=== PATIENT | female | born 1950 | race Caucasian/White ===

== ENCOUNTER 2017-02-06 18:28 | Emergency (ER) | payer MEDICARE, MEDICAID ==
--- NOTE | 2017-02-06 19:09 | EDM.PDOC ---
ED HPI GENERAL MEDICAL PROBLEM - General Chief Complaint: Chest Pain Stated Complaint: TROUBLE BREATHING/CHEST PAIN Time Seen by Provider: 02/06/17 19:02 Source of Information: Reports: Patient History Limitations: Reports: No limitations - History of Present Illness INITIAL COMMENTS - FREE TEXT/NARRATIVE: HISTORY AND PHYSICAL: History of present illness: Patient is a 67-year-old handicapped female that presents with her roving teller for concerns about possible bronchitis or pneumonia. For the last couple of days she has been having chest pain, a very deep, non productive cough that usually ends in "spitting up" and shortness of breath. She has history of chronic bronchitis but no other lung or breathing complications. She has duo- nebs at home and used one about 5 o'clock. Patient does not really give any history. [employer] states her mental status is at baseline. Review of systems: As per history of present illness and below otherwise all systems reviewed and negative. Past medical history: As per history of present illness and as reviewed below otherwise noncontributory. Surgical history: As per history of present illness and as reviewed below otherwise noncontributory. Social history: No reported history of drug or alcohol abuse. Family history: As per history of present illness and as reviewed below otherwise noncontributory. Physical exam: HEENT: Atraumatic, normocephalic, pupils reactive, mild conjunctival discharge. Moist mucous membranes. Normal oropharynx. Supple neck without lymphadenopathy. Lungs: Poor inspiratory and expiratory effort but lung sounds appear clear. Heart: Regular rate and rhythm. Abdomen: Soft, nondistended, no apparent tenderness. Pelvis: Stable nontender. Genitourinary: Deferred. Rectal: Deferred. Extremities: Atraumatic, no edema. Neurovascular unremarkable. Neuro: Awake, alert, no focal deficits. Baseline per caretakers. Diagnostics: cbc, cmp, chest xray Therapeutics: duoneb Impression: Bronchitis Plan: Patient's sats were 92 on room air. She was put on oxygen during the duration of her stay and had a duo neb in the beginning. X-rays were negative as well as normal blood work. She didn't seem to be working excessively hard to breathe but did have a dry cough intermittently while she was here. At her current oxygen and she stated about 91-92% but bounced up to 96% after a good cough. She was afebrile here. She has an appointment with her doctor tomorrow morning. I do not think she needs steroids or antibiotics for these symptoms and I do not think she needs to be admitted, especially because she has this appointment tomorrow. Her roving teller was comfortable with the plan but wanted us to do one more breathing treatment before she went home. Definitive disposition and diagnosis as appropriate pending reevaluation and review of above. - Related Data Allergies Allergy/AdvReac Type Severity Reaction Status Date / Time dexamethasone [From TobraDex] Allergy Rash Verified 02/06/17 18:48 Sulfa (Sulfonamide Allergy Rash Verified 02/06/17 18:48 Antibiotics) tobramycin [From TobraDex] Allergy Rash Verified 02/06/17 18:48 Home Meds: Home Meds B- Calcium 600 mg PO BID 11/01/16 [History] Calcium Carbonate/Vitamin D3 [Calcium 600 + Vit D Softgel] 1 tab PO BID [History] Levothyroxine 75 mcg PO DAILY 11/01/16 [History] Levothyroxine [Synthroid] 50 mcg PO DAILY 11/01/16 [History] Loratadine 10 mg PO DAILY 11/01/16 [History] Losartan/Hydrochlorothiazide [Losartan-HCTZ 100-25 MG] 1 tab PO DAILY 11/01/16 [ History] Montelukast [Singulair] 10 mg PO DAILY 11/01/16 [History] Multivitamin [Daily Multiple Vitamin] 1 tab PO DAILY 11/01/16 [History] Verapamil HCl [Verapamil Sr] 240 mg PO DAILY 11/01/16 [History] atorvaSTATin [Lipitor] 10 mg PO ONETIME 11/01/16 [History] levETIRAcetam [Keppra] 500 mg PO BID 11/01/16 [History] Past Medical History HEENT History: Reports: Cataract, Hard of hearing, Other (see below) 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 Cardiovascular History: Reports: Hypertension Musculoskeletal History: Reports: Other (see below) Other Musculoskeletal History: Right Tennis Elbow Endocrine/Metabolic History: Reports: Hypothyroidism - Past Surgical History HEENT Surgical History: Reports: Cataract surgery, Other (see below) Other HEENT Surgeries/Procedures: nasal septal reconstruction; eye abscess surgery GI Surgical History: Reports: Colonoscopy Dermatological Surgical History: Reports: Other (see below) Social & Family History - Family History Family Medical History: Unobtainable - Tobacco Use Smoking Status *Q: Never Smoker - Caffeine Use Caffeine Use: Reports: Tea Other Caffeine Use: not able answer - Recreational Drug Use Recreational Drug Use: No ED ROS GENERAL - Review of Systems Review Of Systems: ROS reveals no pertinent complaints other than HPI. ED EXAM, GENERAL - Physical Exam Exam: See Below (See history of present illness) Course - Vital Signs Last Recorded V/S: Last Vital Signs Temp 37.5 C 02/06/17 21:28 Pulse 90 02/06/17 21:28 Resp 19 02/06/17 21:28 BP 143/51 H 02/06/17 21:28 Pulse Ox 94 L 02/06/17 21:28 - Orders/Labs/Meds Orders: Active Orders 24 hr Category Date Time Status EKG Documentation Completion [RC] STAT Care 02/06/17 18:53 Active RT Aerosol Therapy [RC] ASDIRECTED Care 02/06/17 19:09 Ordered RT Aerosol Therapy [RC] ASDIRECTED Care 02/06/17 21:47 Ordered Chest 2V [CR] Stat Exams 02/06/17 19:09 Ordered Labs: Laboratory Tests 02/06/17 02/06/17 Range/Units 19:25 19:25 WBC 7.46 (4.0-11.0) K/uL RBC 4.30 (4.30-5.90) M/uL Hgb 13.6 (12.0-16.0) g/dL Hct 40.9 (36.0-46.0) % MCV 95.1 (80.0-98.0) fL MCH 31.6 (27.0-32.0) pg MCHC 33.3 (31.0-37.0) g/dL RDW Std Deviation 45.6 (28.0-62.0) fl RDW Coeff of Leonel 13 (11.0-15.0) % Plt Count 186 (150-400) K/uL MPV 9.70 (7.40-12.00) fL Neut % (Auto) 68.7 (48.0-80.0) % Lymph % (Auto) 20.2 (16.0-40.0) % Winn % (Auto) 10.3 (0.0-15.0) % Eos % (Auto) 0.3 (0.0-7.0) % Baso % (Auto) 0.5 (0.0-1.5) % Neut # (Auto) 5.1 (1.4-5.7) K/uL Lymph # (Auto) 1.5 (0.6-2.4) K/uL Winn # (Auto) 0.8 (0.0-0.8) K/uL Eos # (Auto) 0.0 (0.0-0.7) K/uL Baso # (Auto) 0.0 (0.0-0.1) K/uL Nucleated RBC % 0.0 /100WBC Nucleated RBCs # 0 K/uL Sodium 143 (136-146) mmol/L Potassium 4.0 (3.5-5.1) mmol/L Chloride 108 (98-110) mmol/L Carbon Dioxide 25 (21-31) mmol/L BUN 17 (6.0-23.0) mg/dL Creatinine 0.8 (0.6-1.5) mg/dL Est Cr Clr Drug Dosing 48.34 mL/min Estimated GFR (MDRD) > 60.0 ml/min Glucose 92 (60-110) mg/dL Calcium 9.6 (8.8-10.8) mg/dL Total Bilirubin 0.6 (0.1-1.5) mg/dL AST 42 H (5-40) IU/L ALT 32 (8-54) IU/L Alkaline Phosphatase 94 (40-150) Total Protein 7.7 (6.0-8.0) g/dL Albumin 4.0 (3.4-4.8) g/dL Globulin 3.7 H (2.0-3.5) g/dL Albumin/Globulin Ratio 1.1 L (1.3-2.8) Meds: Medications Discontinued Medications Generic Name Dose Route Start Last Admin Trade Name Freq PRN Reason Stop Dose Admin Albuterol/Ipratropium 3 ml 02/06/17 19:09 02/06/17 19:36 Duoneb 3.0-0.5 Mg/3 Ml NEB 02/06/17 19:10 3 ml ONETIME ONE Administration Albuterol/Ipratropium 3 ml 02/06/17 21:46 Duoneb 3.0-0.5 Mg/3 Ml NEB 02/06/17 21:47 ONETIME ONE Departure - Departure Time of Disposition: 21:54 Disposition: Home, Self-Care 01 Condition: good Clinical Impression: Bronchitis Forms: ED Department Discharge Additional Instructions: The following information is given to patients seen in the emergency department who are being discharged to home. This information is to outline your options for follow-up care. We provide all patients seen in our emergency department with a follow-up referral. The need for follow-up, as well as the timing and circumstances, are variable depending upon the specifics of your emergency department visit. If you don't have a primary care physician on staff, we will provide you with a referral. We always advise you to contact your personal physician following an emergency department visit to inform them of the circumstance of the visit and for follow-up with them and/or the need for any referrals to a consulting specialist. The emergency department will also refer you to a specialist when appropriate. This referral assures that you have the opportunity for follow-up care with a specialist. All of these measure are taken in an effort to provide you with optimal care, which includes your follow-up. Under all circumstances we always encourage you to contact your private physician who remains a resource for coordinating your care. When calling for follow-up care, please make the office aware that this follow-up is from your recent emergency room visit. If for any reason you are refused follow-up, please contact the [facility] Emergency Department at and asked to speak to the emergency department charge nurse. Followup with your primary care doctor as scheduled tomorrow. Return to the ED before that if any of your symptoms worsen significantly. - My Orders Last 24 Hours: My Active Orders 02/06/17 18:53 EKG Documentation Completion [RC] STAT 02/06/17 19:09 RT Aerosol Therapy [RC] ASDIRECTED Chest 2V [CR] Stat 02/06/17 21:47 RT Aerosol Therapy [RC] ASDIRECTED - Assessment/Plan Last 24 Hours: My Active Orders 02/06/17 18:53 EKG Documentation Completion [RC] STAT 02/06/17 19:09 RT Aerosol Therapy [RC] ASDIRECTED Chest 2V [CR] Stat 03/22/17 21:47 RT Aerosol Therapy [RC] ASDIRECTED
[2017-02-06] MEDS: Albuterol/Ipratropium 3.0-0.5 MG/3 ML Neb Soln NEB ONE ×2 (19:36→21:52)
[2017-02-06 20:03] LABS: CHLORIDE,CL 108 mmol/L (98-110); SODIUM,NA 143 mmol/L (136-146)
[2017-02-06 22:25] VITALS: BP 155/59
--- NOTE | 2017-02-07 13:38 | CR ---
EXAM DATE: 02/06/17 PATIENT'S AGE: 67 Patient: HILARIO WHITING Facility: [place], [place] Site . Site : 1950 Study: XRay Chest [id number]/22/2017 8:32:08 PM Ordering Physician: Doctor Hunter Final Report: INDICATION: COUGH, DYSPNEA TECHNIQUE: Chest 2 views COMPARISON: November 01, 2016. FINDINGS: Cardiovascular and mediastinum: Heart size and vasculature are normal in caliber and appearance. Mediastinum is within normal limits. Lungs and pleural spaces: No focal consolidation. No sign of pleural effusion. No pneumothorax. Bones and soft tissues: Degenerative changes. IMPRESSION: No acute cardiopulmonary disease. Dictated by Jeffery Wilcox MD @ 02/06/2017 9:13:36 PM Dictated by: Jeffery Wilcox MD @ 02/06/2017 21:13:40 (Electronic Signature) Report Signed by Proxy and Original Signed Document filed in the Medical Record. [facility]
== END 2017-02-06 22:15 | disposition home or self-care (01) ==
LOC: MW.ED 18:28
DX: J40 Bronchitis, not specified as acute or chronic (principal); I10 Essential (primary) hypertension; E03.9 Hypothyroidism, unspecified; Z88.1 Allergy status to other antibiotic agents; Z88.2 Allergy status to sulfonamides; Z88.8 Allergy status to other drugs, medicaments and biological substances; Z79.899 Other long term (current) drug therapy; Z98.49 Cataract extraction status, unspecified eye; Z98.890 Other specified postprocedural states
CPT/HCPCS: 36415; 71020; 71020-26; 80053; 85025; 93005; 94640; 94664; 99284; 99285-25

== ENCOUNTER 2017-11-22 11:26 | Emergency (ER) | payer MEDICARE, MEDICAID ==
--- NOTE | 2017-11-22 12:55 | CR ---
EXAMINATION: Two-view chest (PA and Lateral views). HISTORY: Cough. FINDINGS: The trachea is midline. The cardiomediastinal silhouette is within normal limits. There is likely mil d basilar atelectasis and/or infiltrate. No pleural effusion. Advanced osteophytic changes noted within the right glenohumeral joint. IMPRESSION: Mild left basilar atelectasis/infiltrate.
--- NOTE | 2017-11-22 13:05 | EDM.PDOC ---
ED HPI GENERAL MEDICAL PROBLEM - General Chief Complaint: Respiratory Problem Stated Complaint: COUTH Time Seen by Provider: 11/22/17 11:30 Source of Information: Reports: Patient History Limitations: Reports: No Limitations - History of Present Illness INITIAL COMMENTS - FREE TEXT/NARRATIVE: History of present illness: [67-year-old female brought in by care provider secondary to concerns of a worsening cough. Patient was immunized for influenza but she has been exposed to people at her work that were also immunized with influenza and tested positive. Turned that patient is in immunization failure.] Review of systems: As per history of present illness and below otherwise all systems reviewed and negative. Past medical history: As per history of present illness and as reviewed below otherwise noncontributory. Surgical history: As per history of present illness and as reviewed below otherwise noncontributory. Social history: No reported history of drug or alcohol abuse. Family history: As per history of present illness and as reviewed below otherwise noncontributory. Physical exam: HEENT: Atraumatic, normocephalic, pupils reactive, negative for conjunctival pallor or scleral icterus, mucous membranes moist, throat clear, neck supple, nontender, trachea midline. Lungs: Clear to auscultation, breath sounds equal bilaterally, chest nontender. Heart: S1S2, regular, negative for clicks, rubs, or JVD. Abdomen: Soft, nondistended, nontender. Negative for masses or hepatosplenomegaly. Negative for costovertebral tenderness. Pelvis: Stable nontender. Genitourinary: Deferred. Rectal: Deferred. Extremities: Atraumatic, negative for cords or calf pain. Neurovascular unremarkable. Neuro: Awake, alert, oriented. Cranial nerves II through XII unremarkable. Cerebellum unremarkable. Motor and sensory unremarkable throughout. Exam nonfocal. Diagnostics: [Influenza AB, chest x-ray] Therapeutics: [] Impression: [Influenza a] Plan: [Palliative care support continue with med [facility]] Definitive disposition and diagnosis as appropriate pending reevaluation and review of above. body aches Pain Score (Numeric/FACES): 4 - Related Data Allergies Allergy/AdvReac Type Severity Reaction Status Date / Time dexamethasone [From TobraDex] Allergy Rash Verified 11/22/17 11:44 Sulfa (Sulfonamide Allergy Rash Verified 11/22/17 11:44 Antibiotics) tobramycin [From TobraDex] Allergy Rash Verified 11/22/17 11:44 Home Meds: Home Meds B- Calcium 600 mg PO BID 11/01/16 [History] Calcium Carbonate/Vitamin D3 [Calcium 600 + Vit D Softgel] 1 tab PO BID [History] Levothyroxine 75 mcg PO DAILY 11/01/16 [History] Levothyroxine [Synthroid] 50 mcg PO DAILY 11/01/16 [History] Loratadine 10 mg PO DAILY 11/01/16 [History] Losartan/Hydrochlorothiazide [Losartan-HCTZ 100-25 MG] 1 tab PO DAILY 11/01/16 [ History] Montelukast [Singulair] 10 mg PO BEDTIME 11/01/16 [History] Multivitamin [Daily Multiple Vitamin] 1 tab PO DAILY 11/01/16 [History] Verapamil HCl [Verapamil Sr] 240 mg PO DAILY 11/01/16 [History] atorvaSTATin [Lipitor] 10 mg PO DAILY 11/01/16 [History] levETIRAcetam [Keppra] 500 mg PO BID 11/01/16 [History] Past Medical History HEENT History: Reports: Cataract, Hard of Hearing, Other (See Below) 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 Cardiovascular History: Reports: Hypertension Musculoskeletal History: Reports: Other (See Below) Other Musculoskeletal History: Right Tennis Elbow Endocrine/Metabolic History: Reports: Hypothyroidism - Past Surgical History HEENT Surgical History: Reports: Cataract Surgery, Other (See Below) GI Surgical History: Reports: Colonoscopy Dermatological Surgical History: Reports: Other (See Below) Social & Family History - Family History Family Medical History: Unobtainable - Tobacco Use Smoking Status *Q: Never Smoker - Caffeine Use Caffeine Use: Reports: None Other Caffeine Use: not able answer - Recreational Drug Use Recreational Drug Use: No ED ROS GENERAL - Review of Systems Review Of Systems: See Below (History of present illness) ED EXAM, GENERAL - Physical Exam Exam: See Below (See history of present illness) Course - Vital Signs Last Recorded V/S: Last Vital Signs Temp 37.7 C 11/22/17 11:46 Pulse 72 11/22/17 11:46 Resp 18 11/22/17 11:46 BP 135/37 L 11/22/17 11:46 Pulse Ox 94 L 11/22/17 11:46 Departure - Departure Time of Disposition: 13:05 Disposition: Home, Self-Care 01 Condition: Good Clinical Impression: Bronchitis, Influenza - Discharge Information Instructions: Acute Bronchitis, [id number] Referrals: PCP,None [Primary Care Provider] - Additional Instructions: The following information is given to patients seen in the emergency department who are being discharged to home. This information is to outline your options for follow-up care. We provide all patients seen in our emergency department with a follow-up referral. The need for follow-up, as well as the timing and circumstances, are variable depending upon the specifics of your emergency department visit. If you don't have a primary care physician on staff, we will provide you with a referral. We always advise you to contact your personal physician following an emergency department visit to inform them of the circumstance of the visit and for follow-up with them and/or the need for any referrals to a consulting specialist. The emergency department will also refer you to a specialist when appropriate. This referral assures that you have the opportunity for follow-up care with a specialist. All of these measure are taken in an effort to provide you with optimal care, which includes your follow-up. Under all circumstances we always encourage you to contact your private physician who remains a resource for coordinating your care. When calling for follow-up care, please make the office aware that this follow-up is from your recent emergency room visit. If for any reason you are refused follow-up, please contact the [facility] Emergency Department at and asked to speak to the emergency department charge nurse. Continue with med nebulizer as discussed Encourage deep breathing and coughing Provide hydration and palliative support and care WITH primary care in 2-3 days Return to ED as needed as discussed
[2017-11-22 13:16] VITALS: BP 127/31
== END 2017-11-22 13:13 | disposition home or self-care (01) ==
LOC: MW.ED 11:26
DX: J10.1 Influenza due to other identified influenza virus with other respiratory manifestations (principal); J40 Bronchitis, not specified as acute or chronic; I10 Essential (primary) hypertension; E03.9 Hypothyroidism, unspecified; Z79.899 Other long term (current) drug therapy; Z88.1 Allergy status to other antibiotic agents; Z88.2 Allergy status to sulfonamides; Z88.8 Allergy status to other drugs, medicaments and biological substances
CPT/HCPCS: 71046; 71046-26; 87804; 99283; 99285

== ENCOUNTER 2017-11-26 13:51 | Inpatient (IN) | payer MEDICARE, MEDICAID ==
[2017-11-26] MEDS ORDERED: Ondansetron 4 MG/2 ML SDV IVPUSH PRN (14:01)
[2017-11-26] MEDS: Oseltamivir 75 MG Cap PO SCH ×2 (14:39→21:11)
[2017-11-26] MEDS: Sodium Chloride 0.9% 1,000 ML IV SCH ×2 (14:40→20:22)
[2017-11-26] MEDS: Levofloxacin/Dextrose 5%-Water 750 MG in Premix Bag 1 BAG IV SCH (14:40)
--- NOTE | 2017-11-26 14:43 | CR ---
EXAMINATION: Portable chest radiograph. HISTORY: Hypoxia. FINDINGS: The trachea is midline. The cardiomediastinal silhouette is within normal limits. No pulmonary infilt rates, effusions or pneumothorax. Mild chronic interstitial prominence. 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 IMPRESSION: No acute cardiopulmonary process.
[2017-11-26] MEDS ORDERED: Lactated Ringers 1,000 ML IV SCH (14:45)
[2017-11-26] MEDS ORDERED: Potassium Chloride 20 MEQ Tab.ER PO ONE (15:33)
--- NOTE | 2017-11-26 15:39 | PCM.HP ---
H&P History of Present Illness - General Admit Problem/Dx: Admission Diagnosis/Problem Admission Diagnosis/Problem Pneumonia - History of Present Illness Initial Comments - Free Text/Narative: 67 yo female with pmh of hypothyroidsim, hypertension, mental retardation who is a resident at [facility]. She was seen in the ER last week for cough and generalized weakness. She was influenza A positive. She was not started on tamiflu. She did improve slightly but today became more lethargic with worsening cough. She followed up at [facility] and found to be satting mid 70s on RA and requring 4 Liters of O2 via face mask to keep sats above 90. BP was 110/20. Direct admission was arranged. CXR does not show any focal consolidation. - Related Data Allergies/Adverse Reactions: Allergies Allergy/AdvReac Type Severity Reaction Status Date / Time dexamethasone [From TobraDex] Allergy Rash Verified 11/22/17 11:44 Sulfa (Sulfonamide Allergy Rash Verified 11/22/17 11:44 Antibiotics) tobramycin [From TobraDex] Allergy Rash Verified 11/22/17 11:44 Home Medications: Home Meds B- Calcium 600 mg PO BID 11/01/16 [History] Calcium Carbonate/Vitamin D3 [Calcium 600 + Vit D Softgel] 1 tab PO BID [History] Levothyroxine 150 mcg PO ACBREAKFAST 11/01/16 [History] Loratadine 10 mg PO DAILY 11/01/16 [History] Losartan/Hydrochlorothiazide [Losartan-HCTZ 100-25 MG] 1 tab PO DAILY 11/01/16 [ History] Montelukast [Singulair] 10 mg PO BEDTIME 11/01/16 [History] Multivitamin [Daily Multiple Vitamin] 1 tab PO DAILY 11/01/16 [History] atorvaSTATin [Lipitor] 10 mg PO DAILY 11/01/16 [History] levETIRAcetam [Keppra] 500 mg PO BID 11/01/16 [History] Verapamil HCl [Verapamil ER PM] 300 mg PO BEDTIME 11/26/17 [History] Past Medical History HEENT History: Reports: Cataract, Hard of Hearing, Other (See Below) 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 Cardiovascular History: Reports: Hypertension Musculoskeletal History: Reports: Other (See Below) Other Musculoskeletal History: Right Tennis Elbow Neurological History: Reports: None Endocrine/Metabolic History: Reports: Hypothyroidism Dermatologic History: Reports: None - Past Surgical History HEENT Surgical History: Reports: Cataract Surgery, Other (See Below) GI Surgical History: Reports: Colonoscopy Neurological Surgical History: Reports: None Oncologic Surgical History: Reports: Biopsy of Breast Dermatological Surgical History: Reports: Other (See Below) Social & Family History - Family History Family Medical History: Unobtainable : Reports: None OBGYN: Reports: None - Tobacco Use Smoking Status *Q: Never Smoker Second Hand Smoke Exposure: No - Caffeine Use Caffeine Use: Reports: None Other Caffeine Use: not able answer - Recreational Drug Use Recreational Drug Use: No H&P Review of Systems - Review of Systems: Review Of Systems: Unable To Obtain Exam - Exam Exam: See Below - Vital Signs Vital Signs: Last Vital Signs Temp 36.8 C 11/26/17 14:01 Pulse 50 L 11/26/17 14:01 Resp 18 11/26/17 14:01 BP 84/37 L 11/26/17 14:01 Pulse Ox 97 11/26/17 14:01 Weight: 66 kg - Exam General: No: Mild Distress HEENT: Mucosa Moist & [place] Neck: Supple. No: JVD Lungs: Decreased Breath Sounds, Rhonchi Cardiovascular: Regular Rate, Regular Rhythm GI/Abdominal Exam: Soft, Non-Tender Extremities: No Pedal Edema Skin: Warm, Dry, Intact Neurological: No: Focal Deficit - Patient Data Lab Results Last 24 hrs: Laboratory Results - last 24 hr 11/26/17 11/26/17 11/26/17 Range/Units 14:35 14:35 14:35 WBC 7.69 (4.0-11.0) K/uL RBC 4.01 L (4.30-5.90) M/uL Hgb 12.4 (12.0-16.0) g/dL Hct 36.6 (36.0-46.0) % MCV 91.3 (80.0-98.0) fL MCH 30.9 (27.0-32.0) pg MCHC 33.9 (31.0-37.0) g/dL RDW Std Deviation 41.6 (28.0-62.0) fl RDW Coeff of Leonel 12 (11.0-15.0) % Plt Count 162 (150-400) K/uL MPV 10.80 (7.40-12.00) fL Neut % (Auto) 75.0 (48.0-80.0) % Lymph % (Auto) 12.9 L (16.0-40.0) % [place] % (Auto) 12.0 (0.0-15.0) % Eos % (Auto) 0.0 (0.0-7.0) % Baso % (Auto) 0.1 (0.0-1.5) % Neut # (Auto) 5.8 H (1.4-5.7) K/uL Lymph # (Auto) 1.0 (0.6-2.4) K/uL [place] # (Auto) 0.9 H (0.0-0.8) K/uL Eos # (Auto) 0.0 (0.0-0.7) K/uL Baso # (Auto) 0.0 (0.0-0.1) K/uL Nucleated RBC % 0.0 /100WBC Nucleated RBCs # 0 K/uL Lactate (0.20-2.00) mmol/L Sodium 139 (136-146) mmol/L Potassium 3.4 L (3.5-5.1) mmol/L Chloride 102 (98-110) mmol/L Carbon Dioxide 27 (21-31) mmol/L BUN 35 H (6.0-23.0) mg/dL Creatinine 1.2 (0.6-1.5) mg/dL Est Cr Clr Drug Dosing 32.23 mL/min Estimated GFR (MDRD) 44.7 ml/min Glucose 99 (60-110) mg/dL Calcium 9.4 (8.8-10.8) mg/dL Phosphorus 2.7 (2.4-4.7) mg/dL Magnesium 1.5 (1.5-2.3) mEq/L Total Bilirubin 0.5 (0.1-1.5) mg/dL AST 24 (5-40) IU/L ALT 18 (8-54) IU/L Alkaline Phosphatase 86 (40-150) Total Protein 6.2 (6.0-8.0) g/dL Albumin 3.2 L (3.4-4.8) g/dL Globulin 3.0 (2.0-3.5) g/dL Albumin/Globulin Ratio 1.1 L (1.3-2.8) 11/26/17 Range/Units 14:35 WBC (4.0-11.0) K/uL RBC (4.30-5.90) M/uL Hgb (12.0-16.0) g/dL Hct (36.0-46.0) % MCV (80.0-98.0) fL MCH (27.0-32.0) pg MCHC (31.0-37.0) g/dL RDW Std Deviation (28.0-62.0) fl RDW Coeff of Leonel (11.0-15.0) % Plt Count (150-400) K/uL MPV (7.40-12.00) fL Neut % (Auto) (48.0-80.0) % Lymph % (Auto) (16.0-40.0) % [place] % (Auto) (0.0-15.0) % Eos % (Auto) (0.0-7.0) % Baso % (Auto) (0.0-1.5) % Neut # (Auto) (1.4-5.7) K/uL Lymph # (Auto) (0.6-2.4) K/uL [place] # (Auto) (0.0-0.8) K/uL Eos # (Auto) (0.0-0.7) K/uL Baso # (Auto) (0.0-0.1) K/uL Nucleated RBC % /100WBC Nucleated RBCs # K/uL Lactate 1.4 (0.20-2.00) mmol/L Sodium (136-146) mmol/L Potassium (3.5-5.1) mmol/L Chloride (98-110) mmol/L Carbon Dioxide (21-31) mmol/L BUN (6.0-23.0) mg/dL Creatinine (0.6-1.5) mg/dL Est Cr Clr Drug Dosing mL/min Estimated GFR (MDRD) ml/min Glucose (60-110) mg/dL Calcium (8.8-10.8) mg/dL Phosphorus (2.4-4.7) mg/dL Magnesium (1.5-2.3) mEq/L Total Bilirubin (0.1-1.5) mg/dL AST (5-40) IU/L ALT (8-54) IU/L Alkaline Phosphatase (40-150) Total Protein (6.0-8.0) g/dL Albumin (3.4-4.8) g/dL Globulin (2.0-3.5) g/dL Albumin/Globulin Ratio (1.3-2.8) Result Diagrams: 11/26/17 14:35 11/26/17 20:15 [place] Results Last 24 hrs: Microbiology 11/26/17 14:35 Anaerobic Blood Culture - Final Blood - Venous - Lab Draw *Q Meaningful Use (ADM) - VTE *Q VTE Criteria *Q: - Stroke *Q Stroke Criteria *Q: - AMI *Q AMI Criteria *Q: Problem List Initiated/Reviewed/Updated: Yes Orders Last 24hrs: Active Orders 24 hr Category Date Time Status Patient Status [ADT] Routine ADT 11/26/17 14:01 Active Antiembolic Devices [RC] PER UNIT ROUTINE Care 11/26/17 14:03 Active Cardiac Monitoring [RC] . DIRECTED Care 11/26/17 14:05 Active VTE/DVT Education [RC] PER UNIT ROUTINE Care 11/26/17 14:01 Active Vital Signs [RC] Q4H Care 11/26/17 14:01 Active Regular Diet [DIET] Diet 11/26/17 Breakfast Active CULTURE BLOOD [BC] Stat Lab 11/26/17 14:05 Ordered CULTURE BLOOD [BC] Stat Lab 11/26/17 14:05 Ordered CULTURE SPUTUM + SMEAR [RM] Routine Lab 11/26/17 14:20 Uncollected CULTURE URINE [RM] Routine Lab 11/26/17 14:20 Uncollected UA W/MICROSCOPIC [URIN] Stat Lab 11/26/17 14:03 Uncollected Acetaminophen [Tylenol] Med 11/26/17 14:01 Active 650 mg PO Q4H PRN Albuterol/Ipratropium [DuoNeb 3.0-0.5 MG/3 ML] Med 11/26/17 14:01 Active 3 ml NEB Q4HRRT PRN Enoxaparin [Lovenox] Med 11/27/17 09:00 Active 40 mg SUBCUT DAILY Lactated Ringers [Ringers, Lactated] 1,000 ml Med 11/26/17 14:45 Active IV ASDIRECTED Levofloxacin/Dextrose 5%-Water [Levaquin in D5W 750 MG/ Med 11/26/17 15:00 Active 150 ML] 750 mg Premix Bag 1 bag IV Q24H Levothyroxine Med 11/27/17 07:30 Ordered 150 mcg PO ACBREAKFAST Montelukast [Singulair] Med 11/26/17 21:00 Ordered 10 mg PO BEDTIME Ondansetron [Zofran] Med 11/26/17 14:01 Active 4 mg IVPUSH Q4H PRN Oseltamivir [Tamiflu] Med 11/26/17 14:00 Active 75 mg PO BID Potassium Chloride [Klor-Con M20] Med 11/26/17 15:33 Once 40 meq PO ONETIME ONE Sodium Chloride 0.9% [Normal Saline] 1,000 ml Med 11/26/17 14:15 Active IV ASDIRECTED Sodium Chloride 0.9% [Normal Saline] 500 ml Med 11/26/17 15:45 Ordered IV .BOLUS atorvaSTATin [Lipitor] Med 11/27/17 09:00 Ordered 10 mg PO DAILY levETIRAcetam [Keppra] Med 11/26/17 21:00 Ordered 500 mg PO BID Blood Culture x2 Reflex Set [OM.PC] Stat Oth 11/26/17 14:01 Ordered Sequential Compression Device [OM.PC] Routine Oth 11/26/17 14:01 Ordered Resuscitation Status Routine Resus Stat 11/26/17 14:01 Ordered Medication Orders Acetaminophen (Tylenol) 650 mg PO Q4H PRN PRN Reason: Pain Albuterol/Ipratropium (Duoneb 3.0-0.5 Mg/3 Ml) 3 ml NEB Q4HRRT PRN PRN Reason: Shortness of Breath/Wheezing Atorvastatin Calcium (Lipitor) 10 mg PO DAILY [facility] Enoxaparin Sodium (Lovenox) 40 mg SUBCUT DAILY [facility] Sodium Chloride (Normal Saline) 1,000 mls @ 125 mls/hr IV ASDIRECTED [facility]IK Last Admin: 11/26/17 14:40 Dose: 125 mls/hr Levofloxacin/Dextrose 750 mg/ (Premix) 150 mls @ 100 mls/hr IV Q24H [facility] Last Admin: 11/26/17 14:40 Dose: 100 mls/hr Lactated Ringer's (Ringers, Lactated) 1,000 mls @ 999 mls/hr IV ASDIRECTED [facility] Stop: 11/26/17 15:46 Last Admin: 11/26/17 13:51 Dose: 999 mls/hr Sodium Chloride (Normal Saline) 500 mls @ 500 mls/hr IV .BOLUS MALIK Levetiracetam (Keppra) 500 mg PO BID [facility] Levothyroxine Sodium (Levothyroxine) 150 mcg PO ACBREAKFAST [facility] Montelukast Sodium (Singulair) 10 mg PO BEDTIME [facility] Ondansetron HCl (Zofran) 4 mg IVPUSH Q4H PRN PRN Reason: Nausea/Vomiting Oseltamivir Phosphate (Tamiflu) 75 mg PO BID [facility] Last Admin: 11/26/17 14:39 Dose: 75 mg Assessment/Plan Comment:: 67 yo female admitted for influenza, CXR clear but symptoms suggestive of pneumonia. Pneumonia: Will treat with levaquin, tamiflu. cultures are pending Borderline low blood pressures: lactic acid normal, continue IV fluid resuscitation and hold antihypertensive medications.
[2017-11-26] MEDS ORDERED: Sodium Chloride 0.9% 500 ML IV SCH (15:45)
[2017-11-26] MEDS: Montelukast 10 MG Tab PO SCH (20:19)
[2017-11-26] MEDS: Acetaminophen 325 MG Tab PO PRN (20:19)
[2017-11-26] MEDS: levETIRAcetam 500 MG Tab PO SCH (20:19)
[2017-11-26] MEDS ORDERED: Magnesium Sulfate/Water 2 GM in Premix Bag 1 BAG IV ONE (21:55)
[2017-11-27] MEDS: Sodium Chloride 0.9% 1,000 ML IV SCH ×2 (05:05→14:43)
[2017-11-27] MEDS: Levothyroxine 150 MCG Tab PO SCH (06:33)
[2017-11-27] MEDS: Oseltamivir 75 MG Cap PO SCH ×2 (09:22→21:21)
[2017-11-27] MEDS: Enoxaparin 40 MG/0.4 ML Syringe SUBCUT SCH (09:22)
[2017-11-27] MEDS: atorvaSTATin 10 MG Tab PO SCH (09:22)
[2017-11-27] MEDS: levETIRAcetam 500 MG Tab PO SCH ×2 (09:27→21:21)
--- NOTE | 2017-11-27 09:43 | PCM.PN ---
- General Info Date of Service: 11/27/17 Admission Dx/Problem (Free Text): Admission Diagnosis/Problem Admission Diagnosis/Problem Pneumonia Subjective Update: no overnight events Functional Status: Reports: Tolerating Diet - Review of Systems Systems Review Comment:: unable to obtain due to history of mental retardation - Patient Data Vitals - Most Recent: Last Vital Signs Temp 36.6 C 11/27/17 04:00 Pulse 55 L 11/27/17 04:00 Resp 22 H 11/27/17 04:00 BP 100/50 L 11/27/17 04:00 Pulse Ox 94 L 11/27/17 04:00 Weight - Most Recent: 66 kg I&O - Last 24 Hours: Intake & Output 11/26/17 11/27/17 11/27/17 22:59 06:59 14:59 Intake Total 1870 1450 Output Total 800 Balance 1870 650 Lab Results Last 24 Hours: Laboratory Results - last 24 hr 11/26/17 11/26/17 11/26/17 Range/Units 14:35 14:35 14:35 WBC 7.69 (4.0-11.0) K/uL RBC 4.01 L (4.30-5.90) M/uL Hgb 12.4 (12.0-16.0) g/dL Hct 36.6 (36.0-46.0) % MCV 91.3 (80.0-98.0) fL MCH 30.9 (27.0-32.0) pg MCHC 33.9 (31.0-37.0) g/dL RDW Std Deviation 41.6 (28.0-62.0) fl RDW Coeff of Leonel 12 (11.0-15.0) % Plt Count 162 (150-400) K/uL MPV 10.80 (7.40-12.00) fL Neut % (Auto) 75.0 (48.0-80.0) % Lymph % (Auto) 12.9 L (16.0-40.0) % [place] % (Auto) 12.0 (0.0-15.0) % Eos % (Auto) 0.0 (0.0-7.0) % Baso % (Auto) 0.1 (0.0-1.5) % Neut # (Auto) 5.8 H (1.4-5.7) K/uL Lymph # (Auto) 1.0 (0.6-2.4) K/uL [place] # (Auto) 0.9 H (0.0-0.8) K/uL Eos # (Auto) 0.0 (0.0-0.7) K/uL Baso # (Auto) 0.0 (0.0-0.1) K/uL Nucleated RBC % 0.0 /100WBC Nucleated RBCs # 0 K/uL Lactate (0.20-2.00) mmol/L Sodium 139 (136-146) mmol/L Potassium 3.4 L (3.5-5.1) mmol/L Chloride 102 (98-110) mmol/L Carbon Dioxide 27 (21-31) mmol/L BUN 35 H (6.0-23.0) mg/dL Creatinine 1.2 (0.6-1.5) mg/dL Est Cr Clr Drug Dosing 32.23 mL/min Estimated GFR (MDRD) 44.7 ml/min Glucose 99 (60-110) mg/dL Calcium 9.4 (8.8-10.8) mg/dL Phosphorus 2.7 (2.4-4.7) mg/dL Magnesium 1.5 (1.5-2.3) mEq/L Total Bilirubin 0.5 (0.1-1.5) mg/dL AST 24 (5-40) IU/L ALT 18 (8-54) IU/L Alkaline Phosphatase 86 (40-150) Total Protein 6.2 (6.0-8.0) g/dL Albumin 3.2 L (3.4-4.8) g/dL Globulin 3.0 (2.0-3.5) g/dL Albumin/Globulin Ratio 1.1 L (1.3-2.8) Urine Color Urine Appearance Urine pH (5.0-8.0) Ur Specific Ace (1.001-1.035) Urine Protein (NEGATIVE) mg/dL Urine Glucose (UA) (NEGATIVE) mg/dL Urine Ketones (NEGATIVE) mg/dL Urine Occult Blood (NEGATIVE) Urine Nitrite (NEGATIVE) Urine Bilirubin (NEGATIVE) Urine Urobilinogen (<2.0) EU/dL Ur Leukocyte Esterase (NEGATIVE) Urine RBC (0-2/HPF) Urine WBC (0-5/HPF) Ur Epithelial Cells (NONE-FEW) Urine Bacteria (NEGATIVE) 11/26/17 11/26/17 11/26/17 Range/Units 14:35 17:44 20:15 WBC (4.0-11.0) K/uL RBC (4.30-5.90) M/uL Hgb (12.0-16.0) g/dL Hct (36.0-46.0) % MCV (80.0-98.0) fL MCH (27.0-32.0) pg MCHC (31.0-37.0) g/dL RDW Std Deviation (28.0-62.0) fl RDW Coeff of Leonel (11.0-15.0) % Plt Count (150-400) K/uL MPV (7.40-12.00) fL Neut % (Auto) (48.0-80.0) % Lymph % (Auto) (16.0-40.0) % [place] % (Auto) (0.0-15.0) % Eos % (Auto) (0.0-7.0) % Baso % (Auto) (0.0-1.5) % Neut # (Auto) (1.4-5.7) K/uL Lymph # (Auto) (0.6-2.4) K/uL [place] # (Auto) (0.0-0.8) K/uL Eos # (Auto) (0.0-0.7) K/uL Baso # (Auto) (0.0-0.1) K/uL Nucleated RBC % /100WBC Nucleated RBCs # K/uL Lactate 1.4 (0.20-2.00) mmol/L Sodium 142 (136-146) mmol/L Potassium 3.8 (3.5-5.1) mmol/L Chloride 105 (98-110) mmol/L Carbon Dioxide 28 (21-31) mmol/L BUN 33 H (6.0-23.0) mg/dL Creatinine 1.1 (0.6-1.5) mg/dL Est Cr Clr Drug Dosing 35.16 mL/min Estimated GFR (MDRD) 49.4 ml/min Glucose 100 (60-110) mg/dL Calcium 8.6 L (8.8-10.8) mg/dL Phosphorus (2.4-4.7) mg/dL Magnesium 1.4 L (1.5-2.3) mEq/L Total Bilirubin (0.1-1.5) mg/dL AST (5-40) IU/L ALT (8-54) IU/L Alkaline Phosphatase (40-150) Total Protein (6.0-8.0) g/dL Albumin (3.4-4.8) g/dL Globulin (2.0-3.5) g/dL Albumin/Globulin Ratio (1.3-2.8) Urine Color YELLOW Urine Appearance CLEAR Urine pH 6.0 (5.0-8.0) Ur Specific [place] 1.020 (1.001-1.035) Urine Protein NEGATIVE (NEGATIVE) mg/dL Urine Glucose (UA) NEGATIVE (NEGATIVE) mg/dL Urine Ketones NEGATIVE (NEGATIVE) mg/dL Urine Occult Blood NEGATIVE (NEGATIVE) Urine Nitrite NEGATIVE (NEGATIVE) Urine Bilirubin NEGATIVE (NEGATIVE) Urine Urobilinogen 0.2 (<2.0) EU/dL Ur Leukocyte Esterase TRACE (NEGATIVE) Urine RBC 0-1 (0-2/HPF) Urine WBC 1-3 (0-5/HPF) Ur Epithelial Cells RARE (NONE-FEW) Urine Bacteria RARE (NEGATIVE) [place] Results Last 24 Hours: Microbiology 11/26/17 14:35 Anaerobic Blood Culture - Final Blood - Venous - Lab Draw Med Orders - Current: Current Medications Acetaminophen (Tylenol) 650 mg PO Q4H PRN PRN Reason: Pain Last Admin: 11/26/17 20:19 Dose: 650 mg Albuterol/Ipratropium (Duoneb 3.0-0.5 Mg/3 Ml) 3 ml NEB Q4HRRT PRN PRN Reason: Shortness of Breath/Wheezing Atorvastatin Calcium (Lipitor) 10 mg PO DAILY [facility] Last Admin: 11/27/17 09:22 Dose: 10 mg Enoxaparin Sodium (Lovenox) 40 mg SUBCUT DAILY [facility] Last Admin: 11/27/17 09:22 Dose: 40 mg Sodium Chloride (Normal Saline) 1,000 mls @ 125 mls/hr IV ASDIRECTED [facility] Last Admin: 11/27/17 05:05 Dose: 125 mls/hr Levofloxacin/Dextrose 750 mg/ (Premix) 150 mls @ 100 mls/hr IV Q24H [facility] Last Admin: 11/26/17 14:40 Dose: 100 mls/hr Sodium Chloride (Normal Saline) 500 mls @ 500 mls/hr IV .BOLUS [facility] Last Admin: 11/26/17 15:40 Dose: 500 mls/hr Levetiracetam (Keppra) 500 mg PO BID [facility] Last Admin: 11/27/17 09:27 Dose: 500 mg Levothyroxine Sodium (Levothyroxine) 150 mcg PO ACBREAKFAST [facility] Last Admin: 11/27/17 06:33 Dose: 150 mcg Montelukast Sodium (Singulair) 10 mg PO BEDTIME [facility] Last Admin: 11/26/17 20:19 Dose: 10 mg Ondansetron HCl (Zofran) 4 mg IVPUSH Q4H PRN PRN Reason: Nausea/Vomiting Oseltamivir Phosphate (Tamiflu) 75 mg PO BID [facility] Last Admin: 11/27/17 09:22 Dose: 75 mg Discontinued Medications Lactated Ringer's (Ringers, Lactated) 1,000 mls @ 999 mls/hr IV ASDIRECTED [facility] Stop: 11/26/17 15:46 Last Admin: 11/26/17 13:51 Dose: 999 mls/hr Magnesium Sulfate 2 gm/ Premix 50 mls @ 50 mls/hr IV ONETIME ONE Stop: 11/26/17 22:54 Last Admin: 11/26/17 22:35 Dose: 50 mls/hr Potassium Chloride (Klor-Con M20) 40 meq PO ONETIME ONE Stop: 11/26/17 15:34 Last Admin: 11/26/17 16:03 Dose: 40 meq - Exam Quality Assessment: Supplemental Oxygen (3L) General: No Acute Distress HEENT: Mucous Membr. Moist/[place] Lungs: Normal Respiratory Effort, Decreased Breath Sounds, Wheezing Cardiovascular: Regular Rhythm, Bradycardia GI/Abdominal Exam: Soft, Non-Tender Extremities: Normal Inspection, No Pedal Edema, Normal Capillary Refill Neurological: Other (baseline mental retardation ) - Problem List Review Problem List Initiated/Reviewed/Updated: Yes - Plan Plan:: 67 yo female admitted for influenza, CXR clear but symptoms suggestive of pneumonia. #Influenza A -positive screen on 11/22/17 -supportive therapy -DC Tamiflu due to diagnosis over 72 hours ago #Pneumonia -continue Levaquin -f/u cultures #Hypoxia, scendary to above -no home O2 prior to admission -currently on 3L #Low BP -hold home HTN medication -IVF #Hypomagnasemia -replenish IV Mg DVT: SCD, lovenox Dispo: 2-5 days
[2017-11-27] MEDS ORDERED: Magnesium Sulfate/Water 2 GM in Premix Bag 1 BAG IV ONE (10:29)
[2017-11-27] MEDS: Albuterol/Ipratropium 3.0-0.5 MG/3 ML Neb Soln NEB PRN ×2 (13:54→21:30)
[2017-11-27] MEDS: Levofloxacin/Dextrose 5%-Water 750 MG in Premix Bag 1 BAG IV SCH (15:59)
[2017-11-27] MEDS: Montelukast 10 MG Tab PO SCH (21:21)
[2017-11-28] MEDS: Sodium Chloride 0.9% 1,000 ML IV SCH ×3 (00:21→20:01)
[2017-11-28] MEDS: Levothyroxine 150 MCG Tab PO SCH (06:42)
[2017-11-28] MEDS ORDERED: Magnesium Sulfate/Water 4 GM in Premix Bag 1 BAG IV ONE (08:15)
[2017-11-28] MEDS: levETIRAcetam 500 MG Tab PO SCH ×2 (08:32→22:23)
[2017-11-28] MEDS: Oseltamivir 75 MG Cap PO SCH ×2 (08:32→22:23)
[2017-11-28] MEDS: atorvaSTATin 10 MG Tab PO SCH (08:32)
[2017-11-28] MEDS: Enoxaparin 40 MG/0.4 ML Syringe SUBCUT SCH (09:15)
[2017-11-28 09:38] LABS: CHLORIDE,CL 110 mmol/L (98-110); SODIUM,NA 144 mmol/L (136-146)
--- NOTE | 2017-11-28 11:37 | PCM.PN ---
- General Info Date of Service: 11/28/17 Admission Dx/Problem (Free Text): Admission Diagnosis/Problem Admission Diagnosis/Problem Pneumonia Subjective Update: no overnight events,. Hypoxia still present requiring 2-3L O2 - Review of Systems Systems Review Comment:: unable to obtain due to baseline mental retardation - Patient Data Vitals - Most Recent: Last Vital Signs Temp 36.8 C 11/28/17 07:46 Pulse 71 11/28/17 07:46 Resp 20 11/28/17 07:46 BP 136/48 L 11/28/17 07:46 Pulse Ox 92 L 11/28/17 07:46 Weight - Most Recent: 66 kg I&O - Last 24 Hours: Intake & Output 11/27/17 11/28/17 11/28/17 22:59 06:59 14:59 Intake Total 690 1728 100 Output Total 950 1250 Balance -260 478 100 Lab Results Last 24 Hours: Laboratory Results - last 24 hr 11/28/17 11/28/17 Range/Units 08:57 08:57 WBC 7.63 (4.0-11.0) K/uL RBC 3.81 L (4.30-5.90) M/uL Hgb 11.8 L (12.0-16.0) g/dL Hct 35.6 L (36.0-46.0) % MCV 93.4 (80.0-98.0) fL MCH 31.0 (27.0-32.0) pg MCHC 33.1 (31.0-37.0) g/dL RDW Std Deviation 42.8 (28.0-62.0) fl RDW Coeff of Leonel 13 (11.0-15.0) % Plt Count 168 (150-400) K/uL MPV 10.40 (7.40-12.00) fL Neut % (Auto) 66.1 (48.0-80.0) % Lymph % (Auto) 23.7 (16.0-40.0) % [place] % (Auto) 9.8 (0.0-15.0) % Eos % (Auto) 0.3 (0.0-7.0) % Baso % (Auto) 0.1 (0.0-1.5) % Neut # (Auto) 5.0 (1.4-5.7) K/uL Lymph # (Auto) 1.8 (0.6-2.4) K/uL [place] # (Auto) 0.8 (0.0-0.8) K/uL Eos # (Auto) 0.0 (0.0-0.7) K/uL Baso # (Auto) 0.0 (0.0-0.1) K/uL Nucleated RBC % 0.0 /100WBC Nucleated RBCs # 0 K/uL Sodium 144 (136-146) mmol/L Potassium 3.6 (3.5-5.1) mmol/L Chloride 110 (98-110) mmol/L Carbon Dioxide 27 (21-31) mmol/L BUN 10 (6.0-23.0) mg/dL Creatinine 0.7 (0.6-1.5) mg/dL Est Cr Clr Drug Dosing 55.25 mL/min Estimated GFR (MDRD) > 60.0 ml/min Glucose 96 (60-110) mg/dL Calcium 8.1 L (8.8-10.8) mg/dL [place] Results Last 24 Hours: Microbiology 11/26/17 17:44 Urine Culture - Final Urine, Voided MIXED [place] 10,000-100,000 CFU/ML 11/26/17 14:35 Aerobic Blood Culture - Preliminary Blood - Venous - Lab Draw NO GROWTH AFTER 1 DAY Anaerobic Blood Culture - Final 11/26/17 14:23 Aerobic Blood Culture - Preliminary Blood - Venous NO GROWTH AFTER 1 DAY Anaerobic Blood Culture - Preliminary NO GROWTH AFTER 1 DAY Med Orders - Current: Current Medications Acetaminophen (Tylenol) 650 mg PO Q4H PRN PRN Reason: Pain Last Admin: 11/26/17 20:19 Dose: 650 mg Albuterol/Ipratropium (Duoneb 3.0-0.5 Mg/3 Ml) 3 ml NEB Q4HRRT PRN PRN Reason: Shortness of Breath/Wheezing Last Admin: 11/27/17 21:30 Dose: 3 ml Atorvastatin Calcium (Lipitor) 10 mg PO DAILY [facility] Last Admin: 11/28/17 08:32 Dose: 10 mg Enoxaparin Sodium (Lovenox) 40 mg SUBCUT DAILY [facility] Last Admin: 11/28/17 09:15 Dose: 40 mg Sodium Chloride (Normal Saline) 1,000 mls @ 125 mls/hr IV ASDIRECTED [facility] Last Admin: 11/28/17 08:27 Dose: 125 mls/hr Levofloxacin/Dextrose 750 mg/ (Premix) 150 mls @ 100 mls/hr IV Q24H [facility] Last Admin: 11/27/17 15:59 Dose: 100 mls/hr Sodium Chloride (Normal Saline) 500 mls @ 500 mls/hr IV .BOLUS [facility] Last Admin: 11/26/17 15:40 Dose: 500 mls/hr Levetiracetam (Keppra) 500 mg PO BID [facility] Last Admin: 11/28/17 08:32 Dose: 500 mg Levothyroxine Sodium (Levothyroxine) 150 mcg PO ACBREAKFAST [facility] Last Admin: 11/28/17 06:42 Dose: 150 mcg Montelukast Sodium (Singulair) 10 mg PO BEDTIME [facility] Last Admin: 11/27/17 21:21 Dose: 10 mg Ondansetron HCl (Zofran) 4 mg IVPUSH Q4H PRN PRN Reason: Nausea/Vomiting Oseltamivir Phosphate (Tamiflu) 75 mg PO BID [facility] Last Admin: 11/28/17 08:32 Dose: 75 mg Discontinued Medications Lactated Ringer's (Ringers, Lactated) 1,000 mls @ 999 mls/hr IV ASDIRECTED [facility] Stop: 11/26/17 15:46 Last Admin: 11/26/17 13:51 Dose: 999 mls/hr Magnesium Sulfate 2 gm/ Premix 50 mls @ 50 mls/hr IV ONETIME ONE Stop: 11/26/17 22:54 Last Admin: 11/26/17 22:35 Dose: 50 mls/hr Magnesium Sulfate 2 gm/ Premix 50 mls @ 50 mls/hr IV ONETIME ONE Stop: 11/27/17 11:28 Last Admin: 11/27/17 11:07 Dose: 50 mls/hr Magnesium Sulfate 4 gm/ Premix 100 mls @ 50 mls/hr IV ONETIME ONE Stop: 11/28/17 10:14 Last Admin: 11/28/17 08:27 Dose: 50 mls/hr Potassium Chloride (Klor-Con M20) 40 meq PO ONETIME ONE Stop: 11/26/17 15:34 Last Admin: 11/26/17 16:03 Dose: 40 meq - Exam Quality Assessment: Supplemental Oxygen General: No Acute Distress Lungs: Decreased Breath Sounds, Crackles Cardiovascular: Regular Rate, Regular Rhythm Peripheral Pulses: 2+: Radial (L), Radial (R) Neurological: No New Focal Deficit - Problem List Review Problem List Initiated/Reviewed/Updated: Yes - My Orders Last 24 Hours: My Active Orders 11/27/17 11:11 Communication Order [RC] ROUTINE - Plan Plan:: 67 yo female admitted for influenza, CXR clear but symptoms suggestive of pneumonia. #Influenza A -positive screen on 11/22/17 -continue Tamiflu #Pneumonia -continue Levaquin -f/u cultures #Hypoxia, scendary to above -no home O2 prior to admission -currently on 3L #Low BP, improved -resume home HTN medication as needed #Hypomagnasemia -repeat Mg in AM DVT: SCD, lovenox Dispo: 2-3 days
[2017-11-28] MEDS: Levofloxacin/Dextrose 5%-Water 750 MG in Premix Bag 1 BAG IV SCH (14:37)
[2017-11-28] MEDS: Albuterol/Ipratropium 3.0-0.5 MG/3 ML Neb Soln NEB PRN (14:50)
[2017-11-28] MEDS: Acetaminophen 325 MG Tab PO PRN (16:15)
[2017-11-28] MEDS: Hydrochlorothiazide/Losartan 12.5-50 mg Tab PO SCH (22:23)
[2017-11-28] MEDS: Montelukast 10 MG Tab PO SCH (22:23)
[2017-11-29] MEDS: Albuterol/Ipratropium 3.0-0.5 MG/3 ML Neb Soln NEB PRN (04:06)
[2017-11-29] MEDS: Sodium Chloride 0.9% 1,000 ML IV SCH (04:08)
[2017-11-29] MEDS: Levothyroxine 150 MCG Tab PO SCH (06:32)
[2017-11-29] MEDS: Hydrochlorothiazide/Losartan 12.5-50 mg Tab PO SCH (08:13)
[2017-11-29] MEDS: Oseltamivir 75 MG Cap PO SCH (08:14)
[2017-11-29] MEDS: levETIRAcetam 500 MG Tab PO SCH (08:14)
[2017-11-29] MEDS: atorvaSTATin 10 MG Tab PO SCH (08:14)
[2017-11-29] MEDS: Enoxaparin 40 MG/0.4 ML Syringe SUBCUT SCH (08:16)
[2017-11-29 09:27] LABS: CHLORIDE,CL 105 mmol/L (98-110); SODIUM,NA 140 mmol/L (136-146)
--- NOTE | 2017-11-29 09:49 | PCM.DCSUM1 ---
<Baluch,Praveen - Last Filed: 11/29/17 11:13> Discharge Summary - Hospital Course Free Text/Narrative:: 67 yo fm admitted on 11/26/17 for hypoxia secondary to Influenza and Pneumonia. She was treated with O2, Tamiflu and Levaquin. She was discharged on 11/29/16. She was given MgSO4 4 gm IV prior to discharge. Discharge Plan: -Levaquin 750 mg PO Daily at 3 pm for 2 days -Tamilfu 75 mg po Q12 hours for 4 doses, start tonight at bedtime -resume regular diet as tolerated -f/u with PCP in 2 weeks - Discharge Data Discharge Date: 11/29/17 Discharge Disposition: Home, Self-Care 01 Condition: Good - Patient Instructions Diet: Regular Diet as Tolerated Activity: As Tolerated Notify Provider of: Fever, Increased Pain, Swelling and Redness, Drainage, Nausea and/or Vomiting - Discharge Plan Prescriptions/Med Rec: Levofloxacin 750 mg PO DAILY 2 Days #2 tablet Oseltamivir Phosphate [IJD: Tamiflu] 75 mg PO BID #4 capsule Home Medications: Home Meds B- Calcium 600 mg PO BID 11/01/16 [History] Calcium Carbonate/Vitamin D3 [Calcium 600-Vit D3 500 Softgel] 1 tab PO BID 11/01 [History] Levothyroxine 150 mcg PO ACBREAKFAST 11/01/16 [History] Loratadine 10 mg PO DAILY 11/01/16 [History] Losartan/Hydrochlorothiazide [Losartan-HCTZ 100-25 MG] 1 tab PO DAILY 11/01/16 [ History] Montelukast [Singulair] 10 mg PO BEDTIME 11/01/16 [History] Multivitamin [Daily Multiple Vitamin] 1 tab PO DAILY 11/01/16 [History] atorvaSTATin [Lipitor] 10 mg PO DAILY 11/01/16 [History] levETIRAcetam [Keppra] 500 mg PO BID 11/01/16 [History] Verapamil HCl [Verapamil ER PM] 300 mg PO BEDTIME 11/26/17 [History] Levofloxacin 750 mg PO DAILY 2 Days #2 tablet 11/29/17 [Rx] Oseltamivir Phosphate [IJD: Tamiflu] 75 mg PO BID #4 capsule 11/29/17 [Rx] Patient Handouts: Influenza, Adult, [id number], Oseltamivir capsules, Levofloxacin tablets, Community-Acquired Pneumonia, Adult, [id number] Referrals: Josefina Rosas DO [Physician] - 12/10/17 2:30 pm - Patient Data Vitals - Most Recent: Last Vital Signs Temp 37.1 C 11/29/17 08:00 Pulse 81 11/29/17 08:00 Resp 20 11/29/17 08:00 BP 130/70 11/29/17 08:00 Pulse Ox 94 L 11/29/17 08:00 Weight - Most Recent: 66 kg I&O - Last 24 hours: Intake & Output 11/28/17 11/29/17 11/29/17 22:59 06:59 14:59 Intake Total 2473 1350 Output Total 750 300 Balance 1723 1050 Lab Results - Last 24 hrs: Laboratory Results - last 24 hr 11/28/17 11/29/17 Range/Units 08:57 08:44 WBC 8.15 (4.0-11.0) K/uL RBC 3.93 L (4.30-5.90) M/uL Hgb 12.2 (12.0-16.0) g/dL Hct 36.3 (36.0-46.0) % MCV 92.4 (80.0-98.0) fL MCH 31.0 (27.0-32.0) pg MCHC 33.6 (31.0-37.0) g/dL RDW Std Deviation 42.6 (28.0-62.0) fl RDW Coeff of Leonel 13 (11.0-15.0) % Plt Count 192 (150-400) K/uL MPV 10.40 (7.40-12.00) fL Neut % (Auto) 67.4 (48.0-80.0) % Lymph % (Auto) 22.9 (16.0-40.0) % Benson % (Auto) 9.1 (0.0-15.0) % Eos % (Auto) 0.5 (0.0-7.0) % Baso % (Auto) 0.1 (0.0-1.5) % Neut # (Auto) 5.5 (1.4-5.7) K/uL Lymph # (Auto) 1.9 (0.6-2.4) K/uL Benson # (Auto) 0.7 (0.0-0.8) K/uL Eos # (Auto) 0.0 (0.0-0.7) K/uL Baso # (Auto) 0.0 (0.0-0.1) K/uL Nucleated RBC % 0.0 /100WBC Nucleated RBCs # 0 K/uL Sodium 144 (136-146) mmol/L Potassium 3.6 (3.5-5.1) mmol/L Chloride 110 (98-110) mmol/L Carbon Dioxide 27 (21-31) mmol/L BUN 10 (6.0-23.0) mg/dL Creatinine 0.7 (0.6-1.5) mg/dL Est Cr Clr Drug Dosing 55.25 mL/min Estimated GFR (MDRD) > 60.0 ml/min Glucose 96 (60-110) mg/dL Calcium 8.1 L (8.8-10.8) mg/dL [place] Results - Last 24 hrs: Microbiology 11/26/17 14:35 Aerobic Blood Culture - Preliminary Blood - Venous - Lab Draw NO GROWTH AFTER 2 DAYS Anaerobic Blood Culture - Final 11/26/17 14:23 Aerobic Blood Culture - Preliminary Blood - Venous NO GROWTH AFTER 2 DAYS Anaerobic Blood Culture - Preliminary NO GROWTH AFTER 2 DAYS 11/26/17 17:44 Urine Culture - Final Urine, Voided MIXED SOULEYMANE 10,000-100,000 CFU/ML Med Orders - Current: Current Medications Acetaminophen (Tylenol) 650 mg PO Q4H PRN PRN Reason: Pain Last Admin: 11/28/17 16:15 Dose: 650 mg Albuterol/Ipratropium (Duoneb 3.0-0.5 Mg/3 Ml) 3 ml NEB Q4HRRT PRN PRN Reason: Shortness of Breath/Wheezing Last Admin: 11/29/17 04:06 Dose: 3 ml Atorvastatin Calcium (Lipitor) 10 mg PO DAILY [facility] Last Admin: 11/29/17 08:14 Dose: 10 mg Enoxaparin Sodium (Lovenox) 40 mg SUBCUT DAILY [facility] Last Admin: 11/29/17 08:16 Dose: 40 mg HCTZ/Losartan Potassium (Hyzaar 50-12.5 Mg) 2 tab PO DAILY [facility] Last Admin: 11/29/17 08:13 Dose: 2 tab Sodium Chloride (Normal Saline) 1,000 mls @ 125 mls/hr IV ASDIRECTED [facility] Last Admin: 11/29/17 04:08 Dose: 125 mls/hr Levofloxacin/Dextrose 750 mg/ (Premix) 150 mls @ 100 mls/hr IV Q24H [facility] Last Admin: 11/28/17 14:37 Dose: 100 mls/hr Sodium Chloride (Normal Saline) 500 mls @ 500 mls/hr IV .BOLUS [facility] Last Admin: 11/26/17 15:40 Dose: 500 mls/hr Levetiracetam (Keppra) 500 mg PO BID [facility] Last Admin: 11/29/17 08:14 Dose: 500 mg Levothyroxine Sodium (Levothyroxine) 150 mcg PO ACBREAKFAST [facility] Last Admin: 11/29/17 06:32 Dose: 150 mcg Montelukast Sodium (Singulair) 10 mg PO BEDTIME [facility] Last Admin: 11/28/17 22:23 Dose: 10 mg Ondansetron HCl (Zofran) 4 mg IVPUSH Q4H PRN PRN Reason: Nausea/Vomiting Oseltamivir Phosphate (Tamiflu) 75 mg PO BID [facility] Last Admin: 11/29/17 08:14 Dose: 75 mg Discontinued Medications Lactated Ringer's (Ringers, Lactated) 1,000 mls @ 999 mls/hr IV ASDIRECTED [facility] Stop: 11/26/17 15:46 Last Admin: 11/26/17 13:51 Dose: 999 mls/hr Magnesium Sulfate 2 gm/ Premix 50 mls @ 50 mls/hr IV ONETIME ONE Stop: 11/26/17 22:54 Last Admin: 11/26/17 22:35 Dose: 50 mls/hr Magnesium Sulfate 2 gm/ Premix 50 mls @ 50 mls/hr IV ONETIME ONE Stop: 11/27/17 11:28 Last Admin: 11/27/17 11:07 Dose: 50 mls/hr Magnesium Sulfate 4 gm/ Premix 100 mls @ 50 mls/hr IV ONETIME ONE Stop: 11/28/17 10:14 Last Admin: 11/28/17 08:27 Dose: 50 mls/hr Potassium Chloride (Klor-Con M20) 40 meq PO ONETIME ONE Stop: 11/26/17 15:34 Last Admin: 11/26/17 16:03 Dose: 40 meq *Q Meaningful Use (DIS) - VTE *Q VTE Criteria *Q: - Stroke *Q Stroke Criteria *Q: - AMI *Q AMI Criteria *Q: <Ismael Berman - Last Filed: 11/29/17 18:25> - Patient Data Vitals - Most Recent: Last Vital Signs Temp 37.2 C 11/29/17 12:00 Pulse 68 11/29/17 12:00 Resp 24 H 11/29/17 12:00 BP 140/65 11/29/17 12:00 Pulse Ox 92 L 11/29/17 12:00 I&O - Last 24 hours: Intake & Output 11/29/17 11/29/17 11/29/17 06:59 14:59 22:59 Intake Total 1350 100 Output Total 300 Balance 1050 100 Lab Results - Last 24 hrs: Laboratory Results - last 24 hr 11/29/17 11/29/17 11/29/17 Range/Units 08:44 08:44 08:44 WBC 8.15 (4.0-11.0) K/uL RBC 3.93 L (4.30-5.90) M/uL Hgb 12.2 (12.0-16.0) g/dL Hct 36.3 (36.0-46.0) % MCV 92.4 (80.0-98.0) fL MCH 31.0 (27.0-32.0) pg MCHC 33.6 (31.0-37.0) g/dL RDW Std Deviation 42.6 (28.0-62.0) fl RDW Coeff of Leonel 13 (11.0-15.0) % Plt Count 192 (150-400) K/uL MPV 10.40 (7.40-12.00) fL Neut % (Auto) 67.4 (48.0-80.0) % Lymph % (Auto) 22.9 (16.0-40.0) % Benson % (Auto) 9.1 (0.0-15.0) % Eos % (Auto) 0.5 (0.0-7.0) % Baso % (Auto) 0.1 (0.0-1.5) % Neut # (Auto) 5.5 (1.4-5.7) K/uL Lymph # (Auto) 1.9 (0.6-2.4) K/uL Benson # (Auto) 0.7 (0.0-0.8) K/uL Eos # (Auto) 0.0 (0.0-0.7) K/uL Baso # (Auto) 0.0 (0.0-0.1) K/uL Nucleated RBC % 0.0 /100WBC Nucleated RBCs # 0 K/uL Sodium 140 (136-146) mmol/L Potassium 3.4 L (3.5-5.1) mmol/L Chloride 105 (98-110) mmol/L Carbon Dioxide 27 (21-31) mmol/L BUN 7 (6.0-23.0) mg/dL Creatinine 0.6 (0.6-1.5) mg/dL Est Cr Clr Drug Dosing 64.46 mL/min Estimated GFR (MDRD) > 60.0 ml/min Glucose 97 (60-110) mg/dL Calcium 8.2 L (8.8-10.8) mg/dL Magnesium 1.1 L (1.5-2.3) mEq/L 11/29/17 Range/Units 13:06 WBC (4.0-11.0) K/uL RBC (4.30-5.90) M/uL Hgb (12.0-16.0) g/dL Hct (36.0-46.0) % MCV (80.0-98.0) fL MCH (27.0-32.0) pg MCHC (31.0-37.0) g/dL RDW Std Deviation (28.0-62.0) fl RDW Coeff of Leonel (11.0-15.0) % Plt Count (150-400) K/uL MPV (7.40-12.00) fL Neut % (Auto) (48.0-80.0) % Lymph % (Auto) (16.0-40.0) % Benson % (Auto) (0.0-15.0) % Eos % (Auto) (0.0-7.0) % Baso % (Auto) (0.0-1.5) % Neut # (Auto) (1.4-5.7) K/uL Lymph # (Auto) (0.6-2.4) K/uL Benson # (Auto) (0.0-0.8) K/uL Eos # (Auto) (0.0-0.7) K/uL Baso # (Auto) (0.0-0.1) K/uL Nucleated RBC % /100WBC Nucleated RBCs # K/uL Sodium (136-146) mmol/L Potassium (3.5-5.1) mmol/L Chloride (98-110) mmol/L Carbon Dioxide (21-31) mmol/L BUN (6.0-23.0) mg/dL Creatinine (0.6-1.5) mg/dL Est Cr Clr Drug Dosing mL/min Estimated GFR (MDRD) ml/min Glucose (60-110) mg/dL Calcium (8.8-10.8) mg/dL Magnesium 2.9 H (1.5-2.3) mEq/L [place] Results - Last 24 hrs: Microbiology 11/26/17 14:35 Aerobic Blood Culture - Preliminary Blood - Venous - Lab Draw NO GROWTH AFTER 3 DAYS Anaerobic Blood Culture - Final 11/26/17 14:23 Aerobic Blood Culture - Preliminary Blood - Venous NO GROWTH AFTER 3 DAYS Anaerobic Blood Culture - Preliminary NO GROWTH AFTER 3 DAYS Med Orders - Current: Current Medications Discontinued Medications Acetaminophen (Tylenol) 650 mg PO Q4H PRN PRN Reason: Pain Last Admin: 11/28/17 16:15 Dose: 650 mg Albuterol/Ipratropium (Duoneb 3.0-0.5 Mg/3 Ml) 3 ml NEB Q4HRRT PRN PRN Reason: Shortness of Breath/Wheezing Last Admin: 11/29/17 04:06 Dose: 3 ml Atorvastatin Calcium (Lipitor) 10 mg PO DAILY [facility] Last Admin: 11/29/17 08:14 Dose: 10 mg Enoxaparin Sodium (Lovenox) 40 mg SUBCUT DAILY [facility] Last Admin: 11/29/17 08:16 Dose: 40 mg HCTZ/Losartan Potassium (Hyzaar 50-12.5 Mg) 2 tab PO DAILY [facility] Last Admin: 11/29/17 08:13 Dose: 2 tab Sodium Chloride (Normal Saline) 1,000 mls @ 125 mls/hr IV ASDIRECTED [facility] Last Admin: 11/29/17 04:08 Dose: 125 mls/hr Levofloxacin/Dextrose 750 mg/ (Premix) 150 mls @ 100 mls/hr IV Q24H [facility] Last Admin: 11/28/17 14:37 Dose: 100 mls/hr Lactated Ringer's (Ringers, Lactated) 1,000 mls @ 999 mls/hr IV ASDIRECTED [facility] Stop: 11/26/17 15:46 Last Admin: 11/26/17 13:51 Dose: 999 mls/hr Sodium Chloride (Normal Saline) 500 mls @ 500 mls/hr IV .BOLUS [facility] Last Admin: 11/26/17 15:40 Dose: 500 mls/hr Magnesium Sulfate 2 gm/ Premix 50 mls @ 50 mls/hr IV ONETIME ONE Stop: 11/26/17 22:54 Last Admin: 11/26/17 22:35 Dose: 50 mls/hr Magnesium Sulfate 2 gm/ Premix 50 mls @ 50 mls/hr IV ONETIME ONE Stop: 11/27/17 11:28 Last Admin: 11/27/17 11:07 Dose: 50 mls/hr Magnesium Sulfate 4 gm/ Premix 100 mls @ 50 mls/hr IV ONETIME ONE Stop: 11/28/17 10:14 Last Admin: 11/28/17 08:27 Dose: 50 mls/hr Magnesium Sulfate 4 gm/ Premix 100 mls @ 50 mls/hr IV ONETIME ONE Stop: 11/29/17 12:38 Last Admin: 11/29/17 10:59 Dose: 50 mls/hr Levetiracetam (Keppra) 500 mg PO BID [facility] Last Admin: 11/29/17 08:14 Dose: 500 mg Levothyroxine Sodium (Levothyroxine) 150 mcg PO ACBREAKFAST [facility] Last Admin: 11/29/17 06:32 Dose: 150 mcg Montelukast Sodium (Singulair) 10 mg PO BEDTIME [facility] Last Admin: 11/28/17 22:23 Dose: 10 mg Ondansetron HCl (Zofran) 4 mg IVPUSH Q4H PRN PRN Reason: Nausea/Vomiting Oseltamivir Phosphate (Tamiflu) 75 mg PO BID [facility] Last Admin: 11/29/17 08:14 Dose: 75 mg Potassium Chloride (Klor-Con M20) 40 meq PO ONETIME ONE Stop: 11/26/17 15:34 Last Admin: 11/26/17 16:03 Dose: 40 meq *Q Meaningful Use (DIS) - VTE *Q VTE Criteria *Q: - Stroke *Q Stroke Criteria *Q: - AMI *Q AMI Criteria *Q: - Free Text/Narrative Note: I have examined the patient. I have discussed findings and treatment plan with the resident. I agree with the assessment and plan outline in the following resident's note.
[2017-11-29] MEDS ORDERED: Magnesium Sulfate/Water 4 GM in Premix Bag 1 BAG IV ONE (10:39)
[2017-11-29 12:48] VITALS: BP 140/65
== END 2017-11-29 14:15 | disposition home or self-care (01) | DRG 195 ==
LOC: MW.MS 13:51
PROVIDERS: ADMIT Internal Medicine; ATTEND Internal Medicine
DX: J11.00 Influenza due to unidentified influenza virus with unspecified type of pneumonia (principal); R09.02 Hypoxemia; E83.42 Hypomagnesemia; I95.9 Hypotension, unspecified; E03.9 Hypothyroidism, unspecified; I10 Essential (primary) hypertension; F79 Unspecified intellectual disabilities; H91.90 Unspecified hearing loss, unspecified ear; Z88.2 Allergy status to sulfonamides; Z88.8 Allergy status to other drugs, medicaments and biological substances; Z79.899 Other long term (current) drug therapy
CPT/HCPCS: 36415; 71045; 71045-26; 80048; 80053; 81001; 83605; 83735; 84100; 85025; 87040; 87086; 93005; 94640; A9270-GY; J1650; J1956; J3475; J7040; J7120

== ENCOUNTER 2019-01-12 10:53 | Emergency (ER) | payer MEDICARE, MEDICAID ==
--- NOTE | 2019-01-12 11:19 | EDM.PDOC ---
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 There's been no shortness of breath by me diarrhea or other concerns they are unsure of her influenza immunization. Review of systems: As per history of present illness and below otherwise all systems reviewed and negative. Past medical history: As per history of present illness and as reviewed below otherwise noncontributory. Surgical history: As per history of present illness and as reviewed below otherwise noncontributory. Social history: No reported history of drug or alcohol abuse. Family history: As per history of present illness and as reviewed below otherwise noncontributory. Physical exam: HEENT: Atraumatic, normocephalic, pupils reactive, negative for conjunctival pallor or scleral icterus, mucous membranes moist, throat clear, neck supple, nontender, trachea midline. Congestion noted with scant nasal discharge Lungs: Clear to auscultation, breath sounds equal bilaterally, chest nontender. Heart: S1S2, regular, negative for clicks, rubs, or JVD. Abdomen: Soft, nondistended, nontender. Negative for masses or hepatosplenomegaly. Negative for costovertebral tenderness. Pelvis: Stable nontender. Genitourinary: Deferred. Rectal: Deferred. Extremities: Atraumatic, negative for cords or calf pain. Neurovascular unremarkable. Neuro: Awake, alert, oriented. Cranial nerves II through XII unremarkable. Cerebellum unremarkable. Motor and sensory unremarkable throughout. Exam nonfocal. Diagnostics: CBC CMP chest x-ray influenza screen Therapeutics: None Impression: #1 tracheobronchitis Definitive disposition and diagnosis as appropriate pending reevaluation and review of above. chest discomfort from coughing Pain Score (Numeric/FACES): 8 - Related Data Allergies Allergy/AdvReac Type Severity Reaction Status Date / Time dexamethasone [From TobraDex] Allergy Rash Verified 11/22/17 11:44 Sulfa (Sulfonamide Allergy Rash Verified 11/22/17 11:44 Antibiotics) tobramycin [From TobraDex] Allergy Rash Verified 11/22/17 11:44 Home Meds: Home Meds Budesonide [Pulmicort] 0.5 mg IH 01/12/19 [History] Calc/D3/Mag/Zn/Blender/Braze Applicator/Ron/[place] [Calcium 600 MG Plus Vit D] 1 tab PO DAILY [History] Hydrochlorothiazide/Losartan [Hyzaar 50-12.5 MG] 1 tab PO DAILY 01/12/19 [ History] Levothyroxine [Synthroid] 88 mcg PO DAILY 01/12/19 [History] Loratadine 10 mg PO DAILY 01/12/19 [History] Montelukast [Singulair] 10 mg PO DAILY 01/12/19 [History] Verapamil HCl [Verapamil ER PM] 300 mg PO DAILY 01/12/19 [History] atorvaSTATin [Lipitor] 10 mg PO BEDTIME 01/12/19 [History] levETIRAcetam [Keppra] 500 mg PO BID 01/12/19 [History] Past Medical History HEENT History: Reports: Cataract, Hard of Hearing, Other (See Below) 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 Cardiovascular History: Reports: Hypertension Musculoskeletal History: Reports: Other (See Below) Other Musculoskeletal History: Right Tennis Elbow Neurological History: Reports: None Endocrine/Metabolic History: Reports: Hypothyroidism Dermatologic History: Reports: None - Past Surgical History HEENT Surgical History: Reports: Cataract Surgery, Other (See Below) GI Surgical History: Reports: Colonoscopy Neurological Surgical History: Reports: None Oncologic Surgical History: Reports: Biopsy of Breast Dermatological Surgical History: Reports: Other (See Below) Social & Family History - Family History Family Medical History: Unobtainable : Reports: None OBGYN: Reports: None - Caffeine Use Caffeine Use: Reports: None Other Caffeine Use: not able answer ED ROS GENERAL - Review of Systems Review Of Systems: ROS reveals no pertinent complaints other than HPI. ED EXAM, GENERAL - Physical Exam Exam: See Below (See dictation) Course - Vital Signs Last Recorded V/S: Last Vital Signs Temp 36.1 C 01/12/19 11:14 Pulse 66 01/12/19 12:00 Resp 20 01/12/19 12:00 BP 127/33 L 01/12/19 12:00 Pulse Ox 93 L 01/12/19 12:00 - Orders/Labs/Meds Orders: Active Orders 24 hr Category Date Time Status B-TYPE NATRIURETIC PEPTIDE,BNP [CHEM] Stat Lab 01/12/19 11:27 Received COMPREHENSIVE METABOLIC PN,CMP [CHEM] Stat Lab 01/12/19 11:27 Received Labs: Laboratory Tests 01/12/19 Range/Units 11:27 WBC 6.94 (4.0-11.0) K/uL RBC 4.33 (4.30-5.90) M/uL Hgb 13.7 (12.0-16.0) g/dL Hct 40.6 (36.0-46.0) % MCV 93.8 (80.0-98.0) fL MCH 31.6 (27.0-32.0) pg MCHC 33.7 (31.0-37.0) g/dL RDW Std Deviation 42.1 (28.0-62.0) fl RDW Coeff of Leonel 12 (11.0-15.0) % Plt Count 236 (150-400) K/uL MPV 9.90 (7.40-12.00) fL Neut % (Auto) 54.5 (48.0-80.0) % Lymph % (Auto) 30.7 (16.0-40.0) % Cooper % (Auto) 11.1 (0.0-15.0) % Eos % (Auto) 3.3 (0.0-7.0) % Baso % (Auto) 0.4 (0.0-1.5) % Neut # (Auto) 3.8 (1.4-5.7) K/uL Lymph # (Auto) 2.1 (0.6-2.4) K/uL Cooper # (Auto) 0.8 (0.0-0.8) K/uL Eos # (Auto) 0.2 (0.0-0.7) K/uL Baso # (Auto) 0.0 (0.0-0.1) K/uL Nucleated RBC % 0.0 /100WBC Nucleated RBCs # 0 K/uL Departure - Departure Time of Disposition: 12:11 Disposition: Home, Self-Care 01 Condition: Good Clinical Impression: Tracheobronchitis - Discharge Information Referrals: PCP,Unknown [Primary Care Provider] - Forms: ED Department Discharge Additional Instructions: The following information is given to patients seen in the emergency department who are being discharged to home. This information is to outline your options for follow-up care. We provide all patients seen in our emergency department with a follow-up referral. The need for follow-up, as well as the timing and circumstances, are variable depending upon the specifics of your emergency department visit. If you don't have a primary care physician on staff, we will provide you with a referral. We always advise you to contact your personal physician following an emergency department visit to inform them of the circumstance of the visit and for follow-up with them and/or the need for any referrals to a consulting specialist. The emergency department will also refer you to a specialist when appropriate. This referral assures that you have the opportunity for followup care with a specialist. All of these measure are taken in an effort to provide you with optimal care, which includes your followup. Under all circumstances we always encourage you to contact your private physician who remains a resource for coordinating your care. When calling for followup care, please make the office aware that this follow-up is from your recent emergency room visit. If for any reason you are refused follow-up, please contact the [facility] emergency department at and asked to speak to the emergency department charge nurse. Augmentin as prescribed follow-up primary medical doctor as needed as discussed and return as needed as discussed - My Orders Last 24 Hours: My Active Orders 01/12/19 11:27 B-TYPE NATRIURETIC PEPTIDE,BNP [CHEM] Stat COMPREHENSIVE METABOLIC PN,CMP [CHEM] Stat - Assessment/Plan Last 24 Hours: My Active Orders 01/12/19 11:27 B-TYPE NATRIURETIC PEPTIDE,BNP [CHEM] Stat COMPREHENSIVE METABOLIC PN,CMP [CHEM] Stat
--- NOTE | 2019-01-12 11:58 | CR ---
EXAMINATION: Portable chest radiograph. HISTORY: Shortness of breath. FINDINGS: The trachea is midline. The cardiomediastinal silhouette is within normal limits. No pulmonary infiltrates, effusions or pneumothorax. Mild left basilar atelectasis. Osseous structures appear osteopenic. Advanced degenerative changes within the right shoulder. IMPRESSION: No acute cardiopulmonary process.
[2019-01-12 12:13] LABS: CHLORIDE,CL 101 mmol/L (98-107); SODIUM,NA 138 mmol/L (136-145)
[2019-01-12] MEDS ORDERED: Albuterol/Ipratropium 3.0-0.5 MG/3 ML Neb Soln NEB ONE (12:13)
[2019-01-12 13:01] VITALS: BP 149/37
== END 2019-01-12 13:00 | disposition home or self-care (01) ==
LOC: MW.ED 10:53
DX: J40 Bronchitis, not specified as acute or chronic (principal); I10 Essential (primary) hypertension; E03.9 Hypothyroidism, unspecified; Z79.899 Other long term (current) drug therapy; Z88.8 Allergy status to other drugs, medicaments and biological substances; Z88.2 Allergy status to sulfonamides
CPT/HCPCS: 36415; 71045; 71045-26; 80053; 83880; 85025; 87804; 99283; 99284-25; J7620-GY

== ENCOUNTER 2019-05-05 06:24 | Day surgery (SDC) | payer MEDICARE, MEDICAID ==
[~2019-05-05 06:24] MED LIST: Lactated Ringers 1,000 ML IV SCH; Sodium Chloride 0.9% 10 ML SDV IV PRN; Sodium Chloride 0.9% 10 ML Syringe FLUSH PRN; Sodium Chloride 0.9% 2.5 ML Syringe FLUSH PRN; ceFAZolin 2 GM in Premix Bag 1 BAG IV ONE
[2019-05-05] MEDS ORDERED: Propofol 200 MG/20 ML SDV ONE (07:06)
[2019-05-05] MEDS ORDERED: Lidocaine 2% 5 ML SDV ONE (07:06)
[2019-05-05] MEDS ORDERED: fentaNYL 250 MCG/5 ML SDV ONE (07:06)
[2019-05-05] MEDS ORDERED: Midazolam 1 MG/ML 2 ML SDV ONE (07:06)
[2019-05-05] MEDS ORDERED: ceFAZolin/Dextrose,Iso-Osmotic 2 GM/50 ML Duplex Bag IV ONE (07:09)
--- NOTE | 2019-05-05 07:21 | PCM.PREANE ---
Preanesthetic Assessment - Anesthesia/Transfusion/Family Hx Anesthesia History: Prior Anesthesia Without Reaction Family History of Anesthesia Reaction: No Transfusion History: No Prior Transfusion(s) - Review of Systems General: No Symptoms Pulmonary: No Symptoms Cardiovascular: No Symptoms Gastrointestinal: Abdominal Pain Other: Reports: None - Physical Assessment NPO Status Date: 05/04/19 O2 Sat by Pulse Oximetry: 94 Respiratory Rate: 14 Vital Signs: Last Vital Signs Temp 97.2 F 05/05/19 06:57 Pulse 74 05/05/19 06:57 Resp 14 05/05/19 06:57 BP 168/76 H 05/05/19 06:57 Pulse Ox 94 L 05/05/19 06:57 Height: 5 ft 2 in Weight: 67.132 kg ASA Class: 3 Mental Status: Alert & Oriented x3 Airway Class: Mallampati = 4 Dentition: Reports: Missing Tooth/Teeth (maxillary) ROM/Head Extension: Limited/Partial Lungs: Clear to Auscultation, Normal Respiratory Effort Cardiovascular: Regular Rate, Regular Rhythm - Allergies Allergies/Adverse Reactions: Allergies Allergy/AdvReac Type Severity Reaction Status Date / Time dexamethasone [From TobraDex] Allergy Rash Verified 04/30/19 08:34 Sulfa (Sulfonamide Allergy Rash Verified 04/30/19 08:34 Antibiotics) tobramycin [From TobraDex] Allergy Rash Verified 04/30/19 08:34 - Blood Blood Available: No - Anesthesia Plan Pre-Op Medication Ordered: None - Acknowledgements Anesthesia Type Planned: General Anesthesia Pt an Appropriate Candidate for the Planned Anesthesia: Yes Alternatives and Risks of Anesthesia Discussed w Pt/Guardian: Yes Pt/Guardian Understands and Agrees with Anesthesia Plan: Yes Additional Comments: anes prob list: htn, wheezing after URIs/asthma- no recent exac, mental retardation- lives in long term- has her own control over consents - no medical guardianship, prob difficult airway PLAN: get with videolaryngoscope PreAnesthesia Questionnaire HEENT History: Reports: Cataract, Hard of Hearing, Other (See Below) Other HEENT History: has hearing aids but does not wear them Cardiovascular History: Reports: High Cholesterol, Hypertension Respiratory History: Reports: Asthma Gastrointestinal History: Reports: GERD, Hemorrhoids Genitourinary History: Reports: None DRIVER SERVICE TECHNICIAN History: Reports: None Musculoskeletal History: Reports: None Neurological History: Reports: None Psychiatric History: Reports: Other (See Below) Other Psychiatric History: cognitive developmental delay, has traffic officer from [place], 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 Endocrine/Metabolic History: Reports: Hypothyroidism Other Endocrine/Metabolic History: hashimotos Hematologic History: Reports: None Immunologic History: Reports: None Oncologic (Cancer) History: Reports: None Dermatologic History: Reports: None - Past Surgical History Head Surgeries/Procedures: Reports: None HEENT Surgical History: Reports: Cataract Surgery, Eye Surgery, Naso-Sinus Surgery, Other (See Below) Other HEENT Surgeries/Procedures: nasal septal reconstruction; eye abscess surgery Cardiovascular Surgical History: Reports: None Respiratory Surgical History: Reports: None GI Surgical History: Reports: Colonoscopy Female Surgical History: Reports: Breast Biopsy Endocrine Surgical History: Reports: None Neurological Surgical History: Reports: None Musculoskeletal Surgical History: Reports: None Oncologic Surgical History: Reports: Biopsy of Breast Dermatological Surgical History: Reports: None - SUBSTANCE USE Smoking Status *Q: Never Smoker Recreational Drug Use History: No - HOME MEDS Home Medications: Home Meds Calc/D3/Mag/Zn/Mental Health Coordinator/Ron/Range [Calcium 600 MG Plus Vit D] 1 tab PO DAILY [History] Levothyroxine [Synthroid] 88 mcg PO DAILY 01/12/19 [History] Loratadine 10 mg PO DAILY 01/12/19 [History] Montelukast [Singulair] 10 mg PO DAILY 01/12/19 [History] Verapamil HCl [Verapamil ER PM] 300 mg PO DAILY 01/12/19 [History] atorvaSTATin [Lipitor] 10 mg PO BEDTIME 01/12/19 [History] levETIRAcetam [Keppra] 500 mg PO BID 01/12/19 [History] Albuterol Sulfate 1 unit NEB ASDIRECTED PRN 04/29/19 [History] Bisacodyl 1 supp RECTAL ASDIRECTED PRN 04/29/19 [History] Budesonide [Pulmicort] 1 inh NEB ASDIRECTED PRN 04/29/19 [History] Dextran 70/Hypromellose [Artificial Tears] 1 drop EYEBOTH ASDIRECTED PRN [History] Losartan/Hydrochlorothiazide [Losartan-HCTZ 100-25 MG] 1 tab PO DAILY 04/29/19 [ History] Mylanta Max Strength 1 dose PO ASDIRECTED PRN 04/29/19 [History] Polyethylene Glycol 3350 1 dose PO ASDIRECTED PRN 04/29/19 [History] atorvaSTATin Calcium [Atorvastatin Calcium] 10 mg PO DAILY 04/29/19 [History] [place] Nasal [place] 2 spray NASBOTH BID 04/30/19 [History] - CURRENT (IN HOUSE) MEDS Current Meds: Current Medications Lactated Ringer's (Ringers, Lactated) 1,000 mls @ 125 mls/hr IV ASDIRECTED MALIK Last Admin: 05/05/19 07:08 Dose: 125 mls/hr Sodium Chloride (Saline Flush) 10 ml FLUSH ASDIRECTED PRN PRN Reason: Keep Vein Open Sodium Chloride (Saline Flush) 2.5 ml FLUSH ASDIRECTED PRN PRN Reason: Keep Vein Open Sodium Chloride (Normal Saline) 10 ml IV ASDIRECTED PRN PRN Reason: IV Use Discontinued Medications Cefazolin Sodium/Dextrose (Ancef) Confirm Administered Dose 2 gm IV .STK-MED ONE Stop: 05/05/19 07:10 Fentanyl (Sublimaze) Confirm Administered Dose 250 mcg .ROUTE .STK-MED ONE Stop: 05/05/19 07:07 Cefazolin Sodium/Dextrose 2 gm (/ Premix) 50 mls @ 100 mls/hr IV ONETIME ONE Stop: 05/01/19 15:04 Lidocaine (Xylocaine-Mpf 2%) Confirm Administered Dose 5 ml .ROUTE .STK-MED ONE Stop: 05/05/19 07:07 Midazolam HCl (Versed 1 Mg/Ml) Confirm Administered Dose 2 mg .ROUTE .STK-MED ONE Stop: 05/05/19 07:07 Propofol (Diprivan 20 Ml) Confirm Administered Dose 200 mg .ROUTE .STK-MED ONE Stop: 05/05/19 07:07
[2019-05-05] MEDS ORDERED: Bupivacaine 0.5% 30 ML SDV ONE (07:22)
[2019-05-05] MEDS ORDERED: Rocuronium 100 MG/10 ML MDV ONE (07:31)
[2019-05-05] MEDS ORDERED: Sodium Chloride 0.9% 20 ML ONE (07:59)
[2019-05-05] MEDS ORDERED: ePHEDrine 50 MG/ML SDV ONE (07:59)
[2019-05-05] MEDS ORDERED: Phenylephrine/Normal Saline 100 MCG/ML 10 ML Syringe ONE (08:13)
[2019-05-05] MEDS ORDERED: Ondansetron 4 MG/2 ML SDV ONE (08:15)
[2019-05-05] MEDS ORDERED: Ketorolac 30 MG/ML SDV ONE (08:15)
[2019-05-05] MEDS ORDERED: Neostigmine Methylsulfate 1 MG/ML 5 ML Syringe ONE (08:15)
[2019-05-05] MEDS ORDERED: Glycopyrrolate 0.2 MG/ML SDV ONE (08:15)
[2019-05-05] MEDS ORDERED: fentaNYL 100 MCG/2 ML SDV IVPUSH PRN (08:20)
[2019-05-05] MEDS ORDERED: Octyl 2-Cyanoacrylate 1 Tube ONE (08:42)
--- NOTE | 2019-05-05 09:07 | PCM.OPNOTE ---
- General Post-Op/Procedure Note Date of Surgery/Procedure: 05/05/19 Operative Procedure(s): Umbilical hernia repair Findings: 2 x 1 cm supra-umbilical hernia containing mesentery Pre Op Diagnosis: Umbilical hernia Post-Op Diagnosis: same Anesthesia Technique: General ET Tube Primary Surgeon: Monet Dykes Fluid Replacement, Intraop: 1,000 EBL in mLs: 5 Condition: Good
[2019-05-05] MEDS ORDERED: Acetaminophen/oxyCODONE 325-5 MG Tab PO PRN (09:08)
--- NOTE | 2019-05-05 10:50 | PCM.POSTAN ---
POST ANESTHESIA ASSESSMENT - MENTAL STATUS Mental Status: Alert, Oriented - RESPIRATORY Respiratory Status: Respiratory Rate WNL, Airway Patent, O2 Saturation Stable - CARDIOVASCULAR CV Status: Pulse Rate WNL, Blood Pressure Stable - GASTROINTESTINAL GI Status: No Symptoms - POST OP HYDRATION Hydration Status: Adequate & Stable (pain free, just sleepy)
--- NOTE | 2019-05-05 11:45 | OR ---
SURGEON: MONET DYKES MD DATE OF PROCEDURE: 05/05/2019 PREOPERATIVE DIAGNOSIS: Umbilical hernia. POSTOPERATIVE DIAGNOSIS: Umbilical hernia. PROCEDURE PERFORMED: Umbilical hernia repair with mesh. PRIMARY SURGEON: Monet Dykes MD. ANESTHESIA: General endotracheal anesthesia. FLUIDS: 1000 mL of crystalloid. ESTIMATED BLOOD LOSS: 5 mL. FINDINGS: Supraumbilical hernia sac containing omentum. Hernia measured 1 x 2 cm in size. COMPLICATIONS: None. INDICATIONS: The patient is a 69-year-old female who presents with a painful supraumbilical hernia. This is reducible, but causes significant discomfort. A CT of the abdomen showed a small fat containing hernia consistent with physical exam. Decision was made to proceed to the operating room for a surgical repair. I explained the procedure, expected perioperative course, and risks including bleeding, infection, or damage to surrounding structures. The patient verbalized understanding and wishes to proceed. PROCEDURE IN DETAIL: The patient was brought into the OR and placed on the OR table in supine position. A time-out was completed verifying the patient's name, age, date of , allergies, and procedure to be performed. General endotracheal anesthesia was induced. The abdomen was prepped and draped in usual standard fashion. I anesthetized the area along the supraumbilical fold with 0.5% Marcaine plain. An incision was made using a 15-blade along the supraumbilical midline, carried down along the right edge of the supraumbilical fold. Cautery was used to then dissect down to the level of the subcutaneous fat. Using blunt dissection, I identified the hernia sac just above the umbilical stalk. This was dissected out using a Metzenbaum scissors. I entered the hernia sac and noted a small amount of omentum. This was reduced back into the abdomen. The hernia sac was then dissected free of the surrounding tissue. Once the fascia was cleared and I could clearly see the umbilical sac, it was excised using a Metzenbaum scissors. I then measured my hernia defect. It measured 2 cm and within 1 cm in length. The decision was made to proceed with a mesh repair. A Ventralex small hernia patch measuring 4.3 cm in diameter was brought into the field. This was placed as an underlay in the abdomen. It was then secured circumferentially with interrupted 0 Ethibond sutures and great care was taken to ensure that no tissue underneath the mesh was incorporated within the repair. Once I had ensured that the mesh was secured adequately, I tied these down. I then irrigated the wound. The fascia over the top of the mesh was then closed with interrupted 0 Ethibond sutures. The subcutaneous fat layer was closed in layers using interrupted 3-0 Vicryl sutures. The umbilical skin was also tacked down to the fascia using an interrupted 3-0 Vicryl. The skin was then closed with a running 4-0 Monocryl stitch. Dermabond was applied and then sterile dressings. The patient tolerated the procedure well and was taken to the PACU in stable condition. All counts were complete and correct at the end of the case. AHMET CAMARILLO /[id number]
[2019-05-05 13:23] VITALS: BP 124/64
--- NOTE | 2019-05-05 13:44 | PCM48HPAN ---
Post Anesthesia Note - EVALUATION WITHIN 48HRS OF ANESTHETIC Vital Signs in Normal Range: Yes Patient Participated in Evaluation: Yes Respiratory Function Stable: Yes Airway Patent: Yes Cardiovascular Function Stable: Yes Hydration Status Stable: Yes Pain Control Satisfactory: Yes Nausea and Vomiting Control Satisfactory: Yes Mental Status Recovered: Yes Resp Rate: 15
== END 2019-05-05 13:17 | disposition home or self-care (01) ==
LOC: MW.SDS 06:24
PROVIDERS: ATTEND Surgery
DX: K42.0 Umbilical hernia with obstruction, without gangrene (principal); J45.909 Unspecified asthma, uncomplicated; I10 Essential (primary) hypertension; E78.5 Hyperlipidemia, unspecified; E03.9 Hypothyroidism, unspecified; K21.9 Gastro-esophageal reflux disease without esophagitis; Z88.2 Allergy status to sulfonamides; Z88.8 Allergy status to other drugs, medicaments and biological substances; Z79.52 Long term (current) use of systemic steroids; Z79.899 Other long term (current) drug therapy; Z98.890 Other specified postprocedural states
CPT/HCPCS: 49587; A9270; C1781; J0690; J1885; J2001; J2250; J2370; J2405; J2704; J3010; J3490; J7120; 00750; 88302

== ENCOUNTER 2020-01-11 14:50 | Observation (INO) | payer MEDICAID, MEDICARE ==
--- NOTE | 2020-01-11 15:35 | EDM.PDOC ---
ED HPI GENERAL MEDICAL PROBLEM - General Chief Complaint: Upper Extremity Injury/Pain Stated Complaint: HURT LEFT PINKY FINGER Time Seen by Provider: 01/11/20 14:53 Source of Information: Reports: Patient, Other ([employer]enger [employer]) History Limitations: Reports: No Limitations - History of Present Illness INITIAL COMMENTS - FREE TEXT/NARRATIVE: HISTORY AND PHYSICAL: History of present illness: Patient is a 69-year-old female who presents to the ED today with her internal carver from [facility] with concern of left hand pinky finger injury. The internal carver states that patient was walking and had slightly tripped over a chair and hit her left hand into the wall. 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 Patient states her pinky is the only thing that is bothering her. Patient and internal carver deny any other symptoms or concerns. Patient/internal carver denies fever, chills, chest pain, shortness of breath, or cough. Denies headache, neck stiff ness, change in vision, syncope, or near syncope. Denies nausea, vomiting, abdominal pain, diarrhea, constipation, or dysuria. Has not noted any blood in urine or stool. Patient has been eating and drinking appropriately. Review of systems: As per history of present illness and below otherwise all systems reviewed and negative. Past medical history: As per history of present illness and as reviewed below otherwise noncontributory. Surgical history: As per history of present illness and as reviewed below otherwise noncontributory. Social history: See social history for further information Family history: As per history of present illness and as reviewed below otherwise noncontributory. Physical exam: General: Patient is alert, oriented, and in no acute distress. Patient sitting comfortably on exam table. HEENT: Atraumatic, normocephalic, pupils equal and reactive bilaterally, negative for conjunctival pallor or scleral icterus, mucous membranes moist, TMs normal bilaterally, throat clear, neck supple, nontender, trachea midline. No drooling or trismus noted. No meningeal signs. No hot potato voice noted. Lungs: Clear to auscultation, breath sounds equal bilaterally, chest nontender. Heart: S1S2, regular rate and rhythm without overt murmur Abdomen: Soft, nondistended, nontender. Negative for masses or hepatosplenomegaly. Negative for costovertebral tenderness. Pelvis: Stable nontender. Genitourinary: Deferred. Rectal: Deferred. Skin: Intact, warm, dry. No lesions or rashes noted. Extremities: Patient does have mild to moderate discomfort with palpation of the left hand fifth digit and hesitant with range of motion of this digit due to pain. Patient does have full range of motion of remainder of the left upper extremity without pain or difficulty. Otherwise, atraumatic, negative for cords or calf pain. Neurovascular unremarkable. Neuro: Awake, alert, oriented. Cranial nerves II through XII unremarkable. Cerebellum unremarkable. Motor and sensory unremarkable throughout. Exam nonfocal. Notes: Dr. Wright consulted on patient and will admit to observation with telemetry. Voices understanding and is agreeable to plan of care. Denies any further questions or concerns at this time. Diagnostics: Hand XR, EKG, CBC, CMP, Trop, CXR, Lipase Therapeutics: NS Impression: Hand injury, left Hypotension Bradycardia Plan: Admit observation to Dr. Wright on telemetry. Definitive disposition and diagnosis as appropriate pending reevaluation and review of above. Left Finger-Little Pain Score (Numeric/FACES): 8 - Related Data Allergies Allergy/AdvReac Type Severity Reaction Status Date / Time dexamethasone [From TobraDex] Allergy Rash Verified 01/11/20 15:11 Sulfa (Sulfonamide Allergy Rash Verified 01/11/20 15:11 Antibiotics) tobramycin [From TobraDex] Allergy Rash Verified 01/11/20 15:11 Home Meds: Home Meds Calc/D3/Mag/Zn/Bishop/Ron/Watrous [Calcium 600 MG Plus Vit D] 1 tab PO BID [History] Levothyroxine [Synthroid] 88 mcg PO DAILY 01/12/19 [History] Loratadine 10 mg PO DAILY 01/12/19 [History] Montelukast [Singulair] 10 mg PO DAILY 01/12/19 [History] Verapamil HCl [Verapamil ER PM] 300 mg PO DAILY 01/12/19 [History] atorvaSTATin [Lipitor] 10 mg PO BEDTIME 01/12/19 [History] levETIRAcetam [Keppra] 500 mg PO BID 01/12/19 [History] Albuterol Sulfate 1 unit INH ASDIRECTED PRN 04/29/19 [History] Bisacodyl 1 supp RECTAL ASDIRECTED PRN 04/29/19 [History] Budesonide [Pulmicort] 1 inh NEB ASDIRECTED PRN 04/29/19 [History] Dextran 70/Hypromellose [Artificial Tears] 1 drop EYEBOTH ASDIRECTED PRN [History] Losartan/Hydrochlorothiazide [Losartan-HCTZ 100-25 MG] 1 tab PO DAILY 04/29/19 [ History] Mylanta Max Strength 1 dose PO ASDIRECTED PRN 04/29/19 [History] Polyethylene Glycol 3350 1 dose PO ASDIRECTED PRN 04/29/19 [History] Saline [place] Nasal [place] 2 spray NASBOTH QID 04/30/19 [History] Budesonide/Formoterol [Symbicort 160-4.5 MCG] 2 puff INH BID 01/11/20 [History] Erythromycin Base [Erythromycin] 1 applic EYEBOTH ASDIRECTED PRN 01/11/20 [ History] Nystatin [Nystatin Crm] 1 applic TOP ASDIRECTED PRN 01/11/20 [History] Past Medical History HEENT History: Reports: Cataract, Hard of Hearing, Other (See Below) Other HEENT History: has hearing aids but does not wear them Cardiovascular History: Reports: High Cholesterol, Hypertension Respiratory History: Reports: Asthma Gastrointestinal History: Reports: GERD, Hemorrhoids Genitourinary History: Reports: None LOGISTICS COORDINATOR History: Reports: None Musculoskeletal History: Reports: None Neurological History: Reports: None Psychiatric History: Reports: Other (See Below) Other Psychiatric History: cognitive developmental delay, has reagent tender helper from [employer], 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 Endocrine/Metabolic History: Reports: Hypothyroidism Other Endocrine/Metabolic History: hashimotos Hematologic History: Reports: None Immunologic History: Reports: None Oncologic (Cancer) History: Reports: None Dermatologic History: Reports: None - Past Surgical History Head Surgeries/Procedures: Reports: None HEENT Surgical History: Reports: Cataract Surgery, Eye Surgery, Naso-Sinus Surgery, Other (See Below) Other HEENT Surgeries/Procedures: nasal septal reconstruction; eye abscess surgery Cardiovascular Surgical History: Reports: None Respiratory Surgical History: Reports: None GI Surgical History: Reports: Colonoscopy Female Surgical History: Reports: Breast Biopsy Endocrine Surgical History: Reports: None Neurological Surgical History: Reports: None Musculoskeletal Surgical History: Reports: None Oncologic Surgical History: Reports: Biopsy of Breast Dermatological Surgical History: Reports: None Social & Family History - Family History Family Medical History: Unobtainable : Reports: None OBGYN: Reports: None - Tobacco Use Smoking Status *Q: Never Smoker Second Hand Smoke Exposure: No - Caffeine Use Caffeine Use: Reports: None Other Caffeine Use: not able answer - Recreational Drug Use Recreational Drug Use: No Review of Systems - Review of Systems Review Of Systems: Comprehensive ROS is negative, except as noted in HPI. ED EXAM, GENERAL - Physical Exam Exam: See Below (see dictation) Course - Vital Signs Last Recorded V/S: Last Vital Signs Temp 97.8 F 01/11/20 15:21 Pulse 53 L 01/11/20 15:54 Resp 19 01/11/20 15:21 BP 126/41 L 01/11/20 15:54 Pulse Ox 96 01/11/20 15:21 - Orders/Labs/Meds Orders: Active Orders 24 hr Category Date Time Status Admission Status [Patient Status] [ADT] Stat ADT 01/11/20 17:46 Ordered EKG Documentation Completion [RC] STAT Care 01/11/20 15:54 Active UA RFX [place] AND CULT IF INDIC [URIN] Stat Lab 01/11/20 17:33 Received Sodium Chloride 0.9% [Normal Saline] 1,000 ml Med 01/11/20 17:46 Ordered IV STAT Medication Orders Sodium Chloride (Normal Saline) 1,000 mls @ 999 mls/hr IV STAT ONE Stop: 01/11/20 18:46 Labs: Laboratory Tests 01/11/20 01/11/20 Range/Units 16:24 16:24 WBC 8.04 (4.0-11.0) K/uL RBC 4.24 L (4.30-5.90) M/uL Hgb 13.2 (12.0-16.0) g/dL Hct 40.8 (36.0-46.0) % MCV 96.2 (80.0-98.0) fL MCH 31.1 (27.0-32.0) pg MCHC 32.4 (31.0-37.0) g/dL RDW Std Deviation 44.3 (28.0-62.0) fl RDW Coeff of Leonel 13 (11.0-15.0) % Plt Count 223 (150-400) K/uL MPV 10.00 (7.40-12.00) fL Neut % (Auto) 57.9 (48.0-80.0) % Lymph % (Auto) 29.7 (16.0-40.0) % [place]lin % (Auto) 9.7 (0.0-15.0) % Eos % (Auto) 2.6 (0.0-7.0) % Baso % (Auto) 0.1 (0.0-1.5) % Neut # (Auto) 4.7 (1.4-5.7) K/uL Lymph # (Auto) 2.4 (0.6-2.4) K/uL [place] # (Auto) 0.8 (0.0-0.8) K/uL Eos # (Auto) 0.2 (0.0-0.7) K/uL Baso # (Auto) 0.0 (0.0-0.1) K/uL Nucleated RBC % 0.0 /100WBC Nucleated RBCs # 0 K/uL Sodium 146 H (136-145) mmol/L Potassium 3.8 (3.5-5.1) mmol/L Chloride 107 (98-107) mmol/L Carbon Dioxide 30.0 (21.0-32.0) mmol/L BUN 19 H (7.0-18.0) mg/dL Creatinine 0.8 (0.6-1.0) mg/dL Est Cr Clr Drug Dosing 56.50 mL/min Estimated GFR (MDRD) > 60.0 ml/min Glucose 90 (74-106) mg/dL Calcium 9.7 (8.5-10.1) mg/dL Total Bilirubin 0.2 (0.2-1.0) mg/dL AST 21 (15-37) IU/L ALT 26 (14-63) IU/L Alkaline Phosphatase 113 (46-116) U/L Troponin I < 0.050 (0.000-0.056) ng/mL Total Protein 7.2 (6.4-8.2) g/dL Albumin 3.4 (3.4-5.0) g/dL Globulin 3.8 (2.6-4.0) g/dL Albumin/Globulin Ratio 0.9 (0.9-1.6) Lipase 383 (73-393) U/L Meds: Medications Generic Name Dose Route Start Last Admin Trade Name Freq PRN Reason Stop Dose Admin Sodium Chloride 1,000 mls @ 999 mls/hr 01/11/20 17:46 Normal Saline IV 01/11/20 18:46 STAT ONE Departure - Departure Time of Disposition: 17:48 Disposition: Refer to Observation Clinical Impression: Bradycardia Hand injury Qualifiers: Encounter type: initial encounter Laterality: left Qualified Code(s): S69.92XA - Unspecified injury of left wrist, hand and finger(s), initial encounter Hypotension Qualifiers: Hypotension type: unspecified hypotension type Qualified Code(s): I95.9 - Hypotension, unspecified - Discharge Information Referrals: Josefina Rosas DO [Primary Care Provider] - Forms: ED Department Discharge Sepsis Event Note - Evaluation Sepsis Screening Result: No Definite Risk - Focused Exam Vital Signs: Vital Signs Temp Pulse Resp BP Pulse Ox 01/11/20 15:54 53 L 126/41 L 01/11/20 15:21 97.8 F 54 L 19 82/45 L 96 Date Exam was Performed: 01/11/20 Time Exam was Performed: 17:47 - My Orders Last 24 Hours: My Active Orders 01/11/20 15:54 EKG Documentation Completion [RC] STAT 01/11/20 17:33 UA RFX [place] AND CULT IF INDIC [URIN] Stat 01/11/20 17:46 Admission Status [Patient Status] [ADT] Stat Sodium Chloride 0.9% [Normal Saline] 1,000 ml IV STAT - Assessment/Plan Last 24 Hours: My Active Orders 01/11/20 15:54 EKG Documentation Completion [RC] STAT 01/11/20 17:33 UA RFX [place] AND CULT IF INDIC [URIN] Stat 01/11/20 17:46 Admission Status [Patient Status] [ADT] Stat Sodium Chloride 0.9% [Normal Saline] 1,000 ml IV STAT
--- NOTE | 2020-01-11 16:24 | CR ---
Left hand: 3 views of the left hand were obtained. Comparison: No previous hand exam. Bony density is identified off the corner base of the 5th metacarpal compatible with old fracture. Degenerative change is noted at the CMC joint of the thumb. Osteopenia is present. No definite acute fracture or dislocation is seen. Impression: 1. Findings as noted above. 2. Nothing acute is appreciated on left hand exam. Diagnostic code #2 This report was dictated in [place] Standard Time
--- NOTE | 2020-01-11 17:02 | CR ---
Chest: Frontal view of the chest was obtained. Comparison: Prior chest x-ray of 01/12/19. Heart size is normal. Tortuous thoracic aorta is seen. Central lung markings are increased most of which appear chronic although mild asymmetric increase is suggested within the left base from prior study possibly due to focal bronchitis and atelectasis if patient has correlating symptoms. No alveolar type densities are seen. Heart size is normal. Tortuous thoracic aorta is seen. Severe degenerative change is noted within the right shoulder. Scattered degenerative change is noted within the thoracic spine. Impression: 1. Central lung markings slightly increased most of which appear chronic. Possible mild asymmetric bronchitis within the left base as well as left basilar atelectasis may be present. 2. Other findings as noted above which are chronic. Diagnostic code #3 This report was dictated in [place] Standard Time
[2020-01-11 17:11] LABS: BLOOD UREA NITROGEN,BUN 19 mg/dL (7.0-18.0); CHLORIDE,CL 107 mmol/L (98-107); GLUCOSE RANDOM 90 mg/dL (74-106); LIPASE 383 U/L (73-393); POTASSIUM,K 3.8 mmol/L (3.5-5.1); SODIUM,NA 146 mmol/L (136-145)
[2020-01-11] MEDS ORDERED: Sodium Chloride 0.9% 1,000 ML IV ONE (17:46)
[2020-01-11] MEDS ORDERED: Ondansetron 4 MG/2 ML SDV IVPUSH PRN (17:55)
[2020-01-11] MEDS ORDERED: Docusate Sodium 100 MG Cap PO PRN (17:55)
[2020-01-11] MEDS ORDERED: Ibuprofen 600 MG Tab PO PRN (17:55)
[2020-01-11] MEDS ORDERED: Acetaminophen 325 MG Tab PO PRN (17:55)
[2020-01-11] MEDS ORDERED: Polyethylene Glycol 3350 Powder 17 GM Packet PO PRN (17:55)
[2020-01-11] MEDS ORDERED: Ondansetron 4 MG Tab.DIS PO PRN (17:55)
[2020-01-11] MEDS ORDERED: Enoxaparin 40 MG/0.4 ML Syringe SUBCUT SCH (18:00)
--- NOTE | 2020-01-11 18:43 | PCM.HP.2 ---
H&P History of Present Illness - General Date of Service: 01/11/20 Admit Problem/Dx: Admission Diagnosis/Problem Admission Diagnosis/Problem Bradycardia - History of Present Illness Initial Comments - Free Text/Narative: 69 y/o female presenting from [facility] due to left hand pain. History is obtained from caregiver since patient is incomprehensible. Patient apparently hit the wall with her left fist. She has been complaining of left fist pain mostly on her left 5th digit. Xrays done in the ER showed an old fracture on 5h metacarpal. No acute fractures. She was noted to by hypotensive 80/40's which resolved on its own to 120/50's. In addition she was noted to be bradycardic in the high 40-50's. Denies any chest pain, dyspnea. No abdominal pain, dysuria, diarrhea. No recent illnesses. She was give 1 NS bolus. EKG unremarkable. Left Finger-Little Pain Score (Numeric/FACES): 8 - Related Data Allergies/Adverse Reactions: Allergies Allergy/AdvReac Type Severity Reaction Status Date / Time dexamethasone [From TobraDex] Allergy Rash Verified 01/11/20 15:11 Sulfa (Sulfonamide Allergy Rash Verified 01/11/20 15:11 Antibiotics) tobramycin [From TobraDex] Allergy Rash Verified 01/11/20 15:11 Home Medications: Home Meds Calc/D3/Mag/Zn/[place] [Calcium 600 MG Plus Vit D] 1 tab PO BID [History] Levothyroxine [Synthroid] 88 mcg PO DAILY 01/12/19 [History] Loratadine 10 mg PO DAILY 01/12/19 [History] Montelukast [Singulair] 10 mg PO DAILY 01/12/19 [History] Verapamil HCl [Verapamil ER PM] 300 mg PO DAILY 01/12/19 [History] atorvaSTATin [Lipitor] 10 mg PO BEDTIME 01/12/19 [History] levETIRAcetam [Keppra] 500 mg PO BID 01/12/19 [History] Albuterol Sulfate 1 unit INH ASDIRECTED PRN 04/29/19 [History] Bisacodyl 1 supp RECTAL ASDIRECTED PRN 04/29/19 [History] Budesonide [Pulmicort] 1 inh NEB ASDIRECTED PRN 04/29/19 [History] Dextran 70/Hypromellose [Artificial Tears] 1 drop EYEBOTH ASDIRECTED PRN [History] Losartan/Hydrochlorothiazide [Losartan-HCTZ 100-25 MG] 1 tab PO DAILY 04/29/19 [ History] Mylanta Max Strength 1 dose PO ASDIRECTED PRN 04/29/19 [History] Polyethylene Glycol 3350 1 dose PO ASDIRECTED PRN 04/29/19 [History] [place] Nasal [place] 2 spray NASBOTH QID 04/30/19 [History] Budesonide/Formoterol [Symbicort 160-4.5 MCG] 2 puff INH BID 01/11/20 [History] Erythromycin Base [Erythromycin] 1 applic EYEBOTH ASDIRECTED PRN 01/11/20 [ History] Nystatin [Nystatin Crm] 1 applic TOP ASDIRECTED PRN 01/11/20 [History] Past Medical History HEENT History: Reports: Cataract, Hard of Hearing, Other (See Below) Other HEENT History: has hearing aids but does not wear them Cardiovascular History: Reports: High Cholesterol, Hypertension Respiratory History: Reports: Asthma Gastrointestinal History: Reports: GERD, Hemorrhoids Genitourinary History: Reports: None [employer]ATE History: Reports: None Musculoskeletal History: Reports: None Neurological History: Reports: None Psychiatric History: Reports: Other (See Below) Other Psychiatric History: cognitive developmental delay, 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[employer], 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 Endocrine/Metabolic History: Reports: Hypothyroidism Other Endocrine/Metabolic History: hashimotos Hematologic History: Reports: None Immunologic History: Reports: None Oncologic (Cancer) History: Reports: None Dermatologic History: Reports: None - Past Surgical History Head Surgeries/Procedures: Reports: None HEENT Surgical History: Reports: Cataract Surgery, Eye Surgery, Naso-Sinus Surgery, Other (See Below) Other HEENT Surgeries/Procedures: nasal septal reconstruction; eye abscess surgery Cardiovascular Surgical History: Reports: None Respiratory Surgical History: Reports: None GI Surgical History: Reports: Colonoscopy Female Surgical History: Reports: Breast Biopsy Endocrine Surgical History: Reports: None Neurological Surgical History: Reports: None Musculoskeletal Surgical History: Reports: None Oncologic Surgical History: Reports: Biopsy of Breast Dermatological Surgical History: Reports: None Social & Family History - Family History Family Medical History: Unobtainable : Reports: None OBGYN: Reports: None - Tobacco Use Smoking Status *Q: Never Smoker Second Hand Smoke Exposure: No - Caffeine Use Caffeine Use: Reports: None Other Caffeine Use: not able answer - Recreational Drug Use Recreational Drug Use: No H&P Review of Systems - Review of Systems: Review Of Systems: Comprehensive ROS is negative, except as noted in HPI. Exam - Exam Exam: See Below - Vital Signs Vital Signs: Last Vital Signs Temp 36.3 C 01/11/20 18:08 Pulse 50 L 01/11/20 18:08 Resp 15 01/11/20 18:08 BP 140/40 L 01/11/20 18:08 Pulse Ox 93 L 01/11/20 18:08 Weight: 69.8 kg - Exam General: Alert, Oriented, Cooperative HEENT: Conjunctiva Clear, Mucosa Moist & [place] Lungs: Clear to Auscultation, Normal Respiratory Effort, Wheezing. No: Crackles Cardiovascular: Regular Rate, Regular Rhythm GI/Abdominal Exam: Normal Bowel Sounds, Soft, Non-Tender, No Distention Extremities: Normal Inspection, No Pedal Edema, Other (left arm has some swelling and tender at 5th MCP.) Skin: Warm, Dry - Patient Data Lab Results Last 24 hrs: Laboratory Results - last 24 hr 01/11/20 01/11/20 01/11/20 Range/Units 16:24 16:24 17:33 WBC 8.04 (4.0-11.0) K/uL RBC 4.24 L (4.30-5.90) M/uL Hgb 13.2 (12.0-16.0) g/dL Hct 40.8 (36.0-46.0) % MCV 96.2 (80.0-98.0) fL MCH 31.1 (27.0-32.0) pg MCHC 32.4 (31.0-37.0) g/dL RDW Std Deviation 44.3 (28.0-62.0) fl RDW Coeff of Leonel 13 (11.0-15.0) % Plt Count 223 (150-400) K/uL MPV 10.00 (7.40-12.00) fL Neut % (Auto) 57.9 (48.0-80.0) % Lymph % (Auto) 29.7 (16.0-40.0) % [place] % (Auto) 9.7 (0.0-15.0) % Eos % (Auto) 2.6 (0.0-7.0) % Baso % (Auto) 0.1 (0.0-1.5) % Neut # (Auto) 4.7 (1.4-5.7) K/uL Lymph # (Auto) 2.4 (0.6-2.4) K/uL [place] # (Auto) 0.8 (0.0-0.8) K/uL Eos # (Auto) 0.2 (0.0-0.7) K/uL Baso # (Auto) 0.0 (0.0-0.1) K/uL Nucleated RBC % 0.0 /100WBC Nucleated RBCs # 0 K/uL Sodium 146 H (136-145) mmol/L Potassium 3.8 (3.5-5.1) mmol/L Chloride 107 (98-107) mmol/L Carbon Dioxide 30.0 (21.0-32.0) mmol/L BUN 19 H (7.0-18.0) mg/dL Creatinine 0.8 (0.6-1.0) mg/dL Est Cr Clr Drug Dosing 56.50 mL/min Estimated GFR (MDRD) > 60.0 ml/min Glucose 90 (74-106) mg/dL Calcium 9.7 (8.5-10.1) mg/dL Total Bilirubin 0.2 (0.2-1.0) mg/dL AST 21 (15-37) IU/L ALT 26 (14-63) IU/L Alkaline Phosphatase 113 (46-116) U/L Troponin I < 0.050 (0.000-0.056) ng/mL Total Protein 7.2 (6.4-8.2) g/dL Albumin 3.4 (3.4-5.0) g/dL Globulin 3.8 (2.6-4.0) g/dL Albumin/Globulin Ratio 0.9 (0.9-1.6) Lipase 383 (73-393) U/L Urine Color YELLOW Urine Appearance CLEAR Urine pH 7.0 (5.0-8.0) Ur Specific [place] 1.025 (1.001-1.035) Urine Protein NEGATIVE (NEGATIVE) mg/dL Urine Glucose (UA) NEGATIVE (NEGATIVE) mg/dL Urine Ketones NEGATIVE (NEGATIVE) mg/dL Urine Occult Blood NEGATIVE (NEGATIVE) Urine Nitrite NEGATIVE (NEGATIVE) Urine Bilirubin NEGATIVE (NEGATIVE) Urine Urobilinogen 0.2 (<2.0) EU/dL Ur Leukocyte Esterase TRACE H (NEGATIVE) Urine RBC 0-3 (0-2/HPF) Urine WBC 0-4 (0-5/HPF) Ur Epithelial Cells RARE (NONE-FEW) Urine Bacteria RARE (NEGATIVE) Result Diagrams: 01/11/20 16:24 01/11/20 16:24 Sepsis Event Note - Evaluation Sepsis Screening Result: No Definite Risk - Focused Exam Vital Signs: Vital Signs Temp Pulse Resp BP Pulse Ox 01/11/20 18:08 36.3 C 50 L 15 140/40 L 93 L 01/11/20 15:54 53 L 126/41 L 01/11/20 15:21 36.6 C 54 L 19 82/45 L 96 Date Exam was Performed: 01/11/20 Time Exam was Performed: 20:05 Problem List Initiated/Reviewed/Updated: Yes Orders Last 24hrs: Active Orders 24 hr Category Date Time Status Admission Status [Patient Status] [ADT] Stat ADT 01/11/20 17:46 Active EKG Documentation Completion [RC] STAT Care 01/11/20 15:54 Active Intake and Output [RC] QSHIFT Care 01/11/20 17:55 Active Orthostatic Vital Signs [RC] ASDIRECTED Care 01/11/20 18:00 Active Oxygen Therapy [RC] PRN Care 01/11/20 17:55 Active Telemetry Monitoring [Cardiac Monitoring] [RC] . Care 01/11/20 17:57 Active DIRECTED Up With Assistance [RC] ASDIRECTED Care 01/11/20 17:55 Active VTE/DVT Education [RC] PER UNIT ROUTINE Care 01/11/20 17:55 Active Vital Signs [RC] Q4H Care 01/11/20 17:55 Active Regular Diet [DIET] Diet 01/11/20 Dinner Active Echo Comp wo Cont [US] Routine Exams 01/12/20 08:00 Ordered CBC WITH AUTO DIFF [HEME] AM Lab 01/12/20 05:11 Ordered COMPREHENSIVE METABOLIC PN,CMP [CHEM] AM Lab 01/12/20 05:11 Ordered CULTURE URINE [RM] Stat Lab 01/11/20 17:33 Received GLYCOSYLATED HEMOGLOBIN,HGBA1C [CHEM] AM Lab 01/12/20 05:11 Ordered LIPID PANEL [CHEM] AM Lab 01/12/20 05:11 Ordered MAGNESIUM [CHEM] Stat Lab 01/11/20 16:24 Received TROPONIN I [CHEM] Q6H Lab 01/11/20 23:00 Ordered TROPONIN I [CHEM] Q6H Lab 01/12/20 05:00 Ordered TSH [CHEM] Routine Lab 01/11/20 16:24 Received Acetaminophen [Tylenol] Med 01/11/20 17:55 Active 650 mg PO Q4H PRN Budesonide/Formoterol [Symbicort 160-4.5 MCG] Med 01/11/20 21:00 Ordered 2 puff INH BID Docusate Sodium [Colace] Med 01/11/20 17:55 Active 100 mg PO BID PRN Enoxaparin [Lovenox] Med 01/11/20 18:00 Active 40 mg SUBCUT Q24H Ibuprofen [Motrin] Med 01/11/20 17:55 Active 600 mg PO Q6H PRN Levothyroxine [Synthroid] Med 01/12/20 09:00 Ordered 88 mcg PO DAILY Loratadine [Claritin] Med 01/12/20 09:00 Ordered 10 mg PO DAILY Montelukast [Singulair] Med 01/12/20 09:00 Ordered 10 mg PO DAILY Nystatin Med 01/11/20 18:41 Ordered 1 applic TOP ASDIRECTED PRN [place] Nasal [place] Med 01/12/20 00:00 Ordered 2 spray NASBOTH QID Ondansetron [Zofran ODT] Med 01/11/20 17:55 Active 4 mg PO Q4H PRN Ondansetron [Zofran] Med 01/11/20 17:55 Active 4 mg IVPUSH Q4H PRN Sodium Chloride 0.9% [Normal Saline] 1,000 ml Med 01/11/20 17:46 Active IV STAT levETIRAcetam [Keppra] Med 01/11/20 21:00 Ordered 500 mg PO BID polyethylene glycoL 3350 [MiraLAX] Med 01/11/20 17:55 Active 17 gm PO DAILY PRN Resuscitation Status Routine Resus Stat 01/11/20 17:55 Ordered Medication Orders Acetaminophen (Tylenol) 650 mg PO Q4H PRN PRN Reason: Pain (Mild 1-3)/fever Docusate Sodium (Colace) 100 mg PO BID PRN PRN Reason: Constipation Enoxaparin Sodium (Lovenox) 40 mg SUBCUT Q24H MALIK Sodium Chloride (Normal Saline) 1,000 mls @ 999 mls/hr IV STAT ONE Stop: 01/11/20 18:46 Ibuprofen (Motrin) 600 mg PO Q6H PRN PRN Reason: Pain (mild 1-3) Ondansetron HCl (Zofran Odt) 4 mg PO Q4H PRN PRN Reason: nausea, able to take PO Ondansetron HCl (Zofran) 4 mg IVPUSH Q4H PRN PRN Reason: Nausea Polyethylene Glycol (Miralax) 17 gm PO DAILY PRN PRN Reason: Constipation Assessment/Plan Comment:: A: 1. Bradycardia 2. Hypotension 3. Left hand contusion 4. PMH Hypothyroidism, epilepsy, hypertension P: 1. Will monitor on telemetry. Serial troponins. Echo in the morning. Tylenol/ ibuprofen for left hand pain. Will resume home meds for hypothyroidism, epilepsy. Holding antihypertensives for now due to hypotensive episode and bradycardia. May need to go up on levothyroxine since TSH elevated. Will reassess tomorrow. Dispo: 1-2 days
[2020-01-11] MEDS ORDERED: Nystatin Topical Powder 15 GM Bottle TOP PRN (19:00)
[2020-01-11] MEDS ORDERED: Lactated Ringers 1,000 ML IV SCH (19:45)
[2020-01-11] MEDS ORDERED: Potassium Chloride 20 MEQ Tab.ER PO ONE (21:13)
[2020-01-11] MEDS: levETIRAcetam 500 MG Tab PO SCH (21:17)
[2020-01-11] MEDS: Sodium Chloride 0.65% Nasal Spray 45 ML Bottle NASBOTH SCH (23:28)
[2020-01-11] MEDS: Budesonide/Formoterol 160-4.5 MCG/Puff 6 GM Inhaler INH SCH (23:35)
[2020-01-12] MEDS: Sodium Chloride 0.65% Nasal Spray 45 ML Bottle NASBOTH SCH ×2 (02:00→06:50)
[2020-01-12 06:48] LABS: BLOOD UREA NITROGEN,BUN 18 mg/dL (7.0-18.0); CARBON DIOXIDE,CO2 27.6 mmol/L (21.0-32.0); CHLORIDE,CL 109 mmol/L (98-107); GLUCOSE RANDOM 81 mg/dL (74-106); POTASSIUM,K 3.6 mmol/L (3.5-5.1); SODIUM,NA 144 mmol/L (136-145)
[2020-01-12 06:58] LABS: HEMOGLOBIN A1C 5.7 % (4.5-6.2)
[2020-01-12] MEDS ORDERED: Levothyroxine 88 MCG Tab PO SCH (07:30)
[2020-01-12] MEDS ORDERED: Levothyroxine 125 MCG Tab PO SCH (07:30)
[2020-01-12] MEDS: levETIRAcetam 500 MG Tab PO SCH (08:36)
[2020-01-12] MEDS: Budesonide/Formoterol 160-4.5 MCG/Puff 6 GM Inhaler INH SCH (08:39)
[2020-01-12] MEDS ORDERED: Loratadine 10 MG Tab PO SCH (09:00)
[2020-01-12] MEDS ORDERED: Montelukast 10 MG Tab PO SCH (09:00)
--- NOTE | 2020-01-12 09:10 | PCM.DCSUM1 ---
Discharge Summary - Hospital Course Free Text/Narrative:: 69 y/o female with history of Down Syndrome, hypothyroidism who presented to the ER complaining of left hand pain. Xray of left hand showed a chronic 5th MCP fracture. Nothing acute. However, she was noted to be hypotensive SBP 80's and bradycardic 40-50's. She was admitted for hypotension, bradycardia. She was given bolus 1 L NS and maintenance fluids. EKG unremarkable except for sinus bradycardia. Echo results were pending at time of discharge. Her BP normalized SBP 150's. Her TSH was elevated at 8.0. Her levothyroxine was increased. Her home dose of Verapamil was discontinued at time of discharge. She was discharged home the following day. - Discharge Data Discharge Date: 01/12/20 Discharge Disposition: Home, Self-Care 01 Condition: Fair - Referral to Home Health Primary Care Physician: Josefina Rosas, DO - Patient Instructions Diet: Regular Diet as Tolerated, Drink 8-10+ Glasses/Day Activity: As Tolerated - Discharge Plan Prescriptions/Med Rec: Levothyroxine 125 mcg PO ACBREAKFAST 30 Days #30 tablet Home Medications: Home Meds Calc/D3/Mag/Zn/[place] [Calcium 600 MG Plus Vit D] 1 tab PO BID [History] Levothyroxine [Synthroid] 88 mcg PO DAILY 01/12/19 [History] Loratadine 10 mg PO DAILY 01/12/19 [History] Montelukast [Singulair] 10 mg PO DAILY 01/12/19 [History] atorvaSTATin [Lipitor] 10 mg PO BEDTIME 01/12/19 [History] levETIRAcetam [Keppra] 500 mg PO BID 01/12/19 [History] Albuterol Sulfate 1 unit INH ASDIRECTED PRN 04/29/19 [History] Bisacodyl 1 supp RECTAL ASDIRECTED PRN 04/29/19 [History] Budesonide [Pulmicort] 1 inh NEB ASDIRECTED PRN 04/29/19 [History] Dextran 70/Hypromellose [Artificial Tears] 1 drop EYEBOTH ASDIRECTED PRN [History] Losartan/Hydrochlorothiazide [Losartan-HCTZ 100-25 MG] 1 tab PO DAILY 04/29/19 [ History] Mylanta Max Strength 1 dose PO ASDIRECTED PRN 04/29/19 [History] Polyethylene Glycol 3350 1 dose PO ASDIRECTED PRN 04/29/19 [History] [place] Nasal [place] 2 spray NASBOTH QID 04/30/19 [History] Budesonide/Formoterol [Symbicort 160-4.5 MCG] 2 puff INH BID 01/11/20 [History] Erythromycin Base [Erythromycin] 1 applic EYEBOTH ASDIRECTED PRN 01/11/20 [ History] Nystatin [Nystatin Crm] 1 applic TOP ASDIRECTED PRN 01/11/20 [History] Levothyroxine 125 mcg PO ACBREAKFAST 30 Days #30 tablet 01/12/20 [Rx] Patient Handouts: Levothyroxine tablets, Bradycardia, Adult, Hypotension Referrals: Josefina Rosas DO [Primary Care Provider] - 02/01/20 8:00 am - Discharge Summary/Plan Comment DC Time >30 min.: No - Patient Data Vitals - Most Recent: Last Vital Signs Temp 36.8 C 01/12/20 03:35 Pulse 72 01/12/20 03:35 Resp 16 01/12/20 03:35 BP 154/67 H 01/12/20 03:35 Pulse Ox 95 01/12/20 03:35 Orthostatic Blood Pressure [ 150/66 Standing] Orthostatic Blood Pressure [ 156/70 Sitting] Orthostatic Blood Pressure [ 165/71 Supine] Weight - Most Recent: 69.4 kg I&O - Last 24 hours: Intake & Output 01/11/20 01/12/20 01/12/20 22:59 06:59 14:59 Intake Total 200 Balance 200 Lab Results - Last 24 hrs: Laboratory Results - last 24 hr 01/11/20 01/11/20 01/11/20 Range/Units 16:24 16:24 16:24 WBC 8.04 (4.0-11.0) K/uL RBC 4.24 L (4.30-5.90) M/uL Hgb 13.2 (12.0-16.0) g/dL Hct 40.8 (36.0-46.0) % MCV 96.2 (80.0-98.0) fL MCH 31.1 (27.0-32.0) pg MCHC 32.4 (31.0-37.0) g/dL RDW Std Deviation 44.3 (28.0-62.0) fl RDW Coeff of Leonel 13 (11.0-15.0) % Plt Count 223 (150-400) K/uL MPV 10.00 (7.40-12.00) fL Neut % (Auto) 57.9 (48.0-80.0) % Lymph % (Auto) 29.7 (16.0-40.0) % Louisa % (Auto) 9.7 (0.0-15.0) % Eos % (Auto) 2.6 (0.0-7.0) % Baso % (Auto) 0.1 (0.0-1.5) % Neut # (Auto) 4.7 (1.4-5.7) K/uL Lymph # (Auto) 2.4 (0.6-2.4) K/uL Louisa # (Auto) 0.8 (0.0-0.8) K/uL Eos # (Auto) 0.2 (0.0-0.7) K/uL Baso # (Auto) 0.0 (0.0-0.1) K/uL Nucleated RBC % 0.0 /100WBC Nucleated RBCs # 0 K/uL Sodium 146 H (136-145) mmol/L Potassium 3.8 (3.5-5.1) mmol/L Chloride 107 (98-107) mmol/L Carbon Dioxide 30.0 (21.0-32.0) mmol/L BUN 19 H (7.0-18.0) mg/dL Creatinine 0.8 (0.6-1.0) mg/dL Est Cr Clr Drug Dosing 56.50 mL/min Estimated GFR (MDRD) > 60.0 ml/min Glucose 90 (74-106) mg/dL Hemoglobin A1c (4.5-6.2) % Calcium 9.7 (8.5-10.1) mg/dL Magnesium 2.2 (1.8-2.4) mg/dL Total Bilirubin 0.2 (0.2-1.0) mg/dL AST 21 (15-37) IU/L ALT 26 (14-63) IU/L Alkaline Phosphatase 113 (46-116) U/L Troponin I < 0.050 (0.000-0.056) ng/mL Total Protein 7.2 (6.4-8.2) g/dL Albumin 3.4 (3.4-5.0) g/dL Globulin 3.8 (2.6-4.0) g/dL Albumin/Globulin Ratio 0.9 (0.9-1.6) Triglycerides (0-200) mg/dL Cholesterol (50-200) mg/dL LDL Cholesterol, Calc (60-180) mg/dL VLDL Cholesterol (5-55) mg/dL HDL Cholesterol (40-60) mg/dL Cholesterol/HDL Ratio (3.3-6.0) Lipase 383 (73-393) U/L Free T4 (0.76-1.46) ng/dL Free T3 (2.18-3.98) pg/mL TSH 3rd Generation 8.93 H (0.36-3.74) uIU/mL Urine Color Urine Appearance Urine pH (5.0-8.0) Ur Specific [place] (1.001-1.035) Urine Protein (NEGATIVE) mg/dL Urine Glucose (UA) (NEGATIVE) mg/dL Urine Ketones (NEGATIVE) mg/dL Urine Occult Blood (NEGATIVE) Urine Nitrite (NEGATIVE) Urine Bilirubin (NEGATIVE) Urine Urobilinogen (<2.0) EU/dL Ur Leukocyte Esterase (NEGATIVE) Urine RBC (0-2/HPF) Urine WBC (0-5/HPF) Ur Epithelial Cells (NONE-FEW) Urine Bacteria (NEGATIVE) 01/11/20 01/11/20 01/11/20 Range/Units 16:24 17:33 23:03 WBC (4.0-11.0) K/uL RBC (4.30-5.90) M/uL Hgb (12.0-16.0) g/dL Hct (36.0-46.0) % MCV (80.0-98.0) fL MCH (27.0-32.0) pg MCHC (31.0-37.0) g/dL RDW Std Deviation (28.0-62.0) fl RDW Coeff of Leonel (11.0-15.0) % Plt Count (150-400) K/uL MPV (7.40-12.00) fL Neut % (Auto) (48.0-80.0) % Lymph % (Auto) (16.0-40.0) % Louisa % (Auto) (0.0-15.0) % Eos % (Auto) (0.0-7.0) % Baso % (Auto) (0.0-1.5) % Neut # (Auto) (1.4-5.7) K/uL Lymph # (Auto) (0.6-2.4) K/uL Louisa # (Auto) (0.0-0.8) K/uL Eos # (Auto) (0.0-0.7) K/uL Baso # (Auto) (0.0-0.1) K/uL Nucleated RBC % /100WBC Nucleated RBCs # K/uL Sodium (136-145) mmol/L Potassium (3.5-5.1) mmol/L Chloride (98-107) mmol/L Carbon Dioxide (21.0-32.0) mmol/L BUN (7.0-18.0) mg/dL Creatinine (0.6-1.0) mg/dL Est Cr Clr Drug Dosing mL/min Estimated GFR (MDRD) ml/min Glucose (74-106) mg/dL Hemoglobin A1c (4.5-6.2) % Calcium (8.5-10.1) mg/dL Magnesium (1.8-2.4) mg/dL Total Bilirubin (0.2-1.0) mg/dL AST (15-37) IU/L ALT (14-63) IU/L Alkaline Phosphatase (46-116) U/L Troponin I < 0.050 (0.000-0.056) ng/mL Total Protein (6.4-8.2) g/dL Albumin (3.4-5.0) g/dL Globulin (2.6-4.0) g/dL Albumin/Globulin Ratio (0.9-1.6) Triglycerides (0-200) mg/dL Cholesterol (50-200) mg/dL LDL Cholesterol, Calc (60-180) mg/dL VLDL Cholesterol (5-55) mg/dL HDL Cholesterol (40-60) mg/dL Cholesterol/HDL Ratio (3.3-6.0) Lipase (73-393) U/L Free T4 1.21 (0.76-1.46) ng/dL Free T3 2.08 L (2.18-3.98) pg/mL TSH 3rd Generation (0.36-3.74) uIU/mL Urine Color YELLOW Urine Appearance CLEAR Urine pH 7.0 (5.0-8.0) Ur Specific [place] 1.025 (1.001-1.035) Urine Protein NEGATIVE (NEGATIVE) mg/dL Urine Glucose (UA) NEGATIVE (NEGATIVE) mg/dL Urine Ketones NEGATIVE (NEGATIVE) mg/dL Urine Occult Blood NEGATIVE (NEGATIVE) Urine Nitrite NEGATIVE (NEGATIVE) Urine Bilirubin NEGATIVE (NEGATIVE) Urine Urobilinogen 0.2 (<2.0) EU/dL Ur Leukocyte Esterase TRACE H (NEGATIVE) Urine RBC 0-3 (0-2/HPF) Urine WBC 0-4 (0-5/HPF) Ur Epithelial Cells RARE (NONE-FEW) Urine Bacteria RARE (NEGATIVE) 01/12/20 01/12/20 01/12/20 Range/Units 04:53 04:53 04:53 WBC (4.0-11.0) K/uL RBC (4.30-5.90) M/uL Hgb (12.0-16.0) g/dL Hct (36.0-46.0) % MCV (80.0-98.0) fL MCH (27.0-32.0) pg MCHC (31.0-37.0) g/dL RDW Std Deviation (28.0-62.0) fl RDW Coeff of Leonel (11.0-15.0) % Plt Count (150-400) K/uL MPV (7.40-12.00) fL Neut % (Auto) (48.0-80.0) % Lymph % (Auto) (16.0-40.0) % Louisa % (Auto) (0.0-15.0) % Eos % (Auto) (0.0-7.0) % Baso % (Auto) (0.0-1.5) % Neut # (Auto) (1.4-5.7) K/uL Lymph # (Auto) (0.6-2.4) K/uL [place] # (Auto) (0.0-0.8) K/uL Eos # (Auto) (0.0-0.7) K/uL Baso # (Auto) (0.0-0.1) K/uL Nucleated RBC % /100WBC Nucleated RBCs # K/uL Sodium 144 (136-145) mmol/L Potassium 3.6 (3.5-5.1) mmol/L Chloride 109 H (98-107) mmol/L Carbon Dioxide 27.6 (21.0-32.0) mmol/L BUN 18 (7.0-18.0) mg/dL Creatinine 0.7 (0.6-1.0) mg/dL Est Cr Clr Drug Dosing 64.58 mL/min Estimated GFR (MDRD) > 60.0 ml/min Glucose 81 (74-106) mg/dL Hemoglobin A1c 5.7 (4.5-6.2) % Calcium 8.7 (8.5-10.1) mg/dL Magnesium (1.8-2.4) mg/dL Total Bilirubin 0.4 (0.2-1.0) mg/dL AST 22 (15-37) IU/L ALT 21 (14-63) IU/L Alkaline Phosphatase 101 (46-116) U/L Troponin I < 0.050 (0.000-0.056) ng/mL Total Protein 6.2 L (6.4-8.2) g/dL Albumin 2.9 L (3.4-5.0) g/dL Globulin 3.3 (2.6-4.0) g/dL Albumin/Globulin Ratio 0.9 (0.9-1.6) Triglycerides 146 (0-200) mg/dL Cholesterol 113 (50-200) mg/dL LDL Cholesterol, Calc 52 L (60-180) mg/dL VLDL Cholesterol 29 (5-55) mg/dL HDL Cholesterol 32 L (40-60) mg/dL Cholesterol/HDL Ratio 3.5 (3.3-6.0) Lipase (73-393) U/L Free T4 (0.76-1.46) ng/dL Free T3 (2.18-3.98) pg/mL TSH 3rd Generation (0.36-3.74) uIU/mL Urine Color Urine Appearance Urine pH (5.0-8.0) Ur Specific Glenvil (1.001-1.035) Urine Protein (NEGATIVE) mg/dL Urine Glucose (UA) (NEGATIVE) mg/dL Urine Ketones (NEGATIVE) mg/dL Urine Occult Blood (NEGATIVE) Urine Nitrite (NEGATIVE) Urine Bilirubin (NEGATIVE) Urine Urobilinogen (<2.0) EU/dL Ur Leukocyte Esterase (NEGATIVE) Urine RBC (0-2/HPF) Urine WBC (0-5/HPF) Ur Epithelial Cells (NONE-FEW) Urine Bacteria (NEGATIVE) 01/12/20 Range/Units 04:53 WBC 7.12 (4.0-11.0) K/uL RBC 3.96 L (4.30-5.90) M/uL Hgb 12.3 (12.0-16.0) g/dL Hct 38.3 (36.0-46.0) % MCV 96.7 (80.0-98.0) fL MCH 31.1 (27.0-32.0) pg MCHC 32.1 (31.0-37.0) g/dL RDW Std Deviation 44.0 (28.0-62.0) fl RDW Coeff of Leonel 12 (11.0-15.0) % Plt Count 201 (150-400) K/uL MPV 10.60 (7.40-12.00) fL Neut % (Auto) 52.1 (48.0-80.0) % Lymph % (Auto) 37.5 (16.0-40.0) % Louisa % (Auto) 7.6 (0.0-15.0) % Eos % (Auto) 2.5 (0.0-7.0) % Baso % (Auto) 0.3 (0.0-1.5) % Neut # (Auto) 3.7 (1.4-5.7) K/uL Lymph # (Auto) 2.7 H (0.6-2.4) K/uL [place] # (Auto) 0.5 (0.0-0.8) K/uL Eos # (Auto) 0.2 (0.0-0.7) K/uL Baso # (Auto) 0.0 (0.0-0.1) K/uL Nucleated RBC % 0.0 /100WBC Nucleated RBCs # 0 K/uL Sodium (136-145) mmol/L Potassium (3.5-5.1) mmol/L Chloride (98-107) mmol/L Carbon Dioxide (21.0-32.0) mmol/L BUN (7.0-18.0) mg/dL Creatinine (0.6-1.0) mg/dL Est Cr Clr Drug Dosing mL/min Estimated GFR (MDRD) ml/min Glucose (74-106) mg/dL Hemoglobin A1c (4.5-6.2) % Calcium (8.5-10.1) mg/dL Magnesium (1.8-2.4) mg/dL Total Bilirubin (0.2-1.0) mg/dL AST (15-37) IU/L ALT (14-63) IU/L Alkaline Phosphatase (46-116) U/L Troponin I (0.000-0.056) ng/mL Total Protein (6.4-8.2) g/dL Albumin (3.4-5.0) g/dL Globulin (2.6-4.0) g/dL Albumin/Globulin Ratio (0.9-1.6) Triglycerides (0-200) mg/dL Cholesterol (50-200) mg/dL LDL Cholesterol, Calc (60-180) mg/dL VLDL Cholesterol (5-55) mg/dL HDL Cholesterol (40-60) mg/dL Cholesterol/HDL Ratio (3.3-6.0) Lipase (73-393) U/L Free T4 (0.76-1.46) ng/dL Free T3 (2.18-3.98) pg/mL TSH 3rd Generation (0.36-3.74) uIU/mL Urine Color Urine Appearance Urine pH (5.0-8.0) Ur Specific [place]il (1.001-1.035) Urine Protein (NEGATIVE) mg/dL Urine Glucose (UA) (NEGATIVE) mg/dL Urine Ketones (NEGATIVE) mg/dL Urine Occult Blood (NEGATIVE) Urine Nitrite (NEGATIVE) Urine Bilirubin (NEGATIVE) Urine Urobilinogen (<2.0) EU/dL Ur Leukocyte Esterase (NEGATIVE) Urine RBC (0-2/HPF) Urine WBC (0-5/HPF) Ur Epithelial Cells (NONE-FEW) Urine Bacteria (NEGATIVE) Med Orders - Current: Current Medications Acetaminophen (Tylenol) 650 mg PO Q4H PRN PRN Reason: Pain (Mild 1-3)/fever Budesonide/Formoterol Fumarate (Symbicort 160-4.5 Mcg) 0 gm INH BID MALIK Last Admin: 01/12/20 08:39 Dose: Not Given Docusate Sodium (Colace) 100 mg PO BID PRN PRN Reason: Constipation Enoxaparin Sodium (Lovenox) 40 mg SUBCUT Q24H [facility] Last Admin: 01/11/20 23:45 Dose: 40 mg Lactated Ringer's (Ringers, Lactated) 1,000 mls @ 125 mls/hr IV ASDIRECTED [facility] Last Admin: 01/11/20 21:22 Dose: 125 mls/hr Ibuprofen (Motrin) 600 mg PO Q6H PRN PRN Reason: Pain (mild 1-3) Levetiracetam (Keppra) 500 mg PO BID [facility] Last Admin: 01/12/20 08:36 Dose: 500 mg Levothyroxine Sodium (Levothyroxine) 125 mcg PO ACBREAKFAST [facility] Last Admin: 01/12/20 07:55 Dose: 125 mcg Loratadine (Claritin) 10 mg PO DAILY [facility] Last Admin: 01/12/20 08:36 Dose: 10 mg Montelukast Sodium (Singulair) 10 mg PO DAILY [facility] Last Admin: 01/12/20 08:36 Dose: 10 mg Nystatin (Nystop) 0 gm TOP ASDIRECTED PRN PRN Reason: Other Ondansetron HCl (Zofran Odt) 4 mg PO Q4H PRN PRN Reason: nausea, able to take PO Ondansetron HCl (Zofran) 4 mg IVPUSH Q4H PRN PRN Reason: Nausea Polyethylene Glycol (Miralax) 17 gm PO DAILY PRN PRN Reason: Constipation Sodium Chloride ([place] Nasal [place]) 0 ml NASBOTH QID [facility] Last Admin: 01/12/20 06:50 Dose: 2 spray Discontinued Medications Sodium Chloride (Normal Saline) 1,000 mls @ 999 mls/hr IV STAT ONE Stop: 01/11/20 18:46 Last Admin: 01/11/20 19:20 Dose: 999 mls/hr Influenza Virus Vaccine (Pharmacy To Dose - Influenza Vaccine) 1 each IM ONETIME ONE Stop: 01/11/20 20:30 Influenza Virus Vaccine (Fluzone High-Dose Syringe) 180 mcg IM .ONCE ONE Stop: 01/12/20 07:16 Levothyroxine Sodium (Synthroid) 88 mcg PO ACBREAKFAST MALIK Levothyroxine Sodium (Levothyroxine) 125 mcg PO ACBREAKFAST MALIK Levothyroxine Sodium (Levothyroxine) 125 mcg PO ACBREAKFAST MALIK Potassium Chloride (Klor-Con M20) 20 meq PO ONETIME ONE Stop: 01/11/20 21:14 Last Admin: 01/11/20 21:27 Dose: 20 meq
[2020-01-12 09:39] VITALS: BP 107/58; PULSE 61
[2020-01-13] MEDS ORDERED: Levothyroxine 125 MCG Tab PO SCH ×2 (07:30→08:00)
== END 2020-01-12 13:00 | disposition home or self-care (01) ==
LOC: MW.ED 14:50 → MW.MS 17:46
PROVIDERS: ADMIT Student in an Organized Health Care Education/Training Program; ATTEND Student in an Organized Health Care Education/Training Program
DX: I95.9 Hypotension, unspecified (principal); R00.1 Bradycardia, unspecified; S60.222A Contusion of left hand, initial encounter; I10 Essential (primary) hypertension; E78.00 Pure hypercholesterolemia, unspecified; K21.9 Gastro-esophageal reflux disease without esophagitis; E03.9 Hypothyroidism, unspecified; Q90.9 Down syndrome, unspecified; G40.909 Epilepsy, unspecified, not intractable, without status epilepticus; Z79.899 Other long term (current) drug therapy; Z88.2 Allergy status to sulfonamides; Z88.1 Allergy status to other antibiotic agents; Z88.8 Allergy status to other drugs, medicaments and biological substances; Z87.81 Personal history of (healed) traumatic fracture; W22.8XXA Striking against or struck by other objects, initial encounter
CPT/HCPCS: 36415; 71045; 73130; 80053; 80061; 81001; 83036; 83690; 83735; 84439; 84443; 84481; 84484; 85025; 87086; 93005; 96372; 99284; A9270; G0378; J1650; J7030; J7120

== ENCOUNTER 2020-08-22 09:18 | Observation (INO) | payer MEDICARE, MEDICAID, OTHER ==
[2020-08-22] MEDS ORDERED: methylPREDNISolone Sodium Succinate 125 MG/2 ML SDV IVPUSH ONE (09:49)
[2020-08-22] MEDS ORDERED: Aspirin 81 MG Tab.Chew PO ONE (09:49)
[2020-08-22] MEDS ORDERED: Sodium Chloride 0.9% 10 ML Syringe FLUSH PRN (09:49)
[2020-08-22] MEDS ORDERED: Sodium Chloride 0.9% 2.5 ML Syringe FLUSH PRN (09:49)
[2020-08-22] MEDS ORDERED: Albuterol 8 GM Inhaler INH ONE (09:52)
[2020-08-22] MEDS ORDERED: Albuterol HFA 18 Gm Inhaler INH PRN (09:57)
--- NOTE | 2020-08-22 10:09 | EDM.PDOC ---
ED HPI GENERAL MEDICAL PROBLEM - General Chief Complaint: Respiratory Problem Stated Complaint: BRONCHITIS ISSUES Time Seen by Provider: 08/22/20 09:36 - History of Present Illness INITIAL COMMENTS - FREE TEXT/NARRATIVE: History of present illness: Patient presents with continued cough and difficulty breathing. The home health aide noted her sats were 83% this morning she has had an ongoing bout of upper respiratory infections with multiple doses of antibiotics. She seems to get better after a course of antibiotics and gets worse again there is some concern that she was developing pneumonia by her primary care doctor. They deny any fever chills just some difficulty breathing and dry cough. There has been several COVID tests that have been negative. Patient is in a halfway she is retired she has a history of chronic bronchitis. Non-smoker. This morning she had some chest pain with coughing and dyspnea. Review of systems: As per history of present illness and below otherwise all systems reviewed and negative. Past medical history: As per history of present illness and as reviewed below otherwise noncontributory. Surgical history: As per history of present illness and as reviewed below otherwise no ncontributory. Social history: No reported history of drug or alcohol abuse. Family history: As per history of present illness and as reviewed below otherwise noncontributory. Physical exam: HEENT: Atraumatic, normocephalic, pupils reactive, negative for conjunctival pallor or scleral icterus, mucous membranes moist, throat clear, neck supple, nontender, trachea midline. Lungs: Clear to auscultation, breath sounds equal bilaterally, chest nontender. Heart: S1S2, regular, negative for clicks, rubs, or JVD. Abdomen: Soft, nondistended, nontender. Negative for masses or hepatosplenomegaly. Negative for costovertebral tenderness. Pelvis: Stable nontender. Genitourinary: Deferred. Rectal: Deferred. Extremities: Atraumatic, negative for cords or calf pain. Neurovascular unremarkable. Neuro: Awake, alert, oriented. Cranial nerves II through XII unremarkable. Cerebellum unremarkable. Motor and sensory unremarkable throughout. Exam nonfocal. Diagnostics: [] Therapeutics: [] Impression: [] Plan: Cardiac work-up COVID tests she will be treated with albuterol and Solu- Medrol. And reassessed [] Definitive disposition and diagnosis as appropriate pending reevaluation and review of above. - Related Data Allergies Allergy/AdvReac Type Severity Reaction Status Date / Time dexamethasone [From TobraDex] Allergy Rash Verified 08/22/20 09:31 Sulfa (Sulfonamide Allergy Rash Verified 08/22/20 09:31 Antibiotics) tobramycin [From TobraDex] Allergy Rash Verified 08/22/20 09:31 Home Meds: Home Meds Calc/D3/Mag/Zn/Bishop/Ron/[place] [Calcium 600 MG Plus Vit D] 1 tab PO BID 01/12/19 [History] Levothyroxine [Synthroid] 88 mcg PO DAILY 01/12/19 [History] Loratadine 10 mg PO DAILY 01/12/19 [History] Montelukast [Singulair] 10 mg PO DAILY 01/12/19 [History] atorvaSTATin [Lipitor] 10 mg PO BEDTIME 01/12/19 [History] levETIRAcetam [Keppra] 500 mg PO BID 01/12/19 [History] Albuterol Sulfate 1 unit INH ASDIRECTED PRN 04/29/19 [History] Bisacodyl 1 supp RECTAL ASDIRECTED PRN 04/29/19 [History] Budesonide [Pulmicort] 1 inh NEB ASDIRECTED PRN 04/29/19 [History] Dextran 70/Hypromellose [Artificial Tears] 1 drop EYEBOTH ASDIRECTED PRN 04/29/19 [History] Losartan/Hydrochlorothiazide [Losartan-HCTZ 100-25 MG] 1 tab PO DAILY 04/29/19 [History] Mylanta Max Strength 1 dose PO ASDIRECTED PRN 04/29/19 [History] polyethylene glycoL 3350 [Polyethylene Glycol 3350] 1 dose PO ASDIRECTED PRN 04/29/19 [History] Bailey Winona Nasal Winona 2 spray NASBOTH QID 04/30/19 [History] Budesonide/Formoterol [Symbicort 160-4.5 MCG] 2 puff INH BID 01/11/20 [History] Erythromycin Base [Erythromycin] 1 applic EYEBOTH ASDIRECTED PRN 01/11/20 [History] Nystatin [Nystatin Crm] 1 applic TOP ASDIRECTED PRN 01/11/20 [History] Levothyroxine 125 mcg PO ACBREAKFAST 30 Days #30 tablet 01/12/20 [Rx] Past Medical History HEENT History: Reports: Cataract, Hard of Hearing, Other (See Below) Other HEENT History: has hearing aids but does not wear them Cardiovascular History: Reports: High Cholesterol, Hypertension Respiratory History: Reports: Asthma Gastrointestinal History: Reports: GERD, Hemorrhoids Genitourinary History: Reports: None [employer]ER History: Reports: None Musculoskeletal History: Reports: None Neurological History: Reports: None Psychiatric History: Reports: Other (See Below) Other Psychiatric History: cognitive developmental delay, 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[employer], 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 Endocrine/Metabolic History: Reports: Hypothyroidism Other Endocrine/Metabolic History: hashimotos Hematologic History: Reports: None Immunologic History: Reports: None Oncologic (Cancer) History: Reports: None Dermatologic History: Reports: None - Past Surgical History Head Surgeries/Procedures: Reports: None HEENT Surgical History: Reports: Cataract Surgery, Eye Surgery, Naso-Sinus Surgery, Other (See Below) Other HEENT Surgeries/Procedures: nasal septal reconstruction; eye abscess surgery Cardiovascular Surgical History: Reports: None Respiratory Surgical History: Reports: None GI Surgical History: Reports: Colonoscopy Female Surgical History: Reports: Breast Biopsy Endocrine Surgical History: Reports: None Neurological Surgical History: Reports: None Musculoskeletal Surgical History: Reports: None Oncologic Surgical History: Reports: Biopsy of Breast Dermatological Surgical History: Reports: None Social & Family History - Family History Family Medical History: Unobtainable : Reports: None OBGYN: Reports: None - Tobacco Use Smoking Status *Q: Never Smoker - Caffeine Use Caffeine Use: Reports: Coffee, Soda Other Caffeine Use: not able answer - Recreational Drug Use Recreational Drug Use: No ED ROS GENERAL - Review of Systems Review Of Systems: See Below ED EXAM, GENERAL - Physical Exam Exam: See Below EKG INTERPRETATION EKG Interpretation Comments: EKG normal sinus rhythm rate of 62 bpm no ischemic changes read interpreted by me Course - Vital Signs Text/Narrative:: One-view portable chest read and interpreted by me no acute cardiopulmonary pathology is evident Patient was reassessed she is de-satting down to 86% on room air at this time. She will be admitted to the hospital I discussed case with Dr. Killian at 11:45 AM she will admit the patient telemetry obs Last Recorded V/S: Last Vital Signs Temp 35.8 C L 08/22/20 09:27 Pulse 64 08/22/20 11:25 Resp 20 08/22/20 11:25 BP 168/52 H 08/22/20 11:25 Pulse Ox 94 L 08/22/20 11:25 - Orders/Labs/Meds Orders: Active Orders 24 hr Category Date Time Status Patient Status [ADT] Routine ADT 08/22/20 11:43 Ordered EKG Documentation Completion [RC] STAT Care 08/22/20 09:50 Active RT Post Treatment Assessment [RC] Click to Edit Care 08/22/20 09:53 Active RT Pre-Treatment Assessment [RC] Click to Edit Care 08/22/20 09:53 Active Albuterol [Ventolin HFA] Med 08/22/20 09:57 Active 0 gm INH ONETIME PRN Sodium Chloride 0.9% [Saline Flush] Med 08/22/20 09:49 Active 10 ml FLUSH ASDIRECTED PRN Sodium Chloride 0.9% [Saline Flush] Med 08/22/20 09:49 Active 2.5 ml FLUSH ASDIRECTED PRN Saline Lock Insert [OM.PC] Stat Oth 08/22/20 09:50 Ordered Medication Orders Albuterol (Ventolin Hfa) 0 gm INH ONETIME PRN PRN Reason: Respiratory Depression Last Admin: 08/22/20 10:11 Dose: 4 puff Documented by: ANDREA Sodium Chloride (Saline Flush) 10 ml FLUSH ASDIRECTED PRN PRN Reason: Keep Vein Open Last Admin: 08/22/20 10:12 Dose: 10 ml Documented by: ANDREA Sodium Chloride (Saline Flush) 2.5 ml FLUSH ASDIRECTED PRN PRN Reason: Keep Vein Open Last Admin: 08/22/20 10:11 Dose: 2.5 ml Documented by: ANDREA Labs: Laboratory Tests 08/22/20 08/22/20 08/22/20 Range/Units 10:05 10:05 10:05 WBC 10.90 (4.0-11.0) K/uL RBC 4.71 (4.30-5.90) M/uL Hgb 14.4 (12.0-16.0) g/dL Hct 44.7 (36.0-46.0) % MCV 94.9 (80.0-98.0) fL MCH 30.6 (27.0-32.0) pg MCHC 32.2 (31.0-37.0) g/dL RDW Std Deviation 43.6 (28.0-62.0) fl RDW Coeff of Leonel 13 (11.0-15.0) % Plt Count 214 (150-400) K/uL MPV 10.10 (7.40-12.00) fL Neut % (Auto) 67.6 (48.0-80.0) % Lymph % (Auto) 22.1 (16.0-40.0) % Lake % (Auto) 8.2 (0.0-15.0) % Eos % (Auto) 2.0 (0.0-7.0) % Baso % (Auto) 0.1 (0.0-1.5) % Neut # (Auto) 7.4 H (1.4-5.7) K/uL Lymph # (Auto) 2.4 (0.6-2.4) K/uL Lake # (Auto) 0.9 H (0.0-0.8) K/uL Eos # (Auto) 0.2 (0.0-0.7) K/uL Baso # (Auto) 0.0 (0.0-0.1) K/uL Nucleated RBC % 0.0 /100WBC Nucleated RBCs # 0 K/uL Sodium 140 (136-145) mmol/L Potassium 3.6 (3.5-5.1) mmol/L Chloride 103 (98-107) mmol/L Carbon Dioxide 34.3 H (21.0-32.0) mmol/L BUN 17 (7.0-18.0) mg/dL Creatinine 0.7 (0.6-1.0) mg/dL Est Cr Clr Drug Dosing 60.98 mL/min Estimated GFR (MDRD) > 60.0 ml/min Glucose 77 (74-106) mg/dL Calcium 10.1 (8.5-10.1) mg/dL Total Bilirubin 0.5 (0.2-1.0) mg/dL AST 19 (15-37) IU/L ALT 32 (14-63) IU/L Alkaline Phosphatase 96 (46-116) U/L Troponin I < 0.050 (0.000-0.056) ng/mL B-Natriuretic Peptide 68 (<100) PG/ML Total Protein 6.9 (6.4-8.2) g/dL Albumin 3.1 L (3.4-5.0) g/dL Globulin 3.8 (2.6-4.0) g/dL Albumin/Globulin Ratio 0.8 L (0.9-1.6) SARS-CoV-2 RNA (DALE) (NEGATIVE) 08/22/20 Range/Units 10:17 WBC (4.0-11.0) K/uL RBC (4.30-5.90) M/uL Hgb (12.0-16.0) g/dL Hct (36.0-46.0) % MCV (80.0-98.0) fL MCH (27.0-32.0) pg MCHC (31.0-37.0) g/dL RDW Std Deviation (28.0-62.0) fl RDW Coeff of Leonel (11.0-15.0) % Plt Count (150-400) K/uL MPV (7.40-12.00) fL Neut % (Auto) (48.0-80.0) % Lymph % (Auto) (16.0-40.0) % Lake % (Auto) (0.0-15.0) % Eos % (Auto) (0.0-7.0) % Baso % (Auto) (0.0-1.5) % Neut # (Auto) (1.4-5.7) K/uL Lymph # (Auto) (0.6-2.4) K/uL Lake # (Auto) (0.0-0.8) K/uL Eos # (Auto) (0.0-0.7) K/uL Baso # (Auto) (0.0-0.1) K/uL Nucleated RBC % /100WBC Nucleated RBCs # K/uL Sodium (136-145) mmol/L Potassium (3.5-5.1) mmol/L Chloride (98-107) mmol/L Carbon Dioxide (21.0-32.0) mmol/L BUN (7.0-18.0) mg/dL Creatinine (0.6-1.0) mg/dL Est Cr Clr Drug Dosing mL/min Estimated GFR (MDRD) ml/min Glucose (74-106) mg/dL Calcium (8.5-10.1) mg/dL Total Bilirubin (0.2-1.0) mg/dL AST (15-37) IU/L ALT (14-63) IU/L Alkaline Phosphatase (46-116) U/L Troponin I (0.000-0.056) ng/mL B-Natriuretic Peptide (<100) PG/ML Total Protein (6.4-8.2) g/dL Albumin (3.4-5.0) g/dL Globulin (2.6-4.0) g/dL Albumin/Globulin Ratio (0.9-1.6) SARS-CoV-2 RNA (DALE) NEGATIVE (NEGATIVE) Meds: Medications Generic Name Dose Route Start Last Admin Trade Name Freq PRN Reason Stop Dose Admin Albuterol 0 gm 08/22/20 09:57 08/22/20 10:11 Ventolin Hfa INH 4 puff ONETIME PRN Administration Respiratory Depression Sodium Chloride 10 ml 08/22/20 09:49 08/22/20 10:12 Saline Flush FLUSH 10 ml ASDIRECTED PRN Administration Keep Vein Open Sodium Chloride 2.5 ml 08/22/20 09:49 08/22/20 10:11 Saline Flush FLUSH 2.5 ml ASDIRECTED PRN Administration Keep Vein Open Discontinued Medications Generic Name Dose Route Start Last Admin Trade Name Freq PRN Reason Stop Dose Admin Albuterol 1 gm 08/22/20 09:52 08/22/20 10:11 Ventolin Hfa INH 08/22/20 09:53 Not Given ONETIME ONE Aspirin 324 mg 08/22/20 09:49 08/22/20 10:08 Aspirin PO 08/22/20 09:50 324 mg ONETIME ONE Administration Methylprednisolone Sodium Succinate 125 mg 08/22/20 09:49 08/22/20 10:11 Solu-Medrol IVPUSH 08/22/20 09:50 125 mg ONETIME ONE Administration Departure - Departure Time of Disposition: 11:46 Disposition: Refer to Observation Condition: Fair Clinical Impression: Hypoxemia - Discharge Information *PRESCRIPTION DRUG MONITORING PROGRAM REVIEWED*: Not Applicable *COPY OF PRESCRIPTION DRUG MONITORING REPORT IN PATIENT ARIADNA: Not Applicable Referrals: Josefina Rosas DO [Primary Care Provider] - Forms: ED Department Discharge Sepsis Event Note (ED) - Evaluation Sepsis Screening Result: Possible Sepsis Risk - Focused Exam Vital Signs: Vital Signs Temp Pulse Resp BP Pulse Ox Pulse Ox 08/22/20 11:25 64 20 168/52 H 94 L 08/22/20 09:45 95 08/22/20 09:27 35.8 C L 71 22 H 172/53 H 90 L - My Orders Last 24 Hours: My Active Orders 08/22/20 09:49 Sodium Chloride 0.9% [Saline Flush] 10 ml FLUSH ASDIRECTED PRN Sodium Chloride 0.9% [Saline Flush] 2.5 ml FLUSH ASDIRECTED PRN 08/22/20 09:50 EKG Documentation Completion [RC] STAT Saline Lock Insert [OM.PC] Stat 08/22/20 09:53 RT Post Treatment Assessment [RC] Click to Edit RT Pre-Treatment Assessment [RC] Click to Edit 08/22/20 09:57 Albuterol [Ventolin HFA] 0 gm INH ONETIME PRN 08/22/20 11:43 Patient Status [ADT] Routine - Assessment/Plan Last 24 Hours: My Active Orders 08/22/20 09:49 Sodium Chloride 0.9% [Saline Flush] 10 ml FLUSH ASDIRECTED PRN Sodium Chloride 0.9% [Saline Flush] 2.5 ml FLUSH ASDIRECTED PRN 08/22/20 09:50 EKG Documentation Completion [RC] STAT Saline Lock Insert [OM.PC] Stat 08/22/20 09:53 RT Post Treatment Assessment [RC] Click to Edit RT Pre-Treatment Assessment [RC] Click to Edit 08/22/20 09:57 Albuterol [Ventolin HFA] 0 gm INH ONETIME PRN 08/22/20 11:43 Patient Status [ADT] Routine
--- NOTE | 2020-08-22 10:26 | CR ---
INDICATION: Shortness of breath TECHNIQUE: Chest 1 views COMPARISON: January 11, 2020 FINDINGS: Cardiovascular and mediastinum: Heart size and vasculature are normal in caliber and appearance. Lungs and pleural spaces: Lungs are clear. No sign of infiltrate or mass. No sign of pleural effusion. No pneumothorax. Bones and soft tissues: Severe right shoulder joint osteoarthritis. IMPRESSION: No acute findings and no significant changes from the prior exam. No specific finding to explain shortness of breath. Dictated by Vlad Quach MD @ Aug 22 2020 10:23AM Signed by Dr. Vlad Quach @ Aug 22 2020 10:24AM
[2020-08-22 10:42] LABS: BLOOD UREA NITROGEN,BUN 17 mg/dL (7.0-18.0); CARBON DIOXIDE,CO2 34.3 mmol/L (21.0-32.0); CHLORIDE,CL 103 mmol/L (98-107); GLUCOSE RANDOM 77 mg/dL (74-106); POTASSIUM,K 3.6 mmol/L (3.5-5.1); SODIUM,NA 140 mmol/L (136-145)
[2020-08-22] MEDS ORDERED: Azithromycin 100 MG/5 ML Susp 15 ML Bottle PO ONE (11:46)
[2020-08-22] MEDS ORDERED: Azithromycin 250 MG Tab PO ONE (12:45)
[2020-08-22] MEDS ORDERED: Acetaminophen 325 MG Tab PO PRN (12:56)
[2020-08-22] MEDS ORDERED: Ondansetron 4 MG/2 ML SDV IVPUSH PRN (12:56)
--- NOTE | 2020-08-22 13:12 | PCM.HP.2 ---
H&P History of Present Illness - General Date of Service: 08/22/20 Admit Problem/Dx: Admission Diagnosis/Problem Admission Diagnosis/Problem COPD, Moderate chronic obstructive pulmonary disease Source of Information: Patient, Old Records History Limitations: Reports: No Limitations - History of Present Illness Initial Comments - Free Text/Narative: This 70-year-old female with PMH of seizure disorder, asthma, intellectual disability, and HTN presented to the ER today with worsening shortness of breath and cough. She is presenting from the [facility] home here in [place]. The staff reports she is been intermittently worsening over the last few days with shortness of breath and cough. Denies any fevers or chills. No COVID exposure that the staff or patient are aware of. She does have a history of asthma has never had any pulmonary function tests and no history of COPD. Patient is unable to give thorough history. History was obtained from clinic records from Dr. Rosas. [facility] staff member was on the room who gave HPI. There is no history of smoking or alcohol use and no recreational drug use. In the ER lab work essentially normal, bicarb slightly elevated at 34. Chest x- ray negative for pneumonia. She was noted to be hypoxic descending to 87% on room air. She was placed on 2 L nasal cannula which improved oxygen saturations to 94%. She was given a azithromycin along with Solu-Medrol 125 mg and duo nebs. She showed mild improvement and admission for observation was recommended for acute hypoxic respiratory failure and possible COPD exacerbation. PCP, Dr. Rosas She 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 - Related Data Allergies/Adverse Reactions: Allergies Allergy/AdvReac Type Severity Reaction Status Date / Time dexamethasone [From TobraDex] Allergy Rash Verified 08/22/20 09:31 Sulfa (Sulfonamide Allergy Rash Verified 08/22/20 09:31 Antibiotics) tobramycin [From TobraDex] Allergy Rash Verified 08/22/20 09:31 Home Medications: Home Meds Calc/D3/Mag/Zn/Bishop/Ron/[place] [Calcium 600 MG Plus Vit D] 1 tab PO BID 01/12/19 [History] Loratadine 10 mg PO DAILY 01/12/19 [History] Montelukast [Singulair] 10 mg PO DAILY 01/12/19 [History] atorvaSTATin [Lipitor] 10 mg PO BEDTIME 01/12/19 [History] levETIRAcetam [Keppra] 500 mg PO BID 01/12/19 [History] Albuterol Sulfate 1 unit INH ASDIRECTED PRN 04/29/19 [History] Dextran 70/Hypromellose [Artificial Tears] 1 drop EYEBOTH ASDIRECTED PRN 04/29/19 [History] Losartan/Hydrochlorothiazide [Losartan-HCTZ 100-25 MG] 1 tab PO DAILY 04/29/19 [History] polyethylene glycoL 3350 [Polyethylene Glycol 3350] 17 gm PO DAILY PRN 04/29/19 [History] [place] Nasal [place] 2 spray NASBOTH QID 04/30/19 [History] Budesonide/Formoterol [Symbicort 160-4.5 MCG] 2 puff INH BID 01/11/20 [History] Erythromycin Base [Erythromycin] 1 applic EYEBOTH ASDIRECTED PRN 01/11/20 [History] Nystatin [Nystatin Crm] 1 applic TOP ASDIRECTED PRN 01/11/20 [History] Levothyroxine 125 mcg PO ACBREAKFAST 30 Days #30 tablet 01/12/20 [Rx] Verapamil HCl [Verelan] 180 mg PO DAILY 08/22/20 [History] Past Medical History HEENT History: Reports: Cataract, Hard of Hearing, Other (See Below) Other HEENT History: has hearing aids but does not wear them Cardiovascular History: Reports: High Cholesterol, Hypertension Respiratory History: Reports: Asthma Gastrointestinal History: Reports: GERD, Hemorrhoids Genitourinary History: Reports: None WATER ANALYST History: Reports: None Musculoskeletal History: Reports: None Neurological History: Reports: None Psychiatric History: Reports: Other (See Below) Other Psychiatric History: cognitive developmental delay, 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 [employer], 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 Endocrine/Metabolic History: Reports: Hypothyroidism Other Endocrine/Metabolic History: hashimotos Hematologic History: Reports: None Immunologic History: Reports: None Oncologic (Cancer) History: Reports: None Dermatologic History: Reports: None - Past Surgical History Head Surgeries/Procedures: Reports: None HEENT Surgical History: Reports: Cataract Surgery, Eye Surgery, Naso-Sinus Surgery, Other (See Below) Other HEENT Surgeries/Procedures: nasal septal reconstruction; eye abscess surgery Cardiovascular Surgical History: Reports: None Respiratory Surgical History: Reports: None GI Surgical History: Reports: Colonoscopy Female Surgical History: Reports: Breast Biopsy Endocrine Surgical History: Reports: None Neurological Surgical History: Reports: None Musculoskeletal Surgical History: Reports: None Oncologic Surgical History: Reports: Biopsy of Breast Dermatological Surgical History: Reports: None Social & Family History - Family History Family Medical History: Unobtainable : Reports: None OBGYN: Reports: None - Tobacco Use Smoking Status *Q: Never Smoker - Caffeine Use Caffeine Use: Reports: Coffee, Soda Other Caffeine Use: not able answer - Recreational Drug Use Recreational Drug Use: No H&P Review of Systems - Review of Systems: Review Of Systems: See Below General: Reports: Malaise, Weakness, Fatigue HEENT: Reports: Headaches, Sinus Congestion. Denies: Sore Throat Pulmonary: Reports: Shortness of Breath, Wheezing, Cough. Denies: Sputum Cardiovascular: Denies: Chest Pain, Syncope Gastrointestinal: Reports: No Symptoms. Denies: Abdominal Pain, Black Stool, Bloody Stool, Nausea, Vomiting Genitourinary: Reports: No Symptoms. Denies: Dysuria, Frequency Musculoskeletal: Reports: No Symptoms Skin: Reports: No Symptoms Psychiatric: Reports: No Symptoms Neurological: Reports: No Symptoms Hematologic/Lymphatic: Reports: No Symptoms Immunologic: Reports: No Symptoms Exam - Exam Exam: See Below - Vital Signs Vital Signs: Last Vital Signs Temp 96.4 F L 08/22/20 09:27 Pulse 64 08/22/20 11:25 Resp 20 08/22/20 11:25 BP 168/52 H 08/22/20 11:25 Pulse Ox 94 L 08/22/20 11:25 Weight: 62.596 kg - Exam Quality Assessment: Supplemental Oxygen, DVT Prophylaxis General: Alert, Oriented, Cooperative, Other (appears as though she does not feel well.) HEENT: Conjunctiva Clear, Mucosa Moist & [place], Posterior Pharynx Clear, Other ([place]) Lungs: Rhonchi, Wheezing Cardiovascular: Regular Rate, Regular Rhythm, Normal S1, Normal S2. No: Systolic Murmur Extremities: Normal Inspection, Normal Range of Motion, Non-Tender, No Pedal Edema Neuro Extensive - Mental Status: Alert, Oriented x3 Neuro Extensive - Motor, Sensory, Reflexes: CN II-XII Intact Psychiatric: Alert, Normal Affect, Normal Mood - Patient Data Lab Results Last 24 hrs: Laboratory Results - last 24 hr 08/22/20 08/22/2020 Range/Units 10:05 10:05 10:05 WBC 10.90 (4.0-11.0) K/uL RBC 4.71 (4.30-5.90) M/uL Hgb 14.4 (12.0-16.0) g/dL Hct 44.7 (36.0-46.0) % MCV 94.9 (80.0-98.0) fL MCH 30.6 (27.0-32.0) pg MCHC 32.2 (31.0-37.0) g/dL RDW Std Deviation 43.6 (28.0-62.0) fl RDW Coeff of Leonel 13 (11.0-15.0) % Plt Count 214 (150-400) K/uL MPV 10.10 (7.40-12.00) fL Neut % (Auto) 67.6 (48.0-80.0) % Lymph % (Auto) 22.1 (16.0-40.0) % [place] % (Auto) 8.2 (0.0-15.0) % Eos % (Auto) 2.0 (0.0-7.0) % Baso % (Auto) 0.1 (0.0-1.5) % Neut # (Auto) 7.4 H (1.4-5.7) K/uL Lymph # (Auto) 2.4 (0.6-2.4) K/uL [place] # (Auto) 0.9 H (0.0-0.8) K/uL Eos # (Auto) 0.2 (0.0-0.7) K/uL Baso # (Auto) 0.0 (0.0-0.1) K/uL Nucleated RBC % 0.0 /100WBC Nucleated RBCs # 0 K/uL Sodium 140 (136-145) mmol/L Potassium 3.6 (3.5-5.1) mmol/L Chloride 103 (98-107) mmol/L Carbon Dioxide 34.3 H (21.0-32.0) mmol/L BUN 17 (7.0-18.0) mg/dL Creatinine 0.7 (0.6-1.0) mg/dL Est Cr Clr Drug Dosing 60.98 mL/min Estimated GFR (MDRD) > 60.0 ml/min Glucose 77 (74-106) mg/dL Calcium 10.1 (8.5-10.1) mg/dL Total Bilirubin 0.5 (0.2-1.0) mg/dL AST 19 (15-37) IU/L ALT 32 (14-63) IU/L Alkaline Phosphatase 96 (46-116) U/L Troponin I < 0.050 (0.000-0.056) ng/mL B-Natriuretic Peptide 68 (<100) PG/ML Total Protein 6.9 (6.4-8.2) g/dL Albumin 3.1 L (3.4-5.0) g/dL Globulin 3.8 (2.6-4.0) g/dL Albumin/Globulin Ratio 0.8 L (0.9-1.6) SARS-CoV-2 RNA (DALE) (NEGATIVE) 08/22/20 Range/Units 10:17 WBC (4.0-11.0) K/uL RBC (4.30-5.90) M/uL Hgb (12.0-16.0) g/dL Hct (36.0-46.0) % MCV (80.0-98.0) fL MCH (27.0-32.0) pg MCHC (31.0-37.0) g/dL RDW Std Deviation (28.0-62.0) fl RDW Coeff of Leonel (11.0-15.0) % Plt Count (150-400) K/uL MPV (7.40-12.00) fL Neut % (Auto) (48.0-80.0) % Lymph % (Auto) (16.0-40.0) % [place] % (Auto) (0.0-15.0) % Eos % (Auto) (0.0-7.0) % Baso % (Auto) (0.0-1.5) % Neut # (Auto) (1.4-5.7) K/uL Lymph # (Auto) (0.6-2.4) K/uL [place] # (Auto) (0.0-0.8) K/uL Eos # (Auto) (0.0-0.7) K/uL Baso # (Auto) (0.0-0.1) K/uL Nucleated RBC % /100WBC Nucleated RBCs # K/uL Sodium (136-145) mmol/L Potassium (3.5-5.1) mmol/L Chloride (98-107) mmol/L Carbon Dioxide (21.0-32.0) mmol/L BUN (7.0-18.0) mg/dL Creatinine (0.6-1.0) mg/dL Est Cr Clr Drug Dosing mL/min Estimated GFR (MDRD) ml/min Glucose (74-106) mg/dL Calcium (8.5-10.1) mg/dL Total Bilirubin (0.2-1.0) mg/dL AST (15-37) IU/L ALT (14-63) IU/L Alkaline Phosphatase (46-116) U/L Troponin I (0.000-0.056) ng/mL B-Natriuretic Peptide (<100) PG/ML Total Protein (6.4-8.2) g/dL Albumin (3.4-5.0) g/dL Globulin (2.6-4.0) g/dL Albumin/Globulin Ratio (0.9-1.6) SARS-CoV-2 RNA (DALE) NEGATIVE (NEGATIVE) Result Diagrams: 08/22/20 10:05 08/22/20 10:05 Sepsis Event Note - Evaluation Sepsis Screening Result: Possible Sepsis Risk - Focused Exam Vital Signs: Vital Signs Temp Pulse Resp BP Pulse Ox Pulse Ox 08/22/20 11:25 64 20 168/52 H 94 L 08/22/20 09:45 95 08/22/20 09:27 96.4 F L 71 22 H 172/53 H 90 L - Problem List (1) Acute respiratory failure with hypoxia SNOMED Code(s): 68612290, 952179546 ICD Code: J96.01 - ACUTE RESPIRATORY FAILURE WITH HYPOXIA Status: Acute Current Visit: Yes (2) HTN (hypertension) SNOMED Code(s): 68356393 ICD Code: I10 - ESSENTIAL (PRIMARY) HYPERTENSION Status: Acute Current Visit: Yes (3) Asthma SNOMED Code(s): 444780284 ICD Code: J45.909 - UNSPECIFIED ASTHMA, UNCOMPLICATED Status: Acute Current Visit: Yes (4) Intellectual disability SNOMED Code(s): 430145082 ICD Code: F79 - UNSPECIFIED INTELLECTUAL DISABILITIES Status: Acute Current Visit: Yes (5) Seizure disorder SNOMED Code(s): 457840207 ICD Code: G40.909 - EPILEPSY, UNSP, NOT INTRACTABLE, WITHOUT STATUS EPILEPTICUS Status: Acute Current Visit: Yes (6) Hypoxemia SNOMED Code(s): 904055151 ICD Code: R09.02 - HYPOXEMIA Status: Acute Current Visit: Yes Problem List Initiated/Reviewed/Updated: Yes Orders Last 24hrs: Active Orders 24 hr Category Date Time Status Patient Status [ADT] Routine ADT 08/22/20 11:43 Active EKG Documentation Completion [RC] STAT Care 08/22/20 09:50 Active Intake and Output [RC] QSHIFT Care 08/22/20 12:56 Active Oxygen Therapy [RC] PRN Care 08/22/20 12:56 Active RT Post Treatment Assessment [RC] Click to Edit Care 08/22/20 09:53 Active RT Pre-Treatment Assessment [RC] Click to Edit Care 08/22/20 09:53 Active Up to Chair [RC] ASDIRECTED Care 08/22/20 12:56 Active VTE/DVT Education [RC] PER UNIT ROUTINE Care 08/22/20 12:56 Active Vital Signs [RC] Q4H Care 08/22/20 12:56 Active Regular Diet [DIET] Diet 08/22/20 Lunch Active BASIC METABOLIC PANEL,BMP [CHEM] AM Lab 08/23/20 05:11 Ordered CBC WITH AUTO DIFF [HEME] AM Lab 08/23/20 05:11 Ordered Acetaminophen [TylenoL] Med 08/22/20 12:56 Ordered 650 mg PO Q4H PRN Albuterol [Ventolin HFA] Med 08/22/20 09:57 Active 0 gm INH ONETIME PRN Ondansetron [Zofran] Med 08/22/20 12:56 Ordered 4 mg IVPUSH Q4H PRN Sodium Chloride 0.9% [Saline Flush] Med 08/22/20 09:49 Active 10 ml FLUSH ASDIRECTED PRN Sodium Chloride 0.9% [Saline Flush] Med 08/22/20 09:49 Active 2.5 ml FLUSH ASDIRECTED PRN Saline Lock Insert [OM.PC] Stat Oth 08/22/20 09:50 Ordered Resuscitation Status Routine Resus Stat 08/22/20 12:56 Ordered Medication Orders Acetaminophen (Tylenol) 650 mg PO Q4H PRN PRN Reason: Pain (Mild 1-3)/fever Albuterol (Ventolin Hfa) 0 gm INH ONETIME PRN PRN Reason: Respiratory Depression Last Admin: 08/22/20 10:11 Dose: 4 puff Documented by: ANDREA Ondansetron HCl (Zofran) 4 mg IVPUSH Q4H PRN PRN Reason: Nausea Sodium Chloride (Saline Flush) 10 ml FLUSH ASDIRECTED PRN PRN Reason: Keep Vein Open Last Admin: 08/22/20 10:12 Dose: 10 ml Documented by: ANDREA Sodium Chloride (Saline Flush) 2.5 ml FLUSH ASDIRECTED PRN PRN Reason: Keep Vein Open Last Admin: 08/22/20 10:11 Dose: 2.5 ml Documented by: ANDREA Assessment/Plan Comment:: This 70 year old female admitted with respiratory failure with hypoxia and possible COPD exacerbation and/or asthma 1. Acute respiratory failure with hypoxia, COPD vs asthma exacerbation - Will treat with Levaquin 750 mg IV daily - Tolerated Solumedrol well in ED, will continue low dose Solumedrol 40 mg IV Q12h and monitor - Duonebs scheduled every 4 hours - Consider CT of chest tomorrow if little improvement - recommended outpatient PFT - Continue Loratadine, Singulair and Symbicort - IS every 1 hour - Oxygen to keep sats above 90%. Wean as possible. - COVID negative in ED 2. HTN: - Elevated, will monitor today - Continue home antihypertensives Verapamil and Losartan/HCTZ 3. Seizure disorder - Continue Keppra VTE prophylaxis: SCDs Dispo: 1-2 days - Mortality Measure Prognosis:: Good
[2020-08-22] MEDS ORDERED: Polyethylene Glycol 3350 Powder 17 GM Packet PO PRN (13:14)
[2020-08-22] MEDS ORDERED: Nystatin Crm 30 GM Tube TOP PRN (13:14)
[2020-08-22] MEDS ORDERED: Erythromycin Base 0.5% Ophth Oint 1 GM Tube EYEBOTH PRN (13:14)
[2020-08-22] MEDS ORDERED: Carboxymethylcellulose Sodium 0.5% Ophth Soln 0.4 ML UD Box of 30 EYEBOTH PRN (13:14)
[2020-08-22] MEDS: Albuterol/Ipratropium 3.0-0.5 MG/3 ML Neb Soln NEB SCH ×3 (13:26→21:04)
[2020-08-22] MEDS ORDERED: Sodium Chloride 0.9% 1,000 ML IV SCH (14:30)
[2020-08-22] MEDS: Levofloxacin/Dextrose 5%-Water 750 MG in Premix Bag 1 BAG IV SCH (15:22)
[2020-08-22] MEDS: Sodium Chloride 0.65% Nasal Spray 45 ML Bottle NASBOTH SCH (17:23)
[2020-08-22] MEDS: Calcium Carbonate/Vitamin D3 1500 MG-400 Units Tab PO SCH (20:51)
[2020-08-22] MEDS: atorvaSTATin 10 MG Tab PO SCH (20:51)
[2020-08-22] MEDS ORDERED: Lactated Ringers 500 ML IV ONE (20:51)
[2020-08-22] MEDS: levETIRAcetam 500 MG Tab PO SCH (20:51)
[2020-08-22] MEDS: Budesonide/Formoterol 160-4.5 MCG/Puff 6 GM Inhaler INH SCH (20:52)
[2020-08-22] MEDS: methylPREDNISolone Sodium Succinate 40 MG/1 ML SDV IV SCH (21:34)
[2020-08-23] MEDS: Sodium Chloride 0.65% Nasal Spray 45 ML Bottle NASBOTH SCH ×4 (00:35→17:30)
[2020-08-23] MEDS: Albuterol/Ipratropium 3.0-0.5 MG/3 ML Neb Soln NEB SCH ×6 (02:44→21:36)
[2020-08-23 07:04] LABS: BLOOD UREA NITROGEN,BUN 16 mg/dL (7.0-18.0); CHLORIDE,CL 104 mmol/L (98-107); GLUCOSE RANDOM 152 mg/dL (74-106); POTASSIUM,K 3.3 mmol/L (3.5-5.1); SODIUM,NA 141 mmol/L (136-145)
[2020-08-23] MEDS: Levothyroxine 125 MCG Tab PO SCH (07:37)
[2020-08-23] MEDS ORDERED: Potassium Chloride 20 MEQ Tab.ER PO ONE (07:55)
--- NOTE | 2020-08-23 08:15 | PCM.PN ---
- General Info Date of Service: 08/23/20 Admission Dx/Problem (Free Text): Admission Diagnosis/Problem Admission Diagnosis/Problem COPD, Moderate chronic obstructive pulmonary disease Subjective Update: Doing well this morning, no complaints. Functional Status: Reports: Pain Controlled, Tolerating Diet, Ambulating, Urinating - Review of Systems General: Reports: No Symptoms. Denies: Fatigue, Malaise HEENT: Reports: No Symptoms. Denies: Headaches, Sore Throat, Visual Changes Pulmonary: Reports: Shortness of Breath, Cough Cardiovascular: Reports: No Symptoms. Denies: Chest Pain Gastrointestinal: Reports: No Symptoms. Denies: Abdominal Pain, Nausea, Vomiting Genitourinary: Reports: No Symptoms. Denies: Dysuria, Frequency Musculoskeletal: Reports: No Symptoms Skin: Reports: No Symptoms Neurological: Reports: No Symptoms Psychiatric: Reports: No Symptoms - Patient Data Vitals - Most Recent: Last Vital Signs Temp 97.0 F 08/23/20 04:30 Pulse 77 08/23/20 04:30 Resp 17 08/23/20 04:30 BP 92/56 L 08/23/20 04:30 Pulse Ox 94 L 08/23/20 04:30 Weight - Most Recent: 62.596 kg I&O - Last 24 Hours: Intake & Output 08/22/20 08/23/20 08/23/20 22:59 06:59 14:59 Intake Total 390 120 Output Total 500 Balance 390 -380 Lab Results Last 24 Hours: Laboratory Results - last 24 hr 08/22/20 08/22/20 08/22/20 Range/Units 10:05 10:05 10:05 WBC 10.90 (4.0-11.0) K/uL RBC 4.71 (4.30-5.90) M/uL Hgb 14.4 (12.0-16.0) g/dL Hct 44.7 (36.0-46.0) % MCV 94.9 (80.0-98.0) fL MCH 30.6 (27.0-32.0) pg MCHC 32.2 (31.0-37.0) g/dL RDW Std Deviation 43.6 (28.0-62.0) fl RDW Coeff of Leonel 13 (11.0-15.0) % Plt Count 214 (150-400) K/uL MPV 10.10 (7.40-12.00) fL Neut % (Auto) 67.6 (48.0-80.0) % Lymph % (Auto) 22.1 (16.0-40.0) % Pettis % (Auto) 8.2 (0.0-15.0) % Eos % (Auto) 2.0 (0.0-7.0) % Baso % (Auto) 0.1 (0.0-1.5) % Neut # (Auto) 7.4 H (1.4-5.7) K/uL Lymph # (Auto) 2.4 (0.6-2.4) K/uL Pettis # (Auto) 0.9 H (0.0-0.8) K/uL Eos # (Auto) 0.2 (0.0-0.7) K/uL Baso # (Auto) 0.0 (0.0-0.1) K/uL Nucleated RBC % 0.0 /100WBC Nucleated RBCs # 0 K/uL Sodium 140 (136-145) mmol/L Potassium 3.6 (3.5-5.1) mmol/L Chloride 103 (98-107) mmol/L Carbon Dioxide 34.3 H (21.0-32.0) mmol/L BUN 17 (7.0-18.0) mg/dL Creatinine 0.7 (0.6-1.0) mg/dL Est Cr Clr Drug Dosing 60.98 mL/min Estimated GFR (MDRD) > 60.0 ml/min Glucose 77 (74-106) mg/dL Calcium 10.1 (8.5-10.1) mg/dL Total Bilirubin 0.5 (0.2-1.0) mg/dL AST 19 (15-37) IU/L ALT 32 (14-63) IU/L Alkaline Phosphatase 96 (46-116) U/L Troponin I < 0.050 (0.000-0.056) ng/mL B-Natriuretic Peptide 68 (<100) PG/ML Total Protein 6.9 (6.4-8.2) g/dL Albumin 3.1 L (3.4-5.0) g/dL Globulin 3.8 (2.6-4.0) g/dL Albumin/Globulin Ratio 0.8 L (0.9-1.6) Urine Color Urine Appearance Urine pH (5.0-8.0) Ur Specific [place] (1.001-1.035) Urine Protein (NEGATIVE) mg/dL Urine Glucose (UA) (NEGATIVE) mg/dL Urine Ketones (NEGATIVE) mg/dL Urine Occult Blood (NEGATIVE) Urine Nitrite (NEGATIVE) Urine Bilirubin (NEGATIVE) Urine Urobilinogen (<2.0) EU/dL Ur Leukocyte Esterase (NEGATIVE) SARS-CoV-2 RNA (DALE) (NEGATIVE) 08/22/20 08/22/20 08/23/20 Range/Units 10:17 21:00 05:36 WBC 14.16 H (4.0-11.0) K/uL RBC 4.47 (4.30-5.90) M/uL Hgb 13.8 (12.0-16.0) g/dL Hct 42.0 (36.0-46.0) % MCV 94.0 (80.0-98.0) fL MCH 30.9 (27.0-32.0) pg MCHC 32.9 (31.0-37.0) g/dL RDW Std Deviation 42.3 (28.0-62.0) fl RDW Coeff of Leonel 12 (11.0-15.0) % Plt Count 201 (150-400) K/uL MPV 10.70 (7.40-12.00) fL Neut % (Auto) 93.0 H (48.0-80.0) % Lymph % (Auto) 5.5 L (16.0-40.0) % [place] % (Auto) 1.5 (0.0-15.0) % Eos % (Auto) 0.0 (0.0-7.0) % Baso % (Auto) 0.0 (0.0-1.5) % Neut # (Auto) 13.2 H (1.4-5.7) K/uL Lymph # (Auto) 0.8 (0.6-2.4) K/uL [place] # (Auto) 0.2 (0.0-0.8) K/uL Eos # (Auto) 0.0 (0.0-0.7) K/uL Baso # (Auto) 0.0 (0.0-0.1) K/uL Nucleated RBC % 0.0 /100WBC Nucleated RBCs # 0 K/uL Sodium (136-145) mmol/L Potassium (3.5-5.1) mmol/L Chloride (98-107) mmol/L Carbon Dioxide (21.0-32.0) mmol/L BUN (7.0-18.0) mg/dL Creatinine (0.6-1.0) mg/dL Est Cr Clr Drug Dosing mL/min Estimated GFR (MDRD) ml/min Glucose (74-106) mg/dL Calcium (8.5-10.1) mg/dL Total Bilirubin (0.2-1.0) mg/dL AST (15-37) IU/L ALT (14-63) IU/L Alkaline Phosphatase (46-116) U/L Troponin I (0.000-0.056) ng/mL B-Natriuretic Peptide (<100) PG/ML Total Protein (6.4-8.2) g/dL Albumin (3.4-5.0) g/dL Globulin (2.6-4.0) g/dL Albumin/Globulin Ratio (0.9-1.6) Urine Color YELLOW Urine Appearance CLEAR Urine pH 6.5 (5.0-8.0) Ur Specific [place] 1.025 (1.001-1.035) Urine Protein NEGATIVE (NEGATIVE) mg/dL Urine Glucose (UA) 500 H (NEGATIVE) mg/dL Urine Ketones NEGATIVE (NEGATIVE) mg/dL Urine Occult Blood NEGATIVE (NEGATIVE) Urine Nitrite NEGATIVE (NEGATIVE) Urine Bilirubin NEGATIVE (NEGATIVE) Urine Urobilinogen 0.2 (<2.0) EU/dL Ur Leukocyte Esterase NEGATIVE (NEGATIVE) SARS-CoV-2 RNA (DALE) NEGATIVE (NEGATIVE) 08/23/20 Range/Units 05:36 WBC (4.0-11.0) K/uL RBC (4.30-5.90) M/uL Hgb (12.0-16.0) g/dL Hct (36.0-46.0) % MCV (80.0-98.0) fL MCH (27.0-32.0) pg MCHC (31.0-37.0) g/dL RDW Std Deviation (28.0-62.0) fl RDW Coeff of Leonel (11.0-15.0) % Plt Count (150-400) K/uL MPV (7.40-12.00) fL Neut % (Auto) (48.0-80.0) % Lymph % (Auto) (16.0-40.0) % [place]ettis % (Auto) (0.0-15.0) % Eos % (Auto) (0.0-7.0) % Baso % (Auto) (0.0-1.5) % Neut # (Auto) (1.4-5.7) K/uL Lymph # (Auto) (0.6-2.4) K/uL [place] # (Auto) (0.0-0.8) K/uL Eos # (Auto) (0.0-0.7) K/uL Baso # (Auto) (0.0-0.1) K/uL Nucleated RBC % /100WBC Nucleated RBCs # K/uL Sodium 141 (136-145) mmol/L Potassium 3.3 L (3.5-5.1) mmol/L Chloride 104 (98-107) mmol/L Carbon Dioxide 26.0 (21.0-32.0) mmol/L BUN 16 (7.0-18.0) mg/dL Creatinine 0.9 (0.6-1.0) mg/dL Est Cr Clr Drug Dosing 47.43 mL/min Estimated GFR (MDRD) > 60.0 ml/min Glucose 152 H (74-106) mg/dL Calcium 9.1 (8.5-10.1) mg/dL Total Bilirubin (0.2-1.0) mg/dL AST (15-37) IU/L ALT (14-63) IU/L Alkaline Phosphatase (46-116) U/L Troponin I (0.000-0.056) ng/mL B-Natriuretic Peptide (<100) PG/ML Total Protein (6.4-8.2) g/dL Albumin (3.4-5.0) g/dL Globulin (2.6-4.0) g/dL Albumin/Globulin Ratio (0.9-1.6) Urine Color Urine Appearance Urine pH (5.0-8.0) Ur Specific [place] (1.001-1.035) Urine Protein (NEGATIVE) mg/dL Urine Glucose (UA) (NEGATIVE) mg/dL Urine Ketones (NEGATIVE) mg/dL Urine Occult Blood (NEGATIVE) Urine Nitrite (NEGATIVE) Urine Bilirubin (NEGATIVE) Urine Urobilinogen (<2.0) EU/dL Ur Leukocyte Esterase (NEGATIVE) SARS-CoV-2 RNA (DALE) (NEGATIVE) Med Orders - Current: Current Medications Acetaminophen (Tylenol) 650 mg PO Q4H PRN PRN Reason: Pain (Mild 1-3)/fever Albuterol/Ipratropium (Duoneb 3.0-0.5 Mg/3 Ml) 3 ml NEB Q4HRRT [facility] Last Admin: 08/23/20 06:02 Dose: 3 ml Documented by: Artificial Tears (Refresh Plus 0.5%) 0 each EYEBOTH ASDIRECTED PRN PRN Reason: Dry Eyes Atorvastatin Calcium (Lipitor) 10 mg PO BEDTIME [facility] Last Admin: 08/22/20 20:51 Dose: 10 mg Documented by: Calcium Carbonate (Caltrate 600+D 1500 Mg-400 Units) 1 tab PO BID [facility] Last Admin: 08/22/20 20:51 Dose: 1 tab Documented by: Erythromycin (Erythromycin 0.5% Ophth Oint) 0 gm EYEBOTH ASDIRECTED PRN PRN Reason: Dry Eyes Levofloxacin/Dextrose 750 mg/ (Premix) 150 mls @ 100 mls/hr IV Q24H [facility] Last Admin: 08/22/20 15:22 Dose: 100 mls/hr Documented by: Influenza Virus Vaccine (Fluzone High-Dose Quad ) 240 mcg IM .ONCE ONE Stop: 08/27/20 14:01 Levetiracetam (Keppra) 500 mg PO BID [facility] Last Admin: 08/22/20 20:51 Dose: 500 mg Documented by: Levothyroxine Sodium (Levothyroxine) 125 mcg PO ACBREAKFAST [facility] Last Admin: 08/23/20 07:37 Dose: 125 mcg Documented by: Loratadine (Claritin) 10 mg PO DAILY [facility] Methylprednisolone Sodium Succinate (Solu-Medrol) 40 mg IV Q12H [facility] Last Admin: 08/22/20 21:34 Dose: 40 mg Documented by: Montelukast Sodium (Singulair) 10 mg PO DAILY [facility] Nystatin (Nystatin Crm) 0 gm TOP ASDIRECTED PRN PRN Reason: Rash Ondansetron HCl (Zofran) 4 mg IVPUSH Q4H PRN PRN Reason: Nausea Budesonide/Formoterol 160-4.5 Mcg/Puff 6 Gm Inhaler 0 each INH BID [facility] Last Admin: 08/22/20 20:52 Dose: Not Given Documented by: Polyethylene Glycol (Miralax) 17 gm PO DAILY PRN PRN Reason: Constipation Sodium Chloride ([place]) 0 ml NASBOTH QID [facility] Last Admin: 08/23/20 05:59 Dose: 2 spray Documented by: Discontinued Medications Albuterol (Ventolin Hfa) 1 gm INH ONETIME ONE Stop: 08/22/20 09:53 Last Admin: 08/22/20 10:11 Dose: Not Given Documented by: Albuterol (Ventolin Hfa) 0 gm INH ONETIME PRN PRN Reason: Respiratory Depression Last Admin: 08/22/20 10:11 Dose: 4 puff Documented by: Aspirin (Aspirin) 324 mg PO ONETIME ONE Stop: 08/22/20 09:50 Last Admin: 08/22/20 10:08 Dose: 324 mg Documented by: Azithromycin (Zithromax 100 Mg/5 Ml Susp) 500 mg PO ONETIME ONE Stop: 08/22/20 11:47 Last Admin: 08/22/20 13:25 Dose: Not Given Documented by: Azithromycin (Zithromax) 500 mg PO ONETIME ONE Stop: 08/22/20 12:46 Last Admin: 08/22/20 12:53 Dose: 500 mg Documented by: HCTZ/Losartan Potassium (Hyzaar 50-12.5 Mg) 2 tab PO DAILY [facility] Sodium Chloride (Normal Saline) 1,000 mls @ 125 mls/hr IV Q8H [facility] Stop: 08/22/20 22:29 Last Admin: 08/22/20 15:17 Dose: 125 mls/hr Documented by: Lactated Ringer's (Ringers, Lactated) 500 mls @ 999 mls/hr IV .BOLUS ONE Stop: 08/22/20 21:21 Last Admin: 08/22/20 21:33 Dose: 999 mls/hr Documented by: Influenza Virus Vaccine (Pharmacy To Dose - Influenza Vaccine) 1 each IM ONETIME ONE Stop: 08/22/20 13:54 Last Admin: 08/22/20 17:10 Dose: Not Given Documented by: Methylprednisolone Sodium Succinate (Solu-Medrol) 125 mg IVPUSH ONETIME ONE Stop: 08/22/20 09:50 Last Admin: 08/22/20 10:11 Dose: 125 mg Documented by: Potassium Chloride (Klor-Con M20) 40 meq PO ONETIME ONE Stop: 08/23/20 07:56 Sodium Chloride (Saline Flush) 10 ml FLUSH ASDIRECTED PRN PRN Reason: Keep Vein Open Last Admin: 08/22/20 10:12 Dose: 10 ml Documented by: Sodium Chloride (Saline Flush) 2.5 ml FLUSH ASDIRECTED PRN PRN Reason: Keep Vein Open Last Admin: 08/22/20 10:11 Dose: 2.5 ml Documented by: Verapamil HCl (Calan Sr) 180 mg PO DAILY [facility] - Exam General: Alert, Oriented, Cooperative, No Acute Distress Lungs: Rhonchi, Wheezing. No: Normal Respiratory Effort (dyspnea) Cardiovascular: Regular Rate, Regular Rhythm GI/Abdominal Exam: Normal Bowel Sounds, Soft, Non-Tender Extremities: Normal Inspection, Normal Range of Motion, Non-Tender, No Pedal Edema Neurological: No New Focal Deficit Psy/Mental Status: Alert, Normal Affect, Normal Mood Sepsis Event Note - Evaluation Sepsis Screening Result: No Definite Risk - Focused Exam Vital Signs: Vital Signs Temp Pulse Resp BP Pulse Ox 08/23/20 04:30 97.0 F 77 17 92/56 L 94 L 08/23/20 00:46 97.7 F 77 18 104/57 L 93 L 08/22/20 20:38 97.7 F 75 20 87/50 L 95 - Problem List & Annotations (1) Acute respiratory failure with hypoxia SNOMED Code(s): 07515800, 793058524 Code(s): J96.01 - ACUTE RESPIRATORY FAILURE WITH HYPOXIA Status: Acute Current Visit: Yes (2) HTN (hypertension) SNOMED Code(s): 46514349 Code(s): I10 - ESSENTIAL (PRIMARY) HYPERTENSION Status: Acute Current Visit: Yes Qualifiers: Hypertension type: essential hypertension Qualified Code(s): I10 - Essential (primary) hypertension (3) Asthma SNOMED Code(s): 910325561 Code(s): J45.909 - UNSPECIFIED ASTHMA, UNCOMPLICATED Status: Acute Current Visit: Yes (4) Intellectual disability SNOMED Code(s): 598137053 Code(s): F79 - UNSPECIFIED INTELLECTUAL DISABILITIES Status: Acute Current Visit: Yes (5) Seizure disorder SNOMED Code(s): 128929872 Code(s): G40.909 - EPILEPSY, UNSP, NOT INTRACTABLE, WITHOUT STATUS EPILEPTICUS Status: Acute Current Visit: Yes (6) Hypoxemia SNOMED Code(s): 527723785 Code(s): R09.02 - HYPOXEMIA Status: Acute Current Visit: Yes - Problem List Review Problem List Initiated/Reviewed/Updated: Yes - My Orders Last 24 Hours: My Active Orders 08/22/20 Lunch Regular Diet [DIET] 08/22/20 12:56 Intake and Output [RC] Q12H Oxygen Therapy [RC] PRN Up to Chair [RC] ASDIRECTED VTE/DVT Education [RC] PER UNIT ROUTINE Vital Signs [RC] Q4H Acetaminophen [TylenoL] 650 mg PO Q4H PRN Ondansetron [Zofran] 4 mg IVPUSH Q4H PRN Resuscitation Status Routine 08/22/20 13:13 RT Aerosol Therapy [RC] ASDIRECTED 08/22/20 13:14 Carboxymethylcellulose Sodium [Refresh Plus 0.5%] 0 each EYEBOTH ASDIRECTED PRN Erythromycin Base [Erythromycin 0.5% Ophth Oint] 0 gm EYEBOTH ASDIRECTED PRN Nystatin [Nystatin Crm] 0 gm TOP ASDIRECTED PRN polyethylene glycoL 3350 [MiraLAX] 17 gm PO DAILY PRN 08/22/20 13:21 RT Post Treatment Assessment [RC] Click to Edit RT Pre-Treatment Assessment [RC] Click to Edit 08/22/20 14:00 Albuterol/Ipratropium [DuoNeb 3.0-0.5 MG/3 ML] 3 ml NEB Q4HRRT 08/22/20 14:30 Levofloxacin/Dextrose 5%-Water [Levaquin in D5W 750 MG/150 ML] 750 mg Premix Bag 1 bag IV Q24H 08/22/20 18:00 Sodium Chloride 0.65% [[place]] 0 ml NASBOTH QID 08/22/20 21:00 Calcium Carbonate/Vitamin D3 [Caltrate 600+D 1500 MG-400 Units] 1 tab PO BID Patient's Own Medication [Ptom] 0 each INH BID atorvaSTATin [Lipitor] 10 mg PO BEDTIME levETIRAcetam [Keppra] 500 mg PO BID 08/22/20 22:00 methylPREDNISolone Sod Succ [Solu-MEDROL] 40 mg IV Q12H 08/23/20 07:30 Levothyroxine 125 mcg PO ACBREAKFAST 08/23/20 09:00 Loratadine [Claritin] 10 mg PO DAILY Montelukast [Singulair] 10 mg PO DAILY 08/27/20 14:00 FLU Vacc [id number](65YR UP)/PF [Fluzone High-Dose Quad ] 240 mcg IM .ONCE ONE - Plan Plan:: This 70 year old female admitted with respiratory failure with hypoxia and pos sible COPD exacerbation and/or asthma 1. Acute respiratory failure with hypoxia, COPD vs asthma exacerbation - Good improvement today. - Continue Levaquin 750 mg IV daily - Continue low dose Solumedrol 40 mg IV Q12h and monitor - Duonebs scheduled every 4 hours - recommended outpatient PFT - Continue Loratadine, Singulair and Symbicort - IS every 1 hour - Oxygen to keep sats above 90%. Wean as possible. - COVID negative in ED 2. HTN: - Continue home antihypertensives Verapamil and Losartan/HCTZ - Significant difference in blood pressures from R to L arm. 3. Seizure disorder - Continue Keppra VTE prophylaxis: SCDs Dispo: 1-2 days
[2020-08-23] MEDS: Montelukast 10 MG Tab PO SCH (08:55)
[2020-08-23] MEDS: Calcium Carbonate/Vitamin D3 1500 MG-400 Units Tab PO SCH ×2 (08:55→21:40)
[2020-08-23] MEDS: Loratadine 10 MG Tab PO SCH (08:55)
[2020-08-23] MEDS: levETIRAcetam 500 MG Tab PO SCH ×2 (08:57→21:40)
[2020-08-23] MEDS ORDERED: Hydrochlorothiazide/Losartan 12.5-50 mg Tab PO SCH (09:00)
[2020-08-23] MEDS ORDERED: Verapamil 180 MG Tab.ER PO SCH (09:00)
[2020-08-23] MEDS: Budesonide/Formoterol 160-4.5 MCG/Puff 6 GM Inhaler INH SCH ×2 (09:03→21:40)
[2020-08-23] MEDS: methylPREDNISolone Sodium Succinate 40 MG/1 ML SDV IV SCH ×2 (09:19→21:39)
[2020-08-23] MEDS: Verapamil 180 MG Tab.ER PO SCH (12:04)
[2020-08-23] MEDS: Hydrochlorothiazide/Losartan 12.5-50 mg Tab PO SCH (12:04)
[2020-08-23] MEDS: Levofloxacin/Dextrose 5%-Water 750 MG in Premix Bag 1 BAG IV SCH (14:42)
[2020-08-23] MEDS: atorvaSTATin 10 MG Tab PO SCH (21:39)
[2020-08-24] MEDS: Sodium Chloride 0.65% Nasal Spray 45 ML Bottle NASBOTH SCH ×2 (02:35→07:50)
[2020-08-24] MEDS: Albuterol/Ipratropium 3.0-0.5 MG/3 ML Neb Soln NEB SCH ×3 (02:35→09:42)
[2020-08-24 06:17] LABS: BLOOD UREA NITROGEN,BUN 23 mg/dL (7.0-18.0); CARBON DIOXIDE,CO2 26.9 mmol/L (21.0-32.0); CHLORIDE,CL 107 mmol/L (98-107); GLUCOSE RANDOM 140 mg/dL (74-106); POTASSIUM,K 3.5 mmol/L (3.5-5.1); SODIUM,NA 142 mmol/L (136-145)
[2020-08-24] MEDS: Loratadine 10 MG Tab PO SCH (09:25)
[2020-08-24] MEDS: Montelukast 10 MG Tab PO SCH (09:25)
[2020-08-24] MEDS: Verapamil 180 MG Tab.ER PO SCH (09:25)
[2020-08-24] MEDS: Calcium Carbonate/Vitamin D3 1500 MG-400 Units Tab PO SCH (09:25)
[2020-08-24] MEDS: levETIRAcetam 500 MG Tab PO SCH (09:26)
[2020-08-24] MEDS: Hydrochlorothiazide/Losartan 12.5-50 mg Tab PO SCH (09:26)
[2020-08-24] MEDS: Levothyroxine 125 MCG Tab PO SCH (09:26)
[2020-08-24] MEDS: Budesonide/Formoterol 160-4.5 MCG/Puff 6 GM Inhaler INH SCH (09:37)
[2020-08-24] MEDS: methylPREDNISolone Sodium Succinate 40 MG/1 ML SDV IV SCH (10:09)
--- NOTE | 2020-08-24 11:05 | PCM.DCSUM1 ---
Discharge Summary - Hospital Course Brief History: This 70-year-old female with PMH of seizure disorder, asthma, intellectual disability, and HTN presented to the ER today with worsening shortness of breath and cough. She is presenting from the [facility] home here in [place]. The staff reports she is been intermittently worsening over the last few days with shortness of breath and cough. Denies any fevers or chills. No COVID exposure that the staff or patient are aware of. She does have a history of asthma has never had any pulmonary function tests and no history of COPD. Patient is unable to give thorough history. History was obtained from clinic records from Dr. Rosas. [facility] staff member was on the room who gave HPI. There is no history of smoking or alcohol use and no recreational drug use. In the ER lab work essentially normal, bicarb slightly elevated at 34. Chest x-ray negative for pneumonia. She was noted to be hypoxic descending to 87% on room air. She was placed on 2 L nasal cannula which improved oxygen saturations to 94%. She was given a azithromycin along with Solu-Medrol 125 mg and duo nebs. She showed mild improvement and admission for observation was recommended for acute hypoxic respiratory failure and possible COPD exacerbation. Diagnosis: Stroke: No - Discharge Data Discharge Date: 08/24/20 Discharge Disposition: Home, Self-Care 01 Condition: Good - Referral to Home Health Primary Care Physician: Josefina Rosas, DO - Discharge Diagnosis/Problem(s) (1) Acute respiratory failure with hypoxia SNOMED Code(s): 82545433, 582819885 ICD Code: J96.01 - ACUTE RESPIRATORY FAILURE WITH HYPOXIA Status: Acute (2) HTN (hypertension) SNOMED Code(s): 43157078 ICD Code: I10 - ESSENTIAL (PRIMARY) HYPERTENSION Status: Acute Qualifiers: Hypertension type: essential hypertension Qualified Code(s): I10 - Essential (primary) hypertension (3) Asthma SNOMED Code(s): 846719251 ICD Code: J45.909 - UNSPECIFIED ASTHMA, UNCOMPLICATED Status: Acute (4) Intellectual disability SNOMED Code(s): 736708064 ICD Code: F79 - UNSPECIFIED INTELLECTUAL DISABILITIES Status: Acute (5) Seizure disorder SNOMED Code(s): 481530413 ICD Code: G40.909 - EPILEPSY, UNSP, NOT INTRACTABLE, WITHOUT STATUS EPILEPTICUS Status: Acute (6) Hypoxemia SNOMED Code(s): 780923968 ICD Code: R09.02 - HYPOXEMIA Status: Acute - Patient Summary/Data Hospital Course: Admitting Diagnoses: Suspected COPD exacerbation Asthma exacerbation CAP Discharge Diagnoses: Suspected COPD exacerbation Asthma exacerbation CAP other pmh: Seizure disorder TRAV Buckley was admitted and treated with Solumedrol, Duonebs and Levaquin for suspected CAP as well as possible COPD. She is on current treatment for COPD, but has never had PFT to confirm this. She steadily improved during her stay and was weaned off oxygen. Today she is very alert and eager to go home. Labwork remains stable. She will be discharged home on Levaquin 750 mg po daily as wel as Prednisone 40 mg x 4 days. She is to continue Symbicort and rescue inhaler. She is to return the ED or clinic if concerns should arise. - Patient Instructions Diet: Regular Diet as Tolerated Activity: As Tolerated, No Strenuous Activities Driving: Do Not Drive Showering/Bathing: May Shower Notify Provider of: Fever, Increased Pain, Swelling and Redness, Drainage, Nausea and/or Vomiting - Discharge Plan *PRESCRIPTION DRUG MONITORING PROGRAM REVIEWED*: Not Applicable *COPY OF PRESCRIPTION DRUG MONITORING REPORT IN PATIENT ARIADNA: Not Applicable Prescriptions/Med Rec: levoFLOXacin [Levaquin] 750 mg PO DAILY #4 tab predniSONE [Prednisone] 40 mg PO DAILY #8 tablet Home Medications: Home Meds Calc/D3/Mag/Zn/[place] [Calcium 600 MG Plus Vit D] 1 tab PO BID 01/12/19 [History] Loratadine 10 mg PO DAILY 01/12/19 [History] Montelukast [Singulair] 10 mg PO DAILY 01/12/19 [History] atorvaSTATin [Lipitor] 10 mg PO BEDTIME 01/12/19 [History] levETIRAcetam [Keppra] 500 mg PO BID 01/12/19 [History] Albuterol Sulfate 1 unit INH ASDIRECTED PRN 04/29/19 [History] Dextran 70/Hypromellose [Artificial Tears] 1 drop EYEBOTH ASDIRECTED PRN 04/29/19 [History] Losartan/Hydrochlorothiazide [Losartan-HCTZ 100-25 MG] 1 tab PO DAILY 04/29/19 [History] polyethylene glycoL 3350 [Polyethylene Glycol 3350] 17 gm PO DAILY PRN 04/29/19 [History] [place] Nasal [place] 2 spray NASBOTH QID 04/30/19 [History] Budesonide/Formoterol [Symbicort 160-4.5 MCG] 2 puff INH BID 01/11/20 [History] Erythromycin Base [Erythromycin] 1 applic EYEBOTH ASDIRECTED PRN 01/11/20 [History] Nystatin [Nystatin Crm] 1 applic TOP ASDIRECTED PRN 01/11/20 [History] Levothyroxine 125 mcg PO ACBREAKFAST 30 Days #30 tablet 01/12/20 [Rx] Verapamil HCl [Verelan] 180 mg PO DAILY 08/22/20 [History] levoFLOXacin [Levaquin] 750 mg PO DAILY #4 tab 08/24/20 [Rx] predniSONE [Prednisone] 40 mg PO DAILY #8 tablet 08/24/20 [Rx] Oxygen Therapy Mode: Room Air Patient Handouts: Chronic Obstructive Pulmonary Disease, Levofloxacin tablets, Prednisone tablets, Acute Bronchitis, Adult Referrals: Josefina Rosas DO [Primary Care Provider] - 09/08/20 10:00 am - Discharge Summary/Plan Comment DC Time >30 min.: No - Patient Data Vitals - Most Recent: Last Vital Signs Temp 99.4 F 08/24/20 08:00 Pulse 79 08/24/20 08:00 Resp 20 08/24/20 08:00 BP 156/49 H 08/24/20 08:00 Pulse Ox 91 L 08/24/20 08:00 Weight - Most Recent: 62.596 kg I&O - Last 24 hours: Intake & Output 08/23/20 08/24/20 08/24/20 22:59 06:59 14:59 Intake Total 400 120 Output Total 600 600 Balance -200 -480 Lab Results - Last 24 hrs: Laboratory Results - last 24 hr 08/24/20 08/24/20 Range/Units 04:53 04:53 WBC 17.90 H (4.0-11.0) K/uL RBC 4.30 (4.30-5.90) M/uL Hgb 12.9 (12.0-16.0) g/dL Hct 40.7 (36.0-46.0) % MCV 94.7 (80.0-98.0) fL MCH 30.0 (27.0-32.0) pg MCHC 31.7 (31.0-37.0) g/dL RDW Std Deviation 43.3 (28.0-62.0) fl RDW Coeff of Leonel 13 (11.0-15.0) % Plt Count 203 (150-400) K/uL MPV 10.50 (7.40-12.00) fL Neut % (Auto) 93.4 H (48.0-80.0) % Lymph % (Auto) 4.5 L (16.0-40.0) % [place] % (Auto) 2.0 (0.0-15.0) % Eos % (Auto) 0.0 (0.0-7.0) % Baso % (Auto) 0.1 (0.0-1.5) % Neut # (Auto) 16.7 H (1.4-5.7) K/uL Lymph # (Auto) 0.8 (0.6-2.4) K/uL [place] # (Auto) 0.4 (0.0-0.8) K/uL Eos # (Auto) 0.0 (0.0-0.7) K/uL Baso # (Auto) 0.0 (0.0-0.1) K/uL Nucleated RBC % 0.0 /100WBC Nucleated RBCs # 0 K/uL Sodium 142 (136-145) mmol/L Potassium 3.5 (3.5-5.1) mmol/L Chloride 107 (98-107) mmol/L Carbon Dioxide 26.9 (21.0-32.0) mmol/L BUN 23 H (7.0-18.0) mg/dL Creatinine 0.8 (0.6-1.0) mg/dL Est Cr Clr Drug Dosing 53.35 mL/min Estimated GFR (MDRD) > 60.0 ml/min Glucose 140 H (74-106) mg/dL Calcium 9.0 (8.5-10.1) mg/dL Med Orders - Current: Current Medications Acetaminophen (Tylenol) 650 mg PO Q4H PRN PRN Reason: Pain (Mild 1-3)/fever Albuterol/Ipratropium (Duoneb 3.0-0.5 Mg/3 Ml) 3 ml NEB Q4HRRT [facility] Last Admin: 08/24/20 09:42 Dose: 3 ml Documented by: Artificial Tears (Refresh Plus 0.5%) 0 each EYEBOTH ASDIRECTED PRN PRN Reason: Dry Eyes Atorvastatin Calcium (Lipitor) 10 mg PO BEDTIME [facility] Last Admin: 08/23/20 21:39 Dose: 10 mg Documented by: Calcium Carbonate (Caltrate 600+D 1500 Mg-400 Units) 1 tab PO BID [facility] Last Admin: 08/24/20 09:25 Dose: 1 tab Documented by: Erythromycin (Erythromycin 0.5% Ophth Oint) 0 gm EYEBOTH ASDIRECTED PRN PRN Reason: Dry Eyes HCTZ/Losartan Potassium (Hyzaar 50-12.5 Mg) 2 tab PO DAILY [facility] Last Admin: 08/24/20 09:26 Dose: 2 tab Documented by: Levofloxacin/Dextrose 750 mg/ (Premix) 150 mls @ 100 mls/hr IV Q24H [facility] Last Admin: 08/23/20 14:42 Dose: 100 mls/hr Documented by: Influenza Virus Vaccine (Fluzone High-Dose Quad ) 240 mcg IM .ONCE ONE Stop: 08/27/20 14:01 Levetiracetam (Keppra) 500 mg PO BID [facility] Last Admin: 08/24/20 09:26 Dose: 500 mg Documented by: Levothyroxine Sodium (Levothyroxine) 125 mcg PO ACBREAKFAST [facility] Last Admin: 08/24/20 09:26 Dose: 125 mcg Documented by: Loratadine (Claritin) 10 mg PO DAILY [facility] Last Admin: 08/24/20 09:25 Dose: 10 mg Documented by: Methylprednisolone Sodium Succinate (Solu-Medrol) 40 mg IV Q12H [facility] Last Admin: 08/24/20 10:09 Dose: 40 mg Documented by: Montelukast Sodium (Singulair) 10 mg PO DAILY [facility] Last Admin: 08/24/20 09:25 Dose: 10 mg Documented by: Nystatin (Nystatin Crm) 0 gm TOP ASDIRECTED PRN PRN Reason: Rash Ondansetron HCl (Zofran) 4 mg IVPUSH Q4H PRN PRN Reason: Nausea Budesonide/Formoterol 160-4.5 Mcg/Puff 6 Gm Inhaler 0 each INH BID [facility] Last Admin: 08/24/20 09:37 Dose: Not Given Documented by: Polyethylene Glycol (Miralax) 17 gm PO DAILY PRN PRN Reason: Constipation Sodium Chloride ([place] Nasal [place]) 0 ml NASBOTH QID [facility] Last Admin: 08/24/20 07:50 Dose: Not Given Documented by: Verapamil HCl (Cal[place] Sr) 180 mg PO DAILY [facility] Last Admin: 08/24/20 09:25 Dose: 180 mg Documented by: Discontinued Medications Albuterol (Ventolin Hfa) 1 gm INH ONETIME ONE Stop: 08/22/20 09:53 Last Admin: 08/22/20 10:11 Dose: Not Given Documented by: Albuterol (Ventolin Hfa) 0 gm INH ONETIME PRN PRN Reason: Respiratory Depression Last Admin: 08/22/20 10:11 Dose: 4 puff Documented by: Aspirin (Aspirin) 324 mg PO ONETIME ONE Stop: 08/22/20 09:50 Last Admin: 08/22/20 10:08 Dose: 324 mg Documented by: Azithromycin (Zithromax 100 Mg/5 Ml Susp) 500 mg PO ONETIME ONE Stop: 08/22/20 11:47 Last Admin: 08/22/20 13:25 Dose: Not Given Documented by: Azithromycin (Zithromax) 500 mg PO ONETIME ONE Stop: 08/22/20 12:46 Last Admin: 08/22/20 12:53 Dose: 500 mg Documented by: HCTZ/Losartan Potassium (Hyzaar 50-12.5 Mg) 2 tab PO DAILY [facility] Sodium Chloride (Normal Saline) 1,000 mls @ 125 mls/hr IV Q8H [facility] Stop: 08/22/20 22:29 Last Admin: 08/22/20 15:17 Dose: 125 mls/hr Documented by: Lactated Ringer's (Ringers, Lactated) 500 mls @ 999 mls/hr IV .BOLUS ONE Stop: 08/22/20 21:21 Last Admin: 08/22/20 21:33 Dose: 999 mls/hr Documented by: Influenza Virus Vaccine (Pharmacy To Dose - Influenza Vaccine) 1 each IM ONETIME ONE Stop: 08/22/20 13:54 Last Admin: 08/22/20 17:10 Dose: Not Given Documented by: Methylprednisolone Sodium Succinate (Solu-Medrol) 125 mg IVPUSH ONETIME ONE Stop: 08/22/20 09:50 Last Admin: 08/22/20 10:11 Dose: 125 mg Documented by: Potassium Chloride (Klor-Con M20) 40 meq PO ONETIME ONE Stop: 08/23/20 07:56 Last Admin: 08/23/20 08:56 Dose: 40 meq Documented by: Sodium Chloride (Saline Flush) 10 ml FLUSH ASDIRECTED PRN PRN Reason: Keep Vein Open Last Admin: 08/22/20 10:12 Dose: 10 ml Documented by: Sodium Chloride (Saline Flush) 2.5 ml FLUSH ASDIRECTED PRN PRN Reason: Keep Vein Open Last Admin: 08/22/20 10:11 Dose: 2.5 ml Documented by: Verapamil HCl (Calan Sr) 180 mg PO DAILY [facility]
[2020-08-24 11:15] VITALS: BP 171/72; PULSE 82
[2020-08-27] MEDS ORDERED: FLU Vacc QV2020-21(65YR UP)/PF 240 MCG/0.7 ML Syringe IM ONE (14:00)
== END 2020-08-24 12:27 | disposition home or self-care (01) ==
LOC: MW.ED 09:18 → MW.MS 11:43
PROVIDERS: ADMIT Student in an Organized Health Care Education/Training Program; ATTEND Student in an Organized Health Care Education/Training Program
DX: J96.01 Acute respiratory failure with hypoxia (principal); I10 Essential (primary) hypertension; J45.901 Unspecified asthma with (acute) exacerbation; F79 Unspecified intellectual disabilities; G40.909 Epilepsy, unspecified, not intractable, without status epilepticus; Z20.828 Contact with and (suspected) exposure to other viral communicable diseases; E78.00 Pure hypercholesterolemia, unspecified; Z79.899 Other long term (current) drug therapy; Z88.2 Allergy status to sulfonamides; Z88.8 Allergy status to other drugs, medicaments and biological substances
CPT/HCPCS: 36415; 71045; 80048; 80053; 81003; 83880; 84484; 85025; 93005; 94640; 96365; 96366; 96375; 96376; 99285; A9270; G0378; J1956; J2920; J2930; J7030; J7120; U0002; 93010; 96374; 99217; 99218; 99224; J3535-GY; J7620-GY

== ENCOUNTER 2021-04-04 16:14 | Observation (INO) | payer MEDICARE, MEDICAID ==
[2021-04-04] MEDS ORDERED: Lactated Ringers 1,000 ML IV ONE (16:31)
--- NOTE | 2021-04-04 17:28 | CR ---
INDICATION: Shortness of breath TECHNIQUE: Chest 1 views COMPARISON: 08/22/2020 FINDINGS: Cardiovascular and mediastinum: Heart size and vasculature are normal in caliber and appearance. Lungs and pleural spaces: Lungs are clear. No sign of infiltrate or mass. No sign of pleural effusion. No pneumothorax. Bones and soft tissues: No significant findings. IMPRESSION: No acute findings and no significant changes from the prior exam. Dictated by Vlad Quach MD @ 04/04/2021 5:26:[address] Vlad Quach @ Apr 04 2021 5:26PM
[2021-04-04 18:19] LABS: BLOOD UREA NITROGEN,BUN 17 mg/dL (7.0-18.0); CARBON DIOXIDE,CO2 29.3 mmol/L (21.0-32.0); CHLORIDE,CL 105 mmol/L (98-107); GLUCOSE RANDOM 95 mg/dL (74-106); POTASSIUM,K 3.8 mmol/L (3.5-5.1); SODIUM,NA 142 mmol/L (136-145)
--- NOTE | 2021-04-04 19:50 | PCM.EKG ---
#1 Interpretation EKG Date: 04/04/21 Time: 16:35 Rhythm: NSR Rate (Beats/Min): 56 [place]: Normal P-Wave: Present QRS: Normal ST-T: Normal QT: Normal Comparison: No Change (08/22/20) EKG Interpretation Comments: Sinus Rhythm with U waves
--- NOTE | 2021-04-04 19:58 | EDM.PDOC ---
<Leighton Gonzalez - Last Filed: 04/04/21 19:58> ED HPI GENERAL MEDICAL PROBLEM - General Chief Complaint: Respiratory Problem Stated Complaint: PNUEMONIA Time Seen by Provider: 04/04/21 16:21 - History of Present Illness INITIAL COMMENTS - FREE TEXT/NARRATIVE: CHIEF COMPLAINT(S): Hypoxia HISTORY OF PRESENT ILLNESS: This is a 71-year-old woman who is a patient of [facility] with a past medical history of recent diagnosis of bronchitis on doxycycline, hypertension, possible asthma, seizure disorder and intellectual disability who comes to the emergency department with a chief complaint of hypoxia. The patient has been experiencing cough and shortness of breath and they went to the patient's clinic. At the clinic they noted that the patient was hypoxic on room air is in the 80s so they sent her to the emergency department. They provided the patient with 2 DuoNeb treatments prior to arrival. The patient is intellectually disabled therefore history is limited however caregiver stated that she has been experiencing cough and shortness of breath and was diagnosed with bronchitis on antibiotics. She states that she does not appear to look well. She states that other than the cough and shortness of breath there were no other symptoms. She states that the patient has had 2 Covid shots. No recent travel, recent surgery, prior history of DVT or PE. REVIEW OF SYSTEMS: Constitutional: Denies fever, chills. Eyes: Denies eye pain Ears, Nose, Mouth, & Throat: Denies earache Cardiovascular: Denies chest pain Respiratory: Positive for shortness of breath and cough gastrointestinal: Denies Nausea, vomiting, diarrhea, hematochezia. Genitourinary: Denies hematuria Skin:Denies a rash MSK: Denies joint pain Neurological: Denies blurred vision Psychiatric: Denies depression PAST MEDICAL HISTORY: As per history of present illness and as reviewed below otherwise noncontributory. SURGICAL HISTORY: As per history of present illness and as reviewed below otherwise noncontributory. SOCIAL HISTORY: As per history of present illness and as reviewed below otherwise noncontributory. FAMILY HISTORY: As per history of present illness and as reviewed below otherwise noncontributory. EXAMINATION OF ORGAN SYSTEMS/BODY AREAS: Constitutional: Blood pressure is 119/68, heart rate 66, respiratory rate 18 with an oxygen saturation of 99% on 4 L nasal cannula. Temperature 35.9 temporally. General: Elderly woman who does not appear to be in any acute distress with intermittent dry cough., Hard of hearing Psychiatric: Appropriate mood and affect. Eyes: No scleral icterus or conjunctival erythema mild clear drainage from the eye with some irritation around the eyelids. ENMT: Moist mucous membranes. No pharyngeal erythema Cardiovascular: Regular, rate, and rhythm. No gallops, murmurs, or rubs. Bilateral upper extremity pulses symmetric and intact. No peripheral edema. No JVD. Respiratory: Lungs clear to auscultation bilaterally. No wheezes, rales, or rhonchi. Gastrointestinal: Soft, non-tender, non-distended. Normoactive bowel sounds Genitourinary: No suprapubic tenderness Musculoskeletal: Normal range of motion. Skin: No lesions or abrasions. Neurological: Alert, GCS 15 MEDICAL DECISION MAKING AND COURSE IN THE ED WITH INTERPRETATION/REVIEW OF DIAGNOSTIC STUDIES: This is a 71-year-old woman who presents to the emergency department with hypoxia after being treated for bronchitis with doxycycline and albuterol from clinic who is saturating appropriately with no abnormalities on examination with clear lung sounds bilaterally. We did obtain an EKG which did not reveal any acute signs of ischemia. Given the cough and shortness of breath we will obtain a chest Jl to evaluate for pneumonia. We will send off of a Covid swab to evaluate for Covid pneumonia. Will obtain a troponin given atypical presentation of ACS. Will obtain screening labs to look for electrolyte abnormalities or leukocytosis. Laboratory: CBC is unremarkable. CMP reveals hypocalcemia at 8.3 with hypoalbuminemia at 3.1. Troponin is negative. Covid is negative. The radiological images were viewed by myself along with reading the report from the radiologist. Chest x-ray does not reveal any acute cardiopulmonary process. On reevaluation the patient continued to have clear lung sounds. We did trial the patient on room air and she was saturating 91 to 92% on room air. The patient blood pressure did get mildly soft. At this time it is uncertain as to what is causing the patient's hypoxia given that there is no wheezing on examination the patient is afebrile and there is no evidence of pneumonia. At this time I am concerned about the possibility of acute pulmonary embolism therefore will obtain an angiogram of the chest to evaluate for pulmonary embolism. The caregiver was at bedside and the patient and caregiver were amenable to this plan. [facility] pending angiogram of the chest and final disposition. DISPOSITION: Patient was signed out to oncoming night team physician pending angiogram of the chest and final disposition CONDITION: Fair PROCEDURES: None FINAL IMPRESSION(S)/DIAGNOSES: 1. Acute hypoxic respiratory distress secondary to unknown cause Leighton Gonzalez M.D. Treatments ENERGY PROFESSIONAL: Reports: IV/IO - Related Data Allergies Allergy/AdvReac Type Severity Reaction Status Date / Time dexamethasone [From TobraDex] Allergy Rash Verified 04/04/21 16:28 Sulfa (Sulfonamide Allergy Rash Verified 04/04/21 16:28 Antibiotics) tobramycin [From TobraDex] Allergy Rash Verified 04/04/21 16:28 Home Meds: Home Meds Calc/D3/Mag/Zn/Bishop/Ron/[place] [Calcium 600 MG Plus Vit D] 1 tab PO BID 01/12/19 [History] Loratadine 10 mg PO DAILY 01/12/19 [History] Montelukast [Singulair] 10 mg PO DAILY 01/12/19 [History] atorvaSTATin [Lipitor] 10 mg PO BEDTIME 01/12/19 [History] levETIRAcetam [Keppra] 500 mg PO BID 01/12/19 [History] Albuterol Sulfate 1 unit INH ASDIRECTED PRN 04/29/19 [History] Losartan/Hydrochlorothiazide [Losartan-HCTZ 100-25 MG] 1 tab PO DAILY 04/29/19 [ History] polyethylene glycoL 3350 [Polyethylene Glycol 3350] 17 gm PO DAILY PRN 04/29/19 [History] [place] Nasal [place] 2 spray NASBOTH QID 04/30/19 [History] Erythromycin Base [Erythromycin] 1 applic EYEBOTH ASDIRECTED PRN 01/11/20 [History] Nystatin [Nystatin Crm] 1 applic TOP DAILY PRN 01/11/20 [History] Verapamil HCl [Verelan] 180 mg PO DAILY 08/22/20 [History] Budesonide [Pulmicort] 0.5 mg IH QID PRN 04/04/21 [History] Carboxymethylcellulose Sodium [Refresh Tears] 1 drop EYEBOTH ASDIRECTED PRN 04/04/21 [History] Levothyroxine 125 mcg PO ASDIRECTED 04/04/21 [History] Sennosides [Vegetable Laxative] 8.6 mg PO DAILY 04/04/21 [History] Past Medical History HEENT History: Reports: Cataract, Hard of Hearing, Other (See Below) Other HEENT History: has hearing aids but does not wear them Cardiovascular History: Reports: High Cholesterol, Hypertension Respiratory History: Reports: Asthma Gastrointestinal History: Reports: GERD, Hemorrhoids Genitourinary History: Reports: None AUTOMOTIVE SERVICE ADVISOR History: Reports: None Musculoskeletal History: Reports: None Neurological History: Reports: None Psychiatric History: Reports: Other (See Below) Other Psychiatric History: cognitive developmental delay, 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[employer], 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 Endocrine/Metabolic History: Reports: Hypothyroidism Other Endocrine/Metabolic History: hashimotos Hematologic History: Reports: None Immunologic History: Reports: None Oncologic (Cancer) History: Reports: None Dermatologic History: Reports: None - Past Surgical History Head Surgeries/Procedures: Reports: None HEENT Surgical History: Reports: Cataract Surgery, Eye Surgery, Naso-Sinus Surgery, Other (See Below) Other HEENT Surgeries/Procedures: nasal septal reconstruction; eye abscess surgery Cardiovascular Surgical History: Reports: None Respiratory Surgical History: Reports: None GI Surgical History: Reports: Colonoscopy Female Surgical History: Reports: Breast Biopsy Endocrine Surgical History: Reports: None Neurological Surgical History: Reports: None Musculoskeletal Surgical History: Reports: None Oncologic Surgical History: Reports: Biopsy of Breast Dermatological Surgical History: Reports: None Social & Family History - Family History Family Medical History: Unobtainable : Reports: None OBGYN: Reports: None - Caffeine Use Caffeine Use: Reports: Coffee, Soda Other Caffeine Use: not able answer ED ROS GENERAL - Review of Systems Review Of Systems: See Below ED EXAM, GENERAL - Physical Exam Exam: See Below Departure - Departure Disposition: Refer to Observation Clinical Impression: Hypoxia, Wheezing - Discharge Information Referrals: Josefina Rosas DO [Primary Care Provider] - Forms: ED Department Discharge Sepsis Event Note (ED) - Evaluation Sepsis Screening Result: No Definite Risk <Fabian Linton - Last Filed: 04/04/21 22:12> ED HPI GENERAL MEDICAL PROBLEM - History of Present Illness INITIAL COMMENTS - FREE TEXT/NARRATIVE: This is a 71-year-old female with no history significant for COPD who presents ER today from her primary care clinic secondary to hypoxia and shortness of breath. Patient has recently been treated with doxycycline for a diagnosis of bronchitis. Patient was feeling more short of breath and appeared more short of breath today so she was taking 2 their clinic. At the clinic she was noted to have diffuse inspiratory and expiratory wheezing with a pulse ox of 83% on room air. Patient was given 2 duo nebs and the clinic and transferred here for further evaluation. Upon arrival to the ED patient's pulse ox was 88 to 90% on room air. Patient's labs are all within normal limits. Patient's lung exam at this time is clear with no audible wheezing. Patient has been clinically stable here in the ED and her pulse ox has been approximately 90% on room air. On 2 L of nasal cannula her pulse ox is 94%. Patient's ER work-up including CBC, CMP, BNP, Covid, chest x-ray, EKG, troponin, CTA of her thorax, are all normal. It is unclear what her baseline pulse oximeter is however it would not be surprising that her baseline is approximately 90 to 92% it is unclear why she had dropped to 83% although my suspicion is she has a degree of a reactive airway process that resolved after the duo nebs that were given to her in the clinic. At this time, I feel patient will likely need to be admitted for observation secondary to her episode of hypoxia with respiratory failure at the clinic to assure stability. Case was discussed with Dr. Berman who is agreed to assist with observation level of care with the patient. Course - Vital Signs Last Recorded V/S: Last Vital Signs Temp 96.7 F L 04/04/21 16:19 Pulse 58 L 04/04/21 18:26 Resp 17 04/04/21 18:26 BP 90/55 L 04/04/21 18:26 Pulse Ox 92 L 04/04/21 18:49 - Orders/Labs/Meds Orders: Active Orders 24 hr Category Date Time Status EKG Documentation Completion [RC] STAT Care 04/04/21 16:32 Active Labs: Laboratory Tests 04/04/21 04/04/21 04/04/21 Range/Units 17:22 17:22 17:43 WBC 8.64 (4.0-11.0) K/uL RBC 4.36 (4.30-5.90) M/uL Hgb 13.4 (12.0-16.0) g/dL Hct 41.2 (36.0-46.0) % MCV 94.5 (80.0-98.0) fL MCH 30.7 (27.0-32.0) pg MCHC 32.5 (31.0-37.0) g/dL RDW Std Deviation 45.0 (28.0-62.0) fl RDW Coeff of Leonel 13 (11.0-15.0) % Plt Count 202 (150-400) K/uL MPV 10.20 (7.40-12.00) fL Neut % (Auto) 59.8 (48.0-80.0) % Lymph % (Auto) 28.7 (16.0-40.0) % [place] % (Auto) 9.3 (0.0-15.0) % Eos % (Auto) 2.0 (0.0-7.0) % Baso % (Auto) 0.2 (0.0-1.5) % Neut # (Auto) 5.2 (1.4-5.7) K/uL Lymph # (Auto) 2.5 H (0.6-2.4) K/uL [place] # (Auto) 0.8 (0.0-0.8) K/uL Eos # (Auto) 0.2 (0.0-0.7) K/uL Baso # (Auto) 0.0 (0.0-0.1) K/uL Nucleated RBC % 0.0 /100WBC Nucleated RBCs # 0 K/uL Sodium 142 (136-145) mmol/L Potassium 3.8 (3.5-5.1) mmol/L Chloride 105 (98-107) mmol/L Carbon Dioxide 29.3 (21.0-32.0) mmol/L BUN 17 (7.0-18.0) mg/dL Creatinine 0.8 (0.6-1.0) mg/dL Est Cr Clr Drug Dosing 45.66 mL/min Estimated GFR (MDRD) > 60.0 ml/min Glucose 95 (74-106) mg/dL Lactic Acid 1.5 (0.4-2.0) mmol/L Calcium 8.3 L (8.5-10.1) mg/dL Magnesium 2.2 (1.8-2.4) mg/dL Total Bilirubin 0.3 (0.2-1.0) mg/dL AST 20 (15-37) IU/L ALT 27 (14-63) IU/L Alkaline Phosphatase 89 (46-116) U/L Troponin I < 0.050 (0.000-0.056) ng/mL Total Protein 6.5 (6.4-8.2) g/dL Albumin 3.1 L (3.4-5.0) g/dL Globulin 3.4 (2.6-4.0) g/dL Albumin/Globulin Ratio 0.9 (0.9-1.6) SARS-CoV-2 RNA (DALE) NEGATIVE (NEGATIVE) Meds: Medications Discontinued Medications Generic Name Dose Route Start Last Admin Trade Name Freq PRN Reason Stop Dose Admin Lactated Ringer's 1,000 mls @ 999 mls/hr 04/04/21 16:31 04/04/21 16:47 Ringers, Lactated IV 04/04/21 17:31 999 mls/hr .BOLUS ONE Administration Iopamidol 100 ml 04/04/21 20:16 04/04/21 20:43 Iopamidol 755 Mg/Ml 500 Ml Multipack Bottle IVPUSH 04/04/21 20:17 100 ml ONETIME STA Administration Departure - Departure Time of Disposition: 22:12 Sepsis Event Note (ED) - Focused Exam Vital Signs: Vital Signs Temp Pulse Resp BP Pulse Ox 04/04/21 18:49 92 L 04/04/21 18:26 58 L 17 90/55 L 98 04/04/21 17:24 59 L 95/55 L 98 04/04/21 16:19 96.7 F L 66 18 119/68 99
[2021-04-04] MEDS ORDERED: Iopamidol 755 MG/ML 500 ML Multipack Bottle IVPUSH STA (20:16)
--- NOTE | 2021-04-04 21:01 | CT ---
INDICATION: Shortness of breath. Hypoxemia. COMPARISON: None available TECHNIQUE: CT examination of the chest was performed with the uneventful intravenous administration of 75 cc of Isovue 370 while 1 and 1.5 mm thick axial sections were obtained through the pulmonary arteries. Please note that all CT scans at this facility use dose modulation, iterative reconstruction, and/or weight-based dosing when appropriate to reduce radiation dose to as low as reasonably achievable. FINDINGS: : There is no sign of pulmonary embolism, with normal enhancement and branching of the pulmonary arteries. There is mild linear atelectasis in the posterior lung base associated with mild eventration of the left hemidiaphragm. The lungs are otherwise clear, with no sign of any additional infiltrate or effusion. There is no sign of mediastinal or hilar mass or adenopathy. There is mild calcification of the mitral valve annulus. The heart is otherwise normal in appearance for the patient`s age, as are the aorta and other ascending great vessels. There is no sign of supraclavicular or axillary mass or adenopathy. The visualized superior liver, spleen, pancreas, kidneys, and adrenals are normal in appearance. There is a severe L1 compression fracture of indeterminate age. There is no sign of any paraspinous soft tissue swelling to suggest that this is an acute fracture. There is moderate pressure in of the right superior T11 vertebral body and mild depression of the left superior T12 vertebral body, with mild sclerosis around the depressions, consistent with old endplate fractures. There is mild scoliosis of the thoracic spine convex towards the left. IMPRESSION: No sign of pulmonary embolism. Mild linear atelectasis in the left lung base related to mild eventration of the left hemidiaphragm. Severe L1 compression fracture of indeterminate age. Moderate superior T11 and T12 endplate fractures which appear to be old. Please note that all CT scans at this facility use dose modulation, iterative reconstruction, and/or weight-based dosing when appropriate to reduce radiation dose to as low as reasonably achievable. Dictated by Allan Miguel MD @ 04/04/2021 9:00:[address] Allan Miguel @ Apr 04 2021 9:00PM
[2021-04-04] MEDS ORDERED: methylPREDNISolone Sodium Succinate 40 MG/1 ML SDV IVPUSH ONE (23:35)
[2021-04-04] MEDS ORDERED: Levofloxacin 500 MG Tab PO ONE (23:35)
[2021-04-04] MEDS ORDERED: Budesonide 0.5 MG/2 ML Neb Susp INH PRN (23:36)
[2021-04-04] MEDS ORDERED: Albuterol/Ipratropium 3.0-0.5 MG/3 ML Neb Soln NEB PRN (23:39)
--- NOTE | 2021-04-04 23:42 | PCM.HP.2 ---
H&P History of Present Illness - General Date of Service: 04/04/21 Admit Problem/Dx: Admission Diagnosis/Problem Admission Diagnosis/Problem Hypoxia - History of Present Illness Initial Comments - Free Text/Narative: 71 yo resident of [facility] with PMH of seizure disorder, asthma, intellectual disability, and HTN presented to the ER with complaint of shortness of breath, cough and wheezing. PAtient has recently been treated with doxycycline for bronchitis and was seen in clinic and noted to be sating 80% on RA and was then transferred to the ER. - Related Data Allergies/Adverse Reactions: Allergies Allergy/AdvReac Type Severity Reaction Status Date / Time dexamethasone [From TobraDex] Allergy Rash Verified 04/05/21 00:09 Sulfa (Sulfonamide Allergy Rash Verified 04/05/21 00:09 Antibiotics) tobramycin [From TobraDex] Allergy Rash Verified 04/05/21 00:09 Home Medications: Home Meds Calc/D3/Mag/Zn/Bishop/Ron/Taft [Calcium 600 MG Plus Vit D] 1 tab PO BID 01/12/19 [History] Loratadine 10 mg PO DAILY 01/12/19 [History] Montelukast [Singulair] 10 mg PO DAILY 01/12/19 [History] atorvaSTATin [Lipitor] 10 mg PO BEDTIME 01/12/19 [History] levETIRAcetam [Keppra] 500 mg PO BID 01/12/19 [History] Albuterol Sulfate 1 unit INH ASDIRECTED PRN 04/29/19 [History] polyethylene glycoL 3350 [Polyethylene Glycol 3350] 17 gm PO DAILY PRN 04/29/19 [History] [place] Nasal [place] 2 spray NASBOTH QID 04/30/19 [History] Erythromycin Base [Erythromycin] 1 applic EYEBOTH ASDIRECTED PRN 01/11/20 [History] Nystatin [Nystatin Crm] 1 applic TOP DAILY PRN 01/11/20 [History] Verapamil HCl [Verelan] 180 mg PO DAILY 08/22/20 [History] Budesonide [Pulmicort] 0.5 mg IH QID PRN 04/04/21 [History] Carboxymethylcellulose Sodium [Refresh Tears] 1 drop EYEBOTH ASDIRECTED PRN 04/04/21 [History] Levothyroxine 125 mcg PO ASDIRECTED 04/04/21 [History] Sennosides [Vegetable Laxative] 8.6 mg PO DAILY 04/04/21 [History] hydroCHLOROthiazide [Hydrochlorothiazide] 25 mg PO DAILY 04/05/21 [History] levoFLOXacin [Levaquin] 750 mg PO Q48H #2 tablet 04/06/21 [Rx] predniSONE 40 mg PO WITHBREAKFAST #6 tablet 04/06/21 [Rx] Past Medical History HEENT History: Reports: Cataract, Hard of Hearing, Other (See Below) Other HEENT History: has hearing aids but does not wear them Cardiovascular History: Reports: High Cholesterol, Hypertension Respiratory History: Reports: Asthma Gastrointestinal History: Reports: GERD, Hemorrhoids Genitourinary History: Reports: None HEAD BONE GRINDER History: Reports: None Musculoskeletal History: Reports: None Neurological History: Reports: None Psychiatric History: Reports: Other (See Below) Other Psychiatric History: cognitive developmental delay, 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[employer], 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 Endocrine/Metabolic History: Reports: Hypothyroidism Other Endocrine/Metabolic History: hashimotos Hematologic History: Reports: None Immunologic History: Reports: None Oncologic (Cancer) History: Reports: None Dermatologic History: Reports: None - Past Surgical History Head Surgeries/Procedures: Reports: None HEENT Surgical History: Reports: Cataract Surgery, Eye Surgery, Naso-Sinus Surgery, Other (See Below) Other HEENT Surgeries/Procedures: nasal septal reconstruction; eye abscess surgery Cardiovascular Surgical History: Reports: None Respiratory Surgical History: Reports: None GI Surgical History: Reports: Colonoscopy Female Surgical History: Reports: Breast Biopsy Endocrine Surgical History: Reports: None Neurological Surgical History: Reports: None Musculoskeletal Surgical History: Reports: None Oncologic Surgical History: Reports: Biopsy of Breast Dermatological Surgical History: Reports: None Social & Family History - Family History Family Medical History: Unobtainable : Reports: None OBGYN: Reports: None - Caffeine Use Caffeine Use: Reports: Coffee, Soda Other Caffeine Use: not able answer H&P Review of Systems - Review of Systems: Review Of Systems: Comprehensive ROS is negative, except as noted in HPI. Exam - Exam Exam: See Below - Vital Signs Vital Signs: Last Vital Signs Temp 35.9 C L 04/04/21 16:19 Pulse 58 L 04/04/21 18:26 Resp 17 04/04/21 18:26 BP 90/55 L 04/04/21 18:26 Pulse Ox 92 L 04/04/21 18:49 Weight: 72.575 kg - Exam General: Cooperative HEENT: Mucosa Moist & [place] Neck: Supple Lungs: Clear to Auscultation, Normal Respiratory Effort Cardiovascular: Regular Rate, Regular Rhythm GI/Abdominal Exam: Normal Bowel Sounds, Soft, Non-Tender Extremities: Non-Tender, No Pedal Edema Skin: Warm, Dry, Intact Neurological: Cranial Nerves Intact. No: Focal Deficit - Patient Data Lab Results Last 24 hrs: Laboratory Results - last 24 hr 04/04/21 04/04/21 04/04/21 Range/Units 17:22 17:22 17:43 WBC 8.64 (4.0-11.0) K/uL RBC 4.36 (4.30-5.90) M/uL Hgb 13.4 (12.0-16.0) g/dL Hct 41.2 (36.0-46.0) % MCV 94.5 (80.0-98.0) fL MCH 30.7 (27.0-32.0) pg MCHC 32.5 (31.0-37.0) g/dL RDW Std Deviation 45.0 (28.0-62.0) fl RDW Coeff of Leonel 13 (11.0-15.0) % Plt Count 202 (150-400) K/uL MPV 10.20 (7.40-12.00) fL Neut % (Auto) 59.8 (48.0-80.0) % Lymph % (Auto) 28.7 (16.0-40.0) % [place] % (Auto) 9.3 (0.0-15.0) % Eos % (Auto) 2.0 (0.0-7.0) % Baso % (Auto) 0.2 (0.0-1.5) % Neut # (Auto) 5.2 (1.4-5.7) K/uL Lymph # (Auto) 2.5 H (0.6-2.4) K/uL [place] # (Auto) 0.8 (0.0-0.8) K/uL Eos # (Auto) 0.2 (0.0-0.7) K/uL Baso # (Auto) 0.0 (0.0-0.1) K/uL Nucleated RBC % 0.0 /100WBC Nucleated RBCs # 0 K/uL Sodium 142 (136-145) mmol/L Potassium 3.8 (3.5-5.1) mmol/L Chloride 105 (98-107) mmol/L Carbon Dioxide 29.3 (21.0-32.0) mmol/L BUN 17 (7.0-18.0) mg/dL Creatinine 0.8 (0.6-1.0) mg/dL Est Cr Clr Drug Dosing 45.66 mL/min Estimated GFR (MDRD) > 60.0 ml/min Glucose 95 (74-106) mg/dL Lactic Acid 1.5 (0.4-2.0) mmol/L Calcium 8.3 L (8.5-10.1) mg/dL Magnesium 2.2 (1.8-2.4) mg/dL Total Bilirubin 0.3 (0.2-1.0) mg/dL AST 20 (15-37) IU/L ALT 27 (14-63) IU/L Alkaline Phosphatase 89 (46-116) U/L Troponin I < 0.050 (0.000-0.056) ng/mL Total Protein 6.5 (6.4-8.2) g/dL Albumin 3.1 L (3.4-5.0) g/dL Globulin 3.4 (2.6-4.0) g/dL Albumin/Globulin Ratio 0.9 (0.9-1.6) SARS-CoV-2 RNA (DALE) NEGATIVE (NEGATIVE) Result Diagrams: 04/06/21 04:55 04/06/21 04:55 Sepsis Event Note - Evaluation Sepsis Screening Result: No Definite Risk - Focused Exam Vital Signs: Vital Signs Temp Pulse Resp BP Pulse Ox 04/04/21 18:49 92 L 04/04/21 18:26 58 L 17 90/55 L 98 04/04/21 17:24 59 L 95/55 L 98 04/04/21 16:19 35.9 C L 66 18 119/68 99 Problem List Initiated/Reviewed/Updated: Yes Orders Last 24hrs: Active Orders 24 hr Category Date Time Status Patient Status [ADT] Routine ADT 04/04/21 22:12 Active Antiembolic Devices [RC] PER UNIT ROUTINE Care 04/04/21 23:38 Ordered EKG Documentation Completion [RC] STAT Care 04/04/21 16:32 Active Oxygen Therapy [RC] PRN Care 04/04/21 23:38 Ordered RT Aerosol Therapy [RC] ASDIRECTED Care 04/04/21 23:37 Active RT Aerosol Therapy [RC] ASDIRECTED Care 04/04/21 23:39 Ordered VTE/DVT Education [RC] PER UNIT ROUTINE Care 04/04/21 23:38 Ordered Vital Signs [RC] Q4H Care 04/04/21 23:38 Ordered Regular Diet [DIET] Diet 04/04/21 Breakfast Ordered BASIC METABOLIC PANEL,BMP [CHEM] AM Lab 04/05/21 05:11 Ordered CBC WITH AUTO DIFF [HEME] AM Lab 04/05/21 05:11 Ordered Albuterol/Ipratropium [DuoNeb 3.0-0.5 MG/3 ML] Med 04/04/21 23:39 Ordered 3 ml NEB Q4HRRT PRN Albuterol/Ipratropium [DuoNeb 3.0-0.5 MG/3 ML] Med 04/05/21 06:00 Ordered 3 ml NEB Q8HRRT Budesonide [Pulmicort] Med 04/04/21 23:36 Ordered 0.5 mg INH QID PRN Levothyroxine Med 04/04/21 23:45 Ordered 125 mcg PO ASDIRECTED Loratadine [Claritin] Med 04/05/21 09:00 Ordered 10 mg PO DAILY Losartan/Hydrochlorothiazide [Losartan-HCTZ 100-25 MG] Med 04/05/21 09:00 Ordered 1 tab PO DAILY Montelukast [Singulair] Med 04/05/21 09:00 Ordered 10 mg PO DAILY Verapamil HCl [Verelan] Med 04/05/21 09:00 Ordered 180 mg PO DAILY atorvaSTATin [Lipitor] Med 04/05/21 21:00 Ordered 10 mg PO BEDTIME levETIRAcetam [Keppra] Med 04/05/21 09:00 Ordered 500 mg PO BID levoFLOXacin [Levaquin] Med 04/04/21 23:35 Once 500 mg PO ONETIME ONE methylPREDNISolone Sod Succ [Solu-MEDROL] Med 04/04/21 23:35 Once 60 mg IVPUSH ONETIME ONE Sequential Compression Device [OM.PC] Per Unit Routine Oth 04/04/21 23:38 Ordered Medication Orders Albuterol/Ipratropium (Albuterol/Ipratropium 3.0-0.5 Mg/3 Ml Neb Soln) 3 ml NEB Q8HRRT MALIK Albuterol/Ipratropium (Albuterol/Ipratropium 3.0-0.5 Mg/3 Ml Neb Soln) 3 ml NEB Q4HRRT PRN PRN Reason: Wheezing Atorvastatin Calcium (Atorvastatin 10 Mg Tab) 10 mg PO BEDTIME MALIK Budesonide (Budesonide 0.5 Mg/2 Ml Neb Susp) 0.5 mg INH QID PRN PRN Reason: Wheezing Levetiracetam (Levetiracetam 500 Mg Tab) 500 mg PO BID MALIK Levofloxacin (Levofloxacin 500 Mg Tab) 500 mg PO ONETIME ONE Stop: 04/04/21 23:36 Levothyroxine Sodium (Levothyroxine 125 Mcg Tab) 125 mcg PO ASDIRECTED MALIK Loratadine (Loratadine 10 Mg Tab) 10 mg PO DAILY MALIK Methylprednisolone Sodium Succinate (Methylprednisolone Sodium Succinate 40 Mg/1 Ml Sdv) 60 mg IVPUSH ONETIME ONE Stop: 04/04/21 23:36 Montelukast Sodium (Montelukast 10 Mg Tab) 10 mg PO DAILY [facility] Non-Formulary Medication (Losartan/Hydrochlorothiazide [Losartan-Hctz 100-25 Mg]) 1 tab PO DAILY [facility] Non-Formulary Medication (Verapamil Hcl [Verelan]) 180 mg PO DAILY [facility] Assessment/Plan Comment:: 71 yo female admitted for asthma exacerbation. We will treat with solumedrol, duonebs and Levaquin.
[2021-04-04] MEDS ORDERED: Levothyroxine 125 MCG Tab PO SCH (23:45)
[2021-04-05 05:44] LABS: BLOOD UREA NITROGEN,BUN 14 mg/dL (7.0-18.0); CARBON DIOXIDE,CO2 29.3 mmol/L (21.0-32.0); CHLORIDE,CL 105 mmol/L (98-107); GLUCOSE RANDOM 111 mg/dL (74-106); POTASSIUM,K 3.8 mmol/L (3.5-5.1); SODIUM,NA 141 mmol/L (136-145)
[2021-04-05] MEDS: Albuterol/Ipratropium 3.0-0.5 MG/3 ML Neb Soln NEB SCH ×4 (06:41→22:18)
[2021-04-05] MEDS ORDERED: Levothyroxine 125 MCG Tab PO SCH (07:00)
[2021-04-05] MEDS: Loratadine 10 MG Tab PO SCH (08:44)
[2021-04-05] MEDS: levETIRAcetam 500 MG Tab PO SCH ×2 (08:45→20:27)
[2021-04-05] MEDS: Montelukast 10 MG Tab PO SCH (08:45)
[2021-04-05] MEDS: Verapamil 180 MG Tab.ER PO SCH (08:58)
[2021-04-05] MEDS ORDERED: Hydrochlorothiazide/Losartan 12.5-50 mg Tab PO SCH (09:00)
[2021-04-05] MEDS: predniSONE 20 MG Tab PO SCH (10:25)
[2021-04-05] MEDS ORDERED: Erythromycin Base 0.5% Ophth Oint 1 GM Tube EYEBOTH PRN (10:30)
[2021-04-05] MEDS ORDERED: Carboxymethylcellulose Sodium 0.5% Ophth Soln 0.4 ML UD Box of 30 EYEBOTH PRN (10:33)
[2021-04-05] MEDS ORDERED: Hydrochlorothiazide 25 MG Tab PO SCH (10:45)
--- NOTE | 2021-04-05 10:48 | PCM.PN ---
- General Info Date of Service: 04/05/21 Admission Dx/Problem (Free Text): Admission Diagnosis/Problem Admission Diagnosis/Problem Hypoxia Subjective Update: Feeling better today. Denies any pain reports her breathing is better. On second rounds [facility] staff is in the room reporting that she looks definitely better than yesterday. No other concerns Functional Status: Reports: Pain Controlled, Tolerating Diet, Ambulating, Urinating - Review of Systems General: Reports: No Symptoms. Denies: Weakness, Fatigue, Malaise Pulmonary: Reports: No Symptoms. Denies: Shortness of Breath Cardiovascular: Reports: No Symptoms. Denies: Chest Pain, Dyspnea on Exertion Gastrointestinal: Reports: No Symptoms. Denies: Abdominal Pain, Nausea, Vomiting Genitourinary: Reports: No Symptoms Musculoskeletal: Reports: No Symptoms Skin: Reports: No Symptoms Neurological: Reports: No Symptoms Psychiatric: Reports: No Symptoms - Patient Data Vitals - Most Recent: Last Vital Signs Temp 97.2 F 04/05/21 08:00 Pulse 78 04/05/21 08:00 Resp 20 04/05/21 08:00 BP 159/54 H 04/05/21 08:00 Pulse Ox 90 L 04/05/21 08:00 Weight - Most Recent: 65.771 kg I&O - Last 24 Hours: Intake & Output 04/04/21 04/05/21 04/05/21 22:59 06:59 14:59 Intake Total 100 Output Total 450 Balance -350 Lab Results Last 24 Hours: Laboratory Results - last 24 hr 04/04/21 04/04/21 04/04/21 Range/Units 17:22 17:22 17:43 WBC 8.64 (4.0-11.0) K/uL RBC 4.36 (4.30-5.90) M/uL Hgb 13.4 (12.0-16.0) g/dL Hct 41.2 (36.0-46.0) % MCV 94.5 (80.0-98.0) fL MCH 30.7 (27.0-32.0) pg MCHC 32.5 (31.0-37.0) g/dL RDW Std Deviation 45.0 (28.0-62.0) fl RDW Coeff of Leonel 13 (11.0-15.0) % Plt Count 202 (150-400) K/uL MPV 10.20 (7.40-12.00) fL Neut % (Auto) 59.8 (48.0-80.0) % Lymph % (Auto) 28.7 (16.0-40.0) % [place] % (Auto) 9.3 (0.0-15.0) % Eos % (Auto) 2.0 (0.0-7.0) % Baso % (Auto) 0.2 (0.0-1.5) % Neut # (Auto) 5.2 (1.4-5.7) K/uL Lymph # (Auto) 2.5 H (0.6-2.4) K/uL [place] # (Auto) 0.8 (0.0-0.8) K/uL Eos # (Auto) 0.2 (0.0-0.7) K/uL Baso # (Auto) 0.0 (0.0-0.1) K/uL Nucleated RBC % 0.0 /100WBC Nucleated RBCs # 0 K/uL Sodium 142 (136-145) mmol/L Potassium 3.8 (3.5-5.1) mmol/L Chloride 105 (98-107) mmol/L Carbon Dioxide 29.3 (21.0-32.0) mmol/L BUN 17 (7.0-18.0) mg/dL Creatinine 0.8 (0.6-1.0) mg/dL Est Cr Clr Drug Dosing 45.66 mL/min Estimated GFR (MDRD) > 60.0 ml/min Glucose 95 (74-106) mg/dL Lactic Acid 1.5 (0.4-2.0) mmol/L Calcium 8.3 L (8.5-10.1) mg/dL Magnesium 2.2 (1.8-2.4) mg/dL Total Bilirubin 0.3 (0.2-1.0) mg/dL AST 20 (15-37) IU/L ALT 27 (14-63) IU/L Alkaline Phosphatase 89 (46-116) U/L Troponin I < 0.050 (0.000-0.056) ng/mL Total Protein 6.5 (6.4-8.2) g/dL Albumin 3.1 L (3.4-5.0) g/dL Globulin 3.4 (2.6-4.0) g/dL Albumin/Globulin Ratio 0.9 (0.9-1.6) SARS-CoV-2 RNA ([place]) NEGATIVE (NEGATIVE) 04/05/21 04/05/21 Range/Units 04:49 04:49 WBC 9.62 (4.0-11.0) K/uL RBC 4.60 (4.30-5.90) M/uL Hgb 14.2 (12.0-16.0) g/dL Hct 43.4 (36.0-46.0) % MCV 94.3 (80.0-98.0) fL MCH 30.9 (27.0-32.0) pg MCHC 32.7 (31.0-37.0) g/dL RDW Std Deviation 44.5 (28.0-62.0) fl RDW Coeff of Leonel 13 (11.0-15.0) % Plt Count 187 (150-400) K/uL MPV 10.80 (7.40-12.00) fL Neut % (Auto) 87.5 H (48.0-80.0) % Lymph % (Auto) 10.4 L (16.0-40.0) % [place] % (Auto) 1.6 (0.0-15.0) % Eos % (Auto) 0.3 (0.0-7.0) % Baso % (Auto) 0.2 (0.0-1.5) % Neut # (Auto) 8.4 H (1.4-5.7) K/uL Lymph # (Auto) 1.0 (0.6-2.4) K/uL [place] # (Auto) 0.2 (0.0-0.8) K/uL Eos # (Auto) 0.0 (0.0-0.7) K/uL Baso # (Auto) 0.0 (0.0-0.1) K/uL Nucleated RBC % 0.0 /100WBC Nucleated RBCs # 0 K/uL Sodium 141 (136-145) mmol/L Potassium 3.8 (3.5-5.1) mmol/L Chloride 105 (98-107) mmol/L Carbon Dioxide 29.3 (21.0-32.0) mmol/L BUN 14 (7.0-18.0) mg/dL Creatinine 0.8 (0.6-1.0) mg/dL Est Cr Clr Drug Dosing 45.66 mL/min Estimated GFR (MDRD) > 60.0 ml/min Glucose 111 H (74-106) mg/dL Lactic Acid (0.4-2.0) mmol/L Calcium 8.5 (8.5-10.1) mg/dL Magnesium (1.8-2.4) mg/dL Total Bilirubin (0.2-1.0) mg/dL AST (15-37) IU/L ALT (14-63) IU/L Alkaline Phosphatase (46-116) U/L Troponin I (0.000-0.056) ng/mL Total Protein (6.4-8.2) g/dL Albumin (3.4-5.0) g/dL Globulin (2.6-4.0) g/dL Albumin/Globulin Ratio (0.9-1.6) SARS-CoV-2 RNA ([facility]) (NEGATIVE) Med Orders - Current: Current Medications Albuterol/Ipratropium (Albuterol/Ipratropium 3.0-0.5 Mg/3 Ml Neb Soln) 3 ml NEB Q8HRRT [facility] Last Admin: 04/05/21 06:41 Dose: 3 ml Documented by: Albuterol/Ipratropium (Albuterol/Ipratropium 3.0-0.5 Mg/3 Ml Neb Soln) 3 ml NEB Q4HRRT PRN PRN Reason: Wheezing Artificial Tears (Carboxymethylcellulose Sodium 0.5% Ophth Soln 0.4 Ml Ud Box Of 30) 1 each EYEBOTH ASDIRECTED PRN PRN Reason: Dry Eyes Atorvastatin Calcium (Atorvastatin 10 Mg Tab) 10 mg PO BEDTIME [facility] Budesonide (Budesonide 0.5 Mg/2 Ml Neb Susp) 0.5 mg INH QID PRN PRN Reason: Wheezing Erythromycin (Erythromycin Base 0.5% Ophth Oint 1 Gm Tube) 0 gm EYEBOTH ASDIR ECTED PRN PRN Reason: Dry Eyes HCTZ/Losartan Potassium (Hydrochlorothiazide/Losartan 12.5-50 Mg Tab) 2 tab PO DAILY [facility] Last Admin: 04/05/21 08:58 Dose: 2 tab Documented by: Hydrochlorothiazide (Hydrochlorothiazide 25 Mg Tab) 25 mg PO DAILY [facility] Levetiracetam (Levetiracetam 500 Mg Tab) 500 mg PO BID [facility] Last Admin: 04/05/21 08:45 Dose: 500 mg Documented by: Levothyroxine Sodium (Levothyroxine 125 Mcg Tab) 125 mcg PO SuMoTuThFrSa [facility] Last Admin: 04/05/21 00:21 Dose: Not Given Documented by: Levothyroxine Sodium (Levothyroxine 125 Mcg Tab) 62.5 mcg PO We [facility] Last Admin: 04/05/21 06:23 Dose: 62.5 mcg Documented by: Loratadine (Loratadine 10 Mg Tab) 10 mg PO DAILY [facility] Last Admin: 04/05/21 08:44 Dose: 10 mg Documented by: Montelukast Sodium (Montelukast 10 Mg Tab) 10 mg PO DAILY [facility] Last Admin: 04/05/21 08:45 Dose: 10 mg Documented by: Prednisone (Prednisone 20 Mg Tab) 40 mg PO WITHBREAKFAST [facility] Last Admin: 04/05/21 10:25 Dose: 40 mg Documented by: Sodium Chloride (Sodium Chloride 0.65% Nasal [place] 45 Ml Bottle) 2 ml NASBOTH QID [facility] Verapamil HCl (Verapamil 180 Mg Tab.Er) 180 mg PO DAILY [facility] Last Admin: 04/05/21 08:58 Dose: 180 mg Documented by: Discontinued Medications Lactated Ringer's (Ringers, Lactated) 1,000 mls @ 999 mls/hr IV .BOLUS ONE Stop: 04/04/21 17:31 Last Admin: 04/04/21 16:47 Dose: 999 mls/hr Documented by: Iopamidol (Iopamidol 755 Mg/Ml 500 Ml Multipack Bottle) 100 ml IVPUSH ONETIME STA Stop: 04/04/21 20:17 Last Admin: 04/04/21 20:43 Dose: 100 ml Documented by: Levofloxacin (Levofloxacin 500 Mg Tab) 500 mg PO ONETIME ONE Stop: 04/04/21 23:36 Last Admin: 04/05/21 00:39 Dose: 500 mg Documented by: Methylprednisolone Sodium Succinate (Methylprednisolone Sodium Succinate 40 Mg/1 Ml Sdv) 60 mg IVPUSH ONETIME ONE Stop: 04/04/21 23:36 Last Admin: 04/05/21 00:38 Dose: 60 mg Documented by: - Exam General: Alert, Oriented, Cooperative, No Acute Distress Lungs: Normal Respiratory Effort, Wheezing Cardiovascular: Regular Rate, Regular Rhythm GI/Abdominal Exam: Normal Bowel Sounds, Soft, Non-Tender Extremities: Normal Inspection, Normal Range of Motion, Non-Tender, No Pedal Edema Neurological: No New Focal Deficit Psy/Mental Status: Alert, Normal Affect, Normal Mood - Patient Data Lab Results Last 24 hrs: Laboratory Results - last 24 hr 04/04/21 04/04/21 04/04/21 Range/Units 17:22 17:22 17:43 WBC 8.64 (4.0-11.0) K/uL RBC 4.36 (4.30-5.90) M/uL Hgb 13.4 (12.0-16.0) g/dL Hct 41.2 (36.0-46.0) % MCV 94.5 (80.0-98.0) fL MCH 30.7 (27.0-32.0) pg MCHC 32.5 (31.0-37.0) g/dL RDW Std Deviation 45.0 (28.0-62.0) fl RDW Coeff of Leonel 13 (11.0-15.0) % Plt Count 202 (150-400) K/uL MPV 10.20 (7.40-12.00) fL Neut % (Auto) 59.8 (48.0-80.0) % Lymph % (Auto) 28.7 (16.0-40.0) % [place] % (Auto) 9.3 (0.0-15.0) % Eos % (Auto) 2.0 (0.0-7.0) % Baso % (Auto) 0.2 (0.0-1.5) % Neut # (Auto) 5.2 (1.4-5.7) K/uL Lymph # (Auto) 2.5 H (0.6-2.4) K/uL [place] # (Auto) 0.8 (0.0-0.8) K/uL Eos # (Auto) 0.2 (0.0-0.7) K/uL Baso # (Auto) 0.0 (0.0-0.1) K/uL Nucleated RBC % 0.0 /100WBC Nucleated RBCs # 0 K/uL Sodium 142 (136-145) mmol/L Potassium 3.8 (3.5-5.1) mmol/L Chloride 105 (98-107) mmol/L Carbon Dioxide 29.3 (21.0-32.0) mmol/L BUN 17 (7.0-18.0) mg/dL Creatinine 0.8 (0.6-1.0) mg/dL Est Cr Clr Drug Dosing 45.66 mL/min Estimated GFR (MDRD) > 60.0 ml/min Glucose 95 (74-106) mg/dL Lactic Acid 1.5 (0.4-2.0) mmol/L Calcium 8.3 L (8.5-10.1) mg/dL Magnesium 2.2 (1.8-2.4) mg/dL Total Bilirubin 0.3 (0.2-1.0) mg/dL AST 20 (15-37) IU/L ALT 27 (14-63) IU/L Alkaline Phosphatase 89 (46-116) U/L Troponin I < 0.050 (0.000-0.056) ng/mL Total Protein 6.5 (6.4-8.2) g/dL Albumin 3.1 L (3.4-5.0) g/dL Globulin 3.4 (2.6-4.0) g/dL Albumin/Globulin Ratio 0.9 (0.9-1.6) SARS-CoV-2 RNA ([facility]) NEGATIVE (NEGATIVE) 04/05/21 04/05/21 Range/Units 04:49 04:49 WBC 9.62 (4.0-11.0) K/uL RBC 4.60 (4.30-5.90) M/uL Hgb 14.2 (12.0-16.0) g/dL Hct 43.4 (36.0-46.0) % MCV 94.3 (80.0-98.0) fL MCH 30.9 (27.0-32.0) pg MCHC 32.7 (31.0-37.0) g/dL RDW Std Deviation 44.5 (28.0-62.0) fl RDW Coeff of Leonel 13 (11.0-15.0) % Plt Count 187 (150-400) K/uL MPV 10.80 (7.40-12.00) fL Neut % (Auto) 87.5 H (48.0-80.0) % Lymph % (Auto) 10.4 L (16.0-40.0) % [place] % (Auto) 1.6 (0.0-15.0) % Eos % (Auto) 0.3 (0.0-7.0) % Baso % (Auto) 0.2 (0.0-1.5) % Neut # (Auto) 8.4 H (1.4-5.7) K/uL Lymph # (Auto) 1.0 (0.6-2.4) K/uL [place] # (Auto) 0.2 (0.0-0.8) K/uL Eos # (Auto) 0.0 (0.0-0.7) K/uL Baso # (Auto) 0.0 (0.0-0.1) K/uL Nucleated RBC % 0.0 /100WBC Nucleated RBCs # 0 K/uL Sodium 141 (136-145) mmol/L Potassium 3.8 (3.5-5.1) mmol/L Chloride 105 (98-107) mmol/L Carbon Dioxide 29.3 (21.0-32.0) mmol/L BUN 14 (7.0-18.0) mg/dL Creatinine 0.8 (0.6-1.0) mg/dL Est Cr Clr Drug Dosing 45.66 mL/min Estimated GFR (MDRD) > 60.0 ml/min Glucose 111 H (74-106) mg/dL Lactic Acid (0.4-2.0) mmol/L Calcium 8.5 (8.5-10.1) mg/dL Magnesium (1.8-2.4) mg/dL Total Bilirubin (0.2-1.0) mg/dL AST (15-37) IU/L ALT (14-63) IU/L Alkaline Phosphatase (46-116) U/L Troponin I (0.000-0.056) ng/mL Total Protein (6.4-8.2) g/dL Albumin (3.4-5.0) g/dL Globulin (2.6-4.0) g/dL Albumin/Globulin Ratio (0.9-1.6) SARS-CoV-2 RNA ([facility]) (NEGATIVE) Result Diagrams: 04/05/21 04:49 04/05/21 04:49 Sepsis Event Note - Evaluation Sepsis Screening Result: No Definite Risk - Focused Exam Vital Signs: Vital Signs Temp Pulse Resp BP Pulse Ox 04/05/21 08:00 97.2 F 78 20 159/54 H 90 L 04/05/21 03:39 97.3 F 68 16 114/55 L 94 L 04/05/21 00:38 63 20 94 L 04/04/21 23:40 97.2 F 66 22 H 120/60 95 - Problem List & Annotations (1) Acute respiratory failure with hypoxia SNOMED Code(s): 89441538, 472897534 Code(s): J96.01 - ACUTE RESPIRATORY FAILURE WITH HYPOXIA Status: Acute Current Visit: No (2) Asthma SNOMED Code(s): 054436490 Code(s): J45.909 - UNSPECIFIED ASTHMA, UNCOMPLICATED Status: Acute Current Visit: No (3) HTN (hypertension) SNOMED Code(s): 88021599 Code(s): I10 - ESSENTIAL (PRIMARY) HYPERTENSION Status: Acute Current Visit: No Qualifiers: Hypertension type: essential hypertension Qualified Code(s): I10 - Essential (primary) hypertension (4) Intellectual disability SNOMED Code(s): 648286899 Code(s): F79 - UNSPECIFIED INTELLECTUAL DISABILITIES Status: Acute Current Visit: No (5) Seizure disorder SNOMED Code(s): 614296930 Code(s): G40.909 - EPILEPSY, UNSP, NOT INTRACTABLE, WITHOUT STATUS EPILEPTICUS Status: Acute Current Visit: No - Problem List Review Problem List Initiated/Reviewed/Updated: Yes - My Orders Last 24 Hours: My Active Orders 04/05/21 08:48 Up With Assistance [RC] ASDIRECTED 04/05/21 08:49 Intake and Output [RC] QSHIFT VTE/DVT Education [RC] PER UNIT ROUTINE 04/05/21 10:05 predniSONE 40 mg PO WITHBREAKFAST 04/05/21 10:30 Erythromycin Base [Erythromycin 0.5% Ophth Oint] 0 gm EYEBOTH ASDIRECTED PRN 04/05/21 10:32 Resuscitation Status Routine 04/05/21 10:33 Carboxymethylcellulose Sodium [Refresh Plus 0.5%] 1 each EYEBOTH ASDIRECTED PRN 04/05/21 10:45 hydroCHLOROthiazide 25 mg PO DAILY 04/05/21 12:00 Sodium Chloride 0.65% [Meagher Nasal Limon] 2 ml NASBOTH QID - Plan Plan:: 71 yo female admitted for asthma exacerbation acute hypoxic respiratory failure 1. Acute hypoxic respiratory failure, asthma exacerbation -Feeling improved today less wheezing [facility] staff reports she looks significantly improved. -Has been deaf oxygen, 93% on room air we will continue to monitor -Continue oxygen as needed to keep sats greater than 90%. -Prednisone 40 mg today -Continue Levaquin 250 daily renally dosed for asthma/COPD exacerbation -Staff from [facility] reports she is attempted to get PFTs but patient is unable to perform them. -Continue DuoNebs 2. Hypertension: -Med rec adjusted continue hydrochlorothiazide and verapamil 3. Seizure disorder: -Continue Keppra VTE prophylaxis: SCDs CODE STATUS: Full code Dispo: Likely in a.m.
[2021-04-05] MEDS: Sodium Chloride 0.65% Nasal Spray 45 ML Bottle NASBOTH SCH ×2 (12:35→18:05)
[2021-04-05] MEDS ORDERED: Levofloxacin 250 MG Tab PO SCH (21:00)
[2021-04-05] MEDS ORDERED: atorvaSTATin 10 MG Tab PO SCH (21:00)
[2021-04-05] MEDS ORDERED: Acetaminophen 325 MG Tab PO PRN (21:50)
[2021-04-06] MEDS: Sodium Chloride 0.65% Nasal Spray 45 ML Bottle NASBOTH SCH ×2 (02:47→06:47)
[2021-04-06 06:01] LABS: POTASSIUM,K 3.1 mmol/L (3.5-5.1)
[2021-04-06] MEDS: Albuterol/Ipratropium 3.0-0.5 MG/3 ML Neb Soln NEB SCH (06:07)
[2021-04-06] MEDS ORDERED: Potassium Chloride 20 MEQ Tab.ER PO ONE (08:02)
[2021-04-06 08:22] VITALS: BP 104/52; PULSE 71
[2021-04-06] MEDS: predniSONE 20 MG Tab PO SCH (08:29)
[2021-04-06] MEDS: Montelukast 10 MG Tab PO SCH (08:30)
[2021-04-06] MEDS: levETIRAcetam 500 MG Tab PO SCH (08:30)
[2021-04-06] MEDS: Loratadine 10 MG Tab PO SCH (08:30)
[2021-04-06] MEDS: Verapamil 180 MG Tab.ER PO SCH (08:38)
[2021-04-06] MEDS ORDERED: Hydrochlorothiazide 25 MG Tab PO SCH (09:00)
--- NOTE | 2021-04-06 10:41 | PCM.DCSUM1 ---
Discharge Summary - Hospital Course Brief History: 71 yo resident of [facility] with PMH of seizure disorder, asthma, intellectual disability, and HTN presented to the ER with complaint of shortness of breath, cough and wheezing. PAtient has recently been treated with doxycycline for bronchitis and was seen in clinic and noted to be sating 80% on RA and was then transferred to the ER. - Discharge Data Discharge Date: 04/06/21 Discharge Disposition: Home, Self-Care 01 Condition: Good - Referral to Home Health Primary Care Physician: Josefina Rosas, DO - Discharge Diagnosis/Problem(s) (1) Acute respiratory failure with hypoxia SNOMED Code(s): 23554179, 355128826 ICD Code: J96.01 - ACUTE RESPIRATORY FAILURE WITH HYPOXIA Status: Acute (2) Asthma SNOMED Code(s): 038414140 ICD Code: J45.909 - UNSPECIFIED ASTHMA, UNCOMPLICATED Status: Acute (3) HTN (hypertension) SNOMED Code(s): 84456142 ICD Code: I10 - ESSENTIAL (PRIMARY) HYPERTENSION Status: Acute Qualifiers: Hypertension type: essential hypertension Qualified Code(s): I10 - Essential (primary) hypertension (4) Intellectual disability SNOMED Code(s): 239014494 ICD Code: F79 - UNSPECIFIED INTELLECTUAL DISABILITIES Status: Acute (5) Seizure disorder SNOMED Code(s): 680266515 ICD Code: G40.909 - EPILEPSY, UNSP, NOT INTRACTABLE, WITHOUT STATUS EPILEPTICUS Status: Acute - Patient Summary/Data Hospital Course: Admission diagnoses Acute hypoxic respiratory failure Asthma exacerbation Discharge diagnoses Acute hypoxic respiratory failure resolved asthma exacerbation Improving Other PMH Hypertension Seizure disorder Intellectual disability Alma Delia was admitted secondary to acute hypoxic respiratory failure noted to be satting mid 80s on room air on arrival to the ER. Patient was started on Solu- Medrol duo nebs and Levaquin for possible asthma exacerbation. Patient has had some reactive airway issues over the past few years. Patient has been unable to perform PFT to get a better idea of what exactly is going on. Patient uses Pulmicort nebulizers at home and otherwise does well. Today she is feeling much better. She has been off oxygen for 24 hours. She has been treated with prednisone 40 mg daily and Levaquin 750 mg every 48 hours. She will be discharged home today to continue prednisone taper over the next 3 days 40 mg daily. She will continue Levaquin 750 mg 2 more doses. She will continue Pulmicort nebulizers at home. She is to follow-up with PCP in 1 to 2 weeks or sooner if concerns should arise. - Patient Instructions Diet: Regular Diet as Tolerated Activity: As Tolerated Showering/Bathing: May Shower Notify Provider of: Fever, Increased Pain, Swelling and Redness, Drainage, Nausea and/or Vomiting - Discharge Plan *PRESCRIPTION DRUG MONITORING PROGRAM REVIEWED*: Not Applicable *COPY OF PRESCRIPTION DRUG MONITORING REPORT IN PATIENT ARIADNA: Not Applicable Prescriptions/Med Rec: levoFLOXacin [Levaquin] 750 mg PO Q48H #2 tablet predniSONE 40 mg PO WITHBREAKFAST #6 tablet Home Medications: Home Meds Calc/D3/Mag/Zn/Bishop/Ron/Cantril [Calcium 600 MG Plus Vit D] 1 tab PO BID 01/12/19 [History] Loratadine 10 mg PO DAILY 01/12/19 [History] Montelukast [Singulair] 10 mg PO DAILY 01/12/19 [History] atorvaSTATin [Lipitor] 10 mg PO BEDTIME 01/12/19 [History] levETIRAcetam [Keppra] 500 mg PO BID 01/12/19 [History] Albuterol Sulfate 1 unit INH ASDIRECTED PRN 04/29/19 [History] polyethylene glycoL 3350 [Polyethylene Glycol 3350] 17 gm PO DAILY PRN 04/29/19 [History] [place] Nasal [place] 2 spray NASBOTH QID 04/30/19 [History] Erythromycin Base [Erythromycin] 1 applic EYEBOTH ASDIRECTED PRN 01/11/20 [History] Nystatin [Nystatin Crm] 1 applic TOP DAILY PRN 01/11/20 [History] Verapamil HCl [Verelan] 180 mg PO DAILY 08/22/20 [History] Budesonide [Pulmicort] 0.5 mg IH QID PRN 04/04/21 [History] Carboxymethylcellulose Sodium [Refresh Tears] 1 drop EYEBOTH ASDIRECTED PRN 04/04/21 [History] Levothyroxine 125 mcg PO ASDIRECTED 04/04/21 [History] Sennosides [Vegetable Laxative] 8.6 mg PO DAILY 04/04/21 [History] hydroCHLOROthiazide [Hydrochlorothiazide] 25 mg PO DAILY 04/05/21 [History] levoFLOXacin [Levaquin] 750 mg PO Q48H #2 tablet 04/06/21 [Rx] predniSONE 40 mg PO WITHBREAKFAST #6 tablet 04/06/21 [Rx] Oxygen Therapy Mode: Room Air Patient Handouts: Hypoxia, Levofloxacin tablets, Prednisone tablets Referrals: Josefina Rosas DO [Primary Care Provider] - 04/14/21 9:45 am (Please arrive 15mins early and bring ID, insurance info and own mask.) - Discharge Summary/Plan Comment DC Time >30 min.: No - Patient Data Vitals - Most Recent: Last Vital Signs Temp 98.0 F 04/06/21 08:21 Pulse 71 04/06/21 08:21 Resp 16 04/06/21 08:21 BP 104/52 L 04/06/21 08:21 Pulse Ox 91 L 04/06/21 08:21 Weight - Most Recent: 65.771 kg I&O - Last 24 hours: Intake & Output 04/05/21 04/06/21 04/06/21 22:59 06:59 14:59 Intake Total 840 680 Output Total 650 550 Balance 190 130 Lab Results - Last 24 hrs: Laboratory Results - last 24 hr 04/06/21 04/06/21 Range/Units 04:55 04:55 WBC 14.42 H (4.0-11.0) K/uL RBC 4.40 (4.30-5.90) M/uL Hgb 13.5 (12.0-16.0) g/dL Hct 41.0 (36.0-46.0) % MCV 93.2 (80.0-98.0) fL MCH 30.7 (27.0-32.0) pg MCHC 32.9 (31.0-37.0) g/dL RDW Std Deviation 43.9 (28.0-62.0) fl RDW Coeff of Leonel 13 (11.0-15.0) % Plt Count 213 (150-400) K/uL MPV 10.60 (7.40-12.00) fL Neut % (Auto) 81.1 H (48.0-80.0) % Lymph % (Auto) 9.0 L (16.0-40.0) % [place] % (Auto) 9.8 (0.0-15.0) % Eos % (Auto) 0.0 (0.0-7.0) % Baso % (Auto) 0.1 (0.0-1.5) % Neut # (Auto) 11.7 H (1.4-5.7) K/uL Lymph # (Auto) 1.3 (0.6-2.4) K/uL [place] # (Auto) 1.4 H (0.0-0.8) K/uL Eos # (Auto) 0.0 (0.0-0.7) K/uL Baso # (Auto) 0.0 (0.0-0.1) K/uL Nucleated RBC % 0.0 /100WBC Nucleated RBCs # 0 K/uL Sodium 140 (136-145) mmol/L Potassium 3.1 L (3.5-5.1) mmol/L Chloride 105 (98-107) mmol/L Carbon Dioxide 28.0 (21.0-32.0) mmol/L BUN 20 H (7.0-18.0) mg/dL Creatinine 1.1 H (0.6-1.0) mg/dL Est Cr Clr Drug Dosing 33.21 mL/min Estimated GFR (MDRD) 48.8 ml/min Glucose 97 (74-106) mg/dL Calcium 8.4 L (8.5-10.1) mg/dL Med Orders - Current: Current Medications Acetaminophen (Acetaminophen 325 Mg Tab) 650 mg PO Q6H PRN PRN Reason: Pain (moderate 4-6) Last Admin: 04/05/21 22:08 Dose: 650 mg Documented by: Albuterol/Ipratropium (Albuterol/Ipratropium 3.0-0.5 Mg/3 Ml Neb Soln) 3 ml NEB Q8HRRT MALIK Last Admin: 04/06/21 06:07 Dose: 3 ml Documented by: Albuterol/Ipratropium (Albuterol/Ipratropium 3.0-0.5 Mg/3 Ml Neb Soln) 3 ml NEB Q4HRRT PRN PRN Reason: Wheezing Artificial Tears (Carboxymethylcellulose Sodium 0.5% Ophth Soln 0.4 Ml Ud Box Of 30) 1 each EYEBOTH ASDIRECTED PRN PRN Reason: Dry Eyes Atorvastatin Calcium (Atorvastatin 10 Mg Tab) 10 mg PO BEDTIME [facility] Last Admin: 04/05/21 20:27 Dose: 10 mg Documented by: Budesonide (Budesonide 0.5 Mg/2 Ml Neb Susp) 0.5 mg INH QID PRN PRN Reason: Wheezing Erythromycin (Erythromycin Base 0.5% Ophth Oint 1 Gm Tube) 0 gm EYEBOTH ASDIRECTED PRN PRN Reason: Dry Eyes Hydrochlorothiazide (Hydrochlorothiazide 25 Mg Tab) 25 mg PO DAILY [facility] Last Admin: 04/06/21 08:30 Dose: 25 mg Documented by: Levetiracetam (Levetiracetam 500 Mg Tab) 500 mg PO BID [facility] Last Admin: 04/06/21 08:30 Dose: 500 mg Documented by: Levofloxacin (Levofloxacin 250 Mg Tab) 750 mg PO Q48H [facility] Last Admin: 04/05/21 20:27 Dose: 750 mg Documented by: Levothyroxine Sodium (Levothyroxine 125 Mcg Tab) 125 mcg PO SuMoTuThFrSa [facility] Last Admin: 04/05/21 00:21 Dose: Not Given Documented by: Levothyroxine Sodium (Levothyroxine 125 Mcg Tab) 62.5 mcg PO We [facility] Last Admin: 04/05/21 06:23 Dose: 62.5 mcg Documented by: Loratadine (Loratadine 10 Mg Tab) 10 mg PO DAILY [facility] Last Admin: 04/06/21 08:30 Dose: 10 mg Documented by: Montelukast Sodium (Montelukast 10 Mg Tab) 10 mg PO DAILY [facility] Last Admin: 04/06/21 08:30 Dose: 10 mg Documented by: Prednisone (Prednisone 20 Mg Tab) 40 mg PO WITHBREAKFAST [facility] Last Admin: 04/06/21 08:29 Dose: 40 mg Documented by: Sodium Chloride (Sodium Chloride 0.65% Nasal [place] 45 Ml Bottle) 2 ml NASBOTH QID [facility] Last Admin: 04/06/21 06:47 Dose: 1 spray Documented by: Verapamil HCl (Verapamil 180 Mg Tab.Er) 180 mg PO DAILY [facility] Last Admin: 04/06/21 08:38 Dose: 180 mg Documented by: Discontinued Medications HCTZ/Losartan Potassium (Hydrochlorothiazide/Losartan 12.5-50 Mg Tab) 2 tab PO DAILY [facility] Last Admin: 04/05/21 08:58 Dose: 2 tab Documented by: Hydrochlorothiazide (Hydrochlorothiazide 25 Mg Tab) 25 mg PO DAILY [facility] Last Admin: 04/05/21 10:59 Dose: Not Given Documented by: Lactated Ringer's (Ringers, Lactated) 1,000 mls @ 999 mls/hr IV .BOLUS ONE Stop: 04/04/21 17:31 Last Admin: 04/04/21 16:47 Dose: 999 mls/hr Documented by: Iopamidol (Iopamidol 755 Mg/Ml 500 Ml Multipack Bottle) 100 ml IVPUSH ONETIME STA Stop: 04/04/21 20:17 Last Admin: 04/04/21 20:43 Dose: 100 ml Documented by: Levofloxacin (Levofloxacin 500 Mg Tab) 500 mg PO ONETIME ONE Stop: 04/04/21 23:36 Last Admin: 04/05/21 00:39 Dose: 500 mg Documented by: Methylprednisolone Sodium Succinate (Methylprednisolone Sodium Succinate 40 Mg/1 Ml Sdv) 60 mg IVPUSH ONETIME ONE Stop: 04/04/21 23:36 Last Admin: 04/05/21 00:38 Dose: 60 mg Documented by: Potassium Chloride (Potassium Chloride 20 Meq Tab.Er) 40 meq PO ONETIME ONE Stop: 04/06/21 08:03 Last Admin: 04/06/21 08:29 Dose: 40 meq Documented by:
== END 2021-04-06 11:40 | disposition home or self-care (01) ==
LOC: MW.ED 16:14 → MW.MS 22:12
PROVIDERS: ADMIT Internal Medicine; ATTEND Internal Medicine
DX: J96.01 Acute respiratory failure with hypoxia (principal); J45.901 Unspecified asthma with (acute) exacerbation; I10 Essential (primary) hypertension; F79 Unspecified intellectual disabilities; E78.00 Pure hypercholesterolemia, unspecified; G40.909 Epilepsy, unspecified, not intractable, without status epilepticus; E03.9 Hypothyroidism, unspecified; Z88.2 Allergy status to sulfonamides; Z88.8 Allergy status to other drugs, medicaments and biological substances; Z79.899 Other long term (current) drug therapy; Z79.890 Hormone replacement therapy; Z98.890 Other specified postprocedural states; Z20.822 Contact with and (suspected) exposure to COVID-19
CPT/HCPCS: 36415; 71045; 71275; 80048; 80053; 83605; 83735; 84484; 85025; 93005; 94640; 99285; A9270; J2920; J7120; Q9967; U0002; 93010; 96374; 99284; G0378; J7620-GY

== ENCOUNTER 2021-04-23 12:23 | Emergency (ER) | payer MEDICARE, MEDICAID ==
--- NOTE | 2021-04-23 13:07 | EDM.PDOC ---
ED HPI GENERAL MEDICAL PROBLEM - General Chief Complaint: General Stated Complaint: EMS Time Seen by Provider: 04/23/21 12:34 - History of Present Illness INITIAL COMMENTS - FREE TEXT/NARRATIVE: HISTORY AND PHYSICAL: History of present illness: This is a 71-year-old female who currently resides at a nursing facility who was brought to the environmental services tech secondary to choking episode while she was eating her food too fast. Patient's caregiver at bedside reports that patient has a tendency to eat too fast and has choked in the past. At this time, the caregiver reports that she is breathing at a normal respiratory rate and effort and does not appear to be in any distress. Caregiver has no other concerns at this time reports that she currently is back to her baseline. Review of systems: As per history of present illness and below otherwise all systems reviewed and negative. Past medical history: As per history of present illness and as reviewed below otherwise noncontributory. Surgical history: As per history of present illness and as reviewed below otherwise noncontributory. Social history: No reported history of drug abuse. Family history: As per history of present illness and as reviewed below otherwise no ncontributory. Physical exam: This patient was seen and evaluated during the 2019 SARS-CoV-2 novel coronavirus pandemic period. Community viral transmission is ongoing at time of this encounter and the emergency department is operating under pandemic response procedures. Constitutional: Patient is oriented to person, place, and time. Appears well- developed and well-nourished. No distress. HEENT: Moist mucous membranes Head: Normocephalic and atraumatic Eyes: Right eye exhibits no discharge. Left eye exhibits no discharge. No scleral icterus Neck: Normal range of motion. No tracheal deviation present. Cardiovascular: Normal rate and regular rhythm. Pulmonary: Effort normal, no respiratory distress. Abdominal: No distention Musculoskeletal: Normal range of motion Neurologic: Alert and oriented to person, place and time. Skin: [place], warm and dry. Psychiatric: Normal mood and affect. Behavior is normal. Judgment and thought content normal. Nursing note and vital signs have been reviewed Diagnostics: Chest Xray: Normal cardiac silhouette No infiltrates or effusions identified. No PTX No evidence of acute bony fracture. As interpreted by ER MD: [employer]: [] Assessment and plan: 71-year-old who presents ER today for evaluation of a self-limited choking episode from eating food too fast. X-ray is obtained which reveals no abnormalities. Patient be discharged home with continuing her current plan of care. Definitive disposition and diagnosis as appropriate pending reevaluation and review of above. Throat Pain Score (Numeric/FACES): 2 - Related Data Allergies Allergy/AdvReac Type Severity Reaction Status Date / Time dexamethasone [From TobraDex] Allergy Rash Verified 04/23/21 12:43 Sulfa (Sulfonamide Allergy Rash Verified 04/23/21 12:43 Antibiotics) tobramycin [From TobraDex] Allergy Rash Verified 04/23/21 12:43 Home Meds: Home Meds Calc/D3/Mag/Zn/Bishop/Ron/[place] [Calcium 600 MG Plus Vit D] 1 tab PO BID 01/12/19 [History] Loratadine 10 mg PO DAILY 01/12/19 [History] Montelukast [Singulair] 10 mg PO DAILY 01/12/19 [History] atorvaSTATin [Lipitor] 10 mg PO BEDTIME 01/12/19 [History] levETIRAcetam [Keppra] 500 mg PO BID 01/12/19 [History] Albuterol Sulfate 1 unit INH ASDIRECTED PRN 04/29/19 [History] [place] Nasal [place] 2 spray NASBOTH QID 04/30/19 [History] Erythromycin Base [Erythromycin] 1 applic EYEBOTH ASDIRECTED PRN 01/11/20 [History] Nystatin [Nystatin Crm] 1 applic TOP DAILY PRN 01/11/20 [History] Verapamil HCl [Verelan] 180 mg PO DAILY 08/22/20 [History] Budesonide [Pulmicort] 0.5 mg IH QID PRN 04/04/21 [History] Levothyroxine 125 mcg PO ASDIRECTED 04/04/21 [History] Sennosides [Vegetable Laxative] 8.6 mg PO DAILY 04/04/21 [History] hydroCHLOROthiazide [Hydrochlorothiazide] 25 mg PO DAILY 04/05/21 [History] Past Medical History HEENT History: Reports: Cataract, Hard of Hearing, Other (See Below) Other HEENT History: has hearing aids but does not wear them Cardiovascular History: Reports: High Cholesterol, Hypertension Respiratory History: Reports: Asthma Gastrointestinal History: Reports: GERD, Hemorrhoids Genitourinary History: Reports: None DATA SME History: Reports: None Musculoskeletal History: Reports: None Neurological History: Reports: None Psychiatric History: Reports: Other (See Below) Other Psychiatric History: cognitive developmental delay, has junction maker from [employer], 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 Endocrine/Metabolic History: Reports: Hypothyroidism Other Endocrine/Metabolic History: hashimotos Hematologic History: Reports: None Immunologic History: Reports: None Oncologic (Cancer) History: Reports: None Dermatologic History: Reports: None - Infectious Disease History Infectious Disease History: Reports: None - Past Surgical History Head Surgeries/Procedures: Reports: None HEENT Surgical History: Reports: Cataract Surgery, Eye Surgery, Naso-Sinus Surgery, Other (See Below) Other HEENT Surgeries/Procedures: nasal septal reconstruction; eye abscess surgery Cardiovascular Surgical History: Reports: None Respiratory Surgical History: Reports: None GI Surgical History: Reports: Colonoscopy Female Surgical History: Reports: Breast Biopsy Endocrine Surgical History: Reports: None Neurological Surgical History: Reports: None Musculoskeletal Surgical History: Reports: None Oncologic Surgical History: Reports: Biopsy of Breast Dermatological Surgical History: Reports: None Social & Family History - Family History Family Medical History: Unobtainable : Reports: None OBGYN: Reports: None - Tobacco Use Tobacco Use Status *Q: Never Tobacco User - Caffeine Use Caffeine Use: Reports: Coffee, Soda Other Caffeine Use: not able answer - Recreational Drug Use Recreational Drug Use: No ED ROS GENERAL - Review of Systems Review Of Systems: See Below ED EXAM, GENERAL - Physical Exam Exam: See Below Course - Vital Signs Last Recorded V/S: Last Vital Signs Temp 97.4 F 04/23/21 12:35 Pulse 78 04/23/21 12:35 Resp 16 04/23/21 12:35 BP 160/50 H 04/23/21 12:35 Pulse Ox 89 L 04/23/21 12:35 - Orders/Labs/Meds Orders: Active Orders 24 hr Category Date Time Status Chest 1V Frontal [CR] Stat Exams 04/23/21 12:37 Ordered Departure - Departure Time of Disposition: 13:06 Disposition: Home, Self-Care 01 Condition: Good Clinical Impression: Choking due to food (regurgitated) - Discharge Information Instructions: Choking, Adult Additional Instructions: Your seen and evaluated in the ER today secondary to a self-limited episode of choking on food. Please make sure that you chew your food and appropriate length of time. Please provide a soft diet for the patient. Please resume her current plan of care. Please have her return to the ER if she develops any new or concerning symptoms including shortness of breath. The following information is given to patients seen in the emergency department who are being discharged to home. This information is to outline your options for follow-up care. We provide all patients seen in our emergency department with a follow-up referral. The need for follow-up, as well as the timing and circumstances, are variable depending upon the specifics of your emergency department visit. If you don't have a primary care physician on staff, we will provide you with a referral. We always advise you to contact your personal physician following an emergency department visit to inform them of the circumstance of the visit and for follow-up with them and/or the need for any referrals to a consulting specialist. The emergency department will also refer you to a specialist when appropriate. This referral assures that you have the opportunity for follow-up care with a specialist. All of these measure are taken in an effort to provide you with optimal care, which includes your follow-up. Under all circumstances we always encourage you to contact your private physician who remains a resource for coordinating your care. When calling for follow-up care, please make the office aware that this follow-up is from your recent emergency room visit. If for any reason you are refused follow-up, please contact the [facility] Emergency Department at and asked to speak to the emergency department charge nurse. [facility] [address] [place] [id number] [facility] [address] [place] [id number] Sepsis Event Note (ED) - Evaluation Sepsis Screening Result: No Definite Risk - Focused Exam Vital Signs: Vital Signs Temp Pulse Resp BP Pulse Ox 04/23/21 12:35 97.4 F 78 16 160/50 H 89 L - My Orders Last 24 Hours: My Active Orders 04/23/21 12:37 Chest 1V Frontal [CR] Stat - Assessment/Plan Last 24 Hours: My Active Orders 04/23/21 12:37 Chest 1V Frontal [CR] Stat
[2021-04-23 13:20] VITALS: BP 162/50; PULSE 68
--- NOTE | 2021-04-23 13:36 | CR ---
For Patients: As a result of the Century Cures Act, medical imaging exams and procedure reports are released immediately into your electronic medical record. You may view this report before your referring provider. If you have questions, please contact your health care provider. Indication: Coughing after eating Technique: Chest 1 view Comparison: April 04, 2021 Findings/Impression: Cardiovascular and mediastinum: Heart size and vasculature are normal in caliber and appearance. Mediastinum is within normal limits. Lungs and pleural space: No definite focal infiltrate. Mild bibasilar atelectasis. No sign of pleural effusion. No pneumothorax. Bones and soft tissues: Severe degenerative changes in the right glenohumeral joint. Dictated by Ruth Ann Lewis MD @ 04/23/2021 1:35:[address] Ruth Ann Lewis @ Apr 23 2021 1:35PM
== END 2021-04-23 13:20 | disposition home or self-care (01) ==
LOC: MW.ED 12:23
DX: T17.228A Food in pharynx causing other injury, initial encounter (principal); E78.00 Pure hypercholesterolemia, unspecified; I10 Essential (primary) hypertension; E03.9 Hypothyroidism, unspecified; Z79.899 Other long term (current) drug therapy; Z88.8 Allergy status to other drugs, medicaments and biological substances; Z88.2 Allergy status to sulfonamides; Z88.1 Allergy status to other antibiotic agents
CPT/HCPCS: 71045; 71045-26; 99283; 99283-25

== ENCOUNTER 2021-09-09 13:02 | Inpatient (IN) | payer MEDICARE, MEDICAID ==
[2021-09-09] MEDS ORDERED: Sodium Chloride 0.9% 10 ML Syringe FLUSH PRN (13:13)
[2021-09-09] MEDS ORDERED: Sodium Chloride 0.9% 2.5 ML Syringe FLUSH PRN (13:13)
--- NOTE | 2021-09-09 13:17 | EDM.PDOC ---
<Felipe Holt - Last Filed: 09/09/21 15:39> ED HPI GENERAL MEDICAL PROBLEM - General Stated Complaint: BP LOW, DEHYDRATION Time Seen by Provider: 09/09/21 13:12 - Related Data Allergies Allergy/AdvReac Type Severity Reaction Status Date / Time dexamethasone [From TobraDex] Allergy Rash Verified 09/09/21 23:03 Sulfa (Sulfonamide Allergy Rash Verified 09/09/21 23:03 Antibiotics) tobramycin [From TobraDex] Allergy Rash Verified 09/09/21 23:03 Home Meds: Home Meds Calc/D3/Mag/Zn/Bishop/Ron/[place] [Calcium 600 MG Plus Vit D] 1 tab PO BID 01/12/19 [History] Loratadine 10 mg PO DAILY 01/12/19 [History] Montelukast [Singulair] 10 mg PO DAILY 01/12/19 [History] atorvaSTATin [Lipitor] 10 mg PO BEDTIME 01/12/19 [History] levETIRAcetam [Keppra] 500 mg PO BID 01/12/19 [History] Albuterol Sulfate 1 unit INH ASDIRECTED PRN 04/29/19 [History] [place] Nasal [place] 2 spray NASBOTH QID 04/30/19 [History] Erythromycin Base [Erythromycin] 1 applic EYEBOTH ASDIRECTED PRN 01/11/20 [History] Nystatin [Nystatin Crm] 1 applic TOP DAILY PRN 01/11/20 [History] Verapamil HCl [Verelan] 180 mg PO DAILY 08/22/20 [History] Levothyroxine 125 mcg PO SUMOTUTHFRSA@0730 04/04/21 [History] Sennosides [Vegetable Laxative] 8.6 mg PO DAILY 04/04/21 [History] hydroCHLOROthiazide [Hydrochlorothiazide] 25 mg PO DAILY 04/05/21 [History] Levothyroxine 62.5 mcg PO WE@0730 09/10/21 [History] polyethylene glycoL 3350 [MiraLAX] 17 gm PO DAILY 09/10/21 [History] levoFLOXacin [Levaquin] 750 mg PO DAILY #5 tab 09/11/21 [Rx] #1 Interpretation EKG Interpretation Comments: EKG sinus rhythm heart rate 60 OR 190 QT duration [address] [place] [address] and T some wandering baseline but no clear-cut elevation or inversion. Compared to April 04, 2021 there is no change impression prolonged QT interval otherwise no acute abnormality in no acute injury Departure - Departure Disposition: Admitted As Inpatient 65 Clinical Impression: Elevated d-dimer, Decreased oral intake, Tachypnea, not elsewhere classified Hypotension Qualifiers: Hypotension type: unspecified hypotension type Qualified Code(s): I95.9 - Hypotension, unspecified - Discharge Information <Lesley Carbajal - Last Filed: 09/17/21 18:43> ED HPI GENERAL MEDICAL PROBLEM - General Source of Information: Reports: Family (Caregiver) History Limitations: Reports: No Limitations - History of Present Illness INITIAL COMMENTS - FREE TEXT/NARRATIVE: HISTORY AND PHYSICAL: History of present illness: The patient is a 71-year-old female with a history of hypertension, asthma, intellectual disability, and seizure disorder who presents to the emergency room for complaints of decreased appetite, increased fatigue, general malaise that started this morning. Initially the caregiver had thought the patient had some left-sided facial droop but upon presentation to the emergency room there is no such facial droop. The patient was diagnosed Covid positive on 08/31/2021. The patient received monoclonal antibodies on 09/01/2021. The caregiver states patient had started to feel better after about 48 hours after the monoclonal antibodies. She just noticed today that the patient just would not eat and is not sleeping due to this chronic cough. The caregiver states that the patient has no diarrhea no constipation and seems to be urinating adequately. The patient has not had a fever. Caregiver states the patient not appeared to be short of breath. Review of systems: As per history of present illness and below otherwise all systems reviewed and negative. Past medical history: As per history of present illness and as reviewed below otherwise noncontributory. Surgical history: As per history of present illness and as reviewed below otherwise noncontributory. Social history: See social history for further information Family history: As per history of present illness and as reviewed below otherwise noncontributory. Physical exam: General: Well developed and well nourished. Alert and knows self patient is only able to answer questions with. Nontoxic in appearance and in no acute distress. Vital signs are stable and have been reviewed by me. Nursing notes were reviewed. HEENT: Atraumatic, normocephalic, pupils equal and reactive bilaterally, ne gative for conjunctival pallor or scleral icterus, mucous membranes moist, TMs normal bilaterally, throat clear, neck supple, nontender, trachea midline. No drooling or trismus noted. No meningeal signs. No hot potato voice noted. Lungs: Clear to auscultation bilaterally. No wheezes, rales, or rhonchi. Chest nontender. Normal work of breathing, no accessory muscles used. Heart: S1S2, regular rate and rhythm without overt murmur, gallops, or rubs. No JVD. No peripheral edema Abdomen: Soft, nondistended, nontender. Normoactive bowel sounds. Negative for masses or costovertebral tenderness. Skin: Intact, warm, dry. No lesions or rashes noted. Hematologic: No petechiae or purpra. Mucosa appropriate color and normal nail bed color and refill. Extremities: Atraumatic, moves all extremities per self without difficulty or deficits, negative for cords or calf pain. Neurovascular unremarkable. Neuro: Awake, alert, oriented. Cranial nerves II through XII unremarkable. Cerebellum unremarkable. Motor and sensory unremarkable throughout. Exam nonfocal. Psychiatric: Mood and affect are appropriate. Yes no or 1 word answers. This is normal for the patient. Notes: *This patient was seen and evaluated during the 2019 SARS-CoV-2 novel coronavirus pandemic period. Community viral transmission is ongoing at time of this encounter and the emergency department is operating under pandemic respo nse procedures. Upon presentation to the emergency room there was question on whether the patient was having a stroke as a caregiver had originally stated to EMS that the patient was having difficulty eating. EMS assessed the patient and felt like the patient was of normal status for patient but the patient's blood pressure was hypotensive with a systolic blood pressure in the 80s. Upon presentation the patient's NIH stroke scale was 0. This is not a stroke. Due to the patient's mental disability communication is limited but normal for her. The patient is medicated per her normal self. She is able to laugh and joke. The patient was diagnosed with Covid on 08/31/2021 and had a monoclonal antibodies 09/01/2021. She had been doing excellent up until this morning when she just did not want to eat or drink. The caregiver states that she has not been sleeping well due to her chronic cough. We will do a septic work-up on the patient due to her age and COVID-19 status. CMPThe patient CBC is unremarkable, INR is within normal limits. The patient's CMP is significant for a hypokalemia of 3.4. The patient's urine is negative. IMPRESSION: Negative, allowing for low lung volumes. The patient is refusing to eat and cannot communicate I will order an/pelvis CT. I did not order this earlier as the CT was temporarily down. The caregiver is agreeable with this plan. Abdomen/pelvis CT IMPRESSION: 1. Bowel unremarkable except for 2 x 1.5 x 1.5 cm cystic structure in the region of the cecal tip with absence of appendix. Question history of appendectomy and development of mucocele at the appendiceal stump. 2. Small amount of free fluid adjacent liver and in the pelvis. 3. Stable ovarian cysts bilaterally. 4. Heavily calcified atherosclerotic plaque in the aorta with marked stenosis demonstrated superiorly. I was just informed by the nursing staff that when they stood the patient at the bedside she became very short of breath. I will obtain a D-dimer. Patient's D-dimer is elevated at 0.74. As we obtained an abdominal/pelvis CT with contrast we will need to wait 24 hours to obtain a pulmonary embolus chest CT. I have informed the patient and the patient's primary caregiver who states that they would like some preventative measure. Dr. Holt consulted on case. We will give Lovenox 60 mg subcu. the patient was guaiac negative. The patient's blood pressure is 107/68, heart rate 68. Patient's respiration rate is 20 and SPO2 is 96% on room air. The patient is lying without distress in her ED cot. They both are agreeable with this plan. I spoke with Dr. Berman, hospitalist, who accepts the admission. The patient is agreeable with this plan. Diagnostics:CMP, CBC, blood cultures x2, lactic acid, troponin, urinalysis, CXR Therapeutics: IV fluids Lovenox 60 mg subcu, Impression: COVID-19, hypotension, no oral intake, elevated D-dimer, tachypneic with standing. Definitive disposition and diagnosis as appropriate pending reevaluation and review of above. 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 [employer], 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 Endocrine/Metabolic History: Reports: Hypothyroidism Other Endocrine/Metabolic History: hashimotos Hematologic History: Reports: None Immunologic History: Reports: None Oncologic (Cancer) History: Reports: None Dermatologic History: Reports: None - Infectious Disease History Infectious Disease History: Reports: None - Past Surgical History Head Surgeries/Procedures: Reports: None HEENT Surgical History: Reports: Cataract Surgery, Eye Surgery, Naso-Sinus Surgery, Other (See Below) Other HEENT Surgeries/Procedures: nasal septal reconstruction; eye abscess surgery Cardiovascular Surgical History: Reports: None Respiratory Surgical History: Reports: None GI Surgical History: Reports: Colonoscopy Female Surgical History: Reports: Breast Biopsy Endocrine Surgical History: Reports: None Neurological Surgical History: Reports: None Musculoskeletal Surgical History: Reports: None Oncologic Surgical History: Reports: Biopsy of Breast Dermatological Surgical History: Reports: None Social & Family History - Family History Family Medical History: Unobtainable : Reports: None OBGYN: Reports: None - Caffeine Use Caffeine Use: Reports: Coffee, Soda Other Caffeine Use: not able answer ED ROS GENERAL - Review of Systems Review Of Systems: Comprehensive ROS is negative, except as noted in HPI. ED EXAM, GENERAL - Physical Exam Exam: See Below Course - Vital Signs Last Recorded V/S: Last Vital Signs Temp 97.9 F 09/11/21 11:46 Pulse 57 L 09/11/21 11:46 Resp 20 09/11/21 11:46 BP 96/50 L 09/11/21 11:46 Pulse Ox 92 L 09/11/21 11:46 - Orders/Labs/Meds Labs: Laboratory Tests 09/09/21 09/09/21 09/09/21 Range/Units 13:20 13:20 13:20 WBC 7.89 (4.0-11.0) K/uL RBC 4.33 (4.30-5.90) M/uL Hgb 13.2 (12.0-16.0) g/dL Hct 40.3 (36.0-46.0) % MCV 93.1 (80.0-98.0) fL MCH 30.5 (27.0-32.0) pg MCHC 32.8 (31.0-37.0) g/dL RDW Std Deviation 43.9 (28.0-62.0) fl RDW Coeff of Leonel 13 (11.0-15.0) % Plt Count 228 (150-400) K/uL MPV 9.90 (7.40-12.00) fL Neut % (Auto) 62.4 (48.0-80.0) % Lymph % (Auto) 25.2 (16.0-40.0) % [place] % (Auto) 9.9 (0.0-15.0) % Eos % (Auto) 2.4 (0.0-7.0) % Baso % (Auto) 0.1 (0.0-1.5) % Neut # (Auto) 4.9 (1.4-5.7) K/uL Lymph # (Auto) 2.0 (0.6-2.4) K/uL [place] # (Auto) 0.8 (0.0-0.8) K/uL Eos # (Auto) 0.2 (0.0-0.7) K/uL Baso # (Auto) 0.0 (0.0-0.1) K/uL Nucleated RBC % 0.0 /100WBC Nucleated RBCs # 0 K/uL INR 1.06 D-Dimer, Quantitative (0.0-0.50) mg/L FEU Sodium 144 (136-145) mmol/L Potassium 3.4 L (3.5-5.1) mmol/L Chloride 105 (98-107) mmol/L Carbon Dioxide 28.6 (21.0-32.0) mmol/L BUN 13 (7.0-18.0) mg/dL Creatinine 0.7 (0.6-1.0) mg/dL Est Cr Clr Drug Dosing 54.82 mL/min Estimated GFR (MDRD) > 60.0 ml/min Glucose 118 H (74-106) mg/dL Lactic Acid (0.4-2.0) mmol/L Calcium 8.6 (8.5-10.1) mg/dL Total Bilirubin 0.2 (0.2-1.0) mg/dL AST 22 (15-37) IU/L ALT 28 (14-63) IU/L Alkaline Phosphatase 100 (46-116) U/L Troponin I < 0.050 (0.000-0.056) ng/mL B-Natriuretic Peptide (<100) PG/ML Total Protein 6.5 (6.4-8.2) g/dL Albumin 2.8 L (3.4-5.0) g/dL Globulin 3.7 (2.6-4.0) g/dL Albumin/Globulin Ratio 0.8 L (0.9-1.6) Urine Color Urine Appearance Urine pH (5.0-8.0) Ur Specific [place] [address] (1.001-1.035) Urine Protein (NEGATIVE) mg/dL Urine Glucose (UA) (NEGATIVE) mg/dL Urine Ketones (NEGATIVE) mg/dL Urine Occult Blood (NEGATIVE) Urine Nitrite (NEGATIVE) Urine Bilirubin (NEGATIVE) Urine Urobilinogen (<2.0) EU/dL Ur Leukocyte Esterase (NEGATIVE) Urine RBC (0-2/HPF) Urine WBC (0-5/HPF) Ur Epithelial Cells (NONE-FEW) Urine Bacteria (NEGATIVE) 09/09/21 09/09/21 09/09/21 Range/Units 13:20 13:20 13:25 WBC (4.0-11.0) K/uL RBC (4.30-5.90) M/uL Hgb (12.0-16.0) g/dL Hct (36.0-46.0) % MCV (80.0-98.0) fL MCH (27.0-32.0) pg MCHC (31.0-37.0) g/dL RDW Std Deviation (28.0-62.0) fl RDW Coeff of Leonel (11.0-15.0) % Plt Count (150-400) K/uL MPV (7.40-12.00) fL Neut % (Auto) (48.0-80.0) % Lymph % (Auto) (16.0-40.0) % [place] % (Auto) (0.0-15.0) % Eos % (Auto) (0.0-7.0) % Baso % (Auto) (0.0-1.5) % Neut # (Auto) (1.4-5.7) K/uL Lymph # (Auto) (0.6-2.4) K/uL [place] # (Auto) (0.0-0.8) K/uL Eos # (Auto) (0.0-0.7) K/uL Baso # (Auto) (0.0-0.1) K/uL Nucleated RBC % /100WBC Nucleated RBCs # K/uL INR D-Dimer, Quantitative 0.74 H (0.0-0.50) mg/L FEU Sodium (136-145) mmol/L Potassium (3.5-5.1) mmol/L Chloride (98-107) mmol/L Carbon Dioxide (21.0-32.0) mmol/L BUN (7.0-18.0) mg/dL Creatinine (0.6-1.0) mg/dL Est Cr Clr Drug Dosing mL/min Estimated GFR (MDRD) ml/min Glucose (74-106) mg/dL Lactic Acid 1.6 (0.4-2.0) mmol/L Calcium (8.5-10.1) mg/dL Total Bilirubin (0.2-1.0) mg/dL AST (15-37) IU/L ALT (14-63) IU/L Alkaline Phosphatase (46-116) U/L Troponin I (0.000-0.056) ng/mL B-Natriuretic Peptide 153 H (<100) PG/ML Total Protein (6.4-8.2) g/dL Albumin (3.4-5.0) g/dL Globulin (2.6-4.0) g/dL Albumin/Globulin Ratio (0.9-1.6) Urine Color Urine Appearance Urine pH (5.0-8.0) Ur Specific [place] [address] (1.001-1.035) Urine Protein (NEGATIVE) mg/dL Urine Glucose (UA) (NEGATIVE) mg/dL Urine Ketones (NEGATIVE) mg/dL Urine Occult Blood (NEGATIVE) Urine Nitrite (NEGATIVE) Urine Bilirubin (NEGATIVE) Urine Urobilinogen (<2.0) EU/dL Ur Leukocyte Esterase (NEGATIVE) Urine RBC (0-2/HPF) Urine WBC (0-5/HPF) Ur Epithelial Cells (NONE-FEW) Urine Bacteria (NEGATIVE) 10/23/21 Range/Units 13:59 WBC (4.0-11.0) K/uL RBC (4.30-5.90) M/uL Hgb (12.0-16.0) g/dL Hct (36.0-46.0) % MCV (80.0-98.0) fL MCH (27.0-32.0) pg MCHC (31.0-37.0) g/dL RDW Std Deviation (28.0-62.0) fl RDW Coeff of Leonel (11.0-15.0) % Plt Count (150-400) K/uL MPV (7.40-12.00) fL Neut % (Auto) (48.0-80.0) % Lymph % (Auto) (16.0-40.0) % [place] % (Auto) (0.0-15.0) % Eos % (Auto) (0.0-7.0) % Baso % (Auto) (0.0-1.5) % Neut # (Auto) (1.4-5.7) K/uL Lymph # (Auto) (0.6-2.4) K/uL [place] # (Auto) (0.0-0.8) K/uL Eos # (Auto) (0.0-0.7) K/uL Baso # (Auto) (0.0-0.1) K/uL Nucleated RBC % /100WBC Nucleated RBCs # K/uL INR D-Dimer, Quantitative (0.0-0.50) mg/L FEU Sodium (136-145) mmol/L Potassium (3.5-5.1) mmol/L Chloride (98-107) mmol/L Carbon Dioxide (21.0-32.0) mmol/L BUN (7.0-18.0) mg/dL Creatinine (0.6-1.0) mg/dL Est Cr Clr Drug Dosing mL/min Estimated GFR (MDRD) ml/min Glucose (74-106) mg/dL Lactic Acid (0.4-2.0) mmol/L Calcium (8.5-10.1) mg/dL Total Bilirubin (0.2-1.0) mg/dL AST (15-37) IU/L ALT (14-63) IU/L Alkaline Phosphatase (46-116) U/L Troponin I (0.000-0.056) ng/mL B-Natriuretic Peptide (<100) PG/ML Total Protein (6.4-8.2) g/dL Albumin (3.4-5.0) g/dL Globulin (2.6-4.0) g/dL Albumin/Globulin Ratio (0.9-1.6) Urine Color YELLOW Urine Appearance CLEAR Urine pH 7.0 (5.0-8.0) Ur Specific [address] 1.020 (1.001-1.035) Urine Protein NEGATIVE (NEGATIVE) mg/dL Urine Glucose (UA) NEGATIVE (NEGATIVE) mg/dL Urine Ketones NEGATIVE (NEGATIVE) mg/dL Urine Occult Blood NEGATIVE (NEGATIVE) Urine Nitrite NEGATIVE (NEGATIVE) Urine Bilirubin NEGATIVE (NEGATIVE) Urine Urobilinogen 0.2 (<2.0) EU/dL Ur Leukocyte Esterase NEGATIVE (NEGATIVE) Urine RBC 0-1 (0-2/HPF) Urine WBC 0-2 (0-5/HPF) Ur Epithelial Cells RARE (NONE-FEW) Urine Bacteria NOT SEEN (NEGATIVE) Meds: Medications Discontinued Medications Generic Name Dose Route Start Last Admin Trade Name Freq PRN Reason Stop Dose Admin Albuterol 2.5 mg 09/09/21 22:10 09/11/21 08:44 Albuterol 0.083% 2.5 Mg/3 Ml Neb Soln INH 2.5 mg Q6HRRT PRN Administration Wheezing Atorvastatin Calcium 10 mg 09/10/21 21:00 09/10/21 20:01 Atorvastatin 10 Mg Tab PO 10 mg BEDTIME MALIK Administration Budesonide 0.5 mg 09/09/21 22:10 Budesonide 0.5 Mg/2 Ml Neb Susp INH QID PRN Wheezing Enoxaparin Sodium 60 mg 09/09/21 19:00 09/09/21 19:18 Enoxaparin 60 Mg/0.6 Ml Syringe SUBCUT 09/09/21 19:01 60 mg ONETIME ONE Administration Enoxaparin Sodium 60 mg 09/10/21 07:00 09/11/21 06:07 Enoxaparin 60 Mg/0.6 Ml Syringe SUBCUT 60 mg Q12H MALIK Administration Sodium Chloride 500 mls @ 500 mls/hr 09/09/21 13:30 09/09/21 13:29 Normal Saline IV 500 mls/hr .BOLUS MALIK Administration Sodium Chloride 500 mls @ 500 mls/hr 09/09/21 14:30 09/09/21 14:19 Normal Saline IV 500 mls/hr .BOLUS MALIK Administration Sodium Chloride 1,000 mls @ 125 mls/hr 09/09/21 19:15 09/09/21 21:04 Normal Saline IV 125 mls/hr ASDIRECTED MALIK Administration Levofloxacin/Dextrose 750 mg/ 150 mls @ 100 mls/hr 09/10/21 16:00 09/10/21 16:33 Premix IV 100 mls/hr Q24H MALIK Administration Iopamidol 100 ml 09/09/21 18:13 09/09/21 18:14 Iopamidol 755 Mg/Ml 500 Ml Multipack Bottle IVPUSH 09/09/21 18:14 100 ml ONETIME ONE Administration Iopamidol 100 ml 09/10/21 12:58 09/10/21 12:59 Iopamidol 755 Mg/Ml 500 Ml Multipack Bottle IVPUSH 09/10/21 12:59 100 ml ONETIME ONE Administration Levetiracetam 500 mg 09/10/21 09:00 09/11/21 08:18 Levetiracetam 500 Mg Tab PO 500 mg BID MALIK Administration Levothyroxine Sodium 125 mcg 09/10/21 07:00 09/10/21 06:43 Levothyroxine 125 Mcg Tab PO 125 mcg DAILY@0700 MALIK Administration Levothyroxine Sodium 125 mcg 09/11/21 07:30 09/11/21 06:30 Levothyroxine 125 Mcg Tab PO 125 mcg SuMoTuThFrSa@0730 MALIK Administration Levothyroxine Sodium 62.5 mcg 09/13/21 07:30 Levothyroxine 125 Mcg Tab PO We@0730 MALIK Montelukast Sodium 10 mg 09/10/21 09:00 09/11/21 08:18 Montelukast 10 Mg Tab PO 10 mg DAILY MALIK Administration Nystatin 0 gm 09/10/21 14:37 09/11/21 08:45 Nystatin Topical Powder 15 Gm Bottle TOP 1 applic Q6H PRN Administration Rash Ondansetron HCl 4 mg 09/09/21 22:13 Ondansetron 4 Mg/2 Ml Sdv IVPUSH Q4H PRN Nausea Sodium Chloride 10 ml 09/09/21 13:13 09/09/21 13:29 Sodium Chloride 0.9% 10 Ml Syringe FLUSH 10 ml ASDIRECTED PRN Administration Keep Vein Open Sodium Chloride 2.5 ml 09/09/21 13:13 09/09/21 13:29 Sodium Chloride 0.9% 2.5 Ml Syringe FLUSH 2.5 ml ASDIRECTED PRN Administration Keep Vein Open Verapamil HCl 180 mg 09/10/21 09:00 09/11/21 08:18 Verapamil 180 Mg Tab.Er PO 180 mg DAILY MALIK Administration Departure - Departure Time of Disposition: 19:05 Condition: Fair - Discharge Information *PRESCRIPTION DRUG MONITORING PROGRAM REVIEWED*: Not Applicable *COPY OF PRESCRIPTION DRUG MONITORING REPORT IN PATIENT ARIADNA: Not Applicable
[2021-09-09] MEDS ORDERED: Sodium Chloride 0.9% 500 ML IV SCH ×2 (13:30→14:30)
[2021-09-09 14:01] LABS: BLOOD UREA NITROGEN,BUN 13 mg/dL (7.0-18.0); CARBON DIOXIDE,CO2 28.6 mmol/L (21.0-32.0); CHLORIDE,CL 105 mmol/L (98-107); GLUCOSE RANDOM 118 mg/dL (74-106); POTASSIUM,K 3.4 mmol/L (3.5-5.1); SODIUM,NA 144 mmol/L (136-145)
--- NOTE | 2021-09-09 14:16 | CR ---
INDICATION: Cough. TECHNIQUE: Single portable AP image. COMPARISON: 04/23/2021. FINDINGS: Lungs low in volume, clear. No pleural effusion. Heart, mediastinum and pulmonary vessels within normal limits, allowing for the shallow inspiration. No significant osseous abnormality. IMPRESSION: Negative, allowing for low lung volumes. Dictated by Bright Jackson MD @ 09/09/2021 2:15:33 PM (Electronically Signed)
--- NOTE | 2021-09-09 17:41 | CT ---
INDICATION: Decreased appetite. Possible pain. TECHNIQUE: Volumetric helical scanning of the abdomen and pelvis was performed with 100 cc of Isovue 370 contrast material IV. Coronal and sagittal reconstructions were obtained. COMPARISON: Abdomen/pelvis CT of 04/07/2019. FINDINGS: There is no evidence of bowel obstruction or inflammation. An appendix is not identified with certainty. On images 89-96 of series 2, a roughly 2 x 1.5 x 1.5 cm cystic structure is demonstrated in the region of the cecal tip and raises question of a mucocele, perhaps of the appendiceal stump. This was not evident on the previous examination. A small amount of free fluid is noted in the pelvis and adjacent to the liver. The liver, bile ducts, spleen, adrenal glands, kidneys and pancreas are unremarkable. No lymphadenopathy is demonstrated. Ovarian cysts are again demonstrated bilaterally and are unchanged. The uterus is negative. Heavily calcified atherosclerotic plaques are demonstrated in the abdominal aorta and on image 44 of series 2, there appears to be marked aortic stenosis superiorly. This appears increased from the previous exam. The lung bases are essentially clear, and heart size is normal. Calcified coronary arterial plaque is demonstrated. IMPRESSION: 1. Bowel unremarkable except for 2 x 1.5 x 1.5 cm cystic structure in the region of the cecal tip with absence of appendix. Question history of appendectomy and development of mucocele at the appendiceal stump. 2. Small amount of free fluid adjacent liver and in the pelvis. 3. Stable ovarian cysts bilaterally. 4. Heavily calcified atherosclerotic plaque in the aorta with marked stenosis demonstrated superiorly. Please note that all CT scans at this facility use dose modulation, iterative reconstruction, and/or weight-based dosing when appropriate to reduce radiation dose to as low as reasonably achievable. Dictated by Bright Jackson MD @ 09/09/2021 5:41:08 PM (Electronically Signed)
[2021-09-09] MEDS ORDERED: Iopamidol 755 MG/ML 500 ML Multipack Bottle IVPUSH ONE (18:13)
[2021-09-09] MEDS ORDERED: Enoxaparin 60 MG/0.6 ML Syringe SUBCUT ONE (19:00)
[2021-09-09] MEDS ORDERED: Sodium Chloride 0.9% 1,000 ML IV SCH (19:15)
[2021-09-09] MEDS ORDERED: Budesonide 0.5 MG/2 ML Neb Susp INH PRN (22:10)
[2021-09-09] MEDS ORDERED: Ondansetron 4 MG/2 ML SDV IVPUSH PRN (22:13)
--- NOTE | 2021-09-09 22:16 | PCM.HP.2 ---
H&P History of Present Illness - General Date of Service: 09/09/21 Admit Problem/Dx: Admission Diagnosis/Problem Admission Diagnosis/Problem Hypotension - History of Present Illness Initial Comments - Free Text/Narative: 71 yo female resident of [facility] with PMH of seizure disorder, asthma, intellectual disability, and HTN who presents to the ED with complains of lethargy and shortness of breath. Patient was diagnosed with COVID in 09/01/21 and received monoclonal antibioties on 09/02/21. Her symptoms have improved in the days following the infusion but today she has not eating or drank much. In the ED CXR and CT abdomen was unremarkable except for cystic structure on cecum. Lab work was unremarkable except for slightly elevated d- dimer. PAtient is not hypoxic. She did receive full dose lovenox by ED provider. - Related Data Allergies/Adverse Reactions: Allergies Allergy/AdvReac Type Severity Reaction Status Date / Time dexamethasone [From TobraDex] Allergy Rash Verified 09/09/21 13:22 Sulfa (Sulfonamide Allergy Rash Verified 09/09/21 13:22 Antibiotics) tobramycin [From TobraDex] Allergy Rash Verified 09/09/21 13:22 Home Medications: Home Meds RX: Calc/D3/Mag/Zn/Bishop/Ron/[place] [Calcium 600 MG Plus Vit D] 1 tab PO BID 01/12/19 [History] RX: Loratadine 10 mg PO DAILY 01/12/19 [History] RX: Montelukast [Singulair] 10 mg PO DAILY 01/12/19 [History] RX: atorvaSTATin [Lipitor] 10 mg PO BEDTIME 01/12/19 [History] RX: levETIRAcetam [Keppra] 500 mg PO BID 01/12/19 [History] RX: Albuterol Sulfate 1 unit INH ASDIRECTED PRN 04/29/19 [History] [place] Nasal [place] 2 spray NASBOTH QID 04/30/19 [History] RX: Erythromycin Base [Erythromycin] 1 applic EYEBOTH ASDIRECTED PRN 01/11/20 [ History] RX: Nystatin [Nystatin Crm] 1 applic TOP DAILY PRN 01/11/20 [History] RX: Verapamil HCl [Verelan] 180 mg PO DAILY 08/22/20 [History] RX: Budesonide [Pulmicort] 0.5 mg IH QID PRN 04/04/21 [History] RX: Levothyroxine 125 mcg PO ASDIRECTED 04/04/21 [History] RX: Sennosides [Vegetable Laxative] 8.6 mg PO DAILY 04/04/21 [History] RX: hydroCHLOROthiazide [Hydrochlorothiazide] 25 mg PO DAILY 04/05/21 [History] Past Medical History HEENT History: Reports: Cataract, Hard of Hearing, Other (See Below) Other HEENT History: has hearing aids but does not wear them Cardiovascular History: Reports: High Cholesterol, Hypertension Respiratory History: Reports: Asthma Gastrointestinal History: Reports: GERD, Hemorrhoids Genitourinary History: Reports: None BODY SANDER History: Reports: None Musculoskeletal History: Reports: None Neurological History: Reports: None Psychiatric History: Reports: Other (See Below) Other Psychiatric History: cognitive developmental delay, 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[employer], 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 Endocrine/Metabolic History: Reports: Hypothyroidism Other Endocrine/Metabolic History: hashimotos Hematologic History: Reports: None Immunologic History: Reports: None Oncologic (Cancer) History: Reports: None Dermatologic History: Reports: None - Infectious Disease History Infectious Disease History: Reports: None - Past Surgical History Head Surgeries/Procedures: Reports: None HEENT Surgical History: Reports: Cataract Surgery, Eye Surgery, Naso-Sinus Surgery, Other (See Below) Other HEENT Surgeries/Procedures: nasal septal reconstruction; eye abscess surgery Cardiovascular Surgical History: Reports: None Respiratory Surgical History: Reports: None GI Surgical History: Reports: Colonoscopy Female Surgical History: Reports: Breast Biopsy Endocrine Surgical History: Reports: None Neurological Surgical History: Reports: None Musculoskeletal Surgical History: Reports: None Oncologic Surgical History: Reports: Biopsy of Breast Dermatological Surgical History: Reports: None Social & Family History - Family History Family Medical History: Unobtainable : Reports: None OBGYN: Reports: None - Tobacco Use Tobacco Use Status *Q: Never Tobacco User - Caffeine Use Caffeine Use: Reports: None Other Caffeine Use: not able answer - Recreational Drug Use Recreational Drug Use: No H&P Review of Systems - Review of Systems: Review Of Systems: Unable To Obtain Reason Not Obtained: mental delay Exam - Exam Exam: See Below - Vital Signs Vital Signs: Last Vital Signs Temp 36.6 C 09/09/21 13:23 Pulse 64 09/09/21 21:05 Resp 24 H 10/23/21 21:05 BP 113/63 09/09/21 21:05 Pulse Ox 92 L 09/09/21 21:05 Weight: 64.864 kg - Exam General: Alert, Oriented HEENT: Mucosa Moist & [place] Neck: Supple Lungs: Clear to Auscultation, Normal Respiratory Effort Cardiovascular: Regular Rate, Regular Rhythm GI/Abdominal Exam: Soft, Non-Tender, No Distention Extremities: Non-Tender, No Pedal Edema Skin: Warm, Dry, Intact Neurological: Cranial Nerves Intact. No: Focal Deficit - Patient Data Lab Results Last 24 hrs: Laboratory Results - last 24 hr 09/09/21 09/09/21 09/09/21 Range/Units 13:20 13:20 13:20 WBC 7.89 (4.0-11.0) K/uL RBC 4.33 (4.30-5.90) M/uL Hgb 13.2 (12.0-16.0) g/dL Hct 40.3 (36.0-46.0) % MCV 93.1 (80.0-98.0) fL MCH 30.5 (27.0-32.0) pg MCHC 32.8 (31.0-37.0) g/dL RDW Std Deviation 43.9 (28.0-62.0) fl RDW Coeff of Leonel 13 (11.0-15.0) % Plt Count 228 (150-400) K/uL MPV 9.90 (7.40-12.00) fL Neut % (Auto) 62.4 (48.0-80.0) % Lymph % (Auto) 25.2 (16.0-40.0) % [place] % (Auto) 9.9 (0.0-15.0) % Eos % (Auto) 2.4 (0.0-7.0) % Baso % (Auto) 0.1 (0.0-1.5) % Neut # (Auto) 4.9 (1.4-5.7) K/uL Lymph # (Auto) 2.0 (0.6-2.4) K/uL [place] # (Auto) 0.8 (0.0-0.8) K/uL Eos # (Auto) 0.2 (0.0-0.7) K/uL Baso # (Auto) 0.0 (0.0-0.1) K/uL Nucleated RBC % 0.0 /100WBC Nucleated RBCs # 0 K/uL INR 1.06 D-Dimer, Quantitative (0.0-0.50) mg/L FEU Sodium 144 (136-145) mmol/L Potassium 3.4 L (3.5-5.1) mmol/L Chloride 105 (98-107) mmol/L Carbon Dioxide 28.6 (21.0-32.0) mmol/L BUN 13 (7.0-18.0) mg/dL Creatinine 0.7 (0.6-1.0) mg/dL Est Cr Clr Drug Dosing 54.82 mL/min Estimated GFR (MDRD) > 60.0 ml/min Glucose 118 H (74-106) mg/dL Lactic Acid (0.4-2.0) mmol/L Calcium 8.6 (8.5-10.1) mg/dL Total Bilirubin 0.2 (0.2-1.0) mg/dL AST 22 (15-37) IU/L ALT 28 (14-63) IU/L Alkaline Phosphatase 100 (46-116) U/L Troponin I < 0.050 (0.000-0.056) ng/mL B-Natriuretic Peptide (<100) PG/ML Total Protein 6.5 (6.4-8.2) g/dL Albumin 2.8 L (3.4-5.0) g/dL Globulin 3.7 (2.6-4.0) g/dL Albumin/Globulin Ratio 0.8 L (0.9-1.6) Urine Color Urine Appearance Urine pH (5.0-8.0) Ur Specific Junior (1.001-1.035) Urine Protein (NEGATIVE) mg/dL Urine Glucose (UA) (NEGATIVE) mg/dL Urine Ketones (NEGATIVE) mg/dL Urine Occult Blood (NEGATIVE) Urine Nitrite (NEGATIVE) Urine Bilirubin (NEGATIVE) Urine Urobilinogen (<2.0) EU/dL Ur Leukocyte Esterase (NEGATIVE) Urine RBC (0-2/HPF) Urine WBC (0-5/HPF) Ur Epithelial Cells (NONE-FEW) Urine Bacteria (NEGATIVE) 09/09/21 09/09/21 09/09/21 Range/Units 13:20 13:20 13:25 WBC (4.0-11.0) K/uL RBC (4.30-5.90) M/uL Hgb (12.0-16.0) g/dL Hct (36.0-46.0) % MCV (80.0-98.0) fL MCH (27.0-32.0) pg MCHC (31.0-37.0) g/dL RDW Std Deviation (28.0-62.0) fl RDW Coeff of Leonel (11.0-15.0) % Plt Count (150-400) K/uL MPV (7.40-12.00) fL Neut % (Auto) (48.0-80.0) % Lymph % (Auto) (16.0-40.0) % [place] % (Auto) (0.0-15.0) % Eos % (Auto) (0.0-7.0) % Baso % (Auto) (0.0-1.5) % Neut # (Auto) (1.4-5.7) K/uL Lymph # (Auto) (0.6-2.4) K/uL [place] # (Auto) (0.0-0.8) K/uL Eos # (Auto) (0.0-0.7) K/uL Baso # (Auto) (0.0-0.1) K/uL Nucleated RBC % /100WBC Nucleated RBCs # K/uL INR D-Dimer, Quantitative 0.74 H (0.0-0.50) mg/L FEU Sodium (136-145) mmol/L Potassium (3.5-5.1) mmol/L Chloride (98-107) mmol/L Carbon Dioxide (21.0-32.0) mmol/L BUN (7.0-18.0) mg/dL Creatinine (0.6-1.0) mg/dL Est Cr Clr Drug Dosing mL/min Estimated GFR (MDRD) ml/min Glucose (74-106) mg/dL Lactic Acid 1.6 (0.4-2.0) mmol/L Calcium (8.5-10.1) mg/dL Total Bilirubin (0.2-1.0) mg/dL AST (15-37) IU/L ALT (14-63) IU/L Alkaline Phosphatase (46-116) U/L Troponin I (0.000-0.056) ng/mL B-Natriuretic Peptide 153 H (<100) PG/ML Total Protein (6.4-8.2) g/dL Albumin (3.4-5.0) g/dL Globulin (2.6-4.0) g/dL Albumin/Globulin Ratio (0.9-1.6) Urine Color Urine Appearance Urine pH (5.0-8.0) Ur Specific Junior (1.001-1.035) Urine Protein (NEGATIVE) mg/dL Urine Glucose (UA) (NEGATIVE) mg/dL Urine Ketones (NEGATIVE) mg/dL Urine Occult Blood (NEGATIVE) Urine Nitrite (NEGATIVE) Urine Bilirubin (NEGATIVE) Urine Urobilinogen (<2.0) EU/dL Ur Leukocyte Esterase (NEGATIVE) Urine RBC (0-2/HPF) Urine WBC (0-5/HPF) Ur Epithelial Cells (NONE-FEW) Urine Bacteria (NEGATIVE) 09/09/21 Range/Units 13:59 WBC (4.0-11.0) K/uL RBC (4.30-5.90) M/uL Hgb (12.0-16.0) g/dL Hct (36.0-46.0) % MCV (80.0-98.0) fL MCH (27.0-32.0) pg MCHC (31.0-37.0) g/dL RDW Std Deviation (28.0-62.0) fl RDW Coeff of Leonel (11.0-15.0) % Plt Count (150-400) K/uL MPV (7.40-12.00) fL Neut % (Auto) (48.0-80.0) % Lymph % (Auto) (16.0-40.0) % [place] % (Auto) (0.0-15.0) % Eos % (Auto) (0.0-7.0) % Baso % (Auto) (0.0-1.5) % Neut # (Auto) (1.4-5.7) K/uL Lymph # (Auto) (0.6-2.4) K/uL [place] # (Auto) (0.0-0.8) K/uL Eos # (Auto) (0.0-0.7) K/uL Baso # (Auto) (0.0-0.1) K/uL Nucleated RBC % /100WBC Nucleated RBCs # K/uL INR D-Dimer, Quantitative (0.0-0.50) mg/L FEU Sodium (136-145) mmol/L Potassium (3.5-5.1) mmol/L Chloride (98-107) mmol/L Carbon Dioxide (21.0-32.0) mmol/L BUN (7.0-18.0) mg/dL Creatinine (0.6-1.0) mg/dL Est Cr Clr Drug Dosing mL/min Estimated GFR (MDRD) ml/min Glucose (74-106) mg/dL Lactic Acid (0.4-2.0) mmol/L Calcium (8.5-10.1) mg/dL Total Bilirubin (0.2-1.0) mg/dL AST (15-37) IU/L ALT (14-63) IU/L Alkaline Phosphatase (46-116) U/L Troponin I (0.000-0.056) ng/mL B-Natriuretic Peptide (<100) PG/ML Total Protein (6.4-8.2) g/dL Albumin (3.4-5.0) g/dL Globulin (2.6-4.0) g/dL Albumin/Globulin Ratio (0.9-1.6) Urine Color YELLOW Urine Appearance CLEAR Urine pH 7.0 (5.0-8.0) Ur Specific Junior 1.020 (1.001-1.035) Urine Protein NEGATIVE (NEGATIVE) mg/dL Urine Glucose (UA) NEGATIVE (NEGATIVE) mg/dL Urine Ketones NEGATIVE (NEGATIVE) mg/dL Urine Occult Blood NEGATIVE (NEGATIVE) Urine Nitrite NEGATIVE (NEGATIVE) Urine Bilirubin NEGATIVE (NEGATIVE) Urine Urobilinogen 0.2 (<2.0) EU/dL Ur Leukocyte Esterase NEGATIVE (NEGATIVE) Urine RBC 0-1 (0-2/HPF) Urine WBC 0-2 (0-5/HPF) Ur Epithelial Cells RARE (NONE-FEW) Urine Bacteria NOT SEEN (NEGATIVE) Result Diagrams: 09/09/21 13:20 09/09/21 13:20 Sepsis Event Note - Focused Exam Vital Signs: Vital Signs Temp Pulse Resp BP Pulse Ox 09/09/21 21:05 64 24 H 113/63 92 L 09/09/21 19:50 62 18 120/69 93 L 09/09/21 18:10 60 20 122/68 93 L 09/09/21 15:27 59 L 24 H 109/61 93 L 09/09/21 14:20 64 17 113/59 L 93 L 09/09/21 13:47 58 L 20 91/49 L 93 L 09/09/21 13:23 36.6 C 62 18 87/45 L 94 L - Problem List (1) Decreased oral intake SNOMED Code(s): 967446849 ICD Code: R63.8 - OTHER SYMPTOMS AND SIGNS CONCERNING FOOD AND FLUID INTAKE Status: Acute Current Visit: Yes (2) Tachypnea, not elsewhere classified SNOMED Code(s): 031042137 ICD Code: R06.82 - TACHYPNEA, NOT ELSEWHERE CLASSIFIED Status: Acute Current Visit: Yes Problem List Initiated/Reviewed/Updated: Yes Orders Last 24hrs: Active Orders 24 hr Category Date Time Status Admission Status [Patient Status] [ADT] Stat ADT 09/09/21 19:00 Active Antiembolic Devices [RC] PER UNIT ROUTINE Care 09/09/21 22:14 Ordered Oxygen Therapy [RC] PRN Care 09/09/21 22:13 Ordered RT Aerosol Therapy [RC] ASDIRECTED Care 09/09/21 22:11 Ordered Up ad Desire [RC] ASDIRECTED Care 09/09/21 22:13 Ordered VTE/DVT Education [RC] PER UNIT ROUTINE Care 09/09/21 22:13 Ordered Vital Signs [RC] Q4H Care 09/09/21 22:13 Ordered Regular Diet [DIET] Diet 09/09/21 Breakfast Ordered BASIC METABOLIC PANEL,BMP [CHEM] AM Lab 09/10/21 05:11 Ordered BASIC METABOLIC PANEL,BMP [CHEM] AM Lab 09/11/21 05:11 Ordered CBC WITH AUTO DIFF [HEME] AM Lab 09/10/21 05:11 Ordered CBC WITH AUTO DIFF [HEME] AM Lab 09/11/21 05:11 Ordered CULTURE BLOOD [BC] Stat Lab 09/09/21 13:20 Received CULTURE BLOOD [BC] Stat Lab 09/09/21 13:35 Received Albuterol [Proventil Neb Soln] Med 09/09/21 22:10 Ordered 1 unit INH Q6HRRT PRN Budesonide [Pulmicort] Med 09/09/21 22:10 Ordered 0.5 mg INH QID PRN Levothyroxine Med 09/09/21 22:15 Ordered 125 mcg PO ASDIRECTED Montelukast [Singulair] Med 09/10/21 09:00 Ordered 10 mg PO DAILY Ondansetron [Zofran] Med 09/09/21 22:13 Ordered 4 mg IVPUSH Q4H PRN Sodium Chloride 0.9% [Normal Saline] 500 ml Med 09/09/21 13:30 Active IV .BOLUS Sodium Chloride 0.9% [Normal Saline] 500 ml Med 09/09/21 14:30 Active IV .BOLUS Sodium Chloride 0.9% [Saline Flush] Med 09/09/21 13:13 Active 10 ml FLUSH ASDIRECTED PRN Sodium Chloride 0.9% [Saline Flush] Med 09/09/21 13:13 Active 2.5 ml FLUSH ASDIRECTED PRN Verapamil HCl [Verelan] Med 09/10/21 09:00 Ordered 180 mg PO DAILY atorvaSTATin [Lipitor] Med 09/10/21 21:00 Ordered 10 mg PO BEDTIME levETIRAcetam [Keppra] Med 09/10/21 09:00 Ordered 500 mg PO BID Blood Culture x2 Reflex Set [OM.PC] Stat Ot 09/09/21 13:13 Ordered Saline Lock Insert [OM.PC] Stat Oth 09/09/21 13:13 Ordered Sequential Compression Device [OM.PC] Per Unit Routine Ot 09/09/21 22:13 Ordered Severe Sepsis Onset Time [OM.PC] Stat Ot 09/09/21 13:13 Ordered Medication Orders Albuterol (Albuterol 0.083% 2.5 Mg/3 Ml Neb Soln) mg INH Q6HRRT PRN PRN Reason: Wheezing Atorvastatin Calcium (Atorvastatin 10 Mg Tab) 10 mg PO BEDTIME MALIK Budesonide (Budesonide 0.5 Mg/2 Ml Neb Susp) 0.5 mg INH QID PRN PRN Reason: Wheezing Sodium Chloride (Normal Saline) 500 mls @ 500 mls/hr IV .BOLUS MALIK Last Admin: 09/09/21 13:29 Dose: 500 mls/hr Documented by: CUYOCHR Sodium Chloride (Normal Saline) 500 mls @ 500 mls/hr IV .BOLUS MALIK Last Admin: 09/09/21 14:19 Dose: 500 mls/hr Documented by: TONIO Levetiracetam (Levetiracetam 500 Mg Tab) 500 mg PO BID MALIK Levothyroxine Sodium (Levothyroxine 125 Mcg Tab) 125 mcg PO ASDIRECTED MALIK Montelukast Sodium (Montelukast 10 Mg Tab) 10 mg PO DAILY MALIK Non-Formulary Medication (Verapamil Hcl [Verelan]) 180 mg PO DAILY MALIK Ondansetron HCl (Ondansetron 4 Mg/2 Ml Sdv) 4 mg IVPUSH Q4H PRN PRN Reason: Nausea Sodium Chloride (Sodium Chloride 0.9% 10 Ml Syringe) 10 ml FLUSH ASDIRECTED PRN PRN Reason: Keep Vein Open Last Admin: 09/09/21 13:29 Dose: 10 ml Documented by: GOYO Sodium Chloride (Sodium Chloride 0.9% 2.5 Ml Syringe) 2.5 ml FLUSH ASDIRECTED PRN PRN Reason: Keep Vein Open Last Admin: 09/09/21 13:29 Dose: 2.5 ml Documented by: GOYO Assessment/Plan Comment:: 71 yo female admitted for shortness of breath and lethargy. ER provider referred for admission to rule out PE. Radiology department wants to wait [address] PE scan due to contrast received in abdominal CT. We will continue to monitor. I suspect symptoms are due to COVID infection, Patient currently is not hypoxic.
[2021-09-10] MEDS: Enoxaparin 60 MG/0.6 ML Syringe SUBCUT SCH ×2 (06:38→18:01)
[2021-09-10] MEDS ORDERED: Levothyroxine 125 MCG Tab PO SCH (07:00)
[2021-09-10 07:15] LABS: BLOOD UREA NITROGEN,BUN 8 mg/dL (7.0-18.0); CARBON DIOXIDE,CO2 28.9 mmol/L (21.0-32.0); CHLORIDE,CL 107 mmol/L (98-107); GLUCOSE RANDOM 92 mg/dL (74-106); POTASSIUM,K 3.7 mmol/L (3.5-5.1); SODIUM,NA 141 mmol/L (136-145)
--- NOTE | 2021-09-10 08:45 | PCM.PN ---
- General Info Date of Service: 09/10/21 - Review of Systems Systems Review Comment:: patient is more alert today - Patient Data Vitals - Most Recent: Last Vital Signs Temp 36.2 C 09/10/21 04:32 Pulse 69 09/10/21 04:32 Resp 20 09/10/21 04:32 BP 112/57 L 09/10/21 04:32 Pulse Ox 92 L 09/10/21 04:32 Weight - Most Recent: 67.676 kg I&O - Last 24 Hours: Intake & Output 09/09/21 09/10/21 09/10/21 22:59 06:59 14:59 Intake Total 1200 Output Total 0 Balance 1200 Lab Results Last 24 Hours: Laboratory Results - last 24 hr 09/09/21 09/09/21 09/09/21 Range/Units 13:20 13:20 13:20 WBC 7.89 (4.0-11.0) K/uL RBC 4.33 (4.30-5.90) M/uL Hgb 13.2 (12.0-16.0) g/dL Hct 40.3 (36.0-46.0) % MCV 93.1 (80.0-98.0) fL MCH 30.5 (27.0-32.0) pg MCHC 32.8 (31.0-37.0) g/dL RDW Std Deviation 43.9 (28.0-62.0) fl RDW Coeff of Leonel 13 (11.0-15.0) % Plt Count 228 (150-400) K/uL MPV 9.90 (7.40-12.00) fL Neut % (Auto) 62.4 (48.0-80.0) % Lymph % (Auto) 25.2 (16.0-40.0) % [place] % (Auto) 9.9 (0.0-15.0) % Eos % (Auto) 2.4 (0.0-7.0) % Baso % (Auto) 0.1 (0.0-1.5) % Neut # (Auto) 4.9 (1.4-5.7) K/uL Lymph # (Auto) 2.0 (0.6-2.4) K/uL [place]win # (Auto) 0.8 (0.0-0.8) K/uL Eos # (Auto) 0.2 (0.0-0.7) K/uL Baso # (Auto) 0.0 (0.0-0.1) K/uL Nucleated RBC % 0.0 /100WBC Nucleated RBCs # 0 K/uL INR 1.06 D-Dimer, Quantitative (0.0-0.50) mg/L FEU Sodium 144 (136-145) mmol/L Potassium 3.4 L (3.5-5.1) mmol/L Chloride 105 (98-107) mmol/L Carbon Dioxide 28.6 (21.0-32.0) mmol/L BUN 13 (7.0-18.0) mg/dL Creatinine 0.7 (0.6-1.0) mg/dL Est Cr Clr Drug Dosing 54.82 mL/min Estimated GFR (MDRD) > 60.0 ml/min Glucose 118 H (74-106) mg/dL Lactic Acid (0.4-2.0) mmol/L Calcium 8.6 (8.5-10.1) mg/dL Total Bilirubin 0.2 (0.2-1.0) mg/dL AST 22 (15-37) IU/L ALT 28 (14-63) IU/L Alkaline Phosphatase 100 (46-116) U/L Troponin I < 0.050 (0.000-0.056) ng/mL B-Natriuretic Peptide (<100) PG/ML Total Protein 6.5 (6.4-8.2) g/dL Albumin 2.8 L (3.4-5.0) g/dL Globulin 3.7 (2.6-4.0) g/dL Albumin/Globulin Ratio 0.8 L (0.9-1.6) Urine Color Urine Appearance Urine pH (5.0-8.0) Ur Specific [place] (1.001-1.035) Urine Protein (NEGATIVE) mg/dL Urine Glucose (UA) (NEGATIVE) mg/dL Urine Ketones (NEGATIVE) mg/dL Urine Occult Blood (NEGATIVE) Urine Nitrite (NEGATIVE) Urine Bilirubin (NEGATIVE) Urine Urobilinogen (<2.0) EU/dL Ur Leukocyte Esterase (NEGATIVE) Urine RBC (0-2/HPF) Urine WBC (0-5/HPF) Ur Epithelial Cells (NONE-FEW) Urine Bacteria (NEGATIVE) 09/09/21 09/09/21 09/09/21 Range/Units 13:20 13:20 13:25 WBC (4.0-11.0) K/uL RBC (4.30-5.90) M/uL Hgb (12.0-16.0) g/dL Hct (36.0-46.0) % MCV (80.0-98.0) fL MCH (27.0-32.0) pg MCHC (31.0-37.0) g/dL RDW Std Deviation (28.0-62.0) fl RDW Coeff of Leonel (11.0-15.0) % Plt Count (150-400) K/uL MPV (7.40-12.00) fL Neut % (Auto) (48.0-80.0) % Lymph % (Auto) (16.0-40.0) % Irwin % (Auto) (0.0-15.0) % Eos % (Auto) (0.0-7.0) % Baso % (Auto) (0.0-1.5) % Neut # (Auto) (1.4-5.7) K/uL Lymph # (Auto) (0.6-2.4) K/uL [place]win # (Auto) (0.0-0.8) K/uL Eos # (Auto) (0.0-0.7) K/uL Baso # (Auto) (0.0-0.1) K/uL Nucleated RBC % /100WBC Nucleated RBCs # K/uL INR D-Dimer, Quantitative 0.74 H (0.0-0.50) mg/L FEU Sodium (136-145) mmol/L Potassium (3.5-5.1) mmol/L Chloride (98-107) mmol/L Carbon Dioxide (21.0-32.0) mmol/L BUN (7.0-18.0) mg/dL Creatinine (0.6-1.0) mg/dL Est Cr Clr Drug Dosing mL/min Estimated GFR (MDRD) ml/min Glucose (74-106) mg/dL Lactic Acid 1.6 (0.4-2.0) mmol/L Calcium (8.5-10.1) mg/dL Total Bilirubin (0.2-1.0) mg/dL AST (15-37) IU/L ALT (14-63) IU/L Alkaline Phosphatase (46-116) U/L Troponin I (0.000-0.056) ng/mL B-Natriuretic Peptide 153 H (<100) PG/ML Total Protein (6.4-8.2) g/dL Albumin (3.4-5.0) g/dL Globulin (2.6-4.0) g/dL Albumin/Globulin Ratio (0.9-1.6) Urine Color Urine Appearance Urine pH (5.0-8.0) Ur Specific [place] (1.001-1.035) Urine Protein (NEGATIVE) mg/dL Urine Glucose (UA) (NEGATIVE) mg/dL Urine Ketones (NEGATIVE) mg/dL Urine Occult Blood (NEGATIVE) Urine Nitrite (NEGATIVE) Urine Bilirubin (NEGATIVE) Urine Urobilinogen (<2.0) EU/dL Ur Leukocyte Esterase (NEGATIVE) Urine RBC (0-2/HPF) Urine WBC (0-5/HPF) Ur Epithelial Cells (NONE-FEW) Urine Bacteria (NEGATIVE) 09/09/21 09/10/21 09/10/21 Range/Units 13:59 06:25 06:25 WBC 8.24 (4.0-11.0) K/uL RBC 4.31 (4.30-5.90) M/uL Hgb 13.2 (12.0-16.0) g/dL Hct 39.9 (36.0-46.0) % MCV 92.6 (80.0-98.0) fL MCH 30.6 (27.0-32.0) pg MCHC 33.1 (31.0-37.0) g/dL RDW Std Deviation 43.1 (28.0-62.0) fl RDW Coeff of Leonel 13 (11.0-15.0) % Plt Count 208 (150-400) K/uL MPV 9.80 (7.40-12.00) fL Neut % (Auto) 63.4 (48.0-80.0) % Lymph % (Auto) 25.5 (16.0-40.0) % [place]win % (Auto) 7.6 (0.0-15.0) % Eos % (Auto) 3.4 (0.0-7.0) % Baso % (Auto) 0.1 (0.0-1.5) % Neut # (Auto) 5.2 (1.4-5.7) K/uL Lymph # (Auto) 2.1 (0.6-2.4) K/uL [place] # (Auto) 0.6 (0.0-0.8) K/uL Eos # (Auto) 0.3 (0.0-0.7) K/uL Baso # (Auto) 0.0 (0.0-0.1) K/uL Nucleated RBC % 0.0 /100WBC Nucleated RBCs # 0 K/uL INR D-Dimer, Quantitative (0.0-0.50) mg/L FEU Sodium 141 (136-145) mmol/L Potassium 3.7 (3.5-5.1) mmol/L Chloride 107 (98-107) mmol/L Carbon Dioxide 28.9 (21.0-32.0) mmol/L BUN 8 (7.0-18.0) mg/dL Creatinine 0.6 (0.6-1.0) mg/dL Est Cr Clr Drug Dosing 63.95 mL/min Estimated GFR (MDRD) > 60.0 ml/min Glucose 92 (74-106) mg/dL Lactic Acid (0.4-2.0) mmol/L Calcium 8.2 L (8.5-10.1) mg/dL Total Bilirubin (0.2-1.0) mg/dL AST (15-37) IU/L ALT (14-63) IU/L Alkaline Phosphatase (46-116) U/L Troponin I (0.000-0.056) ng/mL B-Natriuretic Peptide (<100) PG/ML Total Protein (6.4-8.2) g/dL Albumin (3.4-5.0) g/dL Globulin (2.6-4.0) g/dL Albumin/Globulin Ratio (0.9-1.6) Urine Color YELLOW Urine Appearance CLEAR Urine pH 7.0 (5.0-8.0) Ur Specific [place] 1.020 (1.001-1.035) Urine Protein NEGATIVE (NEGATIVE) mg/dL Urine Glucose (UA) NEGATIVE (NEGATIVE) mg/dL Urine Ketones NEGATIVE (NEGATIVE) mg/dL Urine Occult Blood NEGATIVE (NEGATIVE) Urine Nitrite NEGATIVE (NEGATIVE) Urine Bilirubin NEGATIVE (NEGATIVE) Urine Urobilinogen 0.2 (<2.0) EU/dL Ur Leukocyte Esterase NEGATIVE (NEGATIVE) Urine RBC 0-1 (0-2/HPF) Urine WBC 0-2 (0-5/HPF) Ur Epithelial Cells RARE (NONE-FEW) Urine Bacteria NOT SEEN (NEGATIVE) Med Orders - Current: Current Medications Albuterol (Albuterol 0.083% 2.5 Mg/3 Ml Neb Soln) 2.5 mg INH Q6HRRT PRN PRN Reason: Wheezing Atorvastatin Calcium (Atorvastatin 10 Mg Tab) 10 mg PO BEDTIME MALIK Budesonide (Budesonide 0.5 Mg/2 Ml Neb Susp) 0.5 mg INH QID PRN PRN Reason: Wheezing Enoxaparin Sodium (Enoxaparin 60 Mg/0.6 Ml Syringe) 60 mg SUBCUT Q12H [facility] Last Admin: 09/10/21 06:38 Dose: 60 mg Documented by: Sodium Chloride (Normal Saline) 500 mls @ 500 mls/hr IV .BOLUS [facility] Last Admin: 09/09/21 13:29 Dose: 500 mls/hr Documented by: Sodium Chloride (Normal Saline) 500 mls @ 500 mls/hr IV .BOLUS [facility] Last Admin: 09/09/21 14:19 Dose: 500 mls/hr Documented by: Levetiracetam (Levetiracetam 500 Mg Tab) 500 mg PO BID MALIK Levothyroxine Sodium (Levothyroxine 125 Mcg Tab) 125 mcg PO DAILY@0700 [facility] Last Admin: 09/10/21 06:43 Dose: 125 mcg Documented by: Montelukast Sodium (Montelukast 10 Mg Tab) 10 mg PO DAILY [facility] Ondansetron HCl (Ondansetron 4 Mg/2 Ml Sdv) 4 mg IVPUSH Q4H PRN PRN Reason: Nausea Sodium Chloride (Sodium Chloride 0.9% 10 Ml Syringe) 10 ml FLUSH ASDIRECTED PRN PRN Reason: Keep Vein Open Last Admin: 09/09/21 13:29 Dose: 10 ml Documented by: Sodium Chloride (Sodium Chloride 0.9% 2.5 Ml Syringe) 2.5 ml FLUSH ASDIRECTED PRN PRN Reason: Keep Vein Open Last Admin: 09/09/21 13:29 Dose: 2.5 ml Documented by: Verapamil HCl (Verapamil 180 Mg Tab.Er) 180 mg PO DAILY MALIK Discontinued Medications Enoxaparin Sodium (Enoxaparin 60 Mg/0.6 Ml Syringe) 60 mg SUBCUT ONETIME ONE Stop: 09/09/21 19:01 Last Admin: 09/09/21 19:18 Dose: 60 mg Documented by: Sodium Chloride (Normal Saline) 1,000 mls @ 125 mls/hr IV ASDIRECTED MALIK Last Admin: 09/09/21 21:04 Dose: 125 mls/hr Documented by: Iopamidol (Iopamidol 755 Mg/Ml 500 Ml Multipack Bottle) 100 ml IVPUSH ONETIME ONE Stop: 09/09/21 18:14 Last Admin: 09/09/21 18:14 Dose: 100 ml Documented by: - Exam General: Alert, Cooperative Lungs: Clear to Auscultation, Normal Respiratory Effort Cardiovascular: Regular Rate, Regular Rhythm GI/Abdominal Exam: Soft, Non-Tender, No Distention Extremities: Non-Tender, No Pedal Edema Skin: Warm, Dry, Intact Neurological: No New Focal Deficit - Patient Data Lab Results Last 24 hrs: Laboratory Results - last 24 hr 09/09/21 09/09/21 09/09/21 Range/Units 13:20 13:20 13:20 WBC 7.89 (4.0-11.0) K/uL RBC 4.33 (4.30-5.90) M/uL Hgb 13.2 (12.0-16.0) g/dL Hct 40.3 (36.0-46.0) % MCV 93.1 (80.0-98.0) fL MCH 30.5 (27.0-32.0) pg MCHC 32.8 (31.0-37.0) g/dL RDW Std Deviation 43.9 (28.0-62.0) fl RDW Coeff of Leonel 13 (11.0-15.0) % Plt Count 228 (150-400) K/uL MPV 9.90 (7.40-12.00) fL Neut % (Auto) 62.4 (48.0-80.0) % Lymph % (Auto) 25.2 (16.0-40.0) % [place] % (Auto) 9.9 (0.0-15.0) % Eos % (Auto) 2.4 (0.0-7.0) % Baso % (Auto) 0.1 (0.0-1.5) % Neut # (Auto) 4.9 (1.4-5.7) K/uL Lymph # (Auto) 2.0 (0.6-2.4) K/uL [place]win # (Auto) 0.8 (0.0-0.8) K/uL Eos # (Auto) 0.2 (0.0-0.7) K/uL Baso # (Auto) 0.0 (0.0-0.1) K/uL Nucleated RBC % 0.0 /100WBC Nucleated RBCs # 0 K/uL INR 1.06 D-Dimer, Quantitative (0.0-0.50) mg/L FEU Sodium 144 (136-145) mmol/L Potassium 3.4 L (3.5-5.1) mmol/L Chloride 105 (98-107) mmol/L Carbon Dioxide 28.6 (21.0-32.0) mmol/L BUN 13 (7.0-18.0) mg/dL Creatinine 0.7 (0.6-1.0) mg/dL Est Cr Clr Drug Dosing 54.82 mL/min Estimated GFR (MDRD) > 60.0 ml/min Glucose 118 H (74-106) mg/dL Lactic Acid (0.4-2.0) mmol/L Calcium 8.6 (8.5-10.1) mg/dL Total Bilirubin 0.2 (0.2-1.0) mg/dL AST 22 (15-37) IU/L ALT 28 (14-63) IU/L Alkaline Phosphatase 100 (46-116) U/L Troponin I < 0.050 (0.000-0.056) ng/mL B-Natriuretic Peptide (<100) PG/ML Total Protein 6.5 (6.4-8.2) g/dL Albumin 2.8 L (3.4-5.0) g/dL Globulin 3.7 (2.6-4.0) g/dL Albumin/Globulin Ratio 0.8 L (0.9-1.6) Urine Color Urine Appearance Urine pH (5.0-8.0) Ur Specific [place] (1.001-1.035) Urine Protein (NEGATIVE) mg/dL Urine Glucose (UA) (NEGATIVE) mg/dL Urine Ketones (NEGATIVE) mg/dL Urine Occult Blood (NEGATIVE) Urine Nitrite (NEGATIVE) Urine Bilirubin (NEGATIVE) Urine Urobilinogen (<2.0) EU/dL Ur Leukocyte Esterase (NEGATIVE) Urine RBC (0-2/HPF) Urine WBC (0-5/HPF) Ur Epithelial Cells (NONE-FEW) Urine Bacteria (NEGATIVE) 09/09/21 09/09/21 09/09/21 Range/Units 13:20 13:20 13:25 WBC (4.0-11.0) K/uL RBC (4.30-5.90) M/uL Hgb (12.0-16.0) g/dL Hct (36.0-46.0) % MCV (80.0-98.0) fL MCH (27.0-32.0) pg MCHC (31.0-37.0) g/dL RDW Std Deviation (28.0-62.0) fl RDW Coeff of Leonel (11.0-15.0) % Plt Count (150-400) K/uL MPV (7.40-12.00) fL Neut % (Auto) (48.0-80.0) % Lymph % (Auto) (16.0-40.0) % [place] % (Auto) (0.0-15.0) % Eos % (Auto) (0.0-7.0) % Baso % (Auto) (0.0-1.5) % Neut # (Auto) (1.4-5.7) K/uL Lymph # (Auto) (0.6-2.4) K/uL [place] # (Auto) (0.0-0.8) K/uL Eos # (Auto) (0.0-0.7) K/uL Baso # (Auto) (0.0-0.1) K/uL Nucleated RBC % /100WBC Nucleated RBCs # K/uL INR D-Dimer, Quantitative 0.74 H (0.0-0.50) mg/L FEU Sodium (136-145) mmol/L Potassium (3.5-5.1) mmol/L Chloride (98-107) mmol/L Carbon Dioxide (21.0-32.0) mmol/L BUN (7.0-18.0) mg/dL Creatinine (0.6-1.0) mg/dL Est Cr Clr Drug Dosing mL/min Estimated GFR (MDRD) ml/min Glucose (74-106) mg/dL Lactic Acid 1.6 (0.4-2.0) mmol/L Calcium (8.5-10.1) mg/dL Total Bilirubin (0.2-1.0) mg/dL AST (15-37) IU/L ALT (14-63) IU/L Alkaline Phosphatase (46-116) U/L Troponin I (0.000-0.056) ng/mL B-Natriuretic Peptide 153 H (<100) PG/ML Total Protein (6.4-8.2) g/dL Albumin (3.4-5.0) g/dL Globulin (2.6-4.0) g/dL Albumin/Globulin Ratio (0.9-1.6) Urine Color Urine Appearance Urine pH (5.0-8.0) Ur Specific [place] (1.001-1.035) Urine Protein (NEGATIVE) mg/dL Urine Glucose (UA) (NEGATIVE) mg/dL Urine Ketones (NEGATIVE) mg/dL Urine Occult Blood (NEGATIVE) Urine Nitrite (NEGATIVE) Urine Bilirubin (NEGATIVE) Urine Urobilinogen (<2.0) EU/dL Ur Leukocyte Esterase (NEGATIVE) Urine RBC (0-2/HPF) Urine WBC (0-5/HPF) Ur Epithelial Cells (NONE-FEW) Urine Bacteria (NEGATIVE) 09/09/21 09/10/21 09/10/21 Range/Units 13:59 06:25 06:25 WBC 8.24 (4.0-11.0) K/uL RBC 4.31 (4.30-5.90) M/uL Hgb 13.2 (12.0-16.0) g/dL Hct 39.9 (36.0-46.0) % MCV 92.6 (80.0-98.0) fL MCH 30.6 (27.0-32.0) pg MCHC 33.1 (31.0-37.0) g/dL RDW Std Deviation 43.1 (28.0-62.0) fl RDW Coeff of Leonel 13 (11.0-15.0) % Plt Count 208 (150-400) K/uL MPV 9.80 (7.40-12.00) fL Neut % (Auto) 63.4 (48.0-80.0) % Lymph % (Auto) 25.5 (16.0-40.0) % [place] % (Auto) 7.6 (0.0-15.0) % Eos % (Auto) 3.4 (0.0-7.0) % Baso % (Auto) 0.1 (0.0-1.5) % Neut # (Auto) 5.2 (1.4-5.7) K/uL Lymph # (Auto) 2.1 (0.6-2.4) K/uL [place] # (Auto) 0.6 (0.0-0.8) K/uL Eos # (Auto) 0.3 (0.0-0.7) K/uL Baso # (Auto) 0.0 (0.0-0.1) K/uL Nucleated RBC % 0.0 /100WBC Nucleated RBCs # 0 K/uL INR D-Dimer, Quantitative (0.0-0.50) mg/L FEU Sodium 141 (136-145) mmol/L Potassium 3.7 (3.5-5.1) mmol/L Chloride 107 (98-107) mmol/L Carbon Dioxide 28.9 (21.0-32.0) mmol/L BUN 8 (7.0-18.0) mg/dL Creatinine 0.6 (0.6-1.0) mg/dL Est Cr Clr Drug Dosing 63.95 mL/min Estimated GFR (MDRD) > 60.0 ml/min Glucose 92 (74-106) mg/dL Lactic Acid (0.4-2.0) mmol/L Calcium 8.2 L (8.5-10.1) mg/dL Total Bilirubin (0.2-1.0) mg/dL AST (15-37) IU/L ALT (14-63) IU/L Alkaline Phosphatase (46-116) U/L Troponin I (0.000-0.056) ng/mL B-Natriuretic Peptide (<100) PG/ML Total Protein (6.4-8.2) g/dL Albumin (3.4-5.0) g/dL Globulin (2.6-4.0) g/dL Albumin/Globulin Ratio (0.9-1.6) Urine Color YELLOW Urine Appearance CLEAR Urine pH 7.0 (5.0-8.0) Ur Specific [place] 1.020 (1.001-1.035) Urine Protein NEGATIVE (NEGATIVE) mg/dL Urine Glucose (UA) NEGATIVE (NEGATIVE) mg/dL Urine Ketones NEGATIVE (NEGATIVE) mg/dL Urine Occult Blood NEGATIVE (NEGATIVE) Urine Nitrite NEGATIVE (NEGATIVE) Urine Bilirubin NEGATIVE (NEGATIVE) Urine Urobilinogen 0.2 (<2.0) EU/dL Ur Leukocyte Esterase NEGATIVE (NEGATIVE) Urine RBC 0-1 (0-2/HPF) Urine WBC 0-2 (0-5/HPF) Ur Epithelial Cells RARE (NONE-FEW) Urine Bacteria NOT SEEN (NEGATIVE) Result Diagrams: 09/10/21 06:25 09/10/21 06:25 Sepsis Event Note - Evaluation Sepsis Screening Result: No Definite Risk - Focused Exam Vital Signs: Vital Signs Temp Pulse Resp BP Pulse Ox Pulse Ox 09/10/21 04:32 36.2 C 69 20 112/57 L 92 L 09/09/21 23:40 36.1 C 64 22 H 118/60 93 L 09/09/21 22:13 94 L 09/09/21 21:45 36.9 C 70 24 H 116/53 L 94 L 09/09/21 21:05 64 24 H 113/63 92 L - Problem List & Annotations (1) Decreased oral intake SNOMED Code(s): 138803885 Code(s): R63.8 - OTHER SYMPTOMS AND SIGNS CONCERNING FOOD AND FLUID INTAKE Status: Acute Current Visit: Yes (2) Tachypnea, not elsewhere classified SNOMED Code(s): 773505278 Code(s): R06.82 - TACHYPNEA, NOT ELSEWHERE CLASSIFIED Status: Acute Current Visit: Yes - Problem List Review Problem List Initiated/Reviewed/Updated: Yes - My Orders Last 24 Hours: My Active Orders 09/09/21 21:19 Telemetry Monitoring [Cardiac Monitoring] [RC] Q8H 09/09/21 22:10 Albuterol [Proventil Neb Soln] 2.5 mg INH Q6HRRT PRN Budesonide [Pulmicort] 0.5 mg INH QID PRN 09/09/21 22:11 RT Aerosol Therapy [RC] ASDIRECTED 09/09/21 22:13 Oxygen Therapy [RC] PRN Up ad Desire [RC] ASDIRECTED VTE/DVT Education [RC] PER UNIT ROUTINE Vital Signs [RC] Q4H Ondansetron [Zofran] 4 mg IVPUSH Q4H PRN Sequential Compression Device [OM.PC] Per Unit Routine 09/09/21 22:14 Antiembolic Devices [RC] PER UNIT ROUTINE 09/09/21 22:25 PT Evaluation and Treatment [CONS] Routine 09/10/21 07:00 Enoxaparin [Lovenox] 60 mg SUBCUT Q12H Levothyroxine 125 mcg PO DAILY@0700 09/10/21 09:00 Montelukast [Singulair] 10 mg PO DAILY Verapamil [Calan SR] 180 mg PO DAILY levETIRAcetam [Keppra] 500 mg PO BID 09/10/21 15:00 PE Chest [Ang Chest] [CT] Routine 09/10/21 21:00 atorvaSTATin [Lipitor] 10 mg PO BEDTIME 09/11/21 05:11 BASIC METABOLIC PANEL,BMP [CHEM] AM CBC WITH AUTO DIFF [HEME] AM - Plan Plan:: 71 yo female admitted for shortness of breath and lethargy. ER provider referred for admission to rule out PE. Radiology department wants to wait [address] PE scan due to contrast received in abdominal CT. Patient is on full dose lovenox. CT PE scheduled for 1500. COVID: symptoms of lethargy and shortness of breath improving
[2021-09-10] MEDS: Verapamil 180 MG Tab.ER PO SCH (08:56)
[2021-09-10] MEDS: Montelukast 10 MG Tab PO SCH (08:56)
[2021-09-10] MEDS: levETIRAcetam 500 MG Tab PO SCH ×2 (08:56→20:01)
[2021-09-10] MEDS ORDERED: Iopamidol 755 MG/ML 500 ML Multipack Bottle IVPUSH ONE (12:58)
[2021-09-10] MEDS: Albuterol 0.083% 2.5 MG/3 ML Neb Soln INH PRN ×2 (13:17→19:43)
--- NOTE | 2021-09-10 13:30 | CT ---
Indication: Evaluate for dissection PE Technique: Contrast enhanced CT chest 100 mL Isovue 370 Comparison: CT chest 04/04/2021 Findings: Normal caliber thoracic aorta. No aneurysm or dissection. Significant motion and respiratory motion artifact limits this evaluation of distal pulmonary emboli there is no proximal or central pulmonary emboli seen. Heart size is normal. No pericardial effusion. There is mild patchy ground-glass opacities. Left basilar consolidation and atelectasis. Small perihepatic ascites slight heterogeneous enhancement to the liver. Stones and/or sludge in the gallbladder. Severe compression fracture of L1 again seen. Impression: 1. Severe motion and respiratory motion artifact limits evaluation. No central or proximal pulmonary emboli seen. No dissection seen. Bilateral mild patchy ground-glass opacities could be infectious or inflammatory to include atypical infections. Left basilar consolidation/atelectasis. Please note that all CT scans at this facility use dose modulation, iterative reconstruction, and/or weight-based dosing when appropriate to reduce radiation dose to as low as reasonably achievable. Dictated by Mona Bey MD @ 09/10/2021 1:28:27 PM (Electronically Signed)
[2021-09-10] MEDS ORDERED: Levofloxacin/Dextrose 5%-Water 750 MG in Premix Bag 1 BAG IV SCH (16:00)
[2021-09-10] MEDS: Nystatin Topical Powder 15 GM Bottle TOP PRN ×2 (18:06→22:24)
[2021-09-10] MEDS ORDERED: atorvaSTATin 10 MG Tab PO SCH (21:00)
[2021-09-11] MEDS: Enoxaparin 60 MG/0.6 ML Syringe SUBCUT SCH (06:07)
[2021-09-11 06:45] LABS: BLOOD UREA NITROGEN,BUN 9 mg/dL (7.0-18.0); CARBON DIOXIDE,CO2 30.6 mmol/L (21.0-32.0); CHLORIDE,CL 107 mmol/L (98-107); GLUCOSE RANDOM 95 mg/dL (74-106); SODIUM,NA 143 mmol/L (136-145)
[2021-09-11] MEDS ORDERED: Levothyroxine 125 MCG Tab PO SCH (07:30)
[2021-09-11] MEDS: Verapamil 180 MG Tab.ER PO SCH (08:18)
[2021-09-11] MEDS: Montelukast 10 MG Tab PO SCH (08:18)
[2021-09-11] MEDS: levETIRAcetam 500 MG Tab PO SCH (08:18)
[2021-09-11] MEDS: Albuterol 0.083% 2.5 MG/3 ML Neb Soln INH PRN (08:44)
[2021-09-11] MEDS: Nystatin Topical Powder 15 GM Bottle TOP PRN (08:45)
--- NOTE | 2021-09-11 11:39 | PCM.DCSUM1 ---
Discharge Summary - Hospital Course Diagnosis: Stroke: No - Discharge Data Discharge Date: 09/11/21 Discharge Disposition: Home, Self-Care 01 Condition: Good - Referral to Home Health Primary Care Physician: Josefina Rosas DO - Patient Summary/Data Consults: Consultations 09/09/21 22:25 PT Evaluation and Treatment [CONS] Routine - Discharge Plan *PRESCRIPTION DRUG MONITORING PROGRAM REVIEWED*: Not Applicable *COPY OF PRESCRIPTION DRUG MONITORING REPORT IN PATIENT ARIADNA: Not Applicable Prescriptions/Med Rec: levoFLOXacin [Levaquin] 750 mg PO DAILY #5 tab Home Medications: Home Meds Calc/D3/Mag/Zn/Bishop/Ron/[place] [Calcium 600 MG Plus Vit D] 1 tab PO BID 01/12/19 [History] Loratadine 10 mg PO DAILY 01/12/19 [History] Montelukast [Singulair] 10 mg PO DAILY 01/12/19 [History] atorvaSTATin [Lipitor] 10 mg PO BEDTIME 01/12/19 [History] levETIRAcetam [Keppra] 500 mg PO BID 01/12/19 [History] Albuterol Sulfate 1 unit INH ASDIRECTED PRN 04/29/19 [History] [place] Dresser Nasal Dresser 2 spray NASBOTH QID 04/30/19 [History] Erythromycin Base [Erythromycin] 1 applic EYEBOTH ASDIRECTED PRN 01/11/20 [History] Nystatin [Nystatin Crm] 1 applic TOP DAILY PRN 01/11/20 [History] Verapamil HCl [Verelan] 180 mg PO DAILY 08/22/20 [History] Levothyroxine 125 mcg PO SUMOTUTHFRSA@0730 04/04/21 [History] Sennosides [Vegetable Laxative] 8.6 mg PO DAILY 04/04/21 [History] hydroCHLOROthiazide [Hydrochlorothiazide] 25 mg PO DAILY 04/05/21 [History] Levothyroxine 62.5 mcg PO WE@0730 09/10/21 [History] polyethylene glycoL 3350 [MiraLAX] 17 gm PO DAILY 09/10/21 [History] levoFLOXacin [Levaquin] 750 mg PO DAILY #5 tab 09/11/21 [Rx] Patient Handouts: COVID-19, Hypotension, [id number], What You Should Know About COVID-19 to Protect Yourself and Others - CDC, 10 Things You Can Do to Manage Your COVID-19 Symptoms at Home - CDC (06/02/2021), Infection Prevention in the Home, COVID-19: Quarantine vs. Isolation - [facility] [place] (11/03/2020) Referrals: Josefina Rosas DO [Primary Care Provider] - 09/25/21 10:45 am - Patient Data Vitals - Most Recent: Last Vital Signs Temp 36.3 C 09/11/21 08:00 Pulse 70 09/11/21 08:00 Resp 22 H 09/11/21 08:00 BP 143/63 H 09/11/21 08:00 Pulse Ox 96 09/11/21 08:00 Weight - Most Recent: 67.676 kg I&O - Last 24 hours: Intake & Output 09/10/21 09/11/21 09/11/21 22:59 06:59 14:59 Intake Total 400 497 Output Total 0 Balance 400 497 Lab Results - Last 24 hrs: Laboratory Results - last 24 hr 09/11/21 09/11/21 Range/Units 05:50 05:50 WBC 7.03 (4.0-11.0) K/uL RBC 4.37 (4.30-5.90) M/uL Hgb 13.4 (12.0-16.0) g/dL Hct 40.1 (36.0-46.0) % MCV 91.8 (80.0-98.0) fL MCH 30.7 (27.0-32.0) pg MCHC 33.4 (31.0-37.0) g/dL RDW Std Deviation 43.0 (28.0-62.0) fl RDW Coeff of Leonel 13 (11.0-15.0) % Plt Count 204 (150-400) K/uL MPV 9.80 (7.40-12.00) fL Neut % (Auto) 62.8 (48.0-80.0) % Lymph % (Auto) 22.0 (16.0-40.0) % [place] % (Auto) 12.8 (0.0-15.0) % Eos % (Auto) 2.3 (0.0-7.0) % Baso % (Auto) 0.1 (0.0-1.5) % Neut # (Auto) 4.4 (1.4-5.7) K/uL Lymph # (Auto) 1.6 (0.6-2.4) K/uL [place] # (Auto) 0.9 H (0.0-0.8) K/uL Eos # (Auto) 0.2 (0.0-0.7) K/uL Baso # (Auto) 0.0 (0.0-0.1) K/uL Nucleated RBC % 0.0 /100WBC Nucleated RBCs # 0 K/uL Sodium 143 (136-145) mmol/L Potassium 4.0 (3.5-5.1) mmol/L Chloride 107 (98-107) mmol/L Carbon Dioxide 30.6 (21.0-32.0) mmol/L BUN 9 (7.0-18.0) mg/dL Creatinine 0.7 (0.6-1.0) mg/dL Est Cr Clr Drug Dosing 54.82 mL/min Estimated GFR (MDRD) > 60.0 ml/min Glucose 95 (74-106) mg/dL Calcium 8.5 (8.5-10.1) mg/dL [place] Results - Last 24 hrs: Microbiology 09/09/21 13:35 Aerobic Blood Culture - Preliminary Blood - Venous - Lab Draw NO GROWTH AFTER 1 DAY Anaerobic Blood Culture - Preliminary NO GROWTH AFTER 1 DAY 09/09/21 13:20 Aerobic Blood Culture - Preliminary Blood - Venous NO GROWTH AFTER 1 DAY Anaerobic Blood Culture - Preliminary NO GROWTH AFTER 1 DAY Med Orders - Current: Current Medications Albuterol (Albuterol 0.083% 2.5 Mg/3 Ml Neb Soln) 2.5 mg INH Q6HRRT PRN PRN Reason: Wheezing Last Admin: 09/11/21 08:44 Dose: 2.5 mg Documented by: Atorvastatin Calcium (Atorvastatin 10 Mg Tab) 10 mg PO BEDTIME MALIK Last Admin: 09/10/21 20:01 Dose: 10 mg Documented by: Budesonide (Budesonide 0.5 Mg/2 Ml Neb Susp) 0.5 mg INH QID PRN PRN Reason: Wheezing Enoxaparin Sodium (Enoxaparin 60 Mg/0.6 Ml Syringe) 60 mg SUBCUT Q12H MALIK Last Admin: 09/11/21 06:07 Dose: 60 mg Documented by: Sodium Chloride (Normal Saline) 500 mls @ 500 mls/hr IV .BOLUS [facility] Last Admin: 09/09/21 13:29 Dose: 500 mls/hr Documented by: Sodium Chloride (Normal Saline) 500 mls @ 500 mls/hr IV .BOLUS [facility] Last Admin: 09/09/21 14:19 Dose: 500 mls/hr Documented by: Levofloxacin/Dextrose 750 mg/ (Premix) 150 mls @ 100 mls/hr IV Q24H [facility] Last Admin: 09/10/21 16:33 Dose: 100 mls/hr Documented by: Levetiracetam (Levetiracetam 500 Mg Tab) 500 mg PO BID [facility] Last Admin: 09/11/21 08:18 Dose: 500 mg Documented by: Levothyroxine Sodium (Levothyroxine 125 Mcg Tab) 125 mcg PO SuMoTuThFrSa@0730 [facility] Last Admin: 09/11/21 06:30 Dose: 125 mcg Documented by: Levothyroxine Sodium (Levothyroxine 125 Mcg Tab) 62.5 mcg PO We@0730 [facility] Montelukast Sodium (Montelukast 10 Mg Tab) 10 mg PO DAILY [facility] Last Admin: 09/11/21 08:18 Dose: 10 mg Documented by: Nystatin (Nystatin Topical Powder 15 Gm Bottle) 0 gm TOP Q6H PRN PRN Reason: Rash Last Admin: 09/11/21 08:45 Dose: 1 applic Documented by: Ondansetron HCl (Ondansetron 4 Mg/2 Ml Sdv) 4 mg IVPUSH Q4H PRN PRN Reason: Nausea Sodium Chloride (Sodium Chloride 0.9% 10 Ml Syringe) 10 ml FLUSH ASDIRECTED PRN PRN Reason: Keep Vein Open Last Admin: 09/09/21 13:29 Dose: 10 ml Documented by: Sodium Chloride (Sodium Chloride 0.9% 2.5 Ml Syringe) 2.5 ml FLUSH ASDIRECTED PRN PRN Reason: Keep Vein Open Last Admin: 09/09/21 13:29 Dose: 2.5 ml Documented by: Verapamil HCl (Verapamil 180 Mg Tab.Er) 180 mg PO DAILY [facility] Last Admin: 09/11/21 08:18 Dose: 180 mg Documented by: Discontinued Medications Enoxaparin Sodium (Enoxaparin 60 Mg/0.6 Ml Syringe) 60 mg SUBCUT ONETIME ONE Stop: 09/09/21 19:01 Last Admin: 09/09/21 19:18 Dose: 60 mg Documented by: Sodium Chloride (Normal Saline) 1,000 mls @ 125 mls/hr IV ASDIRECTED [facility] Last Admin: 09/09/21 21:04 Dose: 125 mls/hr Documented by: Iopamidol (Iopamidol 755 Mg/Ml 500 Ml Multipack Bottle) 100 ml IVPUSH ONETIME ONE Stop: 09/09/21 18:14 Last Admin: 09/09/21 18:14 Dose: 100 ml Documented by: Iopamidol (Iopamidol 755 Mg/Ml 500 Ml Multipack Bottle) 100 ml IVPUSH ONETIME ONE Stop: 09/10/21 12:59 Last Admin: 09/10/21 12:59 Dose: 100 ml Documented by: Levothyroxine Sodium (Levothyroxine 125 Mcg Tab) 125 mcg PO DAILY@0700 [facility] Last Admin: 09/10/21 06:43 Dose: 125 mcg Documented by:
[2021-09-11 11:47] VITALS: PULSE 57
[2021-09-11 11:49] VITALS: BP 157/67
[2021-09-13] MEDS ORDERED: Levothyroxine 125 MCG Tab PO SCH (07:30)
== END 2021-09-11 13:08 | disposition home or self-care (01) | DRG 179 ==
LOC: MW.ED 13:02 → MW.MS 19:00
PROVIDERS: ADMIT Internal Medicine; ATTEND Internal Medicine
DX: U07.1 COVID-19 (principal); G40.909 Epilepsy, unspecified, not intractable, without status epilepticus; R06.82 Tachypnea, not elsewhere classified; R63.8 Other symptoms and signs concerning food and fluid intake; I10 Essential (primary) hypertension; I95.9 Hypotension, unspecified; E87.6 Hypokalemia; J45.909 Unspecified asthma, uncomplicated; K21.9 Gastro-esophageal reflux disease without esophagitis; E78.00 Pure hypercholesterolemia, unspecified; E03.9 Hypothyroidism, unspecified; H91.93 Unspecified hearing loss, bilateral; F79 Unspecified intellectual disabilities; R79.1 Abnormal coagulation profile; Z88.2 Allergy status to sulfonamides; Z88.1 Allergy status to other antibiotic agents; Z79.890 Hormone replacement therapy; Z79.51 Long term (current) use of inhaled steroids; Z79.899 Other long term (current) drug therapy
CPT/HCPCS: 36415; 71045; 74177; 80053; 81001; 83605; 83880; 84484; 85025; 85379; 85610; 87040 ×2; 93005; J7040 ×2; Q9967; 71275; 71275-26; 80048; 97161-GP; 99285-25; A9270-GY; J1650; J1956; J7030

== ENCOUNTER 2021-12-06 20:09 | Inpatient (IN) | payer MEDICARE, MEDICAID ==
[2021-12-06] MEDS ORDERED: Albuterol/Ipratropium 3.0-0.5 MG/3 ML Neb Soln NEB ONE (20:40)
[2021-12-06] MEDS ORDERED: Lactated Ringers 1,000 ML IV ONE (20:40)
[2021-12-06] MEDS ORDERED: methylPREDNISolone Sodium Succinate 125 MG/2 ML SDV IVPUSH ONE (20:40)
[2021-12-06 21:37] LABS: CORONAVIRUS COVID-19 NAA NEGATIVE (NEGATIVE); INFLUENZA A NAA NEGATIVE (NEGATIVE); INFLUENZA B NAA NEGATIVE (NEGATIVE); RESPIRATORY SYNCYTIAL VIR NAA NEGATIVE (NEGATIVE)
[2021-12-06] MEDS ORDERED: Cefepime 2 GM in Premix Bag 1 BAG IV ONE (22:06)
[2021-12-06 22:24] LABS: BLOOD UREA NITROGEN,BUN 19 mg/dL (7.0-18.0); CARBON DIOXIDE,CO2 32.3 mmol/L (21.0-32.0); CHLORIDE,CL 106 mmol/L (98-107); GLUCOSE RANDOM 127 mg/dL (74-106); POTASSIUM,K 3.9 mmol/L (3.5-5.1); SODIUM,NA 145 mmol/L (136-145)
[2021-12-07] MEDS ORDERED: Enoxaparin 40 MG/0.4 ML Syringe SUBCUT SCH (02:15)
[2021-12-07] MEDS ORDERED: Azithromycin 500 MG Vial IV SCH (02:15)
[2021-12-07] MEDS: Azithromycin 500 MG in Sodium Chloride 0.9% 250 ML IV SCH (02:57)
[2021-12-07] MEDS: Levothyroxine 125 MCG Tab PO SCH (06:45)
[2021-12-07 08:13] LABS: BLOOD UREA NITROGEN,BUN 14 mg/dL (7.0-18.0); CARBON DIOXIDE,CO2 28.3 mmol/L (21.0-32.0); CHLORIDE,CL 107 mmol/L (98-107); GLUCOSE RANDOM 157 mg/dL (74-106); POTASSIUM,K 4.2 mmol/L (3.5-5.1); SODIUM,NA 142 mmol/L (136-145)
[2021-12-07] MEDS: levETIRAcetam 500 MG Tab PO SCH ×2 (09:33→21:44)
[2021-12-07] MEDS: risperiDONE 0.25 MG Tab PO SCH ×2 (09:33→21:44)
[2021-12-07] MEDS: Citalopram 20 MG Tab PO SCH (09:33)
[2021-12-07] MEDS: Budesonide 0.5 MG/2 ML Neb Susp INH SCH (09:56)
[2021-12-07] MEDS: Cefepime 2 GM in Premix Bag 1 BAG IV SCH ×2 (10:44→21:45)
[2021-12-07] MEDS: Albuterol 0.083% 2.5 MG/3 ML Neb Soln INH PRN ×2 (13:09→19:22)
[2021-12-07] MEDS: Montelukast 10 MG Tab PO SCH (21:44)
[2021-12-07] MEDS: atorvaSTATin 10 MG Tab PO SCH (21:45)
[2021-12-08] MEDS: Albuterol 0.083% 2.5 MG/3 ML Neb Soln INH PRN ×2 (00:56→08:58)
[2021-12-08] MEDS: Azithromycin 500 MG in Sodium Chloride 0.9% 250 ML IV SCH (02:49)
[2021-12-08] MEDS: Levothyroxine 125 MCG Tab PO SCH (06:40)
[2021-12-08] MEDS: Enoxaparin 40 MG/0.4 ML Syringe SUBCUT SCH (06:40)
[2021-12-08 07:38] LABS: BLOOD UREA NITROGEN,BUN 17 mg/dL (7.0-18.0); CARBON DIOXIDE,CO2 28.7 mmol/L (21.0-32.0); CHLORIDE,CL 109 mmol/L (98-107); GLUCOSE RANDOM 101 mg/dL (74-106); POTASSIUM,K 3.6 mmol/L (3.5-5.1); SODIUM,NA 147 mmol/L (136-145)
[2021-12-08] MEDS: Budesonide 0.5 MG/2 ML Neb Susp INH SCH (08:58)
[2021-12-08] MEDS: risperiDONE 0.25 MG Tab PO SCH ×2 (09:16→21:16)
[2021-12-08] MEDS: levETIRAcetam 500 MG Tab PO SCH ×2 (09:16→21:17)
[2021-12-08] MEDS: Citalopram 20 MG Tab PO SCH (09:17)
[2021-12-08] MEDS ORDERED: methylPREDNISolone Sodium Succinate 40 MG/1 ML SDV IVPUSH SCH (09:30)
[2021-12-08] MEDS: Albuterol/Ipratropium 3.0-0.5 MG/3 ML Neb Soln NEB SCH ×4 (13:30→21:16)
[2021-12-08] MEDS: methylPREDNISolone Sodium Succinate 40 MG/1 ML SDV IVPUSH SCH ×2 (15:06→21:16)
[2021-12-08] MEDS: Cefepime 2 GM in Premix Bag 1 BAG IV SCH (15:06)
[2021-12-08] MEDS: atorvaSTATin 10 MG Tab PO SCH (21:16)
[2021-12-08] MEDS: Montelukast 10 MG Tab PO SCH (21:16)
[2021-12-09] MEDS: Cefepime 2 GM in Premix Bag 1 BAG IV SCH ×3 (01:31→13:45)
[2021-12-09] MEDS: Albuterol/Ipratropium 3.0-0.5 MG/3 ML Neb Soln NEB SCH ×6 (02:54→21:45)
[2021-12-09] MEDS: Azithromycin 500 MG in Sodium Chloride 0.9% 250 ML IV SCH (02:54)
[2021-12-09] MEDS: Enoxaparin 40 MG/0.4 ML Syringe SUBCUT SCH (06:29)
[2021-12-09] MEDS: methylPREDNISolone Sodium Succinate 40 MG/1 ML SDV IVPUSH SCH ×3 (06:30→21:45)
[2021-12-09] MEDS: Levothyroxine 125 MCG Tab PO SCH (06:31)
[2021-12-09 07:53] LABS: BLOOD UREA NITROGEN,BUN 17 mg/dL (7.0-18.0); CARBON DIOXIDE,CO2 28.5 mmol/L (21.0-32.0); CHLORIDE,CL 109 mmol/L (98-107); GLUCOSE RANDOM 129 mg/dL (74-106); POTASSIUM,K 4.3 mmol/L (3.5-5.1); SODIUM,NA 145 mmol/L (136-145)
[2021-12-09] MEDS: Budesonide 0.5 MG/2 ML Neb Susp INH SCH (09:34)
[2021-12-09] MEDS: levETIRAcetam 500 MG Tab PO SCH ×2 (09:34→21:45)
[2021-12-09] MEDS: risperiDONE 0.25 MG Tab PO SCH ×2 (09:34→21:45)
[2021-12-09] MEDS: Citalopram 20 MG Tab PO SCH (09:34)
[2021-12-09] MEDS: Nystatin Topical Powder 15 GM Bottle TOP SCH ×2 (09:45→21:46)
[2021-12-09] MEDS: atorvaSTATin 10 MG Tab PO SCH (21:45)
[2021-12-09] MEDS: Montelukast 10 MG Tab PO SCH (21:45)
[2021-12-10] MEDS: Albuterol/Ipratropium 3.0-0.5 MG/3 ML Neb Soln NEB SCH ×6 (01:55→21:29)
[2021-12-10] MEDS: Cefepime 2 GM in Premix Bag 1 BAG IV SCH ×2 (01:55→13:13)
[2021-12-10] MEDS: Azithromycin 500 MG in Sodium Chloride 0.9% 250 ML IV SCH (03:19)
[2021-12-10] MEDS: methylPREDNISolone Sodium Succinate 40 MG/1 ML SDV IVPUSH SCH (06:25)
[2021-12-10] MEDS: Enoxaparin 40 MG/0.4 ML Syringe SUBCUT SCH (06:25)
[2021-12-10] MEDS: Levothyroxine 125 MCG Tab PO SCH (06:29)
[2021-12-10 08:02] LABS: BLOOD UREA NITROGEN,BUN 22 mg/dL (7.0-18.0); CARBON DIOXIDE,CO2 28.3 mmol/L (21.0-32.0); CHLORIDE,CL 108 mmol/L (98-107); GLUCOSE RANDOM 79 mg/dL (74-106); POTASSIUM,K 3.9 mmol/L (3.5-5.1); SODIUM,NA 145 mmol/L (136-145)
[2021-12-10] MEDS: risperiDONE 0.25 MG Tab PO SCH ×2 (08:47→21:30)
[2021-12-10] MEDS: levETIRAcetam 500 MG Tab PO SCH ×2 (08:47→21:29)
[2021-12-10] MEDS: Nystatin Topical Powder 15 GM Bottle TOP SCH ×2 (08:47→21:30)
[2021-12-10] MEDS: Citalopram 20 MG Tab PO SCH (08:47)
[2021-12-10] MEDS: Budesonide 0.5 MG/2 ML Neb Susp INH SCH (09:45)
[2021-12-10] MEDS: atorvaSTATin 10 MG Tab PO SCH (21:29)
[2021-12-10] MEDS: Montelukast 10 MG Tab PO SCH (21:29)
[2021-12-11] MEDS: Cefepime 2 GM in Premix Bag 1 BAG IV SCH ×2 (03:22→14:29)
[2021-12-11] MEDS: Albuterol/Ipratropium 3.0-0.5 MG/3 ML Neb Soln NEB SCH ×4 (03:22→15:27)
[2021-12-11] MEDS: Azithromycin 500 MG in Sodium Chloride 0.9% 250 ML IV SCH (04:35)
[2021-12-11] MEDS: Enoxaparin 40 MG/0.4 ML Syringe SUBCUT SCH (06:27)
[2021-12-11] MEDS: Levothyroxine 125 MCG Tab PO SCH (06:29)
[2021-12-11] MEDS: levETIRAcetam 500 MG Tab PO SCH (09:00)
[2021-12-11] MEDS ORDERED: methylPREDNISolone Sodium Succinate 40 MG/1 ML SDV IVPUSH SCH (09:00)
[2021-12-11] MEDS: risperiDONE 0.25 MG Tab PO SCH (09:20)
[2021-12-11] MEDS: Citalopram 20 MG Tab PO SCH (09:20)
[2021-12-11] MEDS: Budesonide 0.5 MG/2 ML Neb Susp INH SCH (09:26)
[2021-12-11 12:11] VITALS: BP 130/77; PULSE 76
[2021-12-11] MEDS: Nystatin Topical Powder 15 GM Bottle TOP SCH (15:26)
[2021-12-13] MEDS ORDERED: Levothyroxine 125 MCG Tab PO SCH (07:30)
== END 2021-12-11 15:15 | DRG 177 ==
LOC: MW.ED 20:09 → MW.MS 23:06
PROVIDERS: ADMIT Internal Medicine; ATTEND Internal Medicine
DX: J69.0 Pneumonitis due to inhalation of food and vomit (principal); Y95 Nosocomial condition; J96.01 Acute respiratory failure with hypoxia; J18.9 Pneumonia, unspecified organism; H91.93 Unspecified hearing loss, bilateral; G40.909 Epilepsy, unspecified, not intractable, without status epilepticus; I10 Essential (primary) hypertension; J45.909 Unspecified asthma, uncomplicated; F79 Unspecified intellectual disabilities; H91.90 Unspecified hearing loss, unspecified ear; E78.00 Pure hypercholesterolemia, unspecified; Z20.822 Contact with and (suspected) exposure to COVID-19; K21.9 Gastro-esophageal reflux disease without esophagitis; E03.9 Hypothyroidism, unspecified; I45.81 Long QT syndrome; Z79.51 Long term (current) use of inhaled steroids; Z88.2 Allergy status to sulfonamides; Z88.1 Allergy status to other antibiotic agents; Z88.8 Allergy status to other drugs, medicaments and biological substances; Z79.890 Hormone replacement therapy; Z79.899 Other long term (current) drug therapy; Z98.49 Cataract extraction status, unspecified eye
CPT/HCPCS: 0241U; 36415; 71045; 80048; 80053; 81001; 82550; 83605; 83735; 83880; 84145; 84484; 85025; 92610; 93005; 94640; 96365; 96375; 99285; A9270-GY; J0456; J0692; J1650; J2920; J2930; J7050; J7120; J7620-GY

== ENCOUNTER 2022-01-06 13:55 | Emergency (ER) | payer MEDICARE, MEDICAID ==
[2022-01-06] MEDS ORDERED: Cephalexin 250 MG/5 ML Susp 100 ML Bottle PO ONE (14:27)
[2022-01-06 15:05] LABS: BLOOD UREA NITROGEN,BUN 19 mg/dL (7.0-18.0); CARBON DIOXIDE,CO2 29.7 mmol/L (21.0-32.0); CHLORIDE,CL 103 mmol/L (98-107); GLUCOSE RANDOM 93 mg/dL (74-106); POTASSIUM,K 3.6 mmol/L (3.5-5.1); SODIUM,NA 140 mmol/L (136-145)
[2022-01-06 15:34] VITALS: BP 163/46; PULSE 61
== END 2022-01-06 15:37 | disposition home or self-care (01) ==
LOC: MW.ED 13:55
DX: L03.115 Cellulitis of right lower limb (principal); E78.00 Pure hypercholesterolemia, unspecified; I10 Essential (primary) hypertension; J44.9 Chronic obstructive pulmonary disease, unspecified; K21.9 Gastro-esophageal reflux disease without esophagitis; Z88.2 Allergy status to sulfonamides; Z88.1 Allergy status to other antibiotic agents; Z88.8 Allergy status to other drugs, medicaments and biological substances; Z79.899 Other long term (current) drug therapy
CPT/HCPCS: 36415; 80048; 85025; 99283

== ENCOUNTER 2022-06-28 18:08 | Emergency (ER) | payer MEDICARE, MEDICAID ==
[2022-06-28] MEDS ORDERED: Magnesium Sulfate/Water 2 GM in Premix Bag 1 BAG IV ONE (18:43)
[2022-06-28] MEDS ORDERED: Albuterol/Ipratropium 3.0-0.5 MG/3 ML Neb Soln NEB ONE (18:47)
[2022-06-28 19:41] LABS: CARBON DIOXIDE,CO2 32.3 mmol/L (21.0-32.0); POTASSIUM,K 4.2 mmol/L (3.5-5.1)
[2022-06-28 19:52] LABS: CORONAVIRUS COVID-19 NAA NEGATIVE (NEGATIVE); INFLUENZA A NAA NEGATIVE (NEGATIVE); INFLUENZA B NAA NEGATIVE (NEGATIVE)
[2022-06-28] MEDS ORDERED: Sodium Chloride 0.9% 1,000 ML IV ONE (22:03)
[2022-06-29 00:17] VITALS: PULSE 62
[2022-06-29 00:22] VITALS: BP 99/49
== END 2022-06-29 00:30 | disposition home or self-care (01) ==
LOC: MW.ED 18:08
DX: I45.81 Long QT syndrome (principal); R00.1 Bradycardia, unspecified; J44.9 Chronic obstructive pulmonary disease, unspecified; I10 Essential (primary) hypertension; Z88.8 Allergy status to other drugs, medicaments and biological substances; Z88.2 Allergy status to sulfonamides; Z88.1 Allergy status to other antibiotic agents; Z79.899 Other long term (current) drug therapy; Z20.822 Contact with and (suspected) exposure to COVID-19
CPT/HCPCS: 0240U; 36415; 71045; 80053; 81003; 83735; 84484; 85025; 93005; 96361; 96374; 99285; J3475; J7030; 93010; J7620-GY

== ENCOUNTER 2024-07-13 17:34 | Emergency (ER) | payer MEDICARE, MEDICAID ==
[2024-07-13 19:07] VITALS: BP 139/47; PULSE 72
== END 2024-07-13 19:03 | disposition other institution (70) ==
LOC: MW.ED 17:34
DX: R09.89 Other specified symptoms and signs involving the circulatory and respiratory systems (principal); I10 Essential (primary) hypertension; E78.00 Pure hypercholesterolemia, unspecified; J44.9 Chronic obstructive pulmonary disease, unspecified; E03.9 Hypothyroidism, unspecified; Z88.1 Allergy status to other antibiotic agents; Z88.2 Allergy status to sulfonamides; Z88.8 Allergy status to other drugs, medicaments and biological substances; Z79.899 Other long term (current) drug therapy; Z75.8 Other problems related to medical facilities and other health care
CPT/HCPCS: 71046; 71046-26; 99284; 99285

== ENCOUNTER 2024-08-07 07:49 | Emergency (ER) | payer MEDICARE, MEDICAID ==
[2024-08-07] MEDS ORDERED: Sodium Chloride 0.9% 10 ML Syringe FLUSH PRN (07:53)
[2024-08-07] MEDS ORDERED: Sodium Chloride 0.9% 2.5 ML Syringe FLUSH PRN (07:53)
[2024-08-07 08:00] LABS: BASOPHILS ABSOLUTE AUTO 0.04 K/uL (0.00-0.20); BASOPHILS PERCENT AUTO 0.5 % (0.0-1.0); EOSINOPHILS ABSOLUTE AUTO 0.23 K/uL (0.00-0.45); EOSINOPHILS PERCENT AUTO 2.9 % (0.0-6.0); HEMATOCRIT 40.9 % (37.0-47.0); HEMOGLOBIN 13.5 g/dL (12.0-16.0); IMMATURE GRAN ABSOLUTE AUTO 0.01 K/uL (0.00-0.05); IMMATURE GRAN PERCENT AUTO 0.1 % (0.0-0.4); LYMPHOCYTES ABSOLUTE AUTO 1.72 K/uL (1.00-4.80); MEAN CORPUSCULAR VOLUME 90.9 fL (83.0-99.0); MONOCYTES ABSOLUTE AUTO 0.41 K/uL (0.00-0.80); MONOCYTES PERCENT AUTO 5.2 % (0.0-8.0); NEUTROPHILS PERCENT AUTO 69.3 % (41.0-71.0); PLATELET COUNT,PLT 229 K/uL (150-400); WHITE BLOOD CELL COUNT,WBC 7.81 K/uL (3.9-11.3)
[2024-08-07] MEDS: Sodium Chloride 0.9% 500 ML IV SCH (08:00)
[2024-08-07 08:29] LABS: A/G RATIO 0.9 (0.9-1.6); ALBUMIN 3.4 g/dL (3.4-5.0); BILIRUBIN TOTAL 0.3 mg/dL (0.2-1.0); CALCIUM 9.9 mg/dL (8.5-10.1); CARBON DIOXIDE,CO2 32.8 mmol/L (21.0-32.0); EST CRCL DRUG DOSING (CG) 36.68 mL/min; POTASSIUM,K 3.7 mmol/L (3.5-5.1); PROTEIN TOTAL,TP 7.4 g/dL (6.4-8.2)
[2024-08-07 08:30] LABS: APPEARANCE,URINE SLT CLOUDY; BILIRUBIN,URINE NEGATIVE (NEGATIVE); GLUCOSE,URINE NEGATIVE (NEGATIVE); KETONES,URINE TRACE mg/dL (NEGATIVE); LEUKOCYTE ESTERASE,URINE TRACE (NEGATIVE); NITRITE,URINE NEGATIVE (NEGATIVE); OCCULT BLOOD,URINE TRACE-INTACT (NEGATIVE); PROTEIN,URINE TRACE mg/dL (NEGATIVE); UROBILINOGEN,URINE 0.2 EU/dL (<2.0)
[2024-08-07 08:35] LABS: COLOR,URINE DARK YELLOW
[2024-08-07 08:39] LABS: BACTERIA,URINE FEW (NEGATIVE); EPITHELIAL CELLS,URINE FEW (NONE-FEW); RBC,URINE 0-1 (0-2/HPF)
[2024-08-07] MEDS: cefTRIAXone 1 GM in Sodium Chloride 0.9% 50 ML IV ONE (09:00)
[2024-08-07 10:25] VITALS: BP 88/48; PULSE 80
[2024-08-09 10:06] LABS: KEPPRA 23 ug/mL (10-40)
== END 2024-08-07 10:25 | disposition home or self-care (01) ==
LOC: MW.ED 07:49
DX: G40.909 Epilepsy, unspecified, not intractable, without status epilepticus (principal); N39.0 Urinary tract infection, site not specified; I10 Essential (primary) hypertension; E78.00 Pure hypercholesterolemia, unspecified; J44.9 Chronic obstructive pulmonary disease, unspecified; E03.9 Hypothyroidism, unspecified; Z79.899 Other long term (current) drug therapy; Z79.890 Hormone replacement therapy; Z88.2 Allergy status to sulfonamides; Z88.1 Allergy status to other antibiotic agents; Z88.8 Allergy status to other drugs, medicaments and biological substances
CPT/HCPCS: 36415; 80053; 80177; 81001; 82550; 82947; 83690; 83735; 85025; 87086; 93005; 96361; 96365; 96375; 99284; J0696; J1953; J3490; J7040; J7060; 93010; 99283

== ENCOUNTER 2024-09-06 12:09 | Inpatient (IN) | payer MEDICARE, MEDICAID ==
[2024-09-06] MEDS ORDERED: Sodium Chloride 0.9% 2.5 ML Syringe FLUSH PRN (12:10)
[2024-09-06 12:23] LABS: BASOPHILS ABSOLUTE AUTO 0.03 K/uL (0.00-0.20); BASOPHILS PERCENT AUTO 0.5 % (0.0-1.0); EOSINOPHILS ABSOLUTE AUTO 0.13 K/uL (0.00-0.45); EOSINOPHILS PERCENT AUTO 2.1 % (0.0-6.0); HEMATOCRIT 38.7 % (37.0-47.0); HEMOGLOBIN 12.7 g/dL (12.0-16.0); IMMATURE GRAN ABSOLUTE AUTO 0.01 K/uL (0.00-0.05); IMMATURE GRAN PERCENT AUTO 0.2 % (0.0-0.4); LYMPHOCYTES ABSOLUTE AUTO 1.48 K/uL (1.00-4.80); LYMPHOCYTES PERCENT AUTO 23.6 % (24.0-44.0); MEAN CORPUSCULAR HEMOGLOBIN 29.7 pg (28.0-32.0); MEAN CORPUSCULAR HGB CONC 32.8 g/dL (32.0-36.0); MEAN CORPUSCULAR VOLUME 90.4 fL (83.0-99.0); MEAN PLATELET VOLUME 10.2 fL (9.4-12.3); MONOCYTES ABSOLUTE AUTO 0.54 K/uL (0.00-0.80); MONOCYTES PERCENT AUTO 8.6 % (0.0-8.0); NEUTROPHILS ABSOLUTE AUTO 4.07 K/uL (1.80-7.70); PLATELET COUNT,PLT 230 K/uL (150-400); RED BLOOD CELL COUNT 4.28 M/uL (4.10-5.30); WHITE BLOOD CELL COUNT,WBC 6.26 K/uL (3.9-11.3)
[2024-09-06 12:28] LABS: INR 1.12 (0.86-1.11)
[2024-09-06 12:38] LABS: A/G RATIO 0.8 (0.9-1.6); ALANINE AMINOTRANSFERASE,ALT 14 IU/L (14-63); ALBUMIN 3.2 g/dL (3.4-5.0); ALKALINE PHOSPHATASE 114 U/L (46-116); ASPARTATE AMNIOTRANSFERASE,AST 20 IU/L (15-37); BILIRUBIN TOTAL 0.3 mg/dL (0.2-1.0); BLOOD UREA NITROGEN,BUN 21 mg/dL (7.0-18.0); CALCIUM 9.8 mg/dL (8.5-10.1); CARBON DIOXIDE,CO2 33.1 mmol/L (21.0-32.0); CHLORIDE,CL 103 mmol/L (98-107); ESTIMATED GFR 59 mL/min (>60); ETHANOL BLOOD MEDICAL <3 mg/dL; GLUCOSE RANDOM 81 mg/dL (74-106); POTASSIUM,K 3.3 mmol/L (3.5-5.1); PROTEIN TOTAL,TP 7.3 g/dL (6.4-8.2); SODIUM,NA 143 mmol/L (136-145)
[2024-09-06] MEDS: Iopamidol 755 MG/ML 500 ML Multipack Bottle IVPUSH STA (12:39)
[2024-09-06] MEDS ORDERED: Sodium Chloride 0.9% 500 ML IV SCH (12:45)
[2024-09-06] MEDS: Sodium Chloride 0.9% 10 ML Syringe FLUSH PRN (12:46)
[2024-09-06] MEDS: Sodium Chloride 0.9% 1,000 ML IV ONE (12:49)
[2024-09-06] MEDS: Sodium Chloride 0.9% 500 ML IV SCH ×2 (13:50→15:40)
[2024-09-06] MEDS: Piperacillin/Tazobactam 3.375 GM in Sodium Chloride 0.9% 100 ML IV ONE (13:50)
[2024-09-06 14:13] LABS: LACTIC ACID 2.1 mmol/L (0.4-2.0)
[2024-09-06 15:18] LABS: CORONAVIRUS COVID-19 NAA NEGATIVE (NEGATIVE); INFLUENZA A NAA NEGATIVE (NEGATIVE); INFLUENZA B NAA NEGATIVE (NEGATIVE); RESPIRATORY SYNCYTIAL VIR NAA NEGATIVE (NEGATIVE)
[2024-09-06] MEDS ORDERED: Acetaminophen 325 MG Tab PO PRN (19:27)
[2024-09-06] MEDS ORDERED: Ondansetron 4 MG Tab.DIS PO PRN (19:27)
[2024-09-06] MEDS: NS with KCl 40mEq 1,000 ML IV SCH (19:44)
[2024-09-06] MEDS ORDERED: Polyethylene Glycol 3350 Powder 17 GM Packet PO PRN (20:35)
[2024-09-06] MEDS ORDERED: Albuterol/Ipratropium 3.0-0.5 MG/3 ML Neb Soln INH PRN (20:35)
[2024-09-06] MEDS ORDERED: Ketotifen 0.025% Ophth Soln 5 ML Bottle EYEBOTH PRN (20:55)
[2024-09-06] MEDS: Montelukast 10 MG Tab PO SCH (21:32)
[2024-09-06] MEDS: Erythromycin Base 0.5% Ophth Oint 1 GM Tube EYEBOTH SCH (21:32)
[2024-09-06] MEDS: atorvaSTATin 10 MG Tab PO SCH (21:32)
[2024-09-06] MEDS: levETIRAcetam Soln 500 MG/5 ML Cup PO SCH (23:05)
[2024-09-07 00:35] LABS: APPEARANCE,URINE CLEAR; BILIRUBIN,URINE NEGATIVE (NEGATIVE); COLOR,URINE YELLOW; GLUCOSE,URINE NEGATIVE (NEGATIVE); KETONES,URINE NEGATIVE (NEGATIVE); LEUKOCYTE ESTERASE,URINE NEGATIVE (NEGATIVE); NITRITE,URINE POSITIVE (NEGATIVE); OCCULT BLOOD,URINE NEGATIVE (NEGATIVE); PROTEIN,URINE NEGATIVE (NEGATIVE); UROBILINOGEN,URINE 0.2 EU/dL (<2.0)
[2024-09-07 00:47] LABS: AMPHETAMINES SCREEN, URINE NEGATIVE (CUTOFF=500); BARBITURATE SCREEN,URINE NEGATIVE (CUTOFF=200); BENZODIAZEPINES SCREEN,URINE NEGATIVE (CUTOFF=150); BUPRENORPHINE SCREEN,URINE NEGATIVE (CUTOFF=10); EPITHELIAL CELLS,URINE NOT SEEN (NONE-FEW); METHADONE SCREEN, URINE NEGATIVE (CUTOFF=200); METHAMPHETAMINES SCREEN, URINE NEGATIVE (CUTOFF=500); OXYCODONE SCREEN,URINE NEGATIVE (CUT0FF=100); PCP SCREEN,URINE NEGATIVE (CUTOFF=25); RBC,URINE NONE SEEN (0-2/HPF); THC SCREEN,URINE 20 NG/ML NEGATIVE (CUTOFF=50); WBC,URINE NONE SEEN (0-5/HPF)
[2024-09-07 00:48] LABS: BACTERIA,URINE NOT SEEN (NEGATIVE)
[2024-09-07] MEDS: cefTRIAXone 1 GM in Sodium Chloride 0.9% 50 ML IV SCH (01:55)
[2024-09-07] MEDS: Azithromycin 500 MG in Sodium Chloride 0.9% 250 ML IV SCH (03:50)
[2024-09-07 06:36] LABS: BASOPHILS ABSOLUTE AUTO 0.04 K/uL (0.00-0.20); BASOPHILS PERCENT AUTO 0.6 % (0.0-1.0); EOSINOPHILS ABSOLUTE AUTO 0.17 K/uL (0.00-0.45); EOSINOPHILS PERCENT AUTO 2.4 % (0.0-6.0); HEMATOCRIT 34.1 % (37.0-47.0); HEMOGLOBIN 11.1 g/dL (12.0-16.0); IMMATURE GRAN ABSOLUTE AUTO 0.02 K/uL (0.00-0.05); IMMATURE GRAN PERCENT AUTO 0.3 % (0.0-0.4); LYMPHOCYTES ABSOLUTE AUTO 1.27 K/uL (1.00-4.80); LYMPHOCYTES PERCENT AUTO 18.2 % (24.0-44.0); MEAN CORPUSCULAR HEMOGLOBIN 29.6 pg (28.0-32.0); MEAN CORPUSCULAR HGB CONC 32.6 g/dL (32.0-36.0); MEAN CORPUSCULAR VOLUME 90.9 fL (83.0-99.0); MEAN PLATELET VOLUME 10.7 fL (9.4-12.3); MONOCYTES ABSOLUTE AUTO 0.51 K/uL (0.00-0.80); MONOCYTES PERCENT AUTO 7.3 % (0.0-8.0); NEUTROPHILS ABSOLUTE AUTO 4.96 K/uL (1.80-7.70); NEUTROPHILS PERCENT AUTO 71.2 % (41.0-71.0); PLATELET COUNT,PLT 211 K/uL (150-400); RED BLOOD CELL COUNT 3.75 M/uL (4.10-5.30); WHITE BLOOD CELL COUNT,WBC 6.97 K/uL (3.9-11.3)
[2024-09-07] MEDS: Levothyroxine 100 MCG Tab PO SCH (06:38)
[2024-09-07 07:09] LABS: A/G RATIO 0.8 (0.9-1.6); ALBUMIN 2.6 g/dL (3.4-5.0); BILIRUBIN TOTAL 0.2 mg/dL (0.2-1.0); CALCIUM 8.7 mg/dL (8.5-10.1); CARBON DIOXIDE,CO2 24.1 mmol/L (21.0-32.0); CREATININE 0.8 mg/dL (0.6-1.0); EST CRCL DRUG DOSING (CG) 48.06 mL/min; MAGNESIUM 1.8 mg/dL (1.8-2.4); PHOSPHORUS 2.5 mg/dL (2.6-4.7)
[2024-09-07] MEDS: Citalopram 20 MG Tab PO SCH (08:49)
[2024-09-07] MEDS: Calcium Carbonate 500 MG Tablet PO SCH (08:49)
[2024-09-07] MEDS ORDERED: Sodium Chloride 0.9% 10 ML Syringe FLUSH PRN (09:54)
[2024-09-07] MEDS ORDERED: Sodium Chloride 0.9% 2.5 ML Syringe FLUSH PRN (09:54)
[2024-09-07] MEDS: LORazepam 2 MG/ML SDV IVPUSH ONE (16:06)
[2024-09-07] MEDS: Gadobenate Dimeglumine 529 MG/ML 20 ML SDV IVPUSH ONE (16:48)
[2024-09-07] MEDS: Heparin Sodium 5,000 Units/ML Vial SUBCUT SCH (17:12)
[2024-09-08 06:16] LABS: BASOPHILS ABSOLUTE AUTO 0.04 K/uL (0.00-0.20); BASOPHILS PERCENT AUTO 0.6 % (0.0-1.0); EOSINOPHILS ABSOLUTE AUTO 0.21 K/uL (0.00-0.45); EOSINOPHILS PERCENT AUTO 3.2 % (0.0-6.0); HEMATOCRIT 34.6 % (37.0-47.0); HEMOGLOBIN 11.5 g/dL (12.0-16.0); IMMATURE GRAN ABSOLUTE AUTO 0.01 K/uL (0.00-0.05); IMMATURE GRAN PERCENT AUTO 0.2 % (0.0-0.4); LYMPHOCYTES ABSOLUTE AUTO 1.49 K/uL (1.00-4.80); LYMPHOCYTES PERCENT AUTO 22.4 % (24.0-44.0); MEAN CORPUSCULAR HEMOGLOBIN 30.1 pg (28.0-32.0); MEAN CORPUSCULAR HGB CONC 33.2 g/dL (32.0-36.0); MEAN CORPUSCULAR VOLUME 90.6 fL (83.0-99.0); MEAN PLATELET VOLUME 10.4 fL (9.4-12.3); MONOCYTES ABSOLUTE AUTO 0.61 K/uL (0.00-0.80); MONOCYTES PERCENT AUTO 9.2 % (0.0-8.0); NEUTROPHILS ABSOLUTE AUTO 4.29 K/uL (1.80-7.70); NEUTROPHILS PERCENT AUTO 64.4 % (41.0-71.0); PLATELET COUNT,PLT 203 K/uL (150-400); RED BLOOD CELL COUNT 3.82 M/uL (4.10-5.30); WHITE BLOOD CELL COUNT,WBC 6.65 K/uL (3.9-11.3)
[2024-09-08 06:57] LABS: CALCIUM 8.7 mg/dL (8.5-10.1); CARBON DIOXIDE,CO2 25.3 mmol/L (21.0-32.0); CREATININE 0.7 mg/dL (0.6-1.0); EST CRCL DRUG DOSING (CG) 54.92 mL/min; MAGNESIUM 1.9 mg/dL (1.8-2.4); POTASSIUM,K 3.5 mmol/L (3.5-5.1)
[2024-09-09] MEDS: Heparin Sodium 5,000 Units/ML Vial SUBCUT SCH (02:08)
[2024-09-09] MEDS: Hydrochlorothiazide 12.5 MG Cap PO SCH (04:49)
[2024-09-09 05:29] LABS: BASOPHILS ABSOLUTE AUTO 0.04 K/uL (0.00-0.20); BASOPHILS PERCENT AUTO 0.5 % (0.0-1.0); EOSINOPHILS ABSOLUTE AUTO 0.11 K/uL (0.00-0.45); EOSINOPHILS PERCENT AUTO 1.3 % (0.0-6.0); HEMATOCRIT 34.5 % (37.0-47.0); HEMOGLOBIN 11.5 g/dL (12.0-16.0); IMMATURE GRAN ABSOLUTE AUTO 0.02 K/uL (0.00-0.05); IMMATURE GRAN PERCENT AUTO 0.2 % (0.0-0.4); LYMPHOCYTES ABSOLUTE AUTO 1.65 K/uL (1.00-4.80); LYMPHOCYTES PERCENT AUTO 19.2 % (24.0-44.0); MEAN CORPUSCULAR HEMOGLOBIN 29.4 pg (28.0-32.0); MEAN CORPUSCULAR HGB CONC 33.3 g/dL (32.0-36.0); MEAN CORPUSCULAR VOLUME 88.2 fL (83.0-99.0); MEAN PLATELET VOLUME 10.1 fL (9.4-12.3); MONOCYTES ABSOLUTE AUTO 0.71 K/uL (0.00-0.80); MONOCYTES PERCENT AUTO 8.2 % (0.0-8.0); NEUTROPHILS ABSOLUTE AUTO 6.08 K/uL (1.80-7.70); NEUTROPHILS PERCENT AUTO 70.6 % (41.0-71.0); PLATELET COUNT,PLT 209 K/uL (150-400); RED BLOOD CELL COUNT 3.91 M/uL (4.10-5.30); WHITE BLOOD CELL COUNT,WBC 8.61 K/uL (3.9-11.3)
[2024-09-09 06:05] LABS: CALCIUM 8.9 mg/dL (8.5-10.1); CARBON DIOXIDE,CO2 24.6 mmol/L (21.0-32.0); CREATININE 0.7 mg/dL (0.6-1.0); EST CRCL DRUG DOSING (CG) 54.92 mL/min; MAGNESIUM 1.9 mg/dL (1.8-2.4); POTASSIUM,K 3.5 mmol/L (3.5-5.1)
[2024-09-09] MEDS: levETIRAcetam 500 MG Tab PO SCH (09:58)
[2024-09-10] MEDS: Lisinopril 5 MG Tab PO ONE (00:07)
[2024-09-10 05:36] LABS: BASOPHILS ABSOLUTE AUTO 0.03 K/uL (0.00-0.20); BASOPHILS PERCENT AUTO 0.4 % (0.0-1.0); EOSINOPHILS ABSOLUTE AUTO 0.13 K/uL (0.00-0.45); EOSINOPHILS PERCENT AUTO 1.9 % (0.0-6.0); HEMATOCRIT 37.5 % (37.0-47.0); HEMOGLOBIN 12.2 g/dL (12.0-16.0); IMMATURE GRAN ABSOLUTE AUTO 0.01 K/uL (0.00-0.05); IMMATURE GRAN PERCENT AUTO 0.1 % (0.0-0.4); LYMPHOCYTES ABSOLUTE AUTO 1.63 K/uL (1.00-4.80); LYMPHOCYTES PERCENT AUTO 23.2 % (24.0-44.0); MEAN CORPUSCULAR HGB CONC 32.5 g/dL (32.0-36.0); MEAN CORPUSCULAR VOLUME 89.1 fL (83.0-99.0); MEAN PLATELET VOLUME 10.3 fL (9.4-12.3); MONOCYTES ABSOLUTE AUTO 0.65 K/uL (0.00-0.80); MONOCYTES PERCENT AUTO 9.3 % (0.0-8.0); NEUTROPHILS ABSOLUTE AUTO 4.57 K/uL (1.80-7.70); NEUTROPHILS PERCENT AUTO 65.1 % (41.0-71.0); PLATELET COUNT,PLT 219 K/uL (150-400); RED BLOOD CELL COUNT 4.21 M/uL (4.10-5.30); WHITE BLOOD CELL COUNT,WBC 7.02 K/uL (3.9-11.3)
[2024-09-10 05:56] LABS: CALCIUM 9.2 mg/dL (8.5-10.1); CARBON DIOXIDE,CO2 28.6 mmol/L (21.0-32.0); CREATININE 0.7 mg/dL (0.6-1.0); EST CRCL DRUG DOSING (CG) 54.92 mL/min; POTASSIUM,K 3.4 mmol/L (3.5-5.1)
[2024-09-10 11:04] VITALS: BP 152/67; PULSE 73
== END 2024-09-10 10:45 | DRG 100 ==
LOC: MW.ED 12:09 → MW.MS 17:01 → OBSVTOIN 09-07 09:58
PROVIDERS: ADMIT Internal Medicine; ATTEND Internal Medicine
DX: R56.9 Unspecified convulsions (principal); J18.9 Pneumonia, unspecified organism; J69.0 Pneumonitis due to inhalation of food and vomit; Z66 Do not resuscitate; I77.1 Stricture of artery; F79 Unspecified intellectual disabilities; E03.9 Hypothyroidism, unspecified; K21.9 Gastro-esophageal reflux disease without esophagitis; Z79.2 Long term (current) use of antibiotics; E78.00 Pure hypercholesterolemia, unspecified; I10 Essential (primary) hypertension; J44.9 Chronic obstructive pulmonary disease, unspecified; E87.6 Hypokalemia; H91.90 Unspecified hearing loss, unspecified ear; I95.9 Hypotension, unspecified; Z88.2 Allergy status to sulfonamides; Z88.1 Allergy status to other antibiotic agents; Z98.49 Cataract extraction status, unspecified eye; Z88.8 Allergy status to other drugs, medicaments and biological substances; Z79.899 Other long term (current) drug therapy; Z79.890 Hormone replacement therapy; Z98.890 Other specified postprocedural states
CPT/HCPCS: 0241U; 36415; 70450; 70496; 70498; 70553; 71045; 74176; 80048; 80053; 80305; 80307; 81001; 82947; 83605; 83735; 84100; 84484; 85025; 85610; 87040; 87086; 92610; 93005; 94667; 94668; 96361; 96365; 96367; 99285; 93010; 96366; 99223; 99232; 99238; A9270-GY; A9577; G0378; J0456; J0696; J1644; J1953; J2060; J2543; J3480; J3490; J7030; J7040; J7050; J7060; Q9967

== ENCOUNTER 2024-10-22 09:55 | Emergency (ER) | payer MEDICARE, MEDICAID ==
[2024-10-22] MEDS ORDERED: Sodium Chloride 0.9% 10 ML Syringe FLUSH PRN (10:03)
[2024-10-22] MEDS ORDERED: Sodium Chloride 0.9% 2.5 ML Syringe FLUSH PRN (10:03)
[2024-10-22] MEDS: Ondansetron 4 MG/2 ML SDV IVPUSH ONE (10:43)
[2024-10-22] MEDS: Ketorolac 30 MG/ML SDV IVPUSH ONE (10:43)
[2024-10-22] MEDS: Lactated Ringers 1,000 ML IV ONE (10:44)
[2024-10-22 11:01] LABS: BASOPHILS ABSOLUTE AUTO 0.03 K/uL (0.00-0.20); BASOPHILS PERCENT AUTO 0.3 % (0.0-1.0); EOSINOPHILS ABSOLUTE AUTO 0.04 K/uL (0.00-0.45); EOSINOPHILS PERCENT AUTO 0.4 % (0.0-6.0); HEMATOCRIT 19.9 % (37.0-47.0); HEMOGLOBIN 6.3 g/dL (12.0-16.0); IMMATURE GRAN ABSOLUTE AUTO 0.03 K/uL (0.00-0.05); IMMATURE GRAN PERCENT AUTO 0.3 % (0.0-0.4); LYMPHOCYTES ABSOLUTE AUTO 1.73 K/uL (1.00-4.80); LYMPHOCYTES PERCENT AUTO 18.8 % (24.0-44.0); MEAN CORPUSCULAR HEMOGLOBIN 28.9 pg (28.0-32.0); MEAN CORPUSCULAR HGB CONC 31.7 g/dL (32.0-36.0); MEAN CORPUSCULAR VOLUME 91.3 fL (83.0-99.0); MEAN PLATELET VOLUME 9.6 fL (9.4-12.3); MONOCYTES ABSOLUTE AUTO 0.64 K/uL (0.00-0.80); MONOCYTES PERCENT AUTO 6.9 % (0.0-8.0); NEUTROPHILS ABSOLUTE AUTO 6.75 K/uL (1.80-7.70); NEUTROPHILS PERCENT AUTO 73.3 % (41.0-71.0); PLATELET COUNT,PLT 306 K/uL (150-400); RED BLOOD CELL COUNT 2.18 M/uL (4.10-5.30); WHITE BLOOD CELL COUNT,WBC 9.22 K/uL (3.9-11.3)
[2024-10-22] MEDS: Pantoprazole 80 MG in Sodium Chloride 0.9% 10 ML IVPUSH ONE (11:22)
[2024-10-22 11:28] LABS: A/G RATIO 0.7 (0.9-1.6); ALANINE AMINOTRANSFERASE,ALT 13 IU/L (14-63); ALBUMIN 2.5 g/dL (3.4-5.0); ALKALINE PHOSPHATASE 83 U/L (46-116); ASPARTATE AMNIOTRANSFERASE,AST 17 IU/L (15-37); BILIRUBIN TOTAL 0.3 mg/dL (0.2-1.0); BLOOD UREA NITROGEN,BUN 30 mg/dL (7.0-18.0); CALCIUM 9.5 mg/dL (8.5-10.1); CARBON DIOXIDE,CO2 30.4 mmol/L (21.0-32.0); CHLORIDE,CL 104 mmol/L (98-107); CREATININE 0.8 mg/dL (0.6-1.0); GLUCOSE RANDOM 99 mg/dL (74-106); LIPASE 99 U/L (16-77); POTASSIUM,K 4.3 mmol/L (3.5-5.1); PROTEIN TOTAL,TP 6.2 g/dL (6.4-8.2); SODIUM,NA 138 mmol/L (136-145)
[2024-10-22 11:31] LABS: ESTIMATED GFR 77 mL/min (>60)
[2024-10-22 11:32] LABS: LACTIC ACID 1.2 mmol/L (0.4-2.0)
[2024-10-22] MEDS: Iopamidol 755 MG/ML 500 ML Multipack Bottle IVPUSH STA (12:25)
[2024-10-22 12:37] LABS: INR 1.14 (0.86-1.11)
[2024-10-22] MEDS: Octreotide 500 MCG in Sodium Chloride 0.9% 250 ML IV SCH (12:51)
[2024-10-22 14:01] VITALS: BP 124/35; PULSE 69
== END 2024-10-22 14:51 ==
LOC: MW.ED 09:55
DX: K92.1 Melena (principal); I10 Essential (primary) hypertension; J44.89 Other specified chronic obstructive pulmonary disease; E78.00 Pure hypercholesterolemia, unspecified; E03.9 Hypothyroidism, unspecified; Z88.2 Allergy status to sulfonamides; Z88.8 Allergy status to other drugs, medicaments and biological substances; Z79.890 Hormone replacement therapy; Z79.899 Other long term (current) drug therapy
CPT/HCPCS: 36415; 36430; 71045; 74174; 80053; 83605; 83690; 85025; 85610; 86850; 86900; 86901; 86920; 87040; 96361; 96365; 96375; 99285; J1885; J2354; J2405; J2470; J3490; J7050; J7120; P9016; Q9967; 99283

== ENCOUNTER 2025-02-07 13:40 | Inpatient (IN) | payer MEDICARE, MEDICAID ==
[2025-02-07 14:21] LABS: BASOPHILS ABSOLUTE AUTO 0.02 K/uL (0.00-0.20); BASOPHILS PERCENT AUTO 0.2 % (0.0-1.0); EOSINOPHILS ABSOLUTE AUTO 0.13 K/uL (0.00-0.45); EOSINOPHILS PERCENT AUTO 1.6 % (0.0-6.0); HEMOGLOBIN 11.3 g/dL (12.0-16.0); IMMATURE GRAN ABSOLUTE AUTO 0.03 K/uL (0.00-0.05); IMMATURE GRAN PERCENT AUTO 0.4 % (0.0-0.4); LYMPHOCYTES ABSOLUTE AUTO 1.58 K/uL (1.00-4.80); LYMPHOCYTES PERCENT AUTO 19.7 % (24.0-44.0); MEAN CORPUSCULAR HEMOGLOBIN 30.3 pg (28.0-32.0); MEAN CORPUSCULAR HGB CONC 33.2 g/dL (32.0-36.0); MEAN CORPUSCULAR VOLUME 91.2 fL (83.0-99.0); MONOCYTES PERCENT AUTO 11.2 % (0.0-8.0); NEUTROPHILS ABSOLUTE AUTO 5.36 K/uL (1.80-7.70); NEUTROPHILS PERCENT AUTO 66.9 % (41.0-71.0); PLATELET COUNT,PLT 223 K/uL (150-400); RED BLOOD CELL COUNT 3.73 M/uL (4.10-5.30); WHITE BLOOD CELL COUNT,WBC 8.02 K/uL (3.9-11.3)
[2025-02-07 14:34] LABS: INR 1.1 (0.86-1.11)
[2025-02-07 14:43] LABS: A/G RATIO 0.9 (0.9-1.6); ALANINE AMINOTRANSFERASE,ALT 18 IU/L (14-63); ALBUMIN 3.2 g/dL (3.4-5.0); ALKALINE PHOSPHATASE 118 U/L (46-116); ASPARTATE AMNIOTRANSFERASE,AST 10 IU/L (15-37); BILIRUBIN TOTAL 0.4 mg/dL (0.2-1.0); BLOOD UREA NITROGEN,BUN 21 mg/dL (7.0-18.0); CALCIUM 9.1 mg/dL (8.5-10.1); CARBON DIOXIDE,CO2 31.4 mmol/L (21.0-32.0); CHLORIDE,CL 101 mmol/L (98-107); CREATININE 0.8 mg/dL (0.6-1.0); GLUCOSE RANDOM 94 mg/dL (74-106); LIPASE 67 U/L (16-77); POTASSIUM,K 3.6 mmol/L (3.5-5.1); PROTEIN TOTAL,TP 6.9 g/dL (6.4-8.2); SODIUM,NA 140 mmol/L (136-145)
[2025-02-07 14:44] LABS: ESTIMATED GFR 76 mL/min (>60)
[2025-02-07] MEDS: Iopamidol 755 MG/ML 500 ML Multipack Bottle IVPUSH STA (17:19)
[2025-02-07] MEDS: Sodium Chloride 0.9% 1,000 ML IV STA (20:03)
[2025-02-07] MEDS: Ciprofloxacin in D5W 400 MG in Premix Bag 1 BAG IV STA (20:04)
[2025-02-07] MEDS: metroNIDAZOLE/Normal Saline 500 MG in Premix Bag 1 BAG IV STA (21:28)
[2025-02-07] MEDS: metroNIDAZOLE/Normal Saline 100 ML ONE (21:29)
[2025-02-08] MEDS: Sodium Chloride 0.9% 1,000 ML IV SCH (00:28)
[2025-02-08 05:55] LABS: BASOPHILS ABSOLUTE AUTO 0.03 K/uL (0.00-0.20); BASOPHILS PERCENT AUTO 0.5 % (0.0-1.0); EOSINOPHILS ABSOLUTE AUTO 0.14 K/uL (0.00-0.45); EOSINOPHILS PERCENT AUTO 2.2 % (0.0-6.0); HEMATOCRIT 28.9 % (37.0-47.0); HEMOGLOBIN 9.7 g/dL (12.0-16.0); IMMATURE GRAN ABSOLUTE AUTO 0.01 K/uL (0.00-0.05); IMMATURE GRAN PERCENT AUTO 0.2 % (0.0-0.4); LYMPHOCYTES ABSOLUTE AUTO 1.64 K/uL (1.00-4.80); LYMPHOCYTES PERCENT AUTO 25.8 % (24.0-44.0); MEAN CORPUSCULAR HEMOGLOBIN 30.5 pg (28.0-32.0); MEAN CORPUSCULAR HGB CONC 33.6 g/dL (32.0-36.0); MEAN CORPUSCULAR VOLUME 90.9 fL (83.0-99.0); MEAN PLATELET VOLUME 10.5 fL (9.4-12.3); MONOCYTES ABSOLUTE AUTO 0.66 K/uL (0.00-0.80); MONOCYTES PERCENT AUTO 10.4 % (0.0-8.0); NEUTROPHILS ABSOLUTE AUTO 3.87 K/uL (1.80-7.70); NEUTROPHILS PERCENT AUTO 60.9 % (41.0-71.0); PLATELET COUNT,PLT 191 K/uL (150-400); RED BLOOD CELL COUNT 3.18 M/uL (4.10-5.30); WHITE BLOOD CELL COUNT,WBC 6.35 K/uL (3.9-11.3)
[2025-02-08] MEDS: metroNIDAZOLE/Normal Saline 500 MG in Premix Bag 1 BAG IV SCH ×2 (06:22→06:43)
[2025-02-08 06:28] LABS: BLOOD UREA NITROGEN,BUN 13 mg/dL (7.0-18.0); CALCIUM 8.6 mg/dL (8.5-10.1); CARBON DIOXIDE,CO2 27.3 mmol/L (21.0-32.0); CHLORIDE,CL 106 mmol/L (98-107); CREATININE 0.6 mg/dL (0.6-1.0); GLUCOSE RANDOM 90 mg/dL (74-106); POTASSIUM,K 3.4 mmol/L (3.5-5.1); SODIUM,NA 140 mmol/L (136-145)
[2025-02-08 06:37] LABS: ESTIMATED GFR 93 mL/min (>60)
[2025-02-08] MEDS: Ciprofloxacin in D5W 400 MG in Premix Bag 1 BAG IV SCH (08:33)
[2025-02-08] MEDS: Potassium Chloride 20 MEQ Tab.ER PO ONE (12:42)
[2025-02-08] MEDS: Pantoprazole 40 MG Tab.CR PO SCH (17:29)
[2025-02-08] MEDS ORDERED: Polyethylene Glycol 3350 Powder 17 GM Packet PO PRN (19:39)
[2025-02-08] MEDS ORDERED: Loratadine 10 MG Tab PO PRN (19:39)
[2025-02-08] MEDS: Montelukast 10 MG Tab PO SCH (21:13)
[2025-02-08] MEDS: atorvaSTATin 10 MG Tab PO SCH (21:13)
[2025-02-08] MEDS: Hydrochlorothiazide 12.5 MG Cap PO SCH (21:14)
[2025-02-08] MEDS: levETIRAcetam 500 MG Tab PO SCH (21:14)
[2025-02-08] MEDS: Erythromycin Base 0.5% Ophth Oint 1 GM Tube EYEBOTH SCH (22:02)
[2025-02-09 05:53] LABS: BASOPHILS ABSOLUTE AUTO 0.02 K/uL (0.00-0.20); BASOPHILS PERCENT AUTO 0.3 % (0.0-1.0); EOSINOPHILS PERCENT AUTO 3.2 % (0.0-6.0); HEMATOCRIT 27.7 % (37.0-47.0); HEMOGLOBIN 9.2 g/dL (12.0-16.0); IMMATURE GRAN ABSOLUTE AUTO 0.01 K/uL (0.00-0.05); IMMATURE GRAN PERCENT AUTO 0.2 % (0.0-0.4); LYMPHOCYTES ABSOLUTE AUTO 1.63 K/uL (1.00-4.80); LYMPHOCYTES PERCENT AUTO 25.9 % (24.0-44.0); MEAN CORPUSCULAR HEMOGLOBIN 30.5 pg (28.0-32.0); MEAN CORPUSCULAR HGB CONC 33.2 g/dL (32.0-36.0); MEAN CORPUSCULAR VOLUME 91.7 fL (83.0-99.0); MEAN PLATELET VOLUME 10.1 fL (9.4-12.3); MONOCYTES ABSOLUTE AUTO 0.56 K/uL (0.00-0.80); MONOCYTES PERCENT AUTO 8.9 % (0.0-8.0); NEUTROPHILS ABSOLUTE AUTO 3.87 K/uL (1.80-7.70); NEUTROPHILS PERCENT AUTO 61.5 % (41.0-71.0); PLATELET COUNT,PLT 184 K/uL (150-400); RED BLOOD CELL COUNT 3.02 M/uL (4.10-5.30); WHITE BLOOD CELL COUNT,WBC 6.29 K/uL (3.9-11.3)
[2025-02-09 06:35] LABS: BLOOD UREA NITROGEN,BUN 7 mg/dL (7.0-18.0); CALCIUM 8.1 mg/dL (8.5-10.1); CARBON DIOXIDE,CO2 24.3 mmol/L (21.0-32.0); CHLORIDE,CL 108 mmol/L (98-107); CREATININE 0.6 mg/dL (0.6-1.0); GLUCOSE RANDOM 95 mg/dL (74-106); MAGNESIUM 1.4 mg/dL (1.8-2.4); POTASSIUM,K 3.7 mmol/L (3.5-5.1); SODIUM,NA 139 mmol/L (136-145)
[2025-02-09 06:36] LABS: ESTIMATED GFR 93 mL/min (>60)
[2025-02-09] MEDS: Levothyroxine 75 MCG Tab PO SCH (08:32)
[2025-02-09] MEDS: Citalopram 20 MG Tab PO SCH (08:41)
[2025-02-09] MEDS: Lisinopril 5 MG Tab PO SCH (08:50)
[2025-02-09] MEDS: Magnesium Sulf/Wat 2 GM/50 mL 2 GM in Premix Bag 1 BAG IV ONE (09:10)
[2025-02-09 14:45] VITALS: BP 151/70; PULSE 75
== END 2025-02-09 14:23 | disposition home or self-care (01) | DRG 391 ==
LOC: MW.ED 13:40 → MW.MS 19:47 → OBSVTOIN 19:47 → MW.MS 02-08 10:30
PROVIDERS: ADMIT Internal Medicine; ATTEND Internal Medicine
DX: K52.9 Noninfective gastroenteritis and colitis, unspecified (principal); K26.4 Chronic or unspecified duodenal ulcer with hemorrhage; K92.1 Melena; J44.89 Other specified chronic obstructive pulmonary disease; R62.50 Unspecified lack of expected normal physiological development in childhood; Z66 Do not resuscitate; H91.90 Unspecified hearing loss, unspecified ear; Z75.8 Other problems related to medical facilities and other health care; E78.00 Pure hypercholesterolemia, unspecified; I10 Essential (primary) hypertension; Z79.890 Hormone replacement therapy; J44.9 Chronic obstructive pulmonary disease, unspecified; K21.9 Gastro-esophageal reflux disease without esophagitis; E03.9 Hypothyroidism, unspecified; Z88.2 Allergy status to sulfonamides; Z88.1 Allergy status to other antibiotic agents; Z88.8 Allergy status to other drugs, medicaments and biological substances; Z79.52 Long term (current) use of systemic steroids; Z79.2 Long term (current) use of antibiotics; Z79.51 Long term (current) use of inhaled steroids; Z79.899 Other long term (current) drug therapy; Z98.49 Cataract extraction status, unspecified eye; Z98.890 Other specified postprocedural states
CPT/HCPCS: 36415; 74177; 80053; 82272; 83690; 85025; 85610; 86850; 86900; 86901; 99285; Q9967; 80048; 83735; 87045; 87046; 87324; 87338; 87449; 87899; 96365; 99284; A9270-GY; J0744; J1836; J3475; J7030

== ENCOUNTER 2025-08-11 12:50 | Inpatient (IN) | payer MEDICARE, MEDICAID ==
[2025-08-11] MEDS ORDERED: Sodium Chloride 0.9% 2.5 ML Syringe FLUSH PRN ×2 (17:39→18:48)
[2025-08-11] MEDS ORDERED: Sodium Chloride 0.9% 10 ML Syringe FLUSH PRN ×2 (17:39→18:48)
[2025-08-11 17:55] LABS: BASOPHILS ABSOLUTE AUTO 0.02 K/uL (0.00-0.20); BASOPHILS PERCENT AUTO 0.2 % (0.0-1.0); EOSINOPHILS ABSOLUTE AUTO 0.05 K/uL (0.00-0.45); EOSINOPHILS PERCENT AUTO 0.5 % (0.0-6.0); IMMATURE GRAN ABSOLUTE AUTO 0.03 K/uL (0.00-0.05); IMMATURE GRAN PERCENT AUTO 0.3 % (0.0-0.4); LYMPHOCYTES ABSOLUTE AUTO 1.82 K/uL (1.00-4.80); LYMPHOCYTES PERCENT AUTO 18.6 % (24.0-44.0); MEAN PLATELET VOLUME 9.6 fL (9.4-12.3); MONOCYTES ABSOLUTE AUTO 0.77 K/uL (0.00-0.80); MONOCYTES PERCENT AUTO 7.9 % (0.0-8.0); NEUTROPHILS ABSOLUTE AUTO 7.08 K/uL (1.80-7.70); NEUTROPHILS PERCENT AUTO 72.5 % (41.0-71.0); NRBC ABSOLUTE 0.00 K/uL (0.00-0.02); NRBC PERCENT 0.0 /100WBC (0.0-0.2); PLATELET COUNT,PLT 203 K/uL (150-400); RED BLOOD CELL COUNT 3.27 M/uL (4.10-5.30); WHITE BLOOD CELL COUNT,WBC 9.77 K/uL (3.9-11.3)
[2025-08-11 18:22] LABS: A/G RATIO 1.1 (0.9-1.6); ALANINE AMINOTRANSFERASE,ALT 18 IU/L (14-63); ASPARTATE AMNIOTRANSFERASE,AST 24 IU/L (15-37); BILIRUBIN TOTAL 0.3 mg/dL (0.2-1.0); BLOOD UREA NITROGEN,BUN 25 mg/dL (7.0-18.0); CARBON DIOXIDE,CO2 29.9 mmol/L (21.0-32.0); CHLORIDE,CL 104 mmol/L (98-107); CREATININE 0.7 mg/dL (0.6-1.0); GLUCOSE RANDOM 97 mg/dL (74-106); POTASSIUM,K 4.4 mmol/L (3.5-5.1); PROTEIN TOTAL,TP 6.6 g/dL (6.4-8.2); SODIUM,NA 142 mmol/L (136-145)
[2025-08-11 18:25] LABS: ESTIMATED GFR 90 mL/min (>60)
[2025-08-11] MEDS ORDERED: Ondansetron 4 MG/2 ML SDV IVPUSH PRN (18:48)
[2025-08-11] MEDS ORDERED: [UNRECOGNIZED DRUG - OTHER] NASBOTH PRN (18:56)
[2025-08-11] MEDS ORDERED: SODIUM CHLORIDE NASBOTH PRN (18:56)
[2025-08-11] MEDS ORDERED: Budesonide 0.5 MG/2 ML Neb Susp INH SCH ×2 (19:00→19:15)
[2025-08-11] MEDS: Sennosides/Docusate Sodium 50-8.6 MG Tab PO SCH (20:42)
[2025-08-12 05:39] LABS: BASOPHILS ABSOLUTE AUTO 0.03 K/uL (0.00-0.20); BASOPHILS PERCENT AUTO 0.4 % (0.0-1.0); EOSINOPHILS ABSOLUTE AUTO 0.08 K/uL (0.00-0.45); EOSINOPHILS PERCENT AUTO 1.2 % (0.0-6.0); IMMATURE GRAN ABSOLUTE AUTO 0.02 K/uL (0.00-0.05); IMMATURE GRAN PERCENT AUTO 0.3 % (0.0-0.4); LYMPHOCYTES ABSOLUTE AUTO 1.45 K/uL (1.00-4.80); LYMPHOCYTES PERCENT AUTO 21.0 % (24.0-44.0); MEAN PLATELET VOLUME 9.3 fL (9.4-12.3); MONOCYTES ABSOLUTE AUTO 0.64 K/uL (0.00-0.80); MONOCYTES PERCENT AUTO 9.3 % (0.0-8.0); NEUTROPHILS ABSOLUTE AUTO 4.69 K/uL (1.80-7.70); NEUTROPHILS PERCENT AUTO 67.8 % (41.0-71.0); NRBC ABSOLUTE 0.00 K/uL (0.00-0.02); NRBC PERCENT 0.0 /100WBC (0.0-0.2); PLATELET COUNT,PLT 201 K/uL (150-400); RED BLOOD CELL COUNT 3.54 M/uL (4.10-5.30); WHITE BLOOD CELL COUNT,WBC 6.91 K/uL (3.9-11.3)
[2025-08-12 05:52] LABS: BLOOD UREA NITROGEN,BUN 19.0 mg/dL (7.0-18.0); CARBON DIOXIDE,CO2 29.5 mmol/L (21.0-32.0); CHLORIDE,CL 104.0 mmol/L (98-107); CREATININE 0.7 mg/dL (0.6-1.0); EST CRCL DRUG DOSING (CG) 46.41 mL/min; GLUCOSE RANDOM 92.0 mg/dL (74-106); POTASSIUM,K 4.3 mmol/L (3.5-5.1); SODIUM,NA 142.0 mmol/L (136-145)
[2025-08-12 05:53] LABS: ESTIMATED GFR 90.0 mL/min (>60)
[2025-08-12] MEDS ORDERED: Albuterol 0.083% 2.5 MG/3 ML Neb Soln NEB PRN (08:40)
[2025-08-12] MEDS ORDERED: fentaNYL 50 MCG/ML SDV IVPUSH PRN (08:40)
[2025-08-12] MEDS ORDERED: Naloxone 0.4 MG/ML SDV IVPUSH PRN (08:40)
[2025-08-12] MEDS ORDERED: Ondansetron 4 MG/2 ML SDV IVPUSH PRN (08:40)
[2025-08-12] MEDS ORDERED: Propofol 200 MG/20 ML SDV ONE ×2 (11:41→13:00)
[2025-08-12] MEDS ORDERED: fentaNYL 100 MCG/2 ML SDV ONE (11:41)
[2025-08-12] MEDS ORDERED: Ondansetron 4 MG/2 ML SDV ONE (11:41)
[2025-08-12] MEDS ORDERED: Ropivacaine 0.5% 5 MG/ML 30 ML SDV ONE (11:51)
[2025-08-12] MEDS: levETIRAcetam 500 MG/5 ML SDV IVPUSH ONE (12:21)
[2025-08-12] MEDS ORDERED: ePHEDrine 50 MG/ML SDV ONE (13:41)
[2025-08-12] MEDS: ceFAZolin 1 GM in Water For Injection, Sterile 10 ML IVPUSH SCH (20:12)
[2025-08-13 05:27] LABS: BASOPHILS ABSOLUTE AUTO 0.03 K/uL (0.00-0.20); BASOPHILS PERCENT AUTO 0.4 % (0.0-1.0); EOSINOPHILS ABSOLUTE AUTO 0.17 K/uL (0.00-0.45); EOSINOPHILS PERCENT AUTO 2.3 % (0.0-6.0); IMMATURE GRAN ABSOLUTE AUTO 0.02 K/uL (0.00-0.05); IMMATURE GRAN PERCENT AUTO 0.3 % (0.0-0.4); LYMPHOCYTES ABSOLUTE AUTO 1.33 K/uL (1.00-4.80); LYMPHOCYTES PERCENT AUTO 17.8 % (24.0-44.0); MEAN PLATELET VOLUME 10.0 fL (9.4-12.3); MONOCYTES ABSOLUTE AUTO 0.88 K/uL (0.00-0.80); MONOCYTES PERCENT AUTO 11.8 % (0.0-8.0); NEUTROPHILS ABSOLUTE AUTO 5.05 K/uL (1.80-7.70); NEUTROPHILS PERCENT AUTO 67.4 % (41.0-71.0); NRBC ABSOLUTE 0.00 K/uL (0.00-0.02); NRBC PERCENT 0.0 /100WBC (0.0-0.2); PLATELET COUNT,PLT 177 K/uL (150-400); RED BLOOD CELL COUNT 3.17 M/uL (4.10-5.30); WHITE BLOOD CELL COUNT,WBC 7.48 K/uL (3.9-11.3)
[2025-08-13 05:45] LABS: BLOOD UREA NITROGEN,BUN 17.0 mg/dL (7.0-18.0); CARBON DIOXIDE,CO2 29.6 mmol/L (21.0-32.0); CHLORIDE,CL 105.0 mmol/L (98-107); CREATININE 0.7 mg/dL (0.6-1.0); EST CRCL DRUG DOSING (CG) 46.41 mL/min; GLUCOSE RANDOM 98.0 mg/dL (74-106); POTASSIUM,K 4.1 mmol/L (3.5-5.1); SODIUM,NA 141.0 mmol/L (136-145)
[2025-08-13 05:46] LABS: ESTIMATED GFR 90.0 mL/min (>60)
[2025-08-13] MEDS ORDERED: AZELASTINE HCL EYEBOTH PRN (10:09)
[2025-08-14 06:19] LABS: BASOPHILS ABSOLUTE AUTO 0.03 K/uL (0.00-0.20); BASOPHILS PERCENT AUTO 0.4 % (0.0-1.0); EOSINOPHILS ABSOLUTE AUTO 0.18 K/uL (0.00-0.45); EOSINOPHILS PERCENT AUTO 2.3 % (0.0-6.0); IMMATURE GRAN ABSOLUTE AUTO 0.02 K/uL (0.00-0.05); IMMATURE GRAN PERCENT AUTO 0.3 % (0.0-0.4); LYMPHOCYTES ABSOLUTE AUTO 1.28 K/uL (1.00-4.80); LYMPHOCYTES PERCENT AUTO 16.5 % (24.0-44.0); MEAN PLATELET VOLUME 9.5 fL (9.4-12.3); MONOCYTES ABSOLUTE AUTO 0.70 K/uL (0.00-0.80); MONOCYTES PERCENT AUTO 9.0 % (0.0-8.0); NEUTROPHILS ABSOLUTE AUTO 5.55 K/uL (1.80-7.70); NEUTROPHILS PERCENT AUTO 71.5 % (41.0-71.0); NRBC ABSOLUTE 0.00 K/uL (0.00-0.02); NRBC PERCENT 0.0 /100WBC (0.0-0.2); PLATELET COUNT,PLT 176 K/uL (150-400); RED BLOOD CELL COUNT 3.39 M/uL (4.10-5.30); WHITE BLOOD CELL COUNT,WBC 7.76 K/uL (3.9-11.3)
[2025-08-14 06:42] LABS: BLOOD UREA NITROGEN,BUN 14.0 mg/dL (7.0-18.0); CARBON DIOXIDE,CO2 31.3 mmol/L (21.0-32.0); CHLORIDE,CL 103.0 mmol/L (98-107); CREATININE 0.5 mg/dL (0.6-1.0); EST CRCL DRUG DOSING (CG) 64.98 mL/min; GLUCOSE RANDOM 96.0 mg/dL (74-106); POTASSIUM,K 4.1 mmol/L (3.5-5.1); SODIUM,NA 139.0 mmol/L (136-145)
[2025-08-14 06:48] LABS: ESTIMATED GFR 97.0 mL/min (>60)
[2025-08-15 08:33] LABS: BASOPHILS ABSOLUTE AUTO 0.03 K/uL (0.00-0.20); BASOPHILS PERCENT AUTO 0.4 % (0.0-1.0); EOSINOPHILS ABSOLUTE AUTO 0.19 K/uL (0.00-0.45); EOSINOPHILS PERCENT AUTO 2.6 % (0.0-6.0); IMMATURE GRAN ABSOLUTE AUTO 0.01 K/uL (0.00-0.05); IMMATURE GRAN PERCENT AUTO 0.1 % (0.0-0.4); LYMPHOCYTES ABSOLUTE AUTO 1.85 K/uL (1.00-4.80); LYMPHOCYTES PERCENT AUTO 25.4 % (24.0-44.0); MEAN PLATELET VOLUME 9.4 fL (9.4-12.3); MONOCYTES ABSOLUTE AUTO 0.63 K/uL (0.00-0.80); MONOCYTES PERCENT AUTO 8.7 % (0.0-8.0); NEUTROPHILS ABSOLUTE AUTO 4.56 K/uL (1.80-7.70); NEUTROPHILS PERCENT AUTO 62.8 % (41.0-71.0); NRBC ABSOLUTE 0.00 K/uL (0.00-0.02); NRBC PERCENT 0.0 /100WBC (0.0-0.2); PLATELET COUNT,PLT 206 K/uL (150-400); RED BLOOD CELL COUNT 3.25 M/uL (4.10-5.30); WHITE BLOOD CELL COUNT,WBC 7.27 K/uL (3.9-11.3)
[2025-08-15 08:55] LABS: BLOOD UREA NITROGEN,BUN 18.0 mg/dL (7.0-18.0); CARBON DIOXIDE,CO2 32.4 mmol/L (21.0-32.0); CHLORIDE,CL 103.0 mmol/L (98-107); CREATININE 0.6 mg/dL (0.6-1.0); EST CRCL DRUG DOSING (CG) 54.15 mL/min; GLUCOSE RANDOM 95.0 mg/dL (74-106); POTASSIUM,K 4.4 mmol/L (3.5-5.1); SODIUM,NA 142.0 mmol/L (136-145)
[2025-08-15 09:02] LABS: ESTIMATED GFR 93.0 mL/min (>60)
[2025-08-21 05:52] LABS: BASOPHILS ABSOLUTE AUTO 0.05 K/uL (0.00-0.20); BASOPHILS PERCENT AUTO 0.9 % (0.0-1.0); EOSINOPHILS ABSOLUTE AUTO 0.11 K/uL (0.00-0.45); EOSINOPHILS PERCENT AUTO 1.9 % (0.0-6.0); IMMATURE GRAN ABSOLUTE AUTO 0.01 K/uL (0.00-0.05); IMMATURE GRAN PERCENT AUTO 0.2 % (0.0-0.4); LYMPHOCYTES ABSOLUTE AUTO 1.85 K/uL (1.00-4.80); LYMPHOCYTES PERCENT AUTO 31.6 % (24.0-44.0); MEAN PLATELET VOLUME 9.0 fL (9.4-12.3); MONOCYTES ABSOLUTE AUTO 0.59 K/uL (0.00-0.80); MONOCYTES PERCENT AUTO 10.1 % (0.0-8.0); NEUTROPHILS ABSOLUTE AUTO 3.24 K/uL (1.80-7.70); NEUTROPHILS PERCENT AUTO 55.3 % (41.0-71.0); NRBC ABSOLUTE 0.00 K/uL (0.00-0.02); NRBC PERCENT 0.0 /100WBC (0.0-0.2); PLATELET COUNT,PLT 303 K/uL (150-400); RED BLOOD CELL COUNT 3.42 M/uL (4.10-5.30); WHITE BLOOD CELL COUNT,WBC 5.85 K/uL (3.9-11.3)
[2025-08-21 06:27] LABS: CARBON DIOXIDE,CO2 30.8 mmol/L (21.0-32.0); CHLORIDE,CL 105.0 mmol/L (98-107); CREATININE 0.7 mg/dL (0.6-1.0); EST CRCL DRUG DOSING (CG) 46.41 mL/min; GLUCOSE RANDOM 96.0 mg/dL (74-106); POTASSIUM,K 4.3 mmol/L (3.5-5.1); SODIUM,NA 142.0 mmol/L (136-145)
[2025-08-21 06:36] LABS: ESTIMATED GFR 90.0 mL/min (>60)
[2025-08-21 07:06] LABS: BLOOD UREA NITROGEN,BUN 31.0 mg/dL (7.0-18.0)
[2025-08-26 11:55] VITALS: BP 94/46; PULSE 81
== END 2025-08-26 12:40 | disposition home health service (06) | DRG 482 ==
LOC: MW.ED 12:50 → MW.MS 18:28
PROVIDERS: ADMIT Family Medicine; ATTEND Orthopaedic Surgery
PROC: 0QS604Z Reposition Right Upper Femur with Internal Fixation Device, Open Approach (ICD-10-PCS; principal; 2025-08-11)
DX: S72.002A Fracture of unspecified part of neck of left femur, initial encounter for closed fracture (principal); S72.001A Fracture of unspecified part of neck of right femur, initial encounter for closed fracture; Z66 Do not resuscitate; W19.XXXA Unspecified fall, initial encounter; I10 Essential (primary) hypertension; I45.81 Long QT syndrome; R56.9 Unspecified convulsions; F79 Unspecified intellectual disabilities; I77.1 Stricture of artery; H91.90 Unspecified hearing loss, unspecified ear; E78.00 Pure hypercholesterolemia, unspecified; J45.909 Unspecified asthma, uncomplicated; K21.9 Gastro-esophageal reflux disease without esophagitis; M19.90 Unspecified osteoarthritis, unspecified site; F32.A Depression, unspecified; E03.9 Hypothyroidism, unspecified; Z98.49 Cataract extraction status, unspecified eye; Z98.890 Other specified postprocedural states; Z88.2 Allergy status to sulfonamides; Z88.8 Allergy status to other drugs, medicaments and biological substances; Z79.899 Other long term (current) drug therapy
CPT/HCPCS: 36415; 72192; 73502; 73552; 73590; 73620; 80053; 85025; 99284; A9270; 01230; 76000; 76000-26; 80048; 83735; 92610-GN; 97110-GO; 97116-GP; 97163-GP; 97165-GO; 97530-GP; 99100; 99222; 99231; 99232; 99238; C1713; J0690; J1650; J2003; J2270; J2405; J2704; J2795; J3010; J3490

== ENCOUNTER 2025-10-18 11:35 | Inpatient (IN) | payer MEDICARE, MEDICAID ==
[2025-10-18 13:54] LABS: BASOPHILS ABSOLUTE AUTO 0.03 K/uL (0.00-0.20); BASOPHILS PERCENT AUTO 0.4 % (0.0-1.0); EOSINOPHILS ABSOLUTE AUTO 0.15 K/uL (0.00-0.45); EOSINOPHILS PERCENT AUTO 1.9 % (0.0-6.0); IMMATURE GRAN ABSOLUTE AUTO 0.02 K/uL (0.00-0.05); IMMATURE GRAN PERCENT AUTO 0.3 % (0.0-0.4); LYMPHOCYTES ABSOLUTE AUTO 1.25 K/uL (1.00-4.80); LYMPHOCYTES PERCENT AUTO 16.2 % (24.0-44.0); MEAN PLATELET VOLUME 9.7 fL (9.4-12.3); MONOCYTES ABSOLUTE AUTO 0.58 K/uL (0.00-0.80); MONOCYTES PERCENT AUTO 7.5 % (0.0-8.0); NEUTROPHILS ABSOLUTE AUTO 5.67 K/uL (1.80-7.70); NEUTROPHILS PERCENT AUTO 73.7 % (41.0-71.0); NRBC ABSOLUTE 0.00 K/uL (0.00-0.02); NRBC PERCENT 0.0 /100WBC (0.0-0.2); PLATELET COUNT,PLT 230 K/uL (150-400); RED BLOOD CELL COUNT 3.47 M/uL (4.10-5.30); WHITE BLOOD CELL COUNT,WBC 7.70 K/uL (3.9-11.3)
[2025-10-18] MEDS: Ondansetron 4 MG/2 ML SDV IVPUSH ONE (14:09)
[2025-10-18 14:14] LABS: BLOOD UREA NITROGEN,BUN 25 mg/dL (7.0-18.0); CARBON DIOXIDE,CO2 30.2 mmol/L (21.0-32.0); CHLORIDE,CL 104 mmol/L (98-107); CREATININE 0.8 mg/dL (0.6-1.0); GLUCOSE RANDOM 113 mg/dL (74-106); PHOSPHORUS 4.0 mg/dL (2.6-4.7); POTASSIUM,K 4.6 mmol/L (3.5-5.1); SODIUM,NA 142 mmol/L (136-145)
[2025-10-18 14:15] LABS: ESTIMATED GFR 76 mL/min (>60)
[2025-10-18] MEDS: Ketorolac 30 MG/ML SDV IVPUSH ONE (15:23)
[2025-10-18] MEDS ORDERED: Sodium Chloride 0.9% 10 ML Syringe FLUSH PRN (15:43)
[2025-10-18] MEDS ORDERED: Sodium Chloride 0.9% 2.5 ML Syringe FLUSH PRN (15:43)
[2025-10-18] MEDS ORDERED: Ondansetron 4 MG/2 ML SDV IVPUSH PRN (15:43)
[2025-10-18] MEDS ORDERED: Naloxone 0.4 MG/ML SDV IVPUSH PRN (15:46)
[2025-10-19 05:40] LABS: BASOPHILS ABSOLUTE AUTO 0.04 K/uL (0.00-0.20); BASOPHILS PERCENT AUTO 0.6 % (0.0-1.0); EOSINOPHILS ABSOLUTE AUTO 0.18 K/uL (0.00-0.45); EOSINOPHILS PERCENT AUTO 2.8 % (0.0-6.0); IMMATURE GRAN ABSOLUTE AUTO 0.02 K/uL (0.00-0.05); IMMATURE GRAN PERCENT AUTO 0.3 % (0.0-0.4); LYMPHOCYTES ABSOLUTE AUTO 1.73 K/uL (1.00-4.80); LYMPHOCYTES PERCENT AUTO 26.6 % (24.0-44.0); MEAN PLATELET VOLUME 9.8 fL (9.4-12.3); MONOCYTES ABSOLUTE AUTO 0.62 K/uL (0.00-0.80); MONOCYTES PERCENT AUTO 9.5 % (0.0-8.0); NEUTROPHILS ABSOLUTE AUTO 3.91 K/uL (1.80-7.70); NEUTROPHILS PERCENT AUTO 60.2 % (41.0-71.0); NRBC ABSOLUTE 0.00 K/uL (0.00-0.02); NRBC PERCENT 0.0 /100WBC (0.0-0.2); PLATELET COUNT,PLT 205 K/uL (150-400); RED BLOOD CELL COUNT 3.30 M/uL (4.10-5.30); WHITE BLOOD CELL COUNT,WBC 6.50 K/uL (3.9-11.3)
[2025-10-19 05:55] LABS: BLOOD UREA NITROGEN,BUN 39 mg/dL (7.0-18.0); CARBON DIOXIDE,CO2 32.6 mmol/L (21.0-32.0); CHLORIDE,CL 106 mmol/L (98-107); CREATININE 0.9 mg/dL (0.6-1.0); ESTIMATED GFR 66 mL/min (>60); GLUCOSE RANDOM 87 mg/dL (74-106); POTASSIUM,K 4.7 mmol/L (3.5-5.1); SODIUM,NA 144 mmol/L (136-145)
[2025-10-19] MEDS ORDERED: Budesonide 0.5 MG/2 ML Neb Susp INH PRN (08:03)
[2025-10-21 11:50] VITALS: BP 131/53; PULSE 67
== END 2025-10-21 14:20 | disposition home health service (06) | DRG 535 ==
LOC: MW.ED 11:35 → MW.MS 13:13
PROVIDERS: ADMIT Internal Medicine; ATTEND Internal Medicine
DX: S32.591A Other specified fracture of right pubis, initial encounter for closed fracture (principal); S32.401A Unspecified fracture of right acetabulum, initial encounter for closed fracture; I10 Essential (primary) hypertension; H91.90 Unspecified hearing loss, unspecified ear; E78.00 Pure hypercholesterolemia, unspecified; J45.909 Unspecified asthma, uncomplicated; K21.9 Gastro-esophageal reflux disease without esophagitis; Z79.890 Hormone replacement therapy; M19.90 Unspecified osteoarthritis, unspecified site; F32.A Depression, unspecified; E03.9 Hypothyroidism, unspecified; W19.XXXA Unspecified fall, initial encounter; F79 Unspecified intellectual disabilities; R94.31 Abnormal electrocardiogram [ECG] [EKG]; W18.30XA Fall on same level, unspecified, initial encounter; I77.1 Stricture of artery; G40.909 Epilepsy, unspecified, not intractable, without status epilepticus; Z88.2 Allergy status to sulfonamides; Z88.1 Allergy status to other antibiotic agents; Z88.8 Allergy status to other drugs, medicaments and biological substances; Z79.899 Other long term (current) drug therapy; Z79.51 Long term (current) use of inhaled steroids; Z79.891 Long term (current) use of opiate analgesic; Z98.49 Cataract extraction status, unspecified eye; Z98.890 Other specified postprocedural states; Y92.199 Unspecified place in other specified residential institution as the place of occurrence of the external cause
CPT/HCPCS: 36415; 70450; 70450-26; 73552-26-LT; 73552-LT; 73552-RT; 74176; 74176-26; 80048; 83735; 84100; 85025; 97110-GO; 97161-GP; 97165-GO; 97530-GP; 99222; 99231; 99232; 99238; 99284; 99285; A9270-GY; J1171; J1650; J1885; J2270; J2405